=== PATIENT | female | born 1940 | race Caucasian/White ===

== ENCOUNTER 2023-02-06 15:03 | Outpatient (AMB) | payer MEDICARE, OTHER, SELFPAY ==
[2023-02-06 15:08] VITALS: BP 110/58; PULSE 92; O2SAT 97; BMI 18.7
--- NOTE | 2023-02-06 15:08 | MHC.PC.OV ---
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 Switched appt with for next week Allergies No Known Allergies Allergy (Verified 02/06/23 15:09) Medication List - Last Reconciled 02/06/23 by Rachel Parekh MD mercaptopurine 50 mg PO DAILY metoprolol succinate ER 50 mg PO DAILY quetiapine 100 mg PO BEDTIME rivaroxaban (Xarelto) 15 mg PO QPM Tobacco use date assessed: 02/06/23 Fall risk assessment: 1 Fall in past year Last assessed Fall Risk: 02/06/23 Dental Screening Dental Screen Date: 02/06/23 Did you have a dental visit in the last 12 months?: Yes Did you have a dental problem in the last 6 months where you did not have access to dental care?: No Was dental information given to patient?: No 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 week HPI Details Patient is 82-year-old gentleman [place] moved [place] [facility] in today for establish care visit Patient have a history of bipolar disorder he was seeing a psychiatrist in [place] and is in need of new psychiatrist He has medication for 2 months he is on Seroquel 100 mg daily which is helping control his symptoms Chronic atrial fibrillation: Patient is on Xarelto and metoprolol heart rate is controlled need a referra for cardiology Crohn's disease: Patient is on mercaptopurine and need a referral to Gastroenterology Dermatology referral for skin cancer screening Patient have scoliosis and having difficulty walking now I have ordered x-ray of his thoracic spine and lumbar spine to see how bad the problem is. Lab order placed to be done fasting Follow-up 8 weeks Patient have enough medication until then [facility] Social History Housing: Assisted Living Facility Patient Tobacco Use Status: Never used Tobacco e-Cigarette/Vaping Use: Never Used service: No Current occupational status: retired Cognitive needs: No Hearing needs: No Vision needs: Yes Questionnaire AUDIT C Alcohol Use Questionnaire (AUDIT-C) 1. How often do you have a drink containing alcohol?: Never 2. How many drinks containing alcohol do you have on a typical day when you are drinking?: 1 or 2 Total Score: 0 Score Reviewed/Action Taken: Yes Review of Systems Const Denies chills and Denies fever(s) ENT Denies epistaxis and Denies nasal discharge Card Denies chest pain Resp Denies chest congestion, Denies cough and Denies hemoptysis GI Denies diarrhea and Denies nausea Skin/Breast Denies rash Neuro Reports no additional complaints Psych Reports no additional complaints Endo Reports no additional complaints Physical exam (Primary Care) Vital Signs: Last Vital Signs Pulse 92 02/06/23 15:08 BP 110/58 L 02/06/23 15:08 Pulse Ox 97 02/06/23 15:08 Oxygen Delivery Method Room Air 02/06/23 15:08 BMI result Body Mass Index 18.7 Tobacco/Smoking Status: Tobacco use Status Tobacco use date assessed 02/06/23 02/06/23 15:14 Patient Tobacco Use Status Never used Tobacco 02/06/23 15:14 e-Cigarette/Vaping Use Never Used 02/06/23 15:14 Const General: cooperative, comfortable and no acute distress Orientation/consciousness: patient oriented x3 HENMT Head: Yes normocephalic Eyes General: appearance normal, both eyes and all related structures Neck Neck: Yes supple Resp Effort & Inspection: normal respiratory effort, no cough and no stridor Cardio Other: Regularly irregular Heart sounds: S1 normal heart sound present and S2 normal heart sound present Back/Spine/Pelvis Other: Scoliosis present Skin General skin exam: turgor normal Neuro General: patient oriented x3, tone normal and moves all extremities Extrem Right lower extremity: no edema Left lower extremity: no edema Assessment and Plan Assessment & Plan (1) Establishing care with new doctor, encounter for: Code(s): Z76.89 - Persons encountering health services in other specified circumstances (2) Bipolar 1 disorder: Code(s): F31.9 - Bipolar disorder, unspecified (3) A-fib: Code(s): I48.91 - Unspecified atrial fibrillation (4) Crohn disease: Code(s): K50.90 - Crohn's disease, unspecified, without complications (5) Scoliosis: Code(s): M41.9 - Scoliosis, unspecified Plan Patient is 82-year-old gentleman who [place] came in today for establish care visit Patient have a history of bipolar disorder he was seeing a psychiatrist in [place] and is in need of new psychiatrist He has medication for 2 months he is on Seroquel 100 mg daily which is helping control his symptoms Chronic atrial fibrillation: Patient is on Xarelto and metoprolol heart rate is controlled need a referra for cardiology Crohn's disease: Patient is on mercaptopurine and need a referral to Gastroenterology Dermatology referral for skin cancer screening Patient have scoliosis and having difficulty walking now I have ordered x-ray of his thoracic spine and lumbar spine to see how bad the problem is. Lab order placed to be done fasting Follow-up 8 weeks Patient have enough medication until then Orders: Orders Comprehensive [place]. Panel Fast Today F31.9 - Bipolar disorder, unspecified, I48.91 - Unspecified atrial fibrillation, K50.90 - Crohn's disease, unspecified, without complications, Z76.89 - Persons encountering health services in other specified circumstances Lipid Panel Today F31.9 - Bipolar disorder, unspecified, I48.91 - Unspecified atrial fibrillation, K50.90 - Crohn's disease, unspecified, without complications, Z76.89 - Persons encountering health services in other specified circumstances TSH reflex Free T4 Today F31.9 - Bipolar disorder, unspecified, I48.91 - Unspecified atrial fibrillation, K50.90 - Crohn's disease, unspecified, without complications, Z76.89 - Persons encountering health services in other specified circumstances Complete Blood Count Auto Diff Today F31.9 - Bipolar disorder, unspecified, I48.91 - Unspecified atrial fibrillation, K50.90 - Crohn's disease, unspecified, without complications, Z76.89 - Persons encountering health services in other specified circumstances XR thoracic spine 2V Today M41.9 - Scoliosis, unspecified XR lumbar spine 2-3V Today M41.9 - Scoliosis, unspecified Referrals Gastroenterology Referral K50.90 - Crohn's disease, unspecified, without complications Dermatology Referral Z12.83 - Encounter for screening for malignant neoplasm of skin Cardiology Referral I48.91 - Unspecified atrial fibrillation Psychiatry Referral F31.9 - Bipolar disorder, unspecified Coding Level of Care Code New Pt Level 4 (38768) Diagnoses Establishing care with new doctor, encounter for Z76.89 Bipolar 1 disorder F31.9 A-fib I48.91 Crohn disease K50.90 Scoliosis M41.9
== END 2023-02-06 16:13 | disposition home or self-care (01) ==
PROVIDERS: Visit Provider Internal Medicine
DX: Z76.89 Persons encountering health services in other specified circumstances (principal); F31.9 Bipolar disorder, unspecified; I48.91 Unspecified atrial fibrillation; K50.90 Crohn's disease, unspecified, without complications; M41.9 Scoliosis, unspecified
CPT/HCPCS: 99204

== ENCOUNTER 2023-02-18 10:32 | Outpatient (REF) | payer MEDICARE, OTHER, SELFPAY ==
[2023-02-18 13:33] LABS: MANUAL DIFF FLAG NO
[2023-02-18 13:39] LABS: Basophils Percent Auto 0.7 % (0-2); Eosinophils Absolute Auto 0.1 X10*3/uL (0.0-0.4); Hematocrit 34.7 % (37.0-47.0); Hemoglobin 11.5 g/dl (12.0-16.0); Imm Gran Abs Auto 0.02 X10*3/uL (0.00-0.03); Imm Gran Pct Auto 0.5 % (0.0-0.4); Lymphocytes Absolute Auto 0.2 X10*3/uL (1.2-4.9); Mean Corpuscular HGB Conc 33.1 g/dl (31.0-35.0); Mean Corpuscular Hemoglobin 34.2 pg (27.0-33.0); Mean Corpuscular Volume 103.3 fL (80.0-98.0); Mean Platelet Volume 11.6 fL (9.4-12.3); Monocytes Absolute Auto 0.5 X10*3/uL (0.1-1.2); Monocytes Percent Auto 13.4 % (2-11); Neutrophils Absolute Auto 3.1 x10*3/uL (2.0-8.3); Neutrophils Percent Auto 76.4 % (45-73); Platelet Count 180 X10*3/uL (160-400); Red Blood Count 3.36 X10*6/uL (4.20-5.50); Red Cell Distribution Width 14.4 % (11.0-16.0)
[2023-02-18 14:14] LABS: Alanine Aminotransferase 32 U/L (0-31); Albumin Level 4.1 g/dL (3.5-5.0); Alkaline Phosphatase 63 U/L (39-117); Anion Gap 11 (12-20); Aspartate Amino Transferase 30 U/L (5-31); Bilirubin Total 2.6 mg/dL (0.0-1.0); Blood Urea Nitrogen 24 mg/dL (9-16); Calcium 9.9 mg/dL (8.4-10.2); Carbon Dioxide 28 mmol/L (22-29); Chloride 107 mmol/L (96-108); Cholesterol 110 mg/dL (<200); Estimated Glomerular Filt Rate > 60; Glucose Fasting 93 mg/dL (60-99); HDL Cholesterol 58 mg/dL (>40); LDL Cholesterol Calculated 41 mg/dL (<100); Potassium 4.6 mmol/L (3.3-5.1); Sodium 141 mmol/L (135-145); TSH reflex Free T4 1.69 uIU/mL (0.32-4.0); Total Protein 6.8 g/dL (6.5-8.0); Triglycerides 56 mg/dL (<150)
[2023-02-18 14:22] LABS: Vitamin B12 810 pg/mL (200-900)
[2023-02-22 09:05] LABS: Intrinsic Factor Antibodies Negative (Negative)
== END 2023-02-18 10:33 | disposition home or self-care (01) ==
LOC: HO.HMGCLDS 10:32
PROVIDERS: PCP Internal Medicine; Visit Provider Internal Medicine
DX: E53.8 Deficiency of other specified B group vitamins (principal); F31.9 Bipolar disorder, unspecified; I48.91 Unspecified atrial fibrillation; K50.90 Crohn's disease, unspecified, without complications; Z76.89 Persons encountering health services in other specified circumstances
CPT/HCPCS: 36415; 80053; 80061; 82607; 84443; 85025; 86340

== ENCOUNTER 2023-03-24 12:02 | Outpatient (AMB) | payer MEDICARE, OTHER, SELFPAY ==
[2023-03-24 12:03] VITALS: BP 110/62; PULSE 77; O2SAT 99; BMI 19.7
--- NOTE | 2023-03-24 12:03 | MHC.PC.OV ---
Vital Signs 03/24/23 12:03 Height 5 ft 10 in Weight 137 lb BMI 19.7 BP 110/62 Blood Pressure Location Rt brachial Position Sitting Pulse 77 Pulse Source Pulse Oximeter Pulse Oximetry (%) 99 Oxygen Delivery Method Room Air Intake Visit Reasons: 6 week fu Allergies No Known Allergies Allergy (Verified 03/24/23 12:03) Medication List - Last Reconciled 03/24/23 by Rachel Parekh MD mercaptopurine 50 mg PO DAILY metoprolol succinate ER 50 mg PO DAILY quetiapine 100 mg PO BEDTIME rivaroxaban (Xarelto) 15 mg PO QPM Tobacco use date assessed: 03/24/23 Fall risk assessment: No Falls in past year Last assessed Fall Risk: 03/24/23 Dental Screening Dental Screen Date: 03/24/23 Did you have a dental visit in the last 12 months?: Yes Did you have a dental problem in the last 6 months where you did not have access to dental care?: No Was dental information given to patient?: Patient has dentist HPI 6 week fu HPI Details Patient is 82-year-old gentleman came in today to go over his labs Patient is slightly anemic with hemoglobin in 11 range We will continue to monitor that. B12 level came back 810 This time patient does not need any supplement I will be repeating level again in 1 month as patient was on B12 injections. We do not have old records available as well I do not know if he has pernicious anemia or not. Patient does not know. Patient has appointment coming up with the gastroenterology for the management of Crohn's disease. Supposed to have ear irrigation done today but he forgot use Debrox. Patient will make another appointment for that. COUNT INCLUDES THE [facility] Social History Housing: Assisted Living Facility Patient Tobacco Use Status: Never used Tobacco e-Cigarette/Vaping Use: Never Used service: No Current occupational status: retired Cognitive needs: No Hearing needs: No Vision needs: Yes Questionnaire PHQ-9 Over the last 2 weeks, how often have you been bothered by any of the following problems? 1. Little interest or pleasure in doing things: not at all 2. Feeling down, depressed, or hopeless: not at all 3. Trouble falling or staying asleep, or sleeping too much: not at all 4. Feeling tired or having little energy: more than half the days 5. Poor appetite or overeating: not at all 6. Feeling bad about yourself - or that you are a failure or have let yourself or your family down: not at all 7. Trouble concentrating on things, such as reading the newspaper or watching television: not at all 8. Moving or speaking so slowly that other people could have noticed. Or the opposite - being so fidgety or restless that you have been moving around a lot more than usual: not at all 9. Thoughts that you would be better off or of hurting yourself in some way: not at all Total score: 2 Depression Screening Interpretation: Negative 79277 - PHQ-9 Billing: Yes Source: Developed by Drs. Franklin Funez, Sally Pappas, Geoff Spears and colleagues, with an educational rhonda from [employer]. Thrive Questionnaire I am a: Patient What is your living situation today?: I have a steady place to live Within the past 12 months, did the food you bought not last and you didn't have the money to get more?: Never true Within the past 12 months, did you worry whether your food would run out before you got money to buy more?: Never true Do you have trouble paying for medicines?: No Do you have trouble getting transportation to medical appointments?: No Do you have trouble paying your heating and electricity bill?: No Do you have trouble taking care of your child, family member or friend?: No Do you have trouble with day-to-day activities such as bathing, preparing meals, shopping, managing finances, etc.?: No Are you currently unemployed and looking for a job?: No Are you interested in more education?: No AUDIT C Alcohol Use Questionnaire (AUDIT-C) 1. How often do you have a drink containing alcohol?: Never 3. How often do you have six or more drinks on one occasion?: Never Total Score: 0 Score Reviewed/Action Taken: Yes SIDRA-7 AMB Questionnaire SIDRA-7 Date SIDRA - 7 assessed: 03/24/23 Feeling nervous, anxious, or on edge: 0 = Not at all Not being able to stop or control worryin = Not at all Worrying too much about different things: 0 = Not at all Trouble relaxin = More than half the days Being so restless that it is hard to sit still: 0 = Not at all Becoming easily annoyed or irritable: 0 = Not at all Feeling afraid as if something awful might happen: 0 = Not at all Total SIDRA-7 score (0-4 normal; 5-9 mild; 10-14 moderate; 15-21 severe): 2 Source: Developed by Drs. Franklin Funez, Sally Pappas, Geoff Spears and colleagues, with an educational rhonda from [employer]. SIDRA-7 Assessment Billing SIDRA-7 Assessment Tool: SIDRA-7 Assessment 66163 Review of Systems Const Denies chills and Denies fever(s) ENT Denies epistaxis and Denies nasal discharge Card Denies chest pain Resp Denies chest congestion, Denies cough and Denies hemoptysis GI Denies nausea Skin/Breast Denies rash Neuro Reports no additional complaints Psych Reports no additional complaints Endo Reports no additional complaints Physical exam (Primary Care) Vital Signs: Last Vital Signs Pulse 77 03/24/23 12:03 BP 110/62 03/24/23 12:03 Pulse Ox 99 03/24/23 12:03 Oxygen Delivery Method Room Air 03/24/23 12:03 BMI result Body Mass Index 19.7 Tobacco/Smoking Status: Tobacco use Status Tobacco use date assessed 03/24/23 03/24/23 12:04 Patient Tobacco Use Status Never used Tobacco 03/24/23 12:04 e-Cigarette/Vaping Use Never Used 03/24/23 12:04 PHQ-9: PHQ-9 Score PHQ-9: Total score 2 03/24/23 14:04 Depression Screening Interpretation: Negative Const General: cooperative, comfortable and no acute distress Orientation/consciousness: patient oriented x3 HENMT Head: Yes normocephalic Eyes General: appearance normal, both eyes and all related structures Neck Neck: Yes supple Resp Effort & Inspection: normal respiratory effort, no cough and no stridor Cardio Heart sounds: S1 normal heart sound present and S2 normal heart sound present Skin General skin exam: turgor normal Neuro General: patient oriented x3, tone normal and moves all extremities Extrem Right lower extremity: no edema Left lower extremity: no edema Results Reviewed Results Reviewed: Laboratory Tests 02/18/23 10:38 WBC 4.0 L RBC 3.36 L Hgb 11.5 L Hct 34.7 L Plt Count 180 Total Bilirubin 2.6 H AST 30 ALT 32 H Alkaline Phosphatase 63 LDL Cholesterol, Calc 41 Vitamin B12 810 TSH 1.69 Assessment and Plan Assessment & Plan (1) B12 deficiency: Code(s): E53.8 - Deficiency of other specified B group vitamins (2) Bipolar 1 disorder: Code(s): F31.9 - Bipolar disorder, unspecified (3) A-fib: Code(s): I48.91 - Unspecified atrial fibrillation Qualifiers: Atrial fibrillation type: persistent (not longstanding) Qualified Code(s): I48.19 - Other persistent atrial fibrillation (4) Crohn disease: Code(s): K50.90 - Crohn's disease, unspecified, without complications Qualifiers: Digestive disease complication type: without complication Gastrointestinal tract location: large intestine Qualified Code(s): K50.10 - Crohn's disease of large intestine without complications Plan Patient is 82-year-old gentleman came in today to go over his labs Patient is slightly anemic with hemoglobin in 11 range We will continue to monitor that. B12 level came back 810 This time patient does not need any supplement I will be repeating level again in 1 month as patient was on B12 injections. We do not have old records available as well I do not know if he has pernicious anemia or not. Patient does not know. Patient has appointment coming up with the gastroenterology for the management of Crohn's disease. Supposed to have ear irrigation done today but he forgot use Debrox. Patient will make another appointment for that. Bipolar disorder: He is on Seroquel and is waiting to see psychiatrist Patient have appointment coming up with Cardiovascular for the management of AFib. Orders: Orders Vitamin B12 Today E53.8 - Deficiency of other specified B group vitamins Parietal Cell Antibody Today E53.8 - Deficiency of other specified B group vitamins Coding Level of Care Code Est Pt Level 3 (63772) Diagnoses B12 deficiency E53.8 Bipolar 1 disorder F31.9 Persistent atrial fibrillation I48.19 Atrial fibrillation type: persistent (not longstanding) Crohn's disease of large intestine without complication K50.10 Digestive disease complication type: without complication Gastrointestinal tract location: large intestine Additional Codes SIDRA-7 Assessment Billing - SIDRA-7 Assessment Tool: SIDRA-7 Assessment [id number] ([id number])
== END 2023-03-24 12:38 | disposition home or self-care (01) ==
PROVIDERS: PCP Internal Medicine; Visit Provider Internal Medicine
DX: K50.10 Crohn's disease of large intestine without complications (principal); F31.9 Bipolar disorder, unspecified; I48.19 Other persistent atrial fibrillation; E53.8 Deficiency of other specified B group vitamins
CPT/HCPCS: 99213

== ENCOUNTER 2023-05-01 14:53 | Outpatient (REF) | payer MEDICARE, OTHER, SELFPAY ==
--- NOTE | ~2023-05-01 | XR_ITS ---
EXAMINATION: XR THORACIC SPINE XR LUMBAR SPINE CLINICAL INFORMATION: Scoliosis. COMPARISON: None available. TECHNIQUE: 2 views of the thoracic spine. 3 views of the lumbar spine. FINDINGS: THORACIC SPINE: Mild dextroscoliosis of the thoracic spine with advanced multilevel degenerative changes and hypertrophic change. The bones are diffusely demineralized. LUMBAR SPINE: Rightward curvature of the stt-od-usurr lumbar spine. The bones are diffusely demineralized. Advanced multilevel degenerative changes in the lumbar spine with multilevel loss of disc space height and subchondral sclerosis most notable at L4-L5. Minimal grade 1 retrolisthesis of L2 on L3. Facet arthritis in the rov-fw-rafni lumbar spine. XR/XR lumbar spine 2-3V IMPRESSION: Thoracolumbar scoliosis with advanced multilevel degenerative changes in the thoracolumbar spine.
--- NOTE | ~2023-05-01 | XR_ITS ---
EXAMINATION: XR THORACIC SPINE XR LUMBAR SPINE CLINICAL INFORMATION: Scoliosis. COMPARISON: None available. TECHNIQUE: 2 views of the thoracic spine. 3 views of the lumbar spine. FINDINGS: THORACIC SPINE: Mild dextroscoliosis of the thoracic spine with advanced multilevel degenerative changes and hypertrophic change. The bones are diffusely demineralized. LUMBAR SPINE: Rightward curvature of the ybj-up-vvcsa lumbar spine. The bones are diffusely demineralized. Advanced multilevel degenerative changes in the lumbar spine with multilevel loss of disc space height and subchondral sclerosis most notable at L4-L5. Minimal grade 1 retrolisthesis of L2 on L3. Facet arthritis in the cbe-yo-eqoyz lumbar spine. XR/XR thoracic spine 2V IMPRESSION: Thoracolumbar scoliosis with advanced multilevel degenerative changes in the thoracolumbar spine.
[2023-05-01 17:19] LABS: Vitamin B12 > 2000 pg/mL (200-900)
[2023-05-06 13:14] LABS: Parietal Cell Antibody <=20.0 Unit (<=20.0)
== END 2023-05-01 14:54 | disposition home or self-care (01) ==
LOC: HO.HMGCX 14:53
PROVIDERS: PCP Internal Medicine; Visit Provider Internal Medicine
DX: M41.9 Scoliosis, unspecified (principal); E53.8 Deficiency of other specified B group vitamins
CPT/HCPCS: 36415; 72070; 72100; 82607; 83516

== ENCOUNTER 2023-05-06 15:09 | Outpatient (AMB) | payer MEDICARE, OTHER, SELFPAY ==
--- NOTE | 2023-05-06 15:10 | A.OFFPC_ITS ---
Vital Signs 05/06/23 15:11 Height 5 ft 10 in Weight 134 lb 2 oz BMI 19.2 BP 100/56 L Blood Pressure Location Rt brachial Position Sitting Pulse 94 Pulse Source Pulse Oximeter Pulse Oximetry (%) 98 Oxygen Delivery Method Room Air Intake Visit Reasons: Referral for Alzheimer's dx Allergies No Known Allergies Allergy (Verified 05/06/23 15:11) Medication List - Last Reconciled 05/06/23 by Rachel Parekh MD mercaptopurine 50 mg PO DAILY metoprolol succinate ER 50 mg PO DAILY quetiapine 100 mg PO BEDTIME rivaroxaban (Xarelto) 15 mg PO QPM Tobacco use date assessed: 05/06/23 Fall risk assessment: No Falls in past year Last assessed Fall Risk: 05/06/23 Dental Screening Dental Screen Date: 05/06/23 Did you have a dental visit in the last 12 months?: Yes Did you have a dental problem in the last 6 months where you did not have access to dental care?: No Was dental information given to patient?: Patient has dentist HPI Referral for Alzheimer's dx HPI Details Patient is 82-year-old gentleman came in today to go over his labs and also to talk about memory changes Patient would like to see a neurologist for further management His labs shows very high B12 level I would recommend to stop taking it daily he may take that once a week He is also slightly anemic with hemoglobin of 11.5 We will repeat labs again in June before his visit One of his liver enzymes slightly elevated as well. Patient have severe scoliosis of the back he is looking for a rehab appointment to discuss it further Patient is looking for conservative management with back brace. [facility] Social History Housing: Assisted Living Facility Patient Tobacco Use Status: Never used Tobacco e-Cigarette/Vaping Use: Never Used service: No Current occupational status: retired Cognitive needs: No Hearing needs: No Vision needs: Yes Questionnaire SIDRA-7 AMB Questionnaire SIDRA-7 Date SIDRA - 7 assessed: 03/24/23 Source: Developed by Drs. Franklin Funez, Sally Pappas, Geoff Spears and colleagues, with an educational rhonda from [employer]. Review of Systems Const Denies chills and Denies fever(s) ENT Denies epistaxis and Denies nasal discharge Card Denies chest pain Resp Denies chest congestion, Denies cough and Denies hemoptysis GI Denies diarrhea and Denies nausea Skin/Breast Denies rash Neuro Reports no additional complaints Psych Reports no additional complaints Endo Reports no additional complaints Physical exam (Primary Care) Vital Signs: Last Vital Signs Pulse 94 05/06/23 15:11 BP 100/56 L 05/06/23 15:11 Pulse Ox 98 05/06/23 15:11 Oxygen Delivery Method Room Air 05/06/23 15:11 BMI result Body Mass Index 19.2 Tobacco/Smoking Status: Tobacco use Status Tobacco use date assessed 05/06/23 05/06/23 15:12 Patient Tobacco Use Status Never used Tobacco 05/06/23 15:12 e-Cigarette/Vaping Use Never Used 05/06/23 15:12 Const General: cooperative, comfortable and no acute distress Orientation/consciousness: patient oriented x3 HENMT Head: Yes normocephalic Eyes General: appearance normal, both eyes and all related structures Neck Neck: Yes supple Resp Effort & Inspection: normal respiratory effort, no cough and no stridor Cardio Heart sounds: S1 normal heart sound present and S2 normal heart sound present Back/Spine/Pelvis Other: Severe thoracic scoliosis Skin General skin exam: turgor normal Neuro General: patient oriented x3, tone normal and moves all extremities Extrem Right lower extremity: no edema Left lower extremity: no edema Assessment and Plan Assessment & Plan (1) Memory change: Code(s): R41.3 - Other amnesia (2) B12 deficiency: Code(s): E53.8 - Deficiency of other specified B group vitamins (3) Scoliosis: Code(s): M41.9 - Scoliosis, unspecified Qualifiers: Scoliosis type: idiopathic Idiopathic scoliosis type: other Spinal region: thoracic Qualified Code(s): M41.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 Patient have severe scoliosis of the back he is looking for a rehab appointment to discuss it further Patient is looking for conservative management with back brace. Orders: Orders Complete Blood Count Auto Diff Today E53.8 - Deficiency of other specified B group vitamins, F31.9 - Bipolar disorder, unspecified, I48.91 - Unspecified atrial fibrillation, K50.90 - Crohn's disease, unspecified, without complications Comprehensive Met. Panel Today E53.8 - Deficiency of other specified B group vitamins, F31.9 - Bipolar disorder, unspecified, I48.91 - Unspecified atrial fibrillation, K50.90 - Crohn's disease, unspecified, without complications Vitamin B12 Today E53.8 - Deficiency of other specified B group vitamins, F31.9 - Bipolar disorder, unspecified, I48.91 - Unspecified atrial fibrillation, K50.90 - Crohn's disease, unspecified, without complications Referrals Neurology Referral R41.3 - Other amnesia Physical Medicine and Rehabilitation Referral M41.9 - Scoliosis, unspecified Coding Level of Care Code Est Pt Level 4 (76324) Diagnoses Memory change R41.3 B12 deficiency E53.8 Other idiopathic scoliosis, thoracic region M41.24 Scoliosis type: idiopathic Idiopathic scoliosis type: other Spinal region: thoracic
[2023-05-06 15:11] VITALS: BP 100/56; PULSE 94; O2SAT 98; BMI 19.2
== END 2023-05-06 16:05 | disposition home or self-care (01) ==
PROVIDERS: PCP Internal Medicine; Visit Provider Internal Medicine
DX: R41.3 Other amnesia (principal); E53.8 Deficiency of other specified B group vitamins; M41.24 Other idiopathic scoliosis, thoracic region
CPT/HCPCS: 99214

== ENCOUNTER 2023-06-10 10:13 | Outpatient (AMB) | payer MEDICARE, OTHER, SELFPAY ==
--- NOTE | 2023-06-10 10:15 | A.OFFVIS_ITS ---
Intake Vital Signs 06/10/23 10:17 Height 5 ft 10 in Weight 138 lb 14.259 oz BMI 19.9 BP 110/62 Blood Pressure Location Lt brachial Position Sitting Pulse 63 Intake Visit Reasons: NPV/ afib/ Dr. Parekh Intake Note: NPV w/ EKG Certified Orthotic Fitter Required: No Accompanied by: Daughter Allergies No Known Allergies Allergy (Verified 06/10/23 10:20) Medication List - Last Reconciled 06/10/23 by Travis Argueta MD mercaptopurine 75 mg PO DAILY metoprolol succinate ER 50 mg PO DAILY quetiapine 100 mg PO BEDTIME rivaroxaban (Xarelto) 15 mg PO QPM HPI HPI Comments History of Present Illness Details Asael is here for consultation regarding atrial fibrillation. He used t o live in [place] but has now moved some local area. It seems that he has had atrial fibrillation for many years, possibly decades. He is on beta-blockers as well as Xarelto. Otherwise, no clear-cut history of any coronary disease or myocardial infarction or cardiomyopathy or in fact any other cardiac issues. Within limits of with activity, he does not have any clear symptoms like angina or shortness of breath. No palpitations. He states that he likes to walk regularly. [facility] Medical History (Updated 06/10/23 @ 10:39 by Travis Argueta MD) Crohn disease Persistent atrial fibrillation Family History (Updated 06/10/23 @ 10:22 by Estela Zheng) Father Heart problem Social History Housing: Assisted Living Facility Patient Tobacco Use Status: Never used Tobacco e-Cigarette/Vaping Use: Never Used service: No Current occupational status: retired Cognitive needs: No Hearing needs: No Vision needs: Yes Review of Systems Const Denies chills, Denies daytime sleepiness, Denies fatigue, Denies fever(s), Denies frequent falls, Denies night sweats, Denies snoring, Denies weakness, Denies weight gain and Denies weight loss Eyes Denies loss of vision ENT Denies dizziness and Denies hearing loss Card Denies chest pain, Denies chest pain with activity, Denies syncope, Denies rapid heart rate, Denies edema, Denies claudication, Denies leg edema, Denies lightheadedness, Denies palpitations, Denies dyspnea, Denies dyspnea on exertion and Denies orthopnea Resp Denies cough, Denies excessive phlegm production, Denies dyspnea, Denies dyspnea on exertion, Denies snoring and Denies wheezing GI Denies abdominal pain, Denies hematochezia, Denies change in bowel habits, Steven es change in stool character, Denies heartburn, Denies nausea and Denies vomiting Denies hematuria, Denies dysuria and Denies urinary frequency Musc Denies arthralgias, Denies muscle weakness, Denies numbness and Denies tingling Skin/Breast Denies nail changes and Denies rash Neuro Denies Abnormal speech present, Denies dizziness, Denies syncope, Denies frequent falls, Denies loss of vision, Denies memory loss, Denies numbness, Denies tingling and Denies weakness Psych Denies depression and Denies memory loss Endo Denies fatigue and Denies palpitations Aller/Immun Denies wheezing Physical Exam Vital Signs: Last Vital Signs Pulse 63 06/10/23 10:17 BP 110/62 06/10/23 10:17 BMI result Body Mass Index 19.9 Const General: comfortable and no acute distress Orientation/consciousness: patient oriented x3 HEENT Other: Unremarkable Head: Yes normal to inspection Neck Neck: Yes normal visual inspection Chest Chest palpation & inspection: normal inspection of the chest Resp Auscultation: clear to auscultation bilaterally Cardio Palpation: normal PMI Heart sounds: S1 normal heart sound present, S2 normal heart sound present, no gallops, no murmurs and no rubs GI Palpation (GI): Soft to palpation Back/Spine/Pelvis Other: unremarkable Skin General skin exam: no rashes or lesions noted Neuro General: patient oriented x3 Speech: No Abnormal speech present Extrem General: Yes normal to inspection Psych Mental Status: mental status grossly normal Office Procedures EKG Details: EKG with atrial fibrillation rate of 63/Min; PVC versus aberrant conduction. Incomplete right bundle-branch block. [id number], Complete Assessment & Plan Assessment & Plan (1) Persistent atrial fibrillation: Code(s): I48.19 - Other persistent atrial fibrillation Plan EKG shows controlled atrial fibrillation. Per patient description, longstanding. Will get an echocardiogram for cardiac function assessment including atrial size and any valvular issues. Holter to assess adequacy of rate control. He needs to go for dental appointment for extraction and okay to hold Xarelto for 2 days prior to the procedure-if that is required. Follow-up in 6 months. Discussed with daughter who came for appointment. Orders: Orders CA echo transthoracic complete Today I48.19 - Other persistent atrial fibrillation ECG 3 day holter monitor Today I48.19 - Other persistent atrial fibrillation Coding Level of Care Code New Pt Level 3 (19998) Diagnoses Persistent atrial fibrillation I48.19 CPT Codes EKG - CPT: 96552-[id number], Complete ([id number])
[2023-06-10 10:17] VITALS: BP 110/62; PULSE 63; BMI 19.9
== END 2023-06-10 10:47 | disposition home or self-care (01) ==
PROVIDERS: PCP Internal Medicine; Visit Provider Internal Medicine
DX: I48.19 Other persistent atrial fibrillation (principal)
CPT/HCPCS: 93010; 99203

== ENCOUNTER → 2023-06-10 10:13 | Outpatient (BNVA) | payer MEDICARE, OTHER, SELFPAY | PROVIDERS: PCP Internal Medicine; Visit Provider Internal Medicine | DX: I48.19 Other persistent atrial fibrillation (principal) | CPT/HCPCS: 93005; 99202 ==

== ENCOUNTER 2023-06-19 12:00 | Outpatient (AMB) | payer MEDICARE, OTHER, SELFPAY ==
--- NOTE | 2023-06-19 12:03 | A.OFFVIS_ITS ---
Intake Vital Signs 06/19/23 12:05 Height 5 ft 10 in Weight 136 lb 10.986 oz BMI 19.6 BP 111/48 L Blood Pressure Location Lt brachial Position Sitting Pulse 96 Intake Visit Reasons: Crohn's Intake Note: Asael presents in the office as a new patient. CC: He states he is here today for Crohn's - He is from [place] and just wants to establish care with a new GI provider. Allergies No Known Allergies Allergy (Verified 06/19/23 12:05) HPI Crohn's HPI Details 82-year-old gentleman with crohns here f or assessment He has had Crohsn for maybe 20 yrs, dx after bowel obstruction he has been on 6 MP ever since and he feels doing a good job he feels bowel are normal right now, no bouts of diarrhea for long time with alternating constipation appetite is good PMH: crohns bipolar d/o a-fib PSH: partial bowel resection, obstructed appendectomy SH: non smoker, no alcohol, no drug use, lives in independent living place FH: father ?had IBD ROS Constitutional : No Weight loss, No Fever, No Chills ENT/Mouth : No sore throat, No Rhinorrhea Eyes: No Swelling, No Redness Cardiovascular : No Chest Pain, No SOB, No Edema Respiratory : No Cough, No Sputum, No Wheezing Gastrointestinal : see HPI Genitourinary : NO Dysuria, No Urinary Frequency, No Hematuria, No Urgency Musculoskeletal : No joint pain, No Myalgias, No Joint Swelling Skin : No Skin Lesions, No rash Neuro : No Weakness, No Numbness, No Dizziness, No Headache Psych : No Anxiety/Panic, No Depression Heme/Lymph: No Bruising, No Lymphadenopathy Endocrine : No Polyuria, No Polydipsia All other systems reviewed and are negative. EXAM: GENERAL: The patient is well developed and nontoxic. VITAL SIGNS:see workflow HEENT: Nonicteric sclerae, PERRLA, EOMI. Oropharynx clear. Moist mucous membranes. Conjunctivae appear well perfused. No thyroid mass. CHEST: Chest wall is nontender. HEART: Regular rate and rhythm without murmurs. LUNGS: Clear to auscultation bilaterally. ABDOMEN: Soft, positive bowel sounds, nontender, no organomegaly.no flank tenderness-- mid line scar SKIN: No rash, no excessive bruising, petechiae, or purpura. NEUROLOGIC: Cranial nerves II-XII intact without motor/sensory deficit. psych- nml affect A/P: 1/ hx of crohns complicated by bowel obs trcution and s/p partial colectomy, only on 6 MP< uncertain if he has deep remission certainly seems to be in clinical remission Plan: 1/ CT e for further eval, 2/ cont with 6 MP meantime, maybe check levels at furture date, the mcv elevation and low wcc is secondary to this 3/ should take vit D and MV daily 4/ vaccine hx up to date--he will confir m for sure with his PCP from [facility] Medical History Crohn disease Persistent atrial fibrillation Surgical History Hx of colonoscopy Family History Father Heart problem Social History Housing: Assisted Living Facility Patient Tobacco Use Status: Never used Tobacco e-Cigarette/Vaping Use: Never Used service: No Current occupational status: retired Cognitive needs: No Hearing needs: No Vision needs: Yes Physical Exam Vital Signs: Last Vital Signs Pulse 96 06/19/23 12:05 BP 111/48 L 06/19/23 12:05 BMI result Body Mass Index 19.6 Assessment & Plan Assessment & Plan (1) Crohn disease: Code(s): K50.90 - Crohn's disease, unspecified, without complications Qualifiers: Gastrointestinal tract location: large intestine Digestive disease complication type: without complication Qualified Code(s): K50.10 - Crohn's disease of large intestine without complications Plan: A/P: 1/ hx of crohns complicated by bowel obstrcution and s/p partial colectomy, only on 6 MP< uncertain if he has deep remission certainly seems to be in clinical remission Plan: 1/ CT e for further eval, 2/ cont with 6 MP meantime, maybe check levels at furture date, the mcv elevation and low wcc is secondary to this 3/ should take vit D and MV daily 4/ vaccine hx up to date--he will confirm for sure with his PCP from [facility] Orders: Orders CT enterography Today K50.90 - Crohn's disease, unspecified, without complications, R10.33 - Periumbilical pain Coding Level of Care Code New Pt Level 4 (44652) Diagnoses Crohn's disease of large intestine without complication K50.10 Gastrointestinal tract location: large intestine Digestive disease complication type: without complication
[2023-06-19 12:05] VITALS: BP 111/48; PULSE 96; BMI 19.6
== END 2023-06-19 12:30 | disposition home or self-care (01) ==
PROVIDERS: PCP Internal Medicine; Visit Provider Internal Medicine Gastroenterology
DX: K50.10 Crohn's disease of large intestine without complications (principal)
CPT/HCPCS: 99204

== ENCOUNTER → 2023-06-19 12:00 | Outpatient (BNVA) | payer MEDICARE, OTHER, SELFPAY | PROVIDERS: PCP Internal Medicine; Visit Provider Internal Medicine Gastroenterology | DX: K50.10 Crohn's disease of large intestine without complications (principal) | CPT/HCPCS: 99202 ==

== ENCOUNTER → 2023-06-30 12:59 | Outpatient (REF) | payer MEDICARE, OTHER, SELFPAY ==
--- NOTE | 2023-06-30 13:02 | HM_ITS ---
Conclusion: 1. Patient was monitored for total period of 3 days 2. Baseline was atrial fibrillation with average heart of 69 beats per minute with good rate control 3. No significant pauses noted 4. Occasional PVCs noted with 6 nonsustained ventricular tachycardia run with longest lasting 8 beats and the fastest at 147 beats per minute 5. No patient reported symptoms MTDD
--- NOTE | 2023-06-30 13:02 | CA_ITS ---
Transthoracic Echocardiogram Patient (Last, First, Middle): Asael Vargas F Gender: Male Date of : 1940 Age: 82 Procedure Date: 06/30/2023 Procedure Type: Transthoracic Echocardiogram Location: OP Height: 177.8 cm Weight: 58.97 kg BSA: 1.74 m2 Heart Rate: bpm BP: 90 / 52 mmHg Retail Support Associate: TO Referring MD: Travis Argueta MD Symptoms: I48.19 - Other persistent atrial fibrillation Study Quality: Adequate ECG Rhythm: Atrial Fibrillation Conclusions: - The left ventricular systolic function is low normal. The visually estimated ejection fraction is between 50-55%. - The left atrium is severely dilated. - No obvious valvular pathology seen on this study. Findings Left Ventricle Normal left ventricular cavity size. There is normal left ventricular wall thickness. The left ventricular systolic function is low normal. The visually estimated ejection fraction is between 50-55%. There is no evidence of regional wall motion abnormalities. Diastolic function is indeterminate on the basis of available data. Right Ventricle Mildly increased right ventricular cavity size. There is normal right ventricular systolic function. Atria The left atrium is severely dilated. The right atrium is moderately dilated. Aortic Valve There is a normal trileaflet aortic valve. There is no aortic valve stenosis. There is no aortic valve regurgitation. Mitral Valve The mitral valve appears normal. There is mild mitral valve regurgitation. There is no mitral valve stenosis. Pulmonic Valve There is mild pulmonic valve regurgitation. Tricuspid Valve Normal tricuspid valve structure. There is mild tricuspid valve regurgitation. There is no evidence of pulmonary hypertension. Great Vessels The asc aorta is normal in size. Venous The inferior vena cava is mildly dilated and collapses greater than 50% with inspiration. Pericardium/Pleural There is no evidence of pericardial effusion. Prior Study Comparison No prior study available for comparison. Recommendations, Care & Conclusions No obvious valvular pathology seen on this study. Measurements 2D Linear Measurements IVSd: 0.95 0.6-0.9/0.6-1.0 cm LVIDd: 4.48 3.9-5.3/4.2-5.9 cm LVIDd Index: 2.57 2.4-3.2/2.2-3.1 cm/m2 LVIDs: 3.28 2.0-3.6 cm LVPWd: 0.89 0.7-1.1 cm LA Diam: 4.10 2.7-3.8/3.0-4.0 cm LAIDs Index: 2.36 1.5-2.3 cm/m2 LV Mass: 168.65 67-162/88-224 g LV Mass Index: 96.92 43-95/49-115 g/m2 LVOT Diam: 2.10 3.0+(-)1.3 cm 2D Systolic Function EF 4C: 45.80 >55% EF 2C: 56.00 >55% EF BiP: 51.50 >55% Mitral Valve MV VTI: 0.23 MV Pk Charan: 0.98 MV Mn Charan: 0.63 MV Pk Grad: 4.00 MV Mn Grad: 2.00 MV Pk E: 0.82 MV Decel Time: 216.00 E'Lateral: 10.00 E'Medial: 8.05 E/E' Med: 10.20 E/E' Lat: 8.20 PHT: 63.00 MVA PHT: 3.49 MVA Continuity: 2.14 Decel [place]: 3.82 Aortic Valve AoV Pk Charan: 1.07 AoV Mn Charan: 0.70 AoV VTI: 0.21 AoV Pk Grad: 5.00 Aov Mn Grad: 2.00 TESSY Cont.VTI: 2.34 LVOT LVOT Pk Charan: 0.73 LVOT Mn Charan: 0.46 LVOT VTI: 0.14 LVOT Pk Grad: 2.00 LVOT Mn Grad: 1.00 LVOT Diam: 2.10 LVOT Area: 3.46 Diastolic Function MV Pk E: 0.82 E'Medial: 8.05 E/E' Med: 10.20 E' Laterial: 10.00 E/E' Lat: 8.20 Right Ventricle TAPSE (mm): 22.60 TVS' Charan: 10.80 Tricuspid Valve TR Pk Charan: 2.19 TR Pk Grad: 19.00 RA Press: 15.00 RVSP: 34.00 Great Vessels Aorta Sinus of Valsalva: 3.63 2.0-3.5 cm Ao Asc: 3.30 2.1-3.4 cm Updated in Other Vendor System with Status of Final Travis Argueta MD electronically signed on 06/30/2023 3:32:42 PM with status of Final
[2023-06-30 14:38] LABS: MANUAL DIFF FLAG NO
[2023-06-30 15:01] LABS: Basophils Percent Auto 0.4 % (0-2); Eosinophils Absolute Auto 0.1 X10*3/uL (0.0-0.4); Eosinophils Percent Auto 1.8 % (0-4); Hematocrit 35.3 % (42.0-52.0); Hemoglobin 11.8 g/dl (14.0-18.0); Imm Gran Abs Auto 0.03 X10*3/uL (0.00-0.03); Imm Gran Pct Auto 0.7 % (0.0-0.4); Lymphocytes Absolute Auto 0.4 X10*3/uL (1.2-4.9); Lymphocytes Percent Auto 9.1 % (20-40); Mean Corpuscular HGB Conc 33.4 g/dl (31.0-36.0); Mean Corpuscular Hemoglobin 35.1 pg (27.0-33.0); Mean Corpuscular Volume 105.1 fL (80.0-98.0); Mean Platelet Volume 10.9 fL (9.4-12.4); Monocytes Absolute Auto 0.9 X10*3/uL (0.1-1.2); Neutrophils Absolute Auto 3.1 x10*3/uL (2.0-8.3); Platelet Count 147 X10*3/uL (160-400); Red Blood Count 3.36 X10*6/uL (4.60-5.80); Red Cell Distribution Width 14.6 % (11.0-16.0); White Blood Count 4.5 X10*3/uL (4.8-10.8)
[2023-06-30 15:38] LABS: Alanine Aminotransferase 15 U/L (0-40); Alkaline Phosphatase 62 U/L (39-117); Anion Gap 9 (12-20); Aspartate Amino Transferase 20 U/L (5-37); Bilirubin Total 2.4 mg/dL (0.0-1.0); Blood Urea Nitrogen 26 mg/dL (9-16); Calcium 9.5 mg/dL (8.4-10.2); Carbon Dioxide 30 mmol/L (22-29); Chloride 108 mmol/L (96-108); Estimated Glomerular Filt Rate > 60; Glucose Random 84 mg/dL (60-115); Potassium 4.3 mmol/L (3.3-5.1); Sodium 143 mmol/L (135-145); Total Protein 6.4 g/dL (6.5-8.0)
[2023-06-30 15:57] LABS: Vitamin B12 895 pg/mL (200-900)
== END ==
LOC: HO.CARD 12:59
PROVIDERS: PCP Internal Medicine; Referring Provider Internal Medicine; Visit Provider Internal Medicine
DX: I48.19 Other persistent atrial fibrillation (principal); E53.8 Deficiency of other specified B group vitamins; K50.90 Crohn's disease, unspecified, without complications; F31.9 Bipolar disorder, unspecified
CPT/HCPCS: 36415; 80053; 82607; 85025; 93242; 93306

== ENCOUNTER → 2023-06-30 13:02 | Outpatient (BNV) | payer MEDICARE, OTHER, SELFPAY | PROVIDERS: PCP Internal Medicine; Referring Provider Internal Medicine; Visit Provider Internal Medicine | DX: I48.19 Other persistent atrial fibrillation (principal) | CPT/HCPCS: 93244; 93306 ==

== ENCOUNTER 2023-07-24 13:02 | Outpatient (AMB) | payer MEDICARE, OTHER, SELFPAY ==
[2023-07-24 13:10] VITALS: BP 120/68; PULSE 98; O2SAT 98; BMI 19.8
--- NOTE | 2023-07-24 13:10 | MHC.PC.OV ---
Vital Signs 07/24/23 13:10 Height 5 ft 10 in Weight 138 lb 4 oz BMI 19.8 BP 120/68 Blood Pressure Location Rt brachial Position Sitting Pulse 98 Pulse Source Pulse Oximeter Pulse Oximetry (%) 98 Oxygen Delivery Method Room Air Intake Visit Reasons: 4 month Follow up Allergies No Known Allergies Allergy (Verified 06/19/23 12:05) Medication List - Last Reconciled 07/24/23 by Rachel Parekh MD diphenoxylate-atropine 2.5-0.025 mg tabs PO mercaptopurine 75 mg PO DAILY metoprolol succinate ER 50 mg PO DAILY quetiapine 100 mg PO BEDTIME rivaroxaban (Xarelto) 15 mg PO QPM Tobacco use date assessed: 07/24/23 Fall risk assessment: No Falls in past year Last assessed Fall Risk: 07/24/23 Dental Screening Dental Screen Date: 07/24/23 Did you have a dental visit in the last 12 months?: Yes Did you have a dental problem in the last 6 months where you did not have access to dental care?: No Was dental information given to patient?: Patient has dentist HPI 4 month Follow up HPI Details Patient is 83-year-old gentleman came in today for his regular follow-up with his daughter Labs done recently reviewed B12 level is within normal limit He is also slightly anemic with hemoglobin of 11.5 , stable One of his liver enzymes slightly elevated but stable Patient have severe scoliosis managing conservatively Patient has seen Dr. Mirza for bipolar disorder management through Psychiatry [facility] Medical History Crohn disease Persistent atrial fibrillation Surgical History Hx of colonoscopy Family History Father Heart problem Social History Housing: Assisted Living Facility Patient Tobacco Use Status: Never used Tobacco e-Cigarette/Vaping Use: Never Used service: No Current occupational status: retired Cognitive needs: No Hearing needs: No Vision needs: Yes Questionnaire SIDRA-7 AMB Questionnaire SIDRA-7 Date SIDRA - 7 assessed: 03/24/23 Source: Developed by Drs. Franklin Funez, Sally Pappas, Geoff Spears and colleagues, with an educational rhonda from [employer]. Review of Systems Const Denies chills and Denies fever(s) ENT Denies epistaxis and Denies nasal discharge Card Denies chest pain Resp Denies chest congestion, Denies cough and Denies hemoptysis GI Denies diarrhea and Denies nausea Skin/Breast Denies rash Neuro Reports no additional complaints Psych Reports no additional complaints Endo Reports no additional complaints Physical exam (Primary Care) Vital Signs: Last Vital Signs Pulse 98 07/24/23 13:10 BP 120/68 07/24/23 13:10 Pulse Ox 98 07/24/23 13:10 Oxygen Delivery Method Room Air 07/24/23 13:10 BMI result Body Mass Index 19.8 Tobacco/Smoking Status: Tobacco use Status Tobacco use date assessed 07/24/23 07/24/23 13:14 Patient Tobacco Use Status Never used Tobacco 07/24/23 13:14 e-Cigarette/Vaping Use Never Used 07/24/23 13:14 Const General: cooperative, comfortable and no acute distress Orientation/consciousness: patient oriented x3 HENMT Head: Yes normocephalic Eyes General: appearance normal, both eyes and all related structures Neck Neck: Yes supple Resp Effort & Inspection: normal respiratory effort, no cough and no stridor Cardio Rhythm: regular rhythm Heart sounds: S1 normal heart sound present and S2 normal heart sound present Skin General skin exam: turgor normal Neuro General: patient oriented x3, tone normal and moves all extremities Extrem Right lower extremity: no edema Left lower extremity: no edema Assessment and Plan Assessment & Plan (1) A-fib: Code(s): I48.91 - Unspecified atrial fibrillation Qualifiers: Atrial fibrillation type: persistent (not longstanding) Qualified Code(s): I48.19 - Other persistent atrial fibrillation (2) Memory change: Code(s): R41.3 - Other amnesia (3) Scoliosis: Code(s): M41.9 - Scoliosis, unspecified Qualifiers: Scoliosis type: idiopathic Idiopathic scoliosis type: other Spinal region: thoracic Qualified Code(s): M41.24 - Other idiopathic scoliosis, thoracic region (4) Bipolar 1 disorder: Code(s): F31.9 - Bipolar disorder, unspecified (5) Crohn disease: Code(s): K50.90 - Crohn's disease, unspecified, without complications Qualifiers: Gastrointestinal tract location: large intestine Digestive disease complication type: without complication Qualified Code(s): K50.10 - Crohn's disease of large intestine without complications (6) Anemia: Code(s): D64.9 - Anemia, unspecified Qualifiers: Anemia type: other cause Other causes of anemia: chronic disease, other Qualified Code(s): D63.8 - Anemia in other chronic diseases classified elsewhere Plan Patient is 83-year-old gentleman came in today for his regular follow-up with his daughter Labs done recently reviewed B12 level is within normal limit He is also slightly anemic with hemoglobin of 11.5 , stable One of his liver enzymes slightly elevated but stable Patient have severe scoliosis managing conservatively Patient has seen Dr. Mirza for bipolar disorder management through Psychiatry He has seen Cardiology for persistent atrial fibrillation And has seen Gastroenterology for the management of Crohn's disease Coding Level of Care Code Est Pt Level 4 (44910) Diagnoses Persistent atrial fibrillation I48.19 Atrial fibrillation type: persistent (not longstanding) Memory change R41.3 Other idiopathic scoliosis, thoracic region M41.24 Scoliosis type: idiopathic Idiopathic scoliosis type: other Spinal region: thoracic Bipolar 1 disorder F31.9 Crohn's disease of large intestine without complication K50.10 Gastrointestinal tract location: large intestine Digestive disease complication type: without complication Anemia in other chronic diseases classified elsewhere D63.8 Anemia type: other cause Other causes of anemia: chronic disease, other
== END 2023-07-24 15:31 | disposition home or self-care (01) ==
PROVIDERS: PCP Internal Medicine; Visit Provider Internal Medicine
DX: I48.19 Other persistent atrial fibrillation (principal); F31.9 Bipolar disorder, unspecified; K50.10 Crohn's disease of large intestine without complications; R41.3 Other amnesia; M41.24 Other idiopathic scoliosis, thoracic region; D63.8 Anemia in other chronic diseases classified elsewhere
CPT/HCPCS: 99214

== ENCOUNTER 2023-07-28 14:56 | Outpatient (REF) | payer MEDICARE, OTHER, SELFPAY ==
--- NOTE | ~2023-07-28 | CT_ITS ---
EXAMINATION: CT ENTEROGRAPHY ABDOMEN AND PELVIS WITH CONTRAST CLINICAL INFORMATION: Periumbilical abdominal pain COMPARISON: None available. TECHNIQUE: Study performed with oral VoLumen (1350 mL) and 480 mL of water to distend the abdomen. The patient was injected with 85 mL Omnipaque 350 intravenous contrast which was administered without adverse effect. Coronal and sagittal reformatted images were obtained at the technologist's workstation. This CT examination was performed using dose optimization techniques as appropriate, variously including the following: *Automated exposure control *Adjustment of mA and/or kV according to patient size (this includes techniques or standardized protocols for targeted exams where dose is matched to indication/reason for exam; i.e. extremities or head) *Use of iterative reconstruction technique DLP: 247 mGy-cm FINDINGS: GASTROINTESTINAL FINDINGS: Stomach: Well-distended and normal in appearance. Small intestine: Just proximal to the ileocecal anastomosis, the neoterminal ileum shows circumferential mural thickening and enhancing mucosa, measuring 4.5 cm in length. The rest of the small intestine is Satisfactorily distended and normal in appearance. Large intestine: Well-distended and normal in appearance. No perirectal changes demonstrated. The appendix is not visualized. Lower ascending ileocolic anastomosis staple line is present. There is mild fecal distention of the rectum. Additional findings: No abnormal enhancement of the vasa recta or significant mesenteric or retroperitoneal lymphadenopathy is seen. No abdominal abscess or fistulous tract demonstrated. FINDINGS: LUNG BASES: Bilateral lung bases are clear. Extensive calcified pericardial plaques are seen. A small hiatus hernia is present. LIVER: No focal lesion is seen in the liver. GALLBLADDER AND BILIARY TREE: Gallbladder is not visualized. Common bile duct is not dilated. SPLEEN: The spleen is normal in size without focal lesion. Accessory spleen is seen posterior medial to the splenic body measuring 1.5 cm in diameter. PANCREAS: The pancreas appears unremarkable. ADRENAL GLANDS: Adrenal glands are normal in size without focal lesion bilaterally. KIDNEYS: Bilateral kidneys are normal in size with multiple left renal cortical simple cysts, up to 4.4 cm in diameter in the largest exophytic superior left renal pole simple cyst, for which no follow-up imaging is recommended. RETROPERITONEUM: No abnormally enlarged retroperitoneal lymph nodes, mass or hematoma could be seen. BLOOD VESSELS: Abdominal aorta is normal in size and smoothly patent. ABDOMINAL WALL: Abdominal subcutaneous tissue and muscle are intact. No evidence of ventral hernia. PERITONEUM: At upper L4 level, a large calcified lesion is seen in posterior mesentery, measuring 2.3 cm in AP diameter, 3.7 cm in width, 5.1 cm in vertical height. There was no ascites. There were no abdominal peritoneal inflammatory changes seen. No free peritoneal air was seen. No abnormally enlarged mesenteric lymph nodes are found. BONES: Moderate L1-L2 levoscoliosis and multilevel advanced degenerative lumbar disc disease are seen. No fracture or dislocation. No focal bone lesion diagnostic of metastatic disease could be seen in the lumbar region. EXAMINATION: CT pelvis. TECHNIQUE: Multiple axial images were obtained from iliac crest to the inferior pubic rami following the administration of 85 mL of Omnipaque 350. Coronal and sagittal images were reconstructed from axial image data. Dose reduction technique: One or more of the following individual dose optimization techniques were used including: Automated exposure control, mA and/or kV were adjusted according to patient size or iterative reconstruction. FINDINGS: URINARY BLADDER: Urinary bladder fills normally with urine. GENITAL ORGANS: Seminal vesicles are unremarkable. Prostate gland is markedly enlarged, measuring 5.9 cm in AP diameter, 6.2 cm in width. LYMPH NODES: No abnormally enlarged iliac or inguinal lymph nodes are seen. PERITONEUM: No inflammatory changes, ascites or free peritoneal air are found in the pelvis. BONES: No fracture or dislocation. No focal bone lesion diagnostic of metastatic disease could be seen in the pelvis. CT/CT enterography IMPRESSION: 1. Status post lower ascending ileocolic anastomosis. Circumferential mural thickening and enhancing mucosa in the neoterminal ileum, measuring 4.5 cm in length is compatible with terminal ileitis. 2. Extensive calcified pericardial plaques. 3. Multiple left renal simple cysts, for which no follow-up imaging is recommended. 4. A large posterior mesenteric calcified lesion is seen at L4 level. This was evident on lumbar spine x-ray on 05/01/2023. Differential diagnosis include calcifying fibrous tumor of the mesentery, inflammatory myofibroblastic tumor, solitary fibrous tumor and desmoid tumor of the mesentery. 5. Markedly enlarged prostate gland.
[2023-07-28] MEDS: Sorbitol/Mannit/Xanth Imaging 500 ML LIQUID 1500 ML PO (16:33)
[2023-07-28] MEDS: iohexoL 350 MG/ML 100 ML INFUS..BTL 85 ML IV (16:33)
== END 2023-07-28 14:57 | disposition home or self-care (01) ==
LOC: HO.CT 14:56
PROVIDERS: PCP Internal Medicine; Visit Provider Internal Medicine Gastroenterology
DX: R10.33 Periumbilical pain (principal); K50.90 Crohn's disease, unspecified, without complications
CPT/HCPCS: 74177; Q9967

== ENCOUNTER 2023-09-23 13:04 | Outpatient (AMB) | payer MEDICARE, OTHER, SELFPAY ==
--- NOTE | 2023-09-23 13:09 | MHC.OFFVIS ---
Intake Vital Signs 09/23/23 13:10 Height 5 ft 7.5 in Weight 138 lb 8 oz BMI 21.4 BP 122/68 Blood Pressure Location Rt brachial Position Sitting Respiration 17 Pulse 72 Pulse Source Pulse Oximeter Pulse Oximetry (%) 99 Oxygen Delivery Method Room Air Intake Visit Reasons: [id number] Intake Note: Pt presents to the office for new pt evaluation for memory issues. 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 He is accompanied by his daughter who helps with history. He moved from [place] to [place] last year. He started noticing some memory issues about 2 years ago and was evaluated in [place] but does not know the diagnosis. He has short term recall issues, he has trouble remembering to take medications,trouble remembering appointments, misplaces things in the house,mild difficulty with remembering conversations etc. He denies any executive issues.He stopped driving 3-4 years ago - was told he had a slow response time. He has depression, bipolar 2 disorder and is followed up by . 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 No head injury . Family h/o- mother, Brother and maternal grand mother had dementia. [facility] Medical History (Updated 09/23/23 @ 13:56 by Cristine Douglass MD) Cognitive disorder Alzheimer's dementia Anemia B12 deficiency Scoliosis A-fib Bipolar 1 disorder Crohn disease Persistent atrial fibrillation Surgical History Hx of colonoscopy Family History Father Heart problem Social History Housing: Assisted Living Facility Patient Tobacco Use Status: Never used Tobacco e-Cigarette/Vaping Use: Never Used service: No Current occupational status: retired Cognitive needs: No Hearing needs: No Vision needs: Yes Physical Exam Vital Signs: Last Vital Signs Pulse 72 09/23/23 13:10 Resp 17 09/23/23 13:10 BP 122/68 09/23/23 13:10 Pulse Ox 99 09/23/23 13:10 Oxygen Delivery Method Room Air 09/23/23 13:10 BMI result Body Mass Index 21.4 Const General: cooperative, healthy appearing, comfortable and no acute distress Nutritional Appearance: average body habitus Orientation/consciousness: oriented to person and oriented to place Eyes Pupils: Equal, round and reactive pupils present Neuro Other: Neck- antecollis Mild slowness decreased range of motion in the neck General: oriented to person, oriented to place, tone normal, moves all extremities and no focal motor deficits Cranial nerves: Yes Facial sensation intact/muscles of mastication intact, Yes Equal, round and reactive pupils present, Yes Bilaterally intact EOM present, Yes Nystagmus not present, Yes Normal facial strength present and Yes Midline tongue present Cognition (Neuro): normal cognition Gait exam (Neuro): Antalgic gait present Motor exam (neuro): 5/5 motor strength present throughout and Normal motor muscle tone present throughout Deep tendon reflexes (DTR's): Right triceps reflex intensity grade: 1+, Left triceps reflex intensity grade: 1+, Rt Biceps (C5, C6): 1+, Left biceps reflex intensity grade: 1+, Right brachioradialis reflex intensity grade: 1+, Left brachioradialis reflex intensity grade: 1+, Right patellar reflex intensity grade: 1+ and Left patellar reflex intensity grade: 1+ Coordination: [id number] test normal Orientation What is the (year) (season) (date) (day) (month)?: day Where are we (state) (county) (town or city) (hospital) (floor)?: state, county, town or city, hospital/clinic and floor Registration Name of 3 unrelated objects clearly and slowly, then ask patient to repeat all 3 of them. (1st repeat determines score. Make sure they can repeat all three): object 1, object 2 and object 3 Attention & Calculation (CHOOSE ONE) Spell WORLD backwards (DLROW): 5 letters Recall Ask patient to repeat the 3 items from question #3.: object 1, object 2 and object 3 Language Show patient a wristwatch & ask what it is. Repeat for pencil.: watch and pencil Ask the patient to repeat the phrase 'No ifs, ands, or buts' after you.: correct Ask the patient to 'take a piece of paper with their right hand' 'fold paper in half' 'place paper on floor': take paper in right hand, fold paper in half and place paper on floor Print the sentence 'CLOSE YOUR EYES' on a piece. If patient actually closes eyes then score.: followed written direction Give patient a blank piece of paper & ask to write a sentence. Score if it contains a noun & verb.: sentence contains subject and verb Ask patient to copy figure of intersecting pentagons exactly. Score if all 10 angles & 2 intersects are included.: all 10 angles present & 2 are intersected Score Score: 26 Assessment & Plan Assessment & Plan (1) Cognitive disorder: Comment: likely early Alzheimer's dementia - strong fh/o demnetia Code(s): F09 - Unspecified mental disorder due to known physiological condition Plan TSH CBC CMP were normal I will check his Vit B 12 and ESR MRI brain to r/o structural abnormality I will trial him on Memantine XR 7 mg He has an appointment with [facility] at [facility] October 06 Orders: Orders Erythrocyte Sedimentation Rate Today F02.80 - Dementia in other diseases classified elsewhere, unspecified severity, without behavioral disturbance, psychotic disturbance, mood disturbance, and anxiety, G30.9 - Alzheimer's disease, unspecified Vitamin B12 and Folate Today F02.80 - Dementia in other diseases classified elsewhere, unspecified severity, without behavioral disturbance, psychotic disturbance, mood disturbance, and anxiety, G30.9 - Alzheimer's disease, unspecified MR brain wo con w neuroquant Today F02.80 - Dementia in other diseases classified elsewhere, unspecified severity, without behavioral disturbance, psychotic disturbance, mood disturbance, and anxiety, G30.9 - Alzheimer's disease, unspecified Medications: New memantine 7 mg PO DAILY 30 ea 0RF Coding Level of Care Code New Pt Level 4 (59979) Diagnoses Cognitive disorder F09
[2023-09-23 13:10] VITALS: BP 122/68; PULSE 72; RESP 17; O2SAT 99; BMI 21.4
== END 2023-09-23 14:44 | disposition home or self-care (01) ==
PROVIDERS: PCP Internal Medicine; Visit Provider Psychiatry & Neurology Neurology
DX: R41.89 Other symptoms and signs involving cognitive functions and awareness (principal); Z81.8 Family history of other mental and behavioral disorders
CPT/HCPCS: 99204

== ENCOUNTER → 2023-09-23 13:04 | Outpatient (BNVA) | payer MEDICARE, OTHER, SELFPAY | PROVIDERS: PCP Internal Medicine; Visit Provider Psychiatry & Neurology Neurology ==

== ENCOUNTER 2023-09-23 14:11 | Outpatient (REF) | payer MEDICARE, OTHER, SELFPAY ==
[2023-09-23 19:16] LABS: Erythrocyte Sedimentation Rate 32 MM/HR (0-15)
[2023-09-23 19:34] LABS: Folate 14.2 ng/mL (> or = 4.0); Vitamin B12 1198 pg/mL (200-900)
== END 2023-09-23 14:12 | disposition home or self-care (01) ==
LOC: HO.HKASLDS 14:11
PROVIDERS: Visit Provider Psychiatry & Neurology Neurology
DX: R41.3 Other amnesia (principal); G30.9 Alzheimer's disease, unspecified; F02.80 Dementia in other diseases classified elsewhere, unspecified severity, without behavioral disturbance, psychotic disturbance, mood disturbance, and anxiety; F09 Unspecified mental disorder due to known physiological condition; Z79.899 Other long term (current) drug therapy
CPT/HCPCS: 36415; 82607; 82746; 85652; 99202

== ENCOUNTER 2023-10-02 15:34 | Outpatient (AMB) | payer MEDICARE, OTHER, SELFPAY ==
[2023-10-02 15:54] VITALS: BP 118/70; PULSE 76; TEMP 36.6; O2SAT 98
--- NOTE | 2023-10-02 15:54 | AM.OFFWIN_ITS ---
Intake Vital Signs 10/02/23 15:54 Height 5 ft 7.5 in BP 118/70 Blood Pressure Location Lt brachial Position Sitting Pulse 76 Pulse Source Pulse Oximeter Temp 97.9 F Temp Source Oral Pulse Oximetry (%) 98 Oxygen Delivery Method Room Air Intake Visit Reasons: EP chills fatigue 2Months Intake Note: pt says she has had shivers off and on for about 2 months with fatigue pt says he has a chronic clearing his throat Patient Tobacco Use Status: Never used Tobacco Allergies No Known Allergies Allergy (Verified 10/02/23 15:57) HPI HPI Comments History of Present Illness Details This is an 83-year-old male who presented to the walk-in clinic with his daughter today complaining of generalized fatigue and intermittent chills/shivers for the past 2 months. Patient's symptoms are extremely vague. He reports generalized fatigue and he occasionally gets ?shivers? which she describes as a wave going through his body. He states these episodes occur s everal times a day. He has had no measured fevers. He denies any specific symptoms such as chest pain, shortness for breath, abdominal pain, nausea/vomiting/diarrhea, lightheadedness/dizziness, cough, congestion/rhinorrhea, sore throat, urinary symptoms, skin rashes, or myalgias/arthralgias. Of note, patient was started on quetiapine relatively soon before his symptom onset. [facility] Medical History (Updated 10/02/23 @ 16:36 by YON Cesar) Fatigue Cognitive disorder Alzheimer's dementia Anemia B12 deficiency Scoliosis A-fib Bipolar 1 disorder Crohn disease Persistent atrial fibrillation Surgical History Hx of colonoscopy Family History Father Heart problem Social History Housing: Assisted Living Facility Patient Tobacco Use Status: Never used Tobacco e-Cigarette/Vaping Use: Never Used service: No Current occupational status: retired Cognitive needs: No Hearing needs: No Vision needs: Yes Review of Systems Const All systems reviewed & are unremarkable except as noted in HPI and below Reports no additional complaints Eyes Reports no additional complaints ENT Reports no additional complaints Card Reports no additional complaints Resp Reports no additional complaints GI Reports no additional complaints Reports no additional complaints Musc Reports no additional complaints Skin/Breast Reports system reviewed and no additional complaints, except as documented Neuro Reports no additional complaints Psych Reports no additional complaints Endo Reports no additional complaints Adebayo/Lymph Reports no additional complaints Aller/Immun Reports no additional complaints Physical Exam Vital Signs: Last Vital Signs Temp 97.9 F 10/02/23 15:54 Pulse 76 10/02/23 15:54 BP 118/70 10/02/23 15:54 Pulse Ox 98 10/02/23 15:54 Oxygen Delivery Method Room Air 10/02/23 15:54 Const Other: Vital signs reviewed. Constitutional: Non-toxic appearing. No acute distress. Well-developed and well-nourished. HEENT: Normocephalic and atraumatic. Skin: Warm and dry. No rashes or lesions noted. Neck: Full and painless range of motion. No cervical lymphadenopathy. Cardio: Regular rate and rhythm. No murmurs, gallops, or rubs. No lower extremity edema. No JVD. Pulmonary: No respiratory distress. No accessory muscle usage. Clear to a uscultation bilaterally without wheezing, crackles, or rhonchi. Gastrointestinal: Soft, nontender, and nondistended in all 4 quadrants. Musculoskeletal: Normal range of motion in joints throughout the body. No deformity or other signs of injury. Neuro: Alert and oriented x4. Cranial nerves 2-12 grossly intact. No focal d eficits appreciated. Psych: Normal mood and affect. Assessment & Plan Assessment & Plan (1) Fatigue: Code(s): R53.83 - Other fatigue Qualifiers: Fatigue type: chronic, unspecified Qualified Code(s): R53.82 - Chronic fatigue, unspecified Plan: This is an 83-year-old male who presented to the walk-in clinic with his daughter complaining of generalized fatigue and intermittent chills/shivers for the past 2 months. The differential diagnosis is broad given his very vague and nonspecific symptoms including occult infection versus depression/anxiety versus hematologic/metabolic abnormality (anemia, hypontremia, liver/kidney dysfunction, etc.) versus thyroid abnormality versus medication side effect the setting of recent starting quetiapine. Patient's vital signs are stable, his physical exam is benign, and he is overall nontoxic appearing. I explained to the patient and his daughter that the differential diagnosis is broad as listed above and would require an extensive workup, which usually would not be done in the walk-in clinic as his issue is chronic and non-urgent. They have requested that lab work to be sent to the patient's primary care physician as his PCP does not have any availability for quite a while. I believe this is a reasonable request so I have ordered a CBC (to evaluate for anemia, leukocytosis), CMP (to evaluate for electrolyte/metabolic/liver abnormalities), magnesium, and TSH to be sent to the patient's primary care physician for further evaluation. However , the patient and his daughter were instructed that if he were to develop any concerning symptoms such as chest pain, shortness for breath, abdominal pain, nausea/vomiting/diarrhea, lightheadedness/dizziness, fevers, or other signs of infection, they should proceed directly to the emergency room for a more urgent workup. Patient verbalized understanding and is agreeable with the plan. Orders: Orders Complete Blood Count Auto Diff Today R53.83 - Other fatigue Magnesium Today R53.83 - Other fatigue Comprehensive Met. Panel Today R53.83 - Other fatigue TSH reflex Free T4 Today R53.83 - Other fatigue Coding Level of Care Code Est Pt Level 3 (56773) Diagnoses Chronic fatigue R53.82 Fatigue type: chronic, unspecified
== END 2023-10-02 16:33 | disposition home or self-care (01) ==
PROVIDERS: PCP Internal Medicine; Visit Provider Physician Assistant Medical
DX: R53.82 Chronic fatigue, unspecified (principal)
CPT/HCPCS: 99213

== ENCOUNTER 2023-10-07 15:19 | Outpatient (REF) | payer MEDICARE, OTHER, SELFPAY ==
[2023-10-07 16:13] LABS: MANUAL DIFF FLAG NO
[2023-10-07 16:21] LABS: Basophils Percent Auto 0.3 % (0-2); Eosinophils Absolute Auto 0.1 X10*3/uL (0.0-0.4); Eosinophils Percent Auto 1.7 % (0-4); Hematocrit 35.6 % (42.0-52.0); Imm Gran Abs Auto 0.04 X10*3/uL (0.00-0.03); Imm Gran Pct Auto 0.6 % (0.0-0.4); Lymphocytes Absolute Auto 0.3 X10*3/uL (1.2-4.9); Lymphocytes Percent Auto 4.9 % (20-40); Mean Corpuscular HGB Conc 33.7 g/dl (31.0-36.0); Mean Corpuscular Hemoglobin 33.5 pg (27.0-33.0); Mean Corpuscular Volume 99.4 fL (80.0-98.0); Mean Platelet Volume 10.3 fL (9.4-12.4); Monocytes Absolute Auto 0.9 X10*3/uL (0.1-1.2); Monocytes Percent Auto 14.2 % (2-11); Neutrophils Absolute Auto 5.1 x10*3/uL (2.0-8.3); Neutrophils Percent Auto 78.3 % (45-73); Platelet Count 223 X10*3/uL (160-400); Red Blood Count 3.58 X10*6/uL (4.60-5.80); Red Cell Distribution Width 14.3 % (11.0-16.0); White Blood Count 6.5 X10*3/uL (4.8-10.8)
[2023-10-07 17:45] LABS: Alanine Aminotransferase 16 U/L (0-40); Alkaline Phosphatase 70 U/L (39-117); Anion Gap 11 (12-20); Aspartate Amino Transferase 19 U/L (5-37); Bilirubin Total 1.3 mg/dL (0.0-1.0); Blood Urea Nitrogen 25 mg/dL (9-16); Calcium 9.4 mg/dL (8.4-10.2); Carbon Dioxide 28 mmol/L (22-29); Chloride 106 mmol/L (96-108); Estimated Glomerular Filt Rate > 60; Glucose Random 80 mg/dL (60-115); Magnesium 2.1 mg/dL (1.6-2.6); Potassium 4.2 mmol/L (3.3-5.1); Sodium 141 mmol/L (135-145); TSH reflex Free T4 1.16 uIU/mL (0.32-4.0); Total Protein 6.9 g/dL (6.5-8.0)
== END 2023-10-07 15:20 | disposition home or self-care (01) ==
LOC: HO.HMGCLDS 15:19
PROVIDERS: PCP Internal Medicine; Referring Provider Internal Medicine; Visit Provider Physician Assistant Medical
DX: R53.83 Other fatigue (principal)
CPT/HCPCS: 36415; 80053; 83735; 84443; 85025

== ENCOUNTER 2023-10-25 02:15 | Emergency (ER) | payer MEDICARE, OTHER, SELFPAY ==
--- NOTE | ~2023-10-25 | XR_ITS ---
EXAMINATION: XR CHEST CLINICAL INFORMATION: Shortness of breath. COMPARISON: None available. TECHNIQUE: Frontal view of the chest was obtained. FINDINGS: The cardiomediastinal silhouette is within normal limits. There is no focal lung consolidation or pleural effusion. The bony structures and soft tissues are unremarkable. XR/XR chest 1V IMPRESSION: No acute cardiopulmonary process.
[2023-10-25 02:22] VITALS: BP 107/34; PULSE 83; RESP 16; TEMP 37.1; O2SAT 99; BMI 19.1
--- NOTE | 2023-10-25 02:45 | ECG_ITS ---
Test Reason : SOB Blood Pressure : / mmHG Vent. Rate : 079 BPM Atrial Rate : 000 BPM P-R Int : 000 ms QRS Dur : 094 ms QT Int : 384 ms P-R-T Axes : 000 115 068 degrees QTc Int : 440 ms Atrial fibrillation Right axis deviation Possible Right ventricular hypertrophy Abnormal ECG No previous ECGs available Referred By: Feli Arreola Electronically Signed By:JUANA HOBBS MD
--- NOTE | 2023-10-25 02:46 | ED_ITS ---
HPI - General Adult General Chief complaint: Upper Respiratory Symptoms Stated complaint: coughing trouble catching breathe Time Seen by Provider: 10/25/23 02:34 Source: patient Mode of arrival: ambulatory Limitations: no limitations History of Present Illness HPI narrative: Patient comes to the emergency room complaining of 3 weeks of cough, intermittent chills. Patient denies any fever to his knowledge. Patient has been coughing more than usual. Patient denies any history of asthma or COPD. However, patient states that many years ago he was told by one of his physicians back in [place], that his lungs look like a forensic document examiner's lungs. Patient denies nausea vomiting diarrhea. No chest pain. Denies orthopnea. Patient denies dyspnea on exertion. Related Data Home Medications ?Medication ?Instructions ?Recorded ?Confirmed mercaptopurine 50 mg tablet 75 mg PO DAILY 06/10/23 09/23/23 diphenoxylate-atropine 2.5 tab PO 06/19/23 09/23/23 mg-0.025 mg tablet Previous Rx's ?Medication ?Instructions ?Recorded quetiapine 100 mg tablet 100 mg PO BEDTIME #90 tabs 05/20/23 metoprolol succinate 50 mg 50 mg PO DAILY #90 tabs 09/01/23 tablet,extended release 24 hr rivaroxaban 15 mg tablet (Xarelto) 15 mg PO QPM #90 tabs 09/01/23 peg-electrolyte solution 420 gram 240 ml PO Q10M #4,000 mL 09/03/23 oral solution benzonatate 100 mg capsule 100 mg PO TID PRN cough #14 caps 10/25/23 Allergies Allergy/AdvReac Type Severity Reaction Status Date / Time No Known Allergies Allergy Verified 10/25/23 02:24 Review of Systems 2 Review of Systems: Constitutional : No Weight loss, No Fever, No Chills, No Night Sweats, No Fatigue, No Malaise ENT/Mouth : No Hearing loss, No Ear Pain, No Nasal Congestion, No Sinus Pain, No Hoarseness, No sore throat, No Rhinorrhea, No Swallowing Difficulty Eyes: No Eye Pain, No Swelling, No Redness, No Foreign Body, No Discharge, No Vision Changes Cardiovascular : No Chest Pain, No SOB, No Dyspnea on Exertion, No Orthopnea, No Edema, No Palpitations Respiratory : Complaining of several weeks of cough, no wheezing Gastrointestinal : No Nausea, No Vomiting, No Diarrhea, No Constipation, No abdominal Pain, No Hematochezia, No Melena Genitourinary : no irregular bleeding, No Dysuria, No Urinary Frequency, No Hematuria, No Urinary Incontinence, No Urgency, No Flank Pain, No Urinary Flow Changes, No Hesitancy Musculoskeletal : No joint pain, No Myalgias, No Joint Swelling Skin : No Skin Lesions, No rash Neuro : No Weakness, No Numbness, No Paresthesias, No Loss of Consciousness, No Dizziness, No Headache Psych : No Anxiety/Panic, No Depression, No SI/HI/AH/VH, No Social Issues, Heme/Lymph: No Bruising, No Bleeding,No Lymphadenopathy Endocrine : No Polyuria, No Polydipsia, No Temperature Intolerance [facility] Past Medical History Medical History Fatigue Cognitive disorder Alzheimer's dementia Anemia B12 deficiency Scoliosis A-fib Bipolar 1 disorder Crohn disease Persistent atrial fibrillation Surgical History Hx of colonoscopy Family History Family History Father Heart problem Social History Social History Housing: Assisted Living Facility Patient Tobacco Use Status: Never used Tobacco Smoked in Last 30 Days: No e-Cigarette/Vaping Use: Never Used Use of substances other than those prescribed or required for medical reasons: No Advance Directives: Yes Advance Directives Information Provided: No Advance Directives on File: No Do you have a plan to hurt others: No Plan service: No Current occupational status: retired Cognitive needs: No Hearing needs: No Vision needs: Yes Physical Exam ED Vital Signs: Vital Signs - 24 hr 10/25/23 02:22 10/25/23 03:18 10/25/23 03:22 Temperature 98.8 F Pulse Rate 83 Respiratory Rate 16 Blood Pressure 107/34 L Pulse Oximetry 99 98 100 Oxygen Delivery Method Room Air Room Air 10/25/23 03:40 Temperature 97.9 F Pulse Rate 82 Respiratory Rate 24 H Blood Pressure 121/40 L Pulse Oximetry 99 Oxygen Delivery Method Room Air BMI result Body Mass Index 19.1 Const Other: Appearance: Alert. Oriented X3. No acute distress. Well-appearing Eyes: Pupils equal, round and reactive to light. ENT: Pharynx normal. Neck: Normal inspection. Neck supple. No lymph nodes noted. No crepitus CVS: Normal heart rate and rhythm. Pulses normal. Normal S1 and S2 Respiratory: No respiratory distress. Breath sounds normal. No Wheezing. No rales Abdomen: Soft and nontender. No rigidity. No distention. Skin: Skin warm and dry. Normal skin color. Normal skin turgor. Extremities: No lower extremity edema. No Lacerations. No Rash Neuro: Oriented X 3. No motor deficit. No sensory deficit. Moving all extremities. No slurred speech. CN 2 through 12 grossly intact Psych: calm, cooperative, normal affect Course Course Course Narrative: -all of patient's labs pending Imaging pending Medical Decision Making Medical Decision Making MDM Narrative: -my interpretation of chest x-ray: No pneumonia -patient's ambulation trial patient's oxygen saturation remained 97% -my interpretation of labs: no significant abnormality seeing hematology and chemistry, patient tested positive for COVID. -after talking to the patient and his daughter, it is unclear how long patient has been having COVID. Patient has not symptomatic with the same symptoms for months. At this time, Paxlovid is not indicated Differential Diagnosis Differential Diagnoses: The differential diagnosis associated with the presentation includes (Pneumonia, viral illness, COVID, influenza) Lab Data MDM Lab Attestation statement: I reviewed the patient's lab results. 10/25/23 03:37 10/25/23 03:37 Labs: Lab Results 10/25/23 10/25/23 Range/Units 02:30 03:37 WBC 7.3 (4.8-10.8) X10*3/uL RBC 3.41 L (4.60-5.80) X10*6/uL Hgb 11.3 L (14.0-18.0) g/dl Hct 34.0 L (42.0-52.0) % MCV 99.7 H (80.0-98.0) fL MCH 33.1 H (27.0-33.0) pg MCHC 33.2 (31.0-36.0) g/dl RDW 14.7 (11.0-16.0) % Plt Count 136 L D (160-400) X10*3/uL MPV 10.6 (9.4-12.4) fL Immature Gran % (Auto) 0.4 (0.0-0.4) % Neut % (Auto) 76.2 H (45-73) % Lymph % (Auto) 3.4 L (20-40) % [place] % (Auto) 19.9 H (2-11) % Eos % (Auto) 0.0 (0-4) % Baso % (Auto) 0.1 (0-2) % Lymph # (Auto) 0.3 L (1.2-4.9) X10*3/uL [place] # (Auto) 1.4 H (0.1-1.2) X10*3/uL Eos # (Auto) 0.0 (0.0-0.4) X10*3/uL Baso # (Auto) 0.0 (0.0-0.2) X10*3/uL Abs Immat Gran (auto) 0.03 (0.00-0.03) X10*3/uL Absolute Neuts (auto) 5.5 (2.0-8.3) x10*3/uL Absolute Nucleated RBC 0.000 (0.0-0.012) X10*3/uL Nucleated RBC % (auto) 0.0 (0.0-0.2) /100WBC Sodium 139 (135-145) mmol/L Potassium 4.0 (3.3-5.1) mmol/L Chloride 104 (96-108) mmol/L Carbon Dioxide 25 (22-29) mmol/L Anion Gap 14 (12-20) BUN 21 H (9-16) mg/dL Creatinine 1.06 (0.5-1.4) mg/dL Estim Creat Clear Calc 45.1 Estimated GFR > 60 Random Glucose 95 (60-115) mg/dL Calcium 9.6 (8.4-10.2) mg/dL Total Bilirubin 2.1 H (0.0-1.0) mg/dL Direct Bilirubin 0.5 (0.0-0.5) mg/dL AST 24 (5-37) U/L ALT 16 (0-40) U/L Alkaline Phosphatase 66 (39-117) U/L Troponin I High Sens 18.8 (<3.5-35.0) ng/L B-Natriuretic Peptide 74 (<100) pg/mL Total Protein 6.8 (6.5-8.0) g/dL Albumin 3.9 (3.5-5.0) g/dL Influenza Type A (PCR) NEGATIVE (Negative) Influenza Type B (PCR) NEGATIVE (Negative) RSV RNA Qual (PCR) NEGATIVE (Negative) SARS-CoV-2 RNA (RT-PCR) POSITIVE A (Negative) Independent Interpretation I performed an independent interpretation of an: Plain X-Ray Radiology Impression Discussion of test interpretation with radiology: I have reviewed the radiologist's reading. Radiologist Impression: FINDINGS: The cardiomediastinal silhouette is within normal limits. There is no focal lung consolidation or pleural effusion. The bony structures and soft tissues are unremarkable. XR/XR chest 1V IMPRESSION: No acute cardiopulmonary process. Independent Historian Clinical information obtained from an independent historian. History obtained from or confirmed by: Other (Patient's daughter) Discharge Plan Discharge Clinical Impression: COVID Patient Disposition: Home, Self-Care Instructions: COVID-19 (Coronavirus Disease 2019) (ED) Additional Instructions: Please follow-up with your primary care physician tomorrow. If you have any worsening or new symptoms, please return to the emergency room or call 911 Prescriptions: New benzonatate 100 mg capsule 100 mg PO TID PRN (Reason: cough) Qty: 14 0RF No Action quetiapine 100 mg tablet 100 mg PO BEDTIME Qty: 90 0RF metoprolol succinate 50 mg tablet extended release 24 hr 50 mg PO DAILY Qty: 90 3RF Xarelto 15 mg tablet 15 mg PO QPM Qty: 90 3RF Rx Instructions: must administer with evening meal peg-electrolyte soln 420 gram recon soln 240 ml PO Q10M Qty: 4000 0RF Rx Instructions: until fecal effluent is clear; do not exceed a total volume of 2,000 mL mercaptopurine 50 mg tablet 75 mg PO DAILY diphenoxylate-atropine 2.5-0.025 mg tablet PO Print Language: Luxembourgish
[2023-10-25 03:11] LABS: Influenza A PCR NEGATIVE (Negative); Influenza B PCR NEGATIVE (Negative); Resp Syncy Virus RNA Qual PCR NEGATIVE (Negative); SARS COV2 PCR INHOUSE POSITIVE (Negative)
--- NOTE | 2023-10-25 03:17 | PC.NURSE ---
pt taken for ambulation trial, lowest o2 sat 98% on room air, highest 100% on room air. pt denied SOB and chest pain.
[2023-10-25 03:18] VITALS: O2SAT 98
[2023-10-25 03:22] VITALS: O2SAT 100
--- NOTE | 2023-10-25 03:24 | PC.NURSE ---
pt from home, a&ox4, respirations even and unlabored, pt reporting onset of cough and SOB x2 months, reports this has increased throughout the last week. pt sating 100% on room air, denies sick contacts.
[2023-10-25 03:40] VITALS: BP 121/40; PULSE 82; RESP 24; TEMP 36.6; O2SAT 99
[2023-10-25 03:48] LABS: Basophils Percent Auto 0.1 % (0-2); Hemoglobin 11.3 g/dl (14.0-18.0); Mean Corpuscular Volume 99.7 fL (80.0-98.0); Platelet Count 136 X10*3/uL (160-400); Red Cell Distribution Width 14.7 % (11.0-16.0); SCAN SMEAR FLAG 1
[2023-10-25 03:49] LABS: Imm Gran Abs Auto 0.03 X10*3/uL (0.00-0.03); Imm Gran Pct Auto 0.4 % (0.0-0.4); Lymphocytes Absolute Auto 0.3 X10*3/uL (1.2-4.9); Lymphocytes Percent Auto 3.4 % (20-40); Mean Corpuscular HGB Conc 33.2 g/dl (31.0-36.0); Mean Corpuscular Hemoglobin 33.1 pg (27.0-33.0); Mean Platelet Volume 10.6 fL (9.4-12.4); Monocytes Absolute Auto 1.4 X10*3/uL (0.1-1.2); Monocytes Percent Auto 19.9 % (2-11); Neutrophils Absolute Auto 5.5 x10*3/uL (2.0-8.3); Neutrophils Percent Auto 76.2 % (45-73); Red Blood Count 3.41 X10*6/uL (4.60-5.80); White Blood Count 7.3 X10*3/uL (4.8-10.8)
[2023-10-25 03:50] LABS: MANUAL DIFF FLAG NO
[2023-10-25 04:00] LABS: Alanine Aminotransferase 16 U/L (0-40); Albumin Level 3.9 g/dL (3.5-5.0); Alkaline Phosphatase 66 U/L (39-117); Anion Gap 14 (12-20); Aspartate Amino Transferase 24 U/L (5-37); Bilirubin Direct 0.5 mg/dL (0.0-0.5); Bilirubin Total 2.1 mg/dL (0.0-1.0); Blood Urea Nitrogen 21 mg/dL (9-16); Calcium 9.6 mg/dL (8.4-10.2); Carbon Dioxide 25 mmol/L (22-29); Chloride 104 mmol/L (96-108); Creatinine Clr Calc Pharmacy 45.1; Estimated Glomerular Filt Rate > 60; Glucose Random 95 mg/dL (60-115); Sodium 139 mmol/L (135-145); Total Protein 6.8 g/dL (6.5-8.0)
[2023-10-25 04:05] LABS: B Type Natriuretic Peptide 74 pg/mL (<100)
[2023-10-25 04:06] LABS: Troponin-I High Sensitivity 18.8 ng/L (<3.5-35.0)
[2023-10-25 06:02] VITALS: BP 112/56; PULSE 72; RESP 17; TEMP 37.1; O2SAT 98
[2023-10-25 06:03] VITALS: BP 112/56; PULSE 72; RESP 17; TEMP 37.1; O2SAT 98
== END 2023-10-25 06:04 | disposition home or self-care (01) ==
PROVIDERS: Emergency Provider Emergency Medicine; PCP Internal Medicine
DX: U07.1 COVID-19 (principal); G30.9 Alzheimer's disease, unspecified; F02.80 Dementia in other diseases classified elsewhere, unspecified severity, without behavioral disturbance, psychotic disturbance, mood disturbance, and anxiety
CPT/HCPCS: 0241U; 36415; 71045; 80048; 80076; 83880; 84484; 85025; 93005; 99283; 99285

== ENCOUNTER → 2023-10-25 02:45 | Outpatient (BNV) | payer MEDICARE, OTHER, SELFPAY | PROVIDERS: Emergency Provider Emergency Medicine; PCP Internal Medicine; Visit Provider Internal Medicine Cardiovascular Disease | DX: I48.91 Unspecified atrial fibrillation (principal); I45.19 Other right bundle-branch block | CPT/HCPCS: 93010 ==

== ENCOUNTER 2023-10-26 15:00 | Emergency (ER) | payer MEDICARE, OTHER, SELFPAY ==
[2023-10-26 15:12] VITALS: BP 111/67; BP 116/57; PULSE 72; PULSE 80; RESP 18; TEMP 37; O2SAT 98; O2SAT 99; BMI 18.8
[2023-10-26 15:27] VITALS: O2SAT 96
[2023-10-26 15:28] VITALS: BP 116/57; PULSE 72; RESP 18; TEMP 37; O2SAT 98
--- NOTE | 2023-10-26 15:28 | PC.NURSE ---
Pt presents to ED via EMS from home for mild SOB. Pt was recently diagnosed with COVID here at [facility] Thursday night. Pt reports fevers, cough and nasal congestions for couple weeks , reports the SOB is his biggest complaint. Pt denies any pain. Alert and oriented, breathing even and unlabored, skin WNL. VSS. SPO2 on RA 96-98% on RA.
--- NOTE | 2023-10-26 15:46 | ED.URI ---
HPI - URI/Sore Throat General Chief Complaint: Upper Respiratory Symptoms Stated Complaint: COUGH,RECENT COVID PER EMS Time Seen by Provider: 10/26/23 15:22 Source: patient and family (Daughter) Mode of arrival: EMS History of Present Illness HPI Narrative: 83-year-old male who comes in from assisted living with known COVID-19 infection and states that he was having a significant episode of coughing and developed shortness of breath and felt like he could not breathe but now feels completely improved and resolved. Related Data Home Medications ?Medication ?Instructions ?Recorded ?Confirmed mercaptopurine 50 mg tablet 75 mg PO DAILY 06/10/23 09/23/23 diphenoxylate-atropine 2.5 tab PO 06/19/23 09/23/23 mg-0.025 mg tablet Previous Rx's ?Medication ?Instructions ?Recorded quetiapine 100 mg tablet 100 mg PO BEDTIME #90 tabs 05/20/23 metoprolol succinate 50 mg 50 mg PO DAILY #90 tabs 09/01/23 tablet,extended release 24 hr rivaroxaban 15 mg tablet (Xarelto) 15 mg PO QPM #90 tabs 09/01/23 peg-electrolyte solution 420 gram 240 ml PO Q10M #4,000 mL 09/03/23 oral solution benzonatate 100 mg capsule 100 mg PO TID PRN cough #14 caps 10/25/23 Allergies Allergy/AdvReac Type Severity Reaction Status Date / Time No Known Allergies Allergy Verified 10/26/23 15:16 Review of Systems Review of Systems: Pertinent positives and negatives as stated in HPI PMFSH Past Medical History Source: nursing notes reviewed Medical History Fatigue Cognitive disorder Alzheimer's dementia Anemia B12 deficiency Scoliosis A-fib Bipolar 1 disorder Crohn disease Persistent atrial fibrillation Surgical History Hx of colonoscopy Family History Family History Father Heart problem Other Alzheimer's dementia Social History Social History Housing: Assisted Living Facility Patient Tobacco Use Status: Never used Tobacco Smoked in Last 30 Days: No e-Cigarette/Vaping Use: Never Used Use of substances other than those prescribed or required for medical reasons: No Advance Directives: No Advance Directives Information Provided: No service: No Current occupational status: retired Cognitive needs: No Hearing needs: No Vision needs: Yes Physical Exam Vital Signs: Vital Signs: Last Vital Signs Temp 98.6 F 10/26/23 15:28 Pulse 72 10/26/23 15:28 Resp 18 10/26/23 15:28 BP 116/57 L 10/26/23 15:28 Pulse Ox 98 10/26/23 15:28 O2 Del Method Room Air 10/26/23 15:28 BMI result Body Mass Index 18.8 VITAL SIGNS: Reviewed. GENERAL: Well developed, well nourished, in no acute distress. HEAD: Normocephalic/atraumatic EYES: PERRLA, EOMI EARS: Ext canals without abnormality, TMs non-bulging and non-erythematous NOSE: Nares patent bilateral OROPHARYNX: no oral lesions noted, posterior pharynx clear and non-erythematous without noted tonsillar enlargement/erythema/exudates NECK: Supple, no adenopathy LUNGS: Normal breath sounds. No adventitious sounds or accessory muscle use. SpO2<98> CARDIOVASCULAR: Regular rate and rhythm without noted murmurs, no JVD or lower extremity edema. ABDOMEN: Soft, non-tender, non-distended with bowel sounds. MUSCULOSKELETAL: No tenderness, deformities, or effusions noted on gross inspection. EXTREMITIES: No cyanosis, clubbing or edema. SKIN: Inspection of the skin reveals no rashes NEUROLOGIC: Alert and oriented x 4. Strength and sensation to light touch were grossly intact x 4. Medical Decision Making Medical Decision Making MDM Narrative: 83-year-old male who is completely asymptomatic at this time, no new or worsening symptoms, discussed that he should begin taking the prescription cough control medication on a regular basis for the next 24-48 hours and may consider adding NyQuil additionally. Patient is not noted be tachycardic, tachypneic or hypoxic. He is feeling much better and ready to go home. Differential Diagnosis Differential Diagnoses: The differential diagnosis associated with the presentation includes Please see the discussion above Admission/Observation Consideration of admission/observation: Escalation of care including admission/observation considered Please see the discussion above Discharge Plan Discharge Clinical Impression: Lab test positive for detection of COVID-19 virus, Viral syndrome, Coughing Patient Disposition: Xfer Other Instructions: Viral Syndrome (ED), COVID-19 (Coronavirus Disease 2019) (ED) Additional Instructions: Please continue to take your cough medication, would recommend [id number] NyQuil or the generic version. Prescriptions: No Action quetiapine 100 mg tablet 100 mg PO BEDTIME Qty: 90 0RF metoprolol succinate 50 mg tablet extended release 24 hr 50 mg PO DAILY Qty: 90 3RF Xarelto 15 mg tablet 15 mg PO QPM Qty: 90 3RF Rx Instructions: must administer with evening meal peg-electrolyte soln 420 gram recon soln 240 ml PO Q10M Qty: 4000 0RF Rx Instructions: until fecal effluent is clear; do not exceed a total volume of 2,000 mL benzonatate 100 mg capsule 100 mg PO TID PRN (Reason: cough) Qty: 14 0RF mercaptopurine 50 mg tablet 75 mg PO DAILY diphenoxylate-atropine 2.5-0.025 mg tablet PO Referrals: Rachel Parekh MD [Primary Care Provider] - Discharge Date/Time: 10/26/23 16:11 Print Language: Bruneian
== END 2023-10-26 16:11 | disposition other institution (70) ==
PROVIDERS: Emergency Provider Student in an Organized Health Care Education/Training Program; PCP Internal Medicine
DX: U07.1 COVID-19 (principal); B34.9 Viral infection, unspecified; J02.9 Acute pharyngitis, unspecified; R06.9 Unspecified abnormalities of breathing; R05.9 Cough, unspecified; R06.02 Shortness of breath; Z79.899 Other long term (current) drug therapy
CPT/HCPCS: 99283; 99284

== ENCOUNTER 2023-11-11 13:33 | Outpatient (AMB) | payer MEDICARE, OTHER, SELFPAY ==
--- NOTE | 2023-11-11 13:35 | MHC.PC.OV ---
Intake Visit Reasons: Pos Covid~ [phone] Allergies No Known Allergies Allergy (Verified 11/11/23 13:35) Medication List - Last Reconciled 11/11/23 by Rachel Parekh MD diphenoxylate-atropine 2.5-0.025 mg tabs PO mercaptopurine 75 mg PO DAILY metoprolol succinate ER 50 mg PO DAILY peg-electrolyte soln 420 gram 240 mL PO Q10M quetiapine 50 mg PO BEDTIME rivaroxaban (Xarelto) 15 mg PO QPM Tobacco use date assessed: 11/11/23 Fall risk assessment: No Falls in past year Last assessed Fall Risk: 11/11/23 Dental Screening Dental Screen Date: 11/11/23 Did you have a dental visit in the last 12 months?: No Did you have a dental problem in the last 6 months where you did not have access to dental care?: No Was dental information given to patient?: No HPI Pos Covid~ [phone] HPI Details Patient is 83-year-old gentleman this is a telemedicine video conference Patient was diagnosed with COVID infection on 25 of October He was evaluated in emergency room but no antibiotic was given as he was asymptomatic with mild cough But now he is feeling congested and his having cough productive of phlegm Patient is swallowing it so can not tell me if it is colored or not He does feel winded as well In emergency room he had chest x-ray which was within normal limit I am prescribing azithromycin for the patient if he improves with antibiotic we do not need another chest x-ray He has appointment in house on of this month we will re-evaluate. He does not have any fever or nausea vomiting [facility] Medical History Fatigue Cognitive disorder Alzheimer's dementia Anemia B12 deficiency Scoliosis A-fib Bipolar 1 disorder Crohn disease Persistent atrial fibrillation Surgical History Hx of colonoscopy Family History Father Heart problem Other Alzheimer's dementia Social History Housing: Assisted Living Facility Patient Tobacco Use Status: Never used Tobacco e-Cigarette/Vaping Use: Never Used service: No Current occupational status: retired Cognitive needs: No Hearing needs: No Vision needs: Yes Questionnaire AUDIT C Alcohol Use Questionnaire (AUDIT-C) 1. How often do you have a drink containing alcohol?: Never 3. How often do you have six or more drinks on one occasion?: Never Total Score: 0 Score Reviewed/Action Taken: Yes SIDRA-7 AMB Questionnaire SIDRA-7 Date SIDRA - 7 assessed: 03/24/23 Source: Developed by Drs. Franklin Funez, Sally Pappas, Geoff Spears and colleagues, with an educational rhonda from [employer]. Review of Systems Const Denies fever(s) ENT Denies epistaxis and Denies nasal discharge Card Denies chest pain Resp Denies hemoptysis GI Denies diarrhea and Denies nausea Skin/Breast Denies rash Neuro Reports no additional complaints Psych Reports no additional complaints Endo Reports no additional complaints Physical exam (Primary Care) Tobacco/Smoking Status: Tobacco use Status Tobacco use date assessed 11/11/23 11/11/23 13:36 Patient Tobacco Use Status Never used Tobacco 11/11/23 13:36 e-Cigarette/Vaping Use Never Used 11/11/23 13:36 Telehealth Telehealth Telehealth Platform: [facility] Location of provider rendering services: practice address Location of patient: address on file Patient Identification confirmed using: Name, : Yes Telehealth method: video Patient verbally consented to treatment: Yes Patient verbally consented to billing insurance company: Yes Patient informed of any privacy concerns related to visit: Yes Assessment and Plan Assessment & Plan (1) Acute bronchitis: Code(s): J20.9 - Acute bronchitis, unspecified Qualifiers: Bronchitis organism: other organism Qualified Code(s): J20.8 - Acute bronchitis due to other specified organisms Plan Patient is 83-year-old gentleman this is a telemedicine video conference Patient was diagnosed with COVID infection on 25 of October He was evaluated in emergency room but no antibiotic was given as he was asymptomatic with mild cough But now he is feeling congested and his having cough productive of phlegm Patient is swallowing it so can not tell me if it is colored or not He does feel winded as well In emergency room he had chest x-ray which was within normal limit I am prescribing azithromycin for the patient if he improves with antibiotic we do not need another chest x-ray He has appointment in house on of this month we will re-evaluate. He does not have any fever or nausea vomiting Medications: New azithromycin Take 2 tablets today then 1 daily 250 mg PO ONCE 6 tabs 0RF 5 days J06.9 - Acute upper respiratory infection, unspecified Coding Level of Care Code Tele Est Pt Level 3 (03770) Diagnoses Acute bronchitis due to other specified organisms J20.8 Bronchitis organism: other organism Time Spent (min) 14
== END 2023-11-11 14:55 | disposition home or self-care (01) ==
LOC: HO.HMGC 13:33
PROVIDERS: PCP Internal Medicine; Visit Provider Internal Medicine
DX: J20.8 Acute bronchitis due to other specified organisms (principal)
CPT/HCPCS: 99213

== ENCOUNTER 2023-11-17 13:25 | Outpatient (AMB) | payer MEDICARE, OTHER, SELFPAY ==
[2023-11-17 13:31] VITALS: BP 102/62; PULSE 75; O2SAT 97; BMI 18.8
--- NOTE | 2023-11-17 13:31 | MHC.PC.OV ---
Vital Signs 11/17/23 13:31 Height 5 ft 10 in Weight 131 lb 6 oz BMI 18.8 BP 102/62 Blood Pressure Location Lt brachial Position Sitting Pulse 75 Pulse Source Pulse Oximeter Pulse Oximetry (%) 97 Oxygen Delivery Method Room Air Intake Visit Reasons: 4 month follow up Allergies No Known Allergies Allergy (Verified 11/17/23 13:33) Tobacco use date assessed: 11/17/23 Fall risk assessment: No Falls in past year Last assessed Fall Risk: 11/17/23 Dental Screening Dental Screen Date: 11/17/23 Did you have a dental visit in the last 12 months?: No Did you have a dental problem in the last 6 months where you did not have access to dental care?: No Was dental information given to patient?: No HPI 4 month follow up HPI Details Patient is 83-year-old with a history of Alzheimer's dementia, bipolar disorder, atrial fibrillation, B12 deficiency, Crohn's disease Patient had COVID infection recently was evaluated in emergency room but was not prescribed any antibiotic Last visit he complained of feeling chest congestion and coughing I prescribed azithromycin, today he is feeling much better His cough has improved but still have resolving cough He is complaining of no shortness a breath or chest pains His lungs are clear on auscultation today. [facility] Medical History Fatigue Cognitive disorder Alzheimer's dementia Anemia B12 deficiency Scoliosis A-fib Bipolar 1 disorder Crohn disease Persistent atrial fibrillation Surgical History Hx of colonoscopy Family History Father Heart problem Other Alzheimer's dementia Social History Housing: Assisted Living Facility Patient Tobacco Use Status: Never used Tobacco e-Cigarette/Vaping Use: Never Used service: No Current occupational status: retired Cognitive needs: No Hearing needs: No Vision needs: Yes Questionnaire AUDIT C Alcohol Use Questionnaire (AUDIT-C) 1. How often do you have a drink containing alcohol?: Never 3. How often do you have six or more drinks on one occasion?: Never Total Score: 0 Score Reviewed/Action Taken: Yes SIDRA-7 AMB Questionnaire SIDRA-7 Date SIDRA - 7 assessed: 03/24/23 Source: Developed by Drs. Franklin Funez, Sally Pappas, Geoff Spears and colleagues, with an educational rhonda from [employer]. Review of Systems Const Denies chills and Denies fever(s) ENT Denies epistaxis and Denies nasal discharge Card Denies chest pain Resp Denies hemoptysis GI Denies diarrhea and Denies nausea Skin/Breast Denies rash Neuro Reports no additional complaints Psych Reports no additional complaints Endo Reports no additional complaints Physical exam (Primary Care) Vital Signs: Last Vital Signs Pulse 75 11/17/23 13:31 BP 102/62 11/17/23 13:31 Pulse Ox 97 11/17/23 13:31 Oxygen Delivery Method Room Air 11/17/23 13:31 BMI result Body Mass Index 18.8 Tobacco/Smoking Status: Tobacco use Status Tobacco use date assessed 11/17/23 11/17/23 13:35 Patient Tobacco Use Status Never used Tobacco 11/17/23 13:33 e-Cigarette/Vaping Use Never Used 11/17/23 13:33 Const General: cooperative, comfortable and no acute distress Orientation/consciousness: patient oriented x3 HENMT Head: Yes normocephalic Eyes General: appearance normal, both eyes and all related structures Neck Neck: Yes supple Resp Effort & Inspection: normal respiratory effort, no cough and no stridor Cardio Other: Irregularly irregular rhythm Heart sounds: S1 normal heart sound present and S2 normal heart sound present Skin General skin exam: turgor normal Neuro General: patient oriented x3, tone normal and moves all extremities Extrem Right lower extremity: no edema Left lower extremity: no edema Assessment and Plan Assessment & Plan (1) Cognitive disorder: Comment: likely early Alzheimer's dementia - strong fh/o demnetia Code(s): F09 - Unspecified mental disorder due to known physiological condition (2) Bipolar 1 disorder: Code(s): F31.9 - Bipolar disorder, unspecified (3) A-fib: Code(s): I48.91 - Unspecified atrial fibrillation Qualifiers: Atrial fibrillation type: persistent (not longstanding) Qualified Code(s): I48.19 - Other persistent atrial fibrillation (4) B12 deficiency: Code(s): E53.8 - Deficiency of other specified B group vitamins (5) Crohn disease: Code(s): K50.90 - Crohn's disease, unspecified, without complications Qualifiers: Digestive disease complication type: without complication Gastrointestinal tract location: large intestine Qualified Code(s): K50.10 - Crohn's disease of large intestine without complications (6) Acute bronchitis: Code(s): J20.9 - Acute bronchitis, unspecified Qualifiers: Bronchitis organism: other organism Qualified Code(s): J20.8 - Acute bronchitis due to other specified organisms Plan Patient is 83-year-old with a history of Alzheimer's dementia, bipolar disorder, atrial fibrillation, B12 deficiency, Crohn's disease Patient had COVID infection recently was evaluated in emergency room but was not prescribed any antibiotic Last visit he complained of feeling chest congestion and coughing I prescribed azithromycin, today he is feeling much better His cough has improved but still have resolving cough He is complaining of no shortness a breath or chest pains His lungs are clear on auscultation today. Coding Level of Care Code Est Pt Level 4 (88437) Complex EM visit Add On G2211 Diagnoses Cognitive disorder F09 Bipolar 1 disorder F31.9 Persistent atrial fibrillation I48.19 Atrial fibrillation type: persistent (not longstanding) B12 deficiency E53.8 Crohn's disease of large intestine without complication K50.10 Digestive disease complication type: without complication Gastrointestinal tract location: large intestine Acute bronchitis due to other specified organisms J20.8 Bronchitis organism: other organism
== END 2023-11-17 14:51 | disposition home or self-care (01) ==
PROVIDERS: PCP Internal Medicine; Visit Provider Internal Medicine
DX: J20.8 Acute bronchitis due to other specified organisms (principal); F31.9 Bipolar disorder, unspecified; I48.19 Other persistent atrial fibrillation; K50.10 Crohn's disease of large intestine without complications; E53.8 Deficiency of other specified B group vitamins; F09 Unspecified mental disorder due to known physiological condition
CPT/HCPCS: 99214; G2211

== ENCOUNTER 2023-11-26 10:05 | Day surgery (SDC) | payer MEDICARE, OTHER, SELFPAY ==
--- NOTE | 2023-11-25 08:58 | HO.ANESPROP2 ---
Documented by User: Suzan Muller NP 11/25/23 09:00 HPI - Anesthesia Eval Consult details Narrative: 83yo M for Colonoscopy COVID 09/2023. Required azithro from PCP for lingering productive cough. Per 11/17/23 PCP note, symptoms much improved. Xarelto for afib PMFSH Active Problems Active Problems: All Active Problems Acute bronchitis (Acute) COVID (Acute) Memory change (Acute) Skin cancer screening (Acute) Establishing care with new doctor, encounter for (Acute) Fatigue (Acute) Cognitive disorder (Acute) Alzheimer's dementia (Acute) Bipolar 1 disorder (Acute) Scoliosis (Acute) A-fib (Acute) B12 deficiency (Acute) Anemia (Acute) Crohn disease (Acute) Persistent atrial fibrillation (Acute) Past Medical History Medical History Fatigue Cognitive disorder Alzheimer's dementia Anemia Persistent atrial fibrillation B12 deficiency Scoliosis Crohn disease A-fib Bipolar 1 disorder Family History Family History Father Heart problem Other Alzheimer's dementia Surgical History Surgical History History of partial colectomy Hx of colonoscopy Social History Social History Housing: Assisted Living Facility Patient Tobacco Use Status: Never used Tobacco e-Cigarette/Vaping Use: Never Used Use of substances other than those prescribed or required for medical reasons: No Have you been hit, kicked, punched, or otherwise hurt by someone within the past year? If so, by whom?: No Are you DNR?: No Advance Directives: No Advance Directives Information Provided: Yes service: No Current occupational status: retired Cognitive needs: No Hearing needs: No Vision needs: Yes Meds Allergies Allergy/AdvReac Type Severity Reaction Status Date / Time No Known Allergies Allergy Verified 11/17/23 13:33 Home Medications ?Medication ?Instructions ?Recorded ?Confirmed ?Last Taken ?Type mercaptopurine 50 mg tablet 75 mg PO DAILY 06/10/23 11/11/23 Unknown History diphenoxylate-atropine 2.5 tab PO 06/19/23 11/11/23 Unknown History mg-0.025 mg tablet quetiapine 50 mg tablet 50 mg PO BEDTIME 11/05/23 11/11/23 Unknown History Exam Pertinent Lab Results Pertinent Lab Results: Laboratory Tests 10/25/23 03:37 WBC 7.3 Hgb 11.3 L Hct 34.0 L Plt Count 136 L D Sodium 139 Potassium 4.0 Chloride 104 Carbon Dioxide 25 BUN 21 H Creatinine 1.06 Assessment and Plan Assessment Anesthesia Assessment: Chart Reviewed Documented by User: Yessi Posadas MD 11/26/23 12:23 PMFSH Active Problems Active Problems: All Active Problems Acute bronchitis (Acute) COVID (Acute) Memory change (Acute) Skin cancer screening (Acute) Establishing care with new doctor, encounter for (Acute) Fatigue (Acute) Cognitive disorder (Acute)- spoke with family. Mild disorder. Patient signs own permits Alzheimer's dementia (Acute) Bipolar 1 disorder (Acute) Scoliosis (Acute) A-fib (Acute) B12 deficiency (Acute) Anemia (Acute) Crohn disease (Acute) Persistent atrial fibrillation (Acute) Past Medical History Medical History Fatigue Cognitive disorder Alzheimer's dementia Anemia Persistent atrial fibrillation B12 deficiency Scoliosis Crohn disease A-fib Bipolar 1 disorder Family History Family History Father Heart problem Other Alzheimer's dementia Family history of problems with anesthesia: No Surgical History Surgical History History of partial colectomy Hx of colonoscopy History of Problems with Anesthesia: No Social History Social History Housing: Assisted Living Facility Patient Tobacco Use Status: Never used Tobacco e-Cigarette/Vaping Use: Never Used Use of substances other than those prescribed or required for medical reasons: No Have you been hit, kicked, punched, or otherwise hurt by someone within the past year? If so, by whom?: No Are you DNR?: No Advance Directives: No Advance Directives Information Provided: Yes service: No Current occupational status: retired Cognitive needs: No Hearing needs: No Vision needs: Yes Meds Allergies Allergy/AdvReac Type Severity Reaction Status Date / Time No Known Allergies Allergy Verified 11/17/23 13:33 Home Medications ?Medication ?Instructions ?Recorded ?Confirmed ?Last Taken ?Type mercaptopurine 50 mg tablet 75 mg PO DAILY 06/10/23 11/11/23 Unknown History diphenoxylate-atropine 2.5 tab PO 06/19/23 11/11/23 Unknown History mg-0.025 mg tablet quetiapine 50 mg tablet 50 mg PO BEDTIME 11/05/23 11/11/23 Unknown History Exam Height,Weight and Vital Signs: Height 5 ft 10 in Weight 83.461 kg Vital Signs Temp Pulse Resp BP Pulse Ox 11/26/23 11:29 97.5 F 68 16 140/48 H 100 Pertinent Lab Results Pertinent Lab Results: Laboratory Tests 10/25/23 03:37 WBC 7.3 Hgb 11.3 L Hct 34.0 L Plt Count 136 L D Sodium 139 Potassium 4.0 Chloride 104 Carbon Dioxide 25 BUN 21 H Creatinine 1.06 Airway Mallampati Class: II TM Dist: >3cm Neck ROM: Full Loose/Missing/Broken Teeth: No (Denies broken, loose, missing teeth) Heart: RRR Lungs: CTAB Assessment and Plan Assessment Anesthesia Assessment: Anesthesia Plan Discussed and Chart Reviewed Final Anesthetic Review Family History of Problems with Anesthesia: No History of Problems with Anesthesia: No NPO: Yes ASA Class: III Final Preanesthetic Review: No Changes in Pt Med Stat, Meds/Allgs Chart Reviewed, Consent Obtained/Reviewed (Patient with h/o dementia from medical record. Answers most questions appropriately. Forgot name of procedure that he is here for but easily redirected. Family states that patient signs his own permit) and Anes Risks/Benef Reviewed Patient Risk: Intermediate Procedure Risk: Low Assessment/Block/Sedation in SS: Assess/Block/Sedation-SS Anesthetic Plan Anesthetic Plan: TIVA Disposition: Standard PACU
[2023-11-26 11:22] VITALS: BMI 26.4
[2023-11-26 11:29] VITALS: BP 140/48; PULSE 68; RESP 16; TEMP 36.4; O2SAT 100
[2023-11-26] MEDS: Lactated Ringers 1,000 ML 100 ML IVCONT (11:51)
--- NOTE | 2023-11-26 11:56 | MHC.SHP ---
Pre-Procedural Eval Section A - 24 Hr Update-Section A only Date of Service: 11/26/23 Section B - Complete if H&P > 30 days Chief Complaint: Crohn's disease of large intestine without complic Relevant Family History (Specify if Yes): No Relevant Social History: None Present Medications: see Short Stay Collaborative assessment Medical History: Significant History (Fatigue Cognitive disorder Alzheimer's dementia Anemia Persistent atrial fibrillation B12 deficiency Scoliosis Crohn disease A-fib Bipolar 1 disorder) History of Previous Operations: Relevant previous surgery/procedure and date(s) (History of partial colectomy Hx of colonoscopy) Allergies: Allergies Allergy/AdvReac Type Severity Reaction Status Date / Time No Known Allergies Allergy Verified 11/17/23 13:33 Review of Systems Sugical H&P ROS: Negative: Constitution, Cardiovascular, Respiratory, Neurological, Psychiatric, Hem-Onc, Allergic/Immunologic, Gastrointestinal, Genitourinary, Musculoskeletal, Integumentary, Endocrine and Eyes/Ears/Nose/Throat Exam Surgical H&P Exam: Normal: HEENT, Normal: Heart, Normal: Lungs, Normal: Extremities, Normal: Abdomen, Normal: Skin and Normal: Neurological Plan Diagnosis/Plan: Unchanged I have reviewed the history and physical and performed a pertinent physical examination on my patient. No changes have occurred unless specified. Time Spent With Patient Time: Total time managing care of this patient today ____ minutes.
--- NOTE | 2023-11-26 12:08 | HO.OPN-COLON ---
Colonoscopy Operative Note Operative Note Date of Service: 11/26/23 Narrative: Operative Information Procedure Description: Colonoscopy Indication: hx of crohns Anesthesia: MAC COLONOSCOPY Instrument: Olympus variable stiffness pediatric scope 190L Colonoscopy Monitoring: Vital signs and clinical assessment, continuous EKG monitoring, Pulse oximetry, Carbon Dioxide monitoring and blood pressure monitoring were done throughout the procedure. Colon withdrawal time was 24 minutes. Procedure: The patient was placed in the left lateral decubitis position and pre-procedure medications were administered. After a digital rectal examination of the ano-rectum, the video colonoscope was inserted into the rectum and advanced through the colon to the cecum/TI. The colonoscope was slowly withdrawn in a retrograde panoramic fashion and the colon mucosa was carefully examined including a retroflexed view of the rectum. Findings and interventions are described below. Procedure Difficulty: moderate Findings: celestine terminal ileum and anastomosis- abn appearance with edematous mucosa and stricture, dilated with wire guided balloon to 15 mm, bx taken--uncertain fi this was actually a side to side ileo colonic anastomosis Random bx taken from right colon, transverse, left and rectum Ascending Colon: normal Transverse Colon -normal Descending Colon:normal Sigmoid Colon: moderate diverticulosis Rectum: Retroflexion with small internal hemorrhoids seen, grade I Anorectum - normal Intervention: balloon dilation wire guided, biopsy -cold forceps Colon preparation: [place] Bowel Preparation Scale Right colon; 2 Transverse colon: 2 Left colon; 1-2 (0 = Unprepared colon segment with mucosa not seen due to solid stool that cannot be cleared. 1 = Portion of mucosa of the colon segment seen, but other areas of the colon segment not well seen due to staining, residual stool and/or opaque liquid. 2 = Minor amount of residual staining, small fragments of stool and/or opaque liquid, but mucosa of colon segment seen well. 3 = Entire mucosa of colon segment seen well with no residual staining, small fragments of stool or opaque liquid) Impression and Post Procedure Diagnosis: diverticulosis ileo colonic stricture and inflammation internal hemorrhoids Plan: High fiber diet leaflet Avoid straining at stool, epsom salts and sitz bath, anusol supps or cream Repeat Colonoscopy in 1-2 years or earlier if clinically indicated --consider starting entyvio restart rivaroxiban tomorrow Above findings were reviewed with the patient and relevant handouts were provided if indicated.
[2023-11-26 13:18] VITALS: BP 101/49; PULSE 66; RESP 12; TEMP 36.1; O2SAT 99
[2023-11-26 13:30] VITALS: BP 119/53; PULSE 60; RESP 14; O2SAT 99
[2023-11-26 13:45] VITALS: BP 108/72; PULSE 60; RESP 17; TEMP 36.4; O2SAT 97
== END 2023-11-26 14:32 | disposition home or self-care (01) ==
PROVIDERS: PCP Internal Medicine; Visit Provider Internal Medicine Gastroenterology
PROC: 0DJD8ZZ Inspection of Lower Intestinal Tract, Via Natural or Artificial Opening Endoscopic (ICD-10-PCS; CPT 45378; principal; 2023-11-26 12:10)
DX: K50.10 Crohn's disease of large intestine without complications (principal); K91.89 Other postprocedural complications and disorders of digestive system; K56.699 Other intestinal obstruction unspecified as to partial versus complete obstruction; Y83.2 Surgical operation with anastomosis, bypass or graft as the cause of abnormal reaction of the patient, or of later complication, without mention of misadventure at the time of the procedure; K57.30 Diverticulosis of large intestine without perforation or abscess without bleeding; K64.0 First degree hemorrhoids; I48.19 Other persistent atrial fibrillation
CPT/HCPCS: 45380; 45386; 88305; C1726; J2704; Q9968

== ENCOUNTER → 2023-11-26 10:05 | Outpatient (BNV) | payer MEDICARE, OTHER, SELFPAY | PROVIDERS: PCP Internal Medicine; Visit Provider Internal Medicine Gastroenterology | DX: K56.699 Other intestinal obstruction unspecified as to partial versus complete obstruction (principal); K57.30 Diverticulosis of large intestine without perforation or abscess without bleeding; K64.0 First degree hemorrhoids | CPT/HCPCS: 45380; 45386 ==

== ENCOUNTER 2023-12-28 12:59 | Outpatient (AMB) | payer MEDICARE, OTHER, SELFPAY ==
--- NOTE | 2023-12-28 13:09 | MHC.OFFVIS ---
Vital Signs 12/28/23 13:11 Height 5 ft 8 in Weight 126 lb 1.671 oz BMI 19.2 BP 119/57 L Blood Pressure Location Lt brachial Position Sitting Pulse 78 Intake Visit Reasons: S/p colon Intake Note: Asael presents in the office as a follow up colonoscopy. CC: States that colonoscopy irregular - ongoing diarrhea tenancies. Questions the diet at the facility. He has crohn's and wants to know what you suggest on a good diet to follow. Allergies No Known Allergies Allergy (Verified 12/28/23 13:13) HPI HPI S/p colon: Details: [age]-year-old gentleman with crohns here for f/u RECAP: He has had Crohsn for maybe 20 yrs, dx after bowel obstruction he has been on 6 MP ever since and he feels doing a good job he feels bowel are normal right now, no bouts of diarrhea for long time with alternating constipation appetite is good Colonoscopy: ileo colonic stricture and inflammation --path: severe inflammation with atypical cells, concern for neoplasia Interim: appetite is fair weight maybe going down no abdominal pain, just mild irritation lower right pos diarrhea, for 1 week--comes in waves on and off no constipation EXAM: GENERAL: The patient is frail VITAL SIGNS:see workflow HEENT: Nonicteric sclerae, PERRLA, EOMI. Oropharynx clear. Moist mucous membranes. Conjunctivae appear well perfused. No thyroid mass. CHEST: Chest wall is nontender. HEART: Regular rate and rhythm without murmurs. LUNGS: Clear to auscultation bilaterally. ABDOMEN: Soft, positive bowel sounds, nontender, no organomegaly.no flank tenderness SKIN: No rash, no excessive bruising, petechiae, or purpura. NEUROLOGIC: Cranial nerves II-XII intact without motor/sensory deficit. Psych: normal affect A/P: 1/ Crohsn with inflammation around anastomosis with abn cells suspicious for neoplasia PLAN: 1/ surgical assessment, in case needs revision of the anastomosis 2/ CT scan pending 3/ might need repeat colonoscopy and bx 4/ stop 6 MP for the moment, might change to budesonide PFSH Medical History Fatigue Cognitive disorder Alzheimer's dementia Anemia Persistent atrial fibrillation B12 deficiency Scoliosis Crohn disease A-fib Bipolar 1 disorder Surgical History History of partial colectomy Hx of colonoscopy Family History Father Heart problem Other Alzheimer's dementia Social History Housing: Assisted Living Facility Patient Tobacco Use Status: Never used Tobacco e-Cigarette/Vaping Use: Never Used service: No Current occupational status: retired Cognitive needs: No Hearing needs: No Vision needs: Yes Physical Exam Vital Signs: Last Vital Signs Pulse 78 12/28/23 13:11 BP 119/57 L 12/28/23 13:11 BMI result Body Mass Index 19.2 Assessment & Plan Assessment & Plan (1) Crohn disease: Code(s): K50.90 - Crohn's disease, unspecified, without complications Category: Medical Qualifiers: Gastrointestinal tract location: large intestine Digestive disease complication type: without complication Qualified Code(s): K50.10 - Crohn's disease of large intestine without complications Plan: see above Coding Level of Care Code Est Pt Level 3 (44614) Diagnoses Crohn's disease of large intestine without complication K50.10 Gastrointestinal tract location: large intestine Digestive disease complication type: without complication
[2023-12-28 13:11] VITALS: BP 119/57; PULSE 78; BMI 19.2
== END 2023-12-28 14:08 | disposition home or self-care (01) ==
PROVIDERS: PCP Internal Medicine; Visit Provider Internal Medicine Gastroenterology
DX: K50.10 Crohn's disease of large intestine without complications (principal)
CPT/HCPCS: 99213

== ENCOUNTER → 2023-12-28 12:59 | Outpatient (BNVA) | payer MEDICARE, OTHER, SELFPAY | PROVIDERS: PCP Internal Medicine; Visit Provider Internal Medicine Gastroenterology | DX: K50.10 Crohn's disease of large intestine without complications (principal); Z98.0 Intestinal bypass and anastomosis status | CPT/HCPCS: 99212 ==

== ENCOUNTER 2024-01-07 13:59 | Outpatient (REF) | payer MEDICARE, OTHER, SELFPAY ==
--- NOTE | ~2024-01-07 | CT_ITS ---
EXAMINATION: CT ABDOMEN AND PELVIS WITH CONTRAST CLINICAL INFORMATION: Recent colonoscopy with atypical cells on pathology in the neoterminal ileum, no mass was seen. History of Crohn's disease. COMPARISON: CT enterography 07/01/2023. TECHNIQUE: Multidetector volumetric images were obtained from the superior aspect of the liver through the pubic symphysis following administration 85 mL of Omnipaque 350 intravenous contrast. Sagittal and coronal reformatted images were obtained on the technologist's workstation. Oral contrast: Yes Exam not ordered as a CT enterography. This CT examination was performed using dose optimization techniques as appropriate, variously including the following: *Automated exposure control *Adjustment of mA and/or kV according to patient size (this includes techniques or standardized protocols for targeted exams where dose is matched to indication/reason for exam; i.e. extremities or head) *Use of iterative reconstruction technique DLP: 218 mGy-cm FINDINGS: LUNG BASES: Triangular 3 mm subpleural nodule in the middle lobe is consistent with a parenchymal lymph node. No imaging follow-up is recommended as per Fleischner Society guidelines. Pericardial calcifications again seen. LIVER, GALLBLADDER, AND BILIARY TREE: No suspicious liver mass. Chronic mildly dilated intra and extrahepatic bile ducts appear similar to prior. The gallbladder appears normal. PANCREAS: No discrete pancreatic mass or pancreatic ductal dilatation. SPLEEN: The spleen appears normal. ADRENAL GLANDS: No adrenal mass. No adrenal mass. KIDNEYS AND URETERS: The kidneys are normal in size, shape, and attenuation. No hydronephrosis, hydroureter, or calculi seen. No perinephric stranding. Multiple simple cysts bilaterally for which no imaging follow-up is recommended. BLADDER: Unremarkable. GASTROINTESTINAL TRACT: Ileocecectomy with anastomosis in the right lower quadrant. There is concentric wall thickening with luminal narrowing in the neoterminal ileum over a length of 3.7 cm, similar to the previous exam. This is most consistent with fibrous stenotic disease. No adjacent mesenteric adenopathy. No evidence of bowel obstruction. Stable large irregular calcification in the mesentery at the level of the aortic bifurcation. ABDOMINAL WALL: No significant hernia is appreciated. LYMPH NODES: No pathologically enlarged lymph nodes. VASCULAR: No aortic aneurysm. PELVIC VISCERA: Prostate is enlarged. OSSEOUS STRUCTURES: Degenerative changes in the spine. CT/CT abdomen pelvis w IV con IMPRESSION: Stable concentric wall thickening and luminal narrowing of the neoterminal ileum. There is imaging overlap between fibrostenotic disease and small bowel carcinoma. 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 The lack of regional adenopathy and stability compared to 07/28/2019 likewise favor fibrostenotic disease. Stable large calcification in the mesentery. Differential diagnosis as before including calcifying fibrous tumor of the mesentery, inflammatory myofibroblastic tumor, solitary fibrous tumor and desmoid tumor of the mesentery. Second opinion from Dr. Jim Selby who concurs.
[2024-01-07] MEDS: iohexoL 350 MG/ML 75 ML INFUS..BTL 85 ML IV (16:23)
[2024-01-07] MEDS: Barium Sulfate Oral (Vanilla) 450 ML ORAL.SUSP 900 ML PO (16:24)
[2024-01-08 07:31] LABS: Creatinine POC 0.8 mg/dL (0.5-1.4); GFR POC > 60
== END 2024-01-07 14:00 | disposition home or self-care (01) ==
LOC: HO.CT 13:59
PROVIDERS: Visit Provider Internal Medicine Gastroenterology
DX: K50.00 Crohn's disease of small intestine without complications (principal)
CPT/HCPCS: 74177; 82565; Q9967

== ENCOUNTER 2024-01-11 11:11 | Outpatient (AMB) | payer MEDICARE, OTHER, SELFPAY ==
--- NOTE | 2024-01-11 11:12 | MHC.OFFVIS ---
Vital Signs 01/11/24 11:19 Height 5 ft 8 in Weight 126 lb BMI 19.2 BP 130/61 Blood Pressure Location Rt brachial Position Sitting Pulse 65 Intake Visit Reasons: possible revision of anastamosis Intake Note: This patient presents for an assessment for possible revision of anastomosis. Patient c/o; reports no complaints. Pediatric Speech Therapist Required: No Accompanied by: Other Relationship Allergies No Known Allergies Allergy (Verified 01/20/24 13:02) Medication List - Last Reconciled 01/11/24 by Sadi Saavedra MD mecobalamin (vitamin B12) 1,000 mcg PO DAILY mercaptopurine 75 mg (1.5 x 50 mg) PO DAILY metoprolol succinate ER 50 mg PO DAILY rd-oq-dnrom-lutein-herbal 293 120 mcg-150 mcg -50 mg (Alive Men's 50 Plus Multivitamin) tabs PO quetiapine 50 mg PO BEDTIME rivaroxaban (Xarelto) 15 mg PO QPM ubidecarenone-omega 3-vit E 25-150-200 mg-mg-unit (Co G-82-Qfxzpqe E-Fish Oil) 1 cap PO DAILY HPI HPI possible revision of anastamosis: Details: 83-year-old male referred for a question of an anastomotic stricture. He has known Crohn's disease. he hadundergone emergency surgery about 20 years ago in [place] and had a ileocolectomy done there for what seemed to be a blockage . He had recently moved to [place] from [place] and he was referred to Dr. Guy of Gastroenterology to reestablish a relationship for his Crohn's disease he therefore underwent a colonoscopy done last month and this showed a stricture in the anastomosis. This was balloon dilated. He was referred to me for evaluation as his CAT scan showed this area of question of narrowing as well He denies any signs of obstruction. He denies any abdominal complaints. He has good oral intake. He denies any acute problems with bowel movements although he feels that after his mix up to. It was discontinued, he says he is stools may have been softer. He currently lives at the [facility] assisted living facility. 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 Fatigue Cognitive disorder Alzheimer's dementia Anemia Persistent atrial fibrillation B12 deficiency Scoliosis Crohn disease A-fib Bipolar 1 disorder Surgical History History of partial colectomy Hx of colonoscopy Family History Father Heart problem Other Alzheimer's dementia Social History Housing: Assisted Living Facility Patient Tobacco Use Status: Never used Tobacco e-Cigarette/Vaping Use: Never Used service: No Current occupational status: retired Cognitive needs: No Hearing needs: No Vision needs: Yes Review of Systems Const Denies chills and Denies fever(s) Card Denies chest pain, Denies dyspnea and Denies dyspnea on exertion Resp Denies cough, Denies dyspnea and Denies dyspnea on exertion GI Denies hematochezia and Denies change in bowel habits Denies hematuria and Denies difficulty urinating Musc Denies back pain and Denies limited range of motion Neuro Denies focal weakness and Denies convulsions Psych Denies depression and Denies mood swings Physical Exam Vital Signs: Last Vital Signs Pulse 65 01/11/24 11:19 BP 130/61 01/11/24 11:19 BMI result Body Mass Index 19.2 Const Other: Walks with a cane, appears frail General: comfortable and no acute distress Orientation/consciousness: patient oriented x3 Neck Neck: Yes no lymphadenopathy Resp Auscultation: clear to auscultation bilaterally Cardio Rhythm: regular rhythm GI Palpation (GI): Soft to palpation, nontender and no guarding Neuro General: patient oriented x3 Assessment & Plan Assessment & Plan (1) 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 He had a recent colonoscopy with Dr. Guy showing stenosis of the anastomosis. Biopsy showed atypical cells along with inflammatory changes. I have reviewed his CAT scan as well. This suggest narrowing on the area of the anastomosis but otherwise no strong suggestion of a neoplastic process. He denies any problems with GI complaints. He does not have any clinical suggestion of obstruction I explained to him my above findings. I told him that I do not feel that he will require any urgent surgical intervention. He will need to be followed by GI for this. He may benefit from repeat colonoscopy to check the anastomosis. I will see him in the office in about 6 weeks to do another exam and to check on how is doing. He has comfortable with the plan. He has does understand the he appears frail and with his age, he presents with significant perioperative risks as well for any laparotomy. His daughter was with him during the visit I will review the case with his main entree cook and cashier. 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
[2024-01-11 11:19] VITALS: BP 130/61; PULSE 65; BMI 19.2
== END 2024-01-11 11:42 | disposition home or self-care (01) ==
PROVIDERS: PCP Internal Medicine; Visit Provider Surgery
DX: K91.89 Other postprocedural complications and disorders of digestive system (principal)
CPT/HCPCS: 99203

== ENCOUNTER → 2024-01-11 11:11 | Outpatient (BNVA) | payer MEDICARE, OTHER, SELFPAY | PROVIDERS: PCP Internal Medicine; Visit Provider Surgery | DX: K91.89 Other postprocedural complications and disorders of digestive system (principal) | CPT/HCPCS: 99202 ==

== ENCOUNTER 2024-01-20 13:00 | Outpatient (AMB) | payer MEDICARE, OTHER, SELFPAY ==
--- NOTE | 2024-01-20 13:01 | MHC.OFFVIS ---
Vital Signs 01/20/24 13:02 Respiration 16 Pulse 91 Pulse Source Pulse Oximeter Pulse Oximetry (%) 98 Oxygen Delivery Method Room Air Intake Visit Reasons: 4 MONTH F/U - LVM w/add Intake Note: Pt presents to the office for a 4 month follow up for cognitive disorder. Traffic Engineering Director Required: No Allergies No Known Allergies Allergy (Verified 01/20/24 13:02) Medication List - Last Reconciled 01/20/24 by Cristine Douglass MD mecobalamin (vitamin B12) 1,000 mcg PO DAILY metoprolol succinate ER 50 mg PO DAILY zk-xp-gnjuk-lutein-herbal 293 120 mcg-150 mcg -50 mg (Alive Men's 50 Plus Multivitamin) tabs PO quetiapine 50 mg PO BEDTIME rivaroxaban (Xarelto) 15 mg PO QPM ubidecarenone-omega 3-vit E 25-150-200 mg-mg-unit (Co [id number] E-Fish Oil) 1 cap PO DAILY HPI Comments Details: 83y/o male comes for follow up. I reviewed his notes form [facility] program - PET Amyloid was ordered . 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 He is accompanied by his daughter who helps with history. He moved from [place] to [place] last year. He started noticing some memory issues about 2 years ago and was evaluated in [place] but does not know the diagnosis. He has short term recall issues, he has trouble remembering to take medications,trouble remembering appointments, misplaces things in the house,mild difficulty with remembering conversations etc. He denies any executive issues.He stopped driving 3-4 years ago - was told he had a slow response time. He has depression, bipolar 2 disorder and is followed up by . 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 No head injury . Family h/o- mother, Brother and maternal grand mother had dementia. 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 Fatigue Cognitive disorder Alzheimer's dementia Anemia Persistent atrial fibrillation B12 deficiency Scoliosis Crohn disease A-fib Bipolar 1 disorder Surgical History History of partial colectomy Hx of colonoscopy Family History Father Heart problem Other Alzheimer's dementia Social History Housing: Assisted Living Facility Patient Tobacco Use Status: Never used Tobacco e-Cigarette/Vaping Use: Never Used service: No Current occupational status: retired Cognitive needs: No Hearing needs: No Vision needs: Yes Physical Exam Vital Signs: Last Vital Signs Pulse 91 01/20/24 13:02 Resp 16 01/20/24 13:02 Pulse Ox 98 01/20/24 13:02 Oxygen Delivery Method Room Air 01/20/24 13:02 Const General: cooperative, healthy appearing, comfortable and no acute distress Nutritional Appearance: average body habitus Orientation/consciousness: oriented to person and oriented to place Eyes Pupils: Equal, round and reactive pupils present Neuro Other: Neck- antecollis Mild slowness decreased range of motion in the neck General: oriented to person, oriented to place, tone normal, moves all extremities and no focal motor deficits Cranial nerves: Yes Facial sensation intact/muscles of mastication intact, Yes Equal, round and reactive pupils present, Yes Bilaterally intact EOM present, Yes Nystagmus not present, Yes Normal facial strength present and Yes Midline tongue present Cognition (Neuro): normal cognition Gait exam (Neuro): Antalgic gait present Motor exam (neuro): 5/5 motor strength present throughout and Normal motor muscle tone present throughout Coordination: [id number] test normal Assessment & Plan Assessment & Plan (1) Cognitive disorder: Comment: likely early Alzheimer's dementia - strong fh/o dementia - Code(s): F09 - Unspecified mental disorder due to known physiological condition Category: Medical Plan He did not tolerate Memantine XR 7 mg due to crohns . Suggested to follow up with [facility] Memory disorders program for further management. Coding Level of Care Code Est Pt Level 3 (27850) Diagnoses Cognitive disorder F09
[2024-01-20 13:02] VITALS: PULSE 91; RESP 16; O2SAT 98
== END 2024-01-20 13:46 | disposition home or self-care (01) ==
PROVIDERS: PCP Internal Medicine; Visit Provider Psychiatry & Neurology Neurology
DX: R41.89 Other symptoms and signs involving cognitive functions and awareness (principal)
CPT/HCPCS: 99213

== ENCOUNTER → 2024-01-20 13:00 | Outpatient (BNVA) | payer MEDICARE, OTHER, SELFPAY | PROVIDERS: PCP Internal Medicine; Visit Provider Psychiatry & Neurology Neurology | DX: F09 Unspecified mental disorder due to known physiological condition (principal) | CPT/HCPCS: 99212 ==

== ENCOUNTER 2024-01-21 14:59 | Outpatient (AMB) | payer MEDICARE, OTHER, SELFPAY ==
[2024-01-21 15:02] VITALS: BP 116/64; PULSE 84; BMI 19.5
--- NOTE | 2024-01-21 15:02 | MHC.OFFVIS ---
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 He used to live in [place] but has now moved some local area. It seems that he has had atrial fibrillation for many years, possibly decades. He is on beta-blockers as well as Xarelto. Otherwise, no clear-cut history of any coronary disease or myocardial infarction or cardiomyopathy or in fact any other cardiac issues. Overall, he is feeling good. No new complaints. 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 Fatigue Cognitive disorder Alzheimer's dementia Anemia Persistent atrial fibrillation B12 deficiency Scoliosis Crohn disease A-fib Bipolar 1 disorder Surgical History History of partial colectomy Hx of colonoscopy Family History Father Heart problem Other Alzheimer's dementia Social History Housing: Assisted Living Facility Patient Tobacco Use Status: Never used Tobacco e-Cigarette/Vaping Use: Never Used service: No Current occupational status: retired Cognitive needs: No Hearing needs: No Vision needs: Yes Review of Systems Const Denies chills, Denies fatigue, Denies fever(s), Denies weight gain and Denies weight loss ENT Denies dizziness Card Denies chest pain, Denies leg edema, Denies lightheadedness, Denies palpitations, Denies dyspnea on exertion, Denies orthopnea and Denies other Resp Denies cough and Denies dyspnea on exertion GI Denies hematochezia and Denies change in stool character Musc Denies abnormal gait, Denies muscle weakness, Denies numbness, Denies radiating pain into limb and Denies tingling Neuro Denies abnormal gait, Denies dizziness, Denies numbness and Denies tingling Endo Denies fatigue and Denies palpitations Physical Exam Vital Signs: Last Vital Signs Pulse 84 01/21/24 15:02 BP 116/64 01/21/24 15:02 BMI result Body Mass Index 19.5 Const General: comfortable and no acute distress Orientation/consciousness: patient oriented x3 HEENT Other: Unremarkable Head: Yes normal to inspection Neck Neck: Yes normal visual inspection Chest Chest palpation & inspection: normal inspection of the chest Resp Auscultation: clear to auscultation bilaterally Cardio Palpation: normal PMI Heart sounds: S1 normal heart sound present, S2 normal heart sound present, no gallops, no murmurs and no rubs GI Palpation (GI): Soft to palpation Back/Spine/Pelvis Other: unremarkable Skin General skin exam: no rashes or lesions noted Neuro General: patient oriented x3 Extrem General: Yes normal to inspection Psych Mental Status: mental status grossly normal Assessment & Plan Assessment & Plan (1) Persistent atrial fibrillation: Code(s): I48.19 - Other persistent atrial fibrillation Category: Medical Plan EKG shows controlled atrial fibrillation. In the echocardiogram, LVEF is low normal 55%. Severely dilated left atrium. No significant valvular issues. In the Holter, underlying rhythm is atrial fibrillation with average rate of 69/Min. Rate control thought to be adequate. Very brief NSVT noted. Clinically, he has got absolutely no cardiac symptoms. Overall, continue beta-blockers without changes. Continue Xarelto. If any concerns, they will contact us. Follow-up in 1 year. Discussed with daughter who came for appointment. Coding Level of Care Code Est Pt Level 3 (13073) Diagnoses Persistent atrial fibrillation I48.19
== END 2024-01-21 15:20 | disposition home or self-care (01) ==
PROVIDERS: PCP Internal Medicine; Visit Provider Internal Medicine
DX: I48.19 Other persistent atrial fibrillation (principal)
CPT/HCPCS: 99213

== ENCOUNTER → 2024-01-21 14:59 | Outpatient (BNVA) | payer MEDICARE, OTHER, SELFPAY | PROVIDERS: PCP Internal Medicine; Visit Provider Internal Medicine | DX: I48.19 Other persistent atrial fibrillation (principal); Z79.01 Long term (current) use of anticoagulants | CPT/HCPCS: 99212 ==

== ENCOUNTER 2024-02-01 10:57 | Outpatient (RCR) | payer MEDICARE, OTHER, SELFPAY | END 2024-03-08 08:15 | disposition home or self-care (01) | LOC: HO.PTCHIC 10:57 | PROVIDERS: PCP Internal Medicine; Visit Provider Internal Medicine Sports Medicine | DX: M54.50 Low back pain, unspecified (principal) | CPT/HCPCS: 97110; 97162 ==

== ENCOUNTER 2024-02-23 13:33 | Outpatient (AMB) | payer MEDICARE, OTHER, SELFPAY ==
--- NOTE | 2024-02-23 13:35 | A.OFFPC_ITS ---
Vital Signs 02/23/24 13:36 Height 5 ft 8 in Weight 125 lb 4 oz BMI 19.0 BP 112/60 Blood Pressure Location Rt brachial Position Sitting Pulse 96 Pulse Source Pulse Oximeter Pulse Oximetry (%) 97 Oxygen Delivery Method Room Air Intake Visit Reasons: 3M F/U Allergies No Known Allergies Allergy (Verified 02/23/24 13:39) Medication List - Last Reconciled 02/23/24 by Rachel Parekh MD mecobalamin (vitamin B12) 1,000 mcg PO DAILY metoprolol succinate ER 50 mg PO DAILY pe-ga-hxvxj-lutein-herbal 293 120 mcg-150 mcg -50 mg (Alive Men's 50 Plus Multivitamin) tabs PO quetiapine 50 mg PO BEDTIME rivaroxaban (Xarelto) 15 mg PO QPM ubidecarenone-omega 3-vit E 25-150-200 mg-mg-unit (Co S-64-Qbljojg E-Fish Oil) 1 cap PO DAILY Tobacco use date assessed: 02/23/24 Fall risk assessment: No Falls in past year Last assessed Fall Risk: 02/23/24 Dental Screening Dental Screen Date: 02/23/24 Did you have a dental visit in the last 12 months?: Yes Did you have a dental problem in the last 6 months where you did not have access to dental care?: No Was dental information given to patient?: Patient has dentist HPI 3M F/U HPI Details Patient is 83-year-old gentleman came in today for his regular follow- up with his daughter Patient would like to have his ears irrigated He is also slightly anemic with hemoglobin of 11.5 , stable Patient have severe scoliosis managing conservatively Patient has seen Dr. Mirza for bipolar disorder management through Psychiatry He has seen Cardiology for persistent atrial fibrillation And has seen Gastroenterology for the management of Crohn's disease Recently had colonoscopy done He is now seeing Dr. 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 Fatigue Cognitive disorder Alzheimer's dementia Anemia Persistent atrial fibrillation B12 deficiency Scoliosis Crohn disease A-fib Bipolar 1 disorder Surgical History History of partial colectomy Hx of colonoscopy Family History Father Heart problem Other Alzheimer's dementia Social History Housing: Assisted Living Facility Patient Tobacco Use Status: Never used Tobacco e-Cigarette/Vaping Use: Never Used service: No Current occupational status: retired Cognitive needs: No Hearing needs: No Vision needs: Yes Questionnaire PHQ-9 Over the last 2 weeks, how often have you been bothered by any of the following problems? 1. Little interest or pleasure in doing things: not at all 2. Feeling down, depressed, or hopeless: not at all 3. Trouble falling or staying asleep, or sleeping too much: not at all 4. Feeling tired or having little energy: not at all 5. Poor appetite or overeating: not at all 6. Feeling bad about yourself - or that you are a failure or have let yourself or your family down: not at all 7. Trouble concentrating on things, such as reading the newspaper or watching television: not at all 8. Moving or speaking so slowly that other people could have noticed. Or the opposite - being so fidgety or restless that you have been moving around a lot more than usual: not at all 9. Thoughts that you would be better off or of hurting yourself in some way: not at all Total score: 0 Depression Screening Interpretation: Negative Depression Screening Done: Yes 19892 - PHQ-9 Billing: Yes Source: Developed by Drs. Franklin Funez, Sally Pappas, Geoff Speras and colleagues, with an educational rhonda from [employer]. Thrive Questionnaire Date Thrive assessed: 02/23/24 I am a: Parent/Caregiver What is your living situation today?: I have a steady place to live Within the past 12 months, did the food you bought not last and you didn't have the money to get more?: Never true Within the past 12 months, did you worry whether your food would run out before you got money to buy more?: Never true Do you have trouble paying for medicines?: No Do you have trouble getting transportation to medical appointments?: No Do you have trouble paying your heating and electricity bill?: No Do you have trouble taking care of your child, family member or friend?: No Do you have trouble with day-to-day activities such as bathing, preparing meals, shopping, managing finances, etc.?: No Are you currently unemployed and looking for a job?: No Are you interested in more education?: No Please select the resources that you would like help with: None Currently or been in a relationship where the following occur: No concerns reported THRIVE Score: 0 AUDIT C Alcohol Use Questionnaire (AUDIT-C) 1. How often do you have a drink containing alcohol?: Monthly or less 2. How many drinks containing alcohol do you have on a typical day when you are drinking?: 1 or 2 3. How often do you have six or more drinks on one occasion?: Never Total Score: 1 Score Reviewed/Action Taken: Yes SIDRA-7 AMB Questionnaire SIDRA-7 Date SIDRA - 7 assessed: 02/23/24 Feeling nervous, anxious, or on edge: 0 = Not at all Not being able to stop or control worryin = Not at all Worrying too much about different things: 0 = Not at all Trouble relaxin = Not at all Being so restless that it is hard to sit still: 0 = Not at all Becoming easily annoyed or irritable: 0 = Not at all Feeling afraid as if something awful might happen: 0 = Not at all Total SIDRA-7 score (0-4 normal; 5-9 mild; 10-14 moderate; 15-21 severe): 0 Source: Developed by Drs. Franklin Funez, Sally Pappas, Geoff Spears and colleagues, with an educational rhonda from [employer]. SIDRA-7 Assessment Billing SIDRA-7 Assessment Tool: SIDRA-7 Assessment 81103 Review of Systems Const Denies chills and Denies fever(s) ENT Denies epistaxis and Denies nasal discharge Card Denies chest pain Resp Denies chest congestion, Denies cough and Denies hemoptysis GI Denies diarrhea and Denies nausea Skin/Breast Denies rash Neuro Reports no additional complaints Psych Reports no additional complaints Endo Reports no additional complaints Physical exam (Primary Care) Vital Signs: Last Vital Signs Pulse 96 02/23/24 13:36 BP 112/60 02/23/24 13:36 Pulse Ox 97 02/23/24 13:36 Oxygen Delivery Method Room Air 02/23/24 13:36 BMI result Body Mass Index 19.0 Tobacco/Smoking Status: Tobacco use Status Tobacco use date assessed 02/23/24 02/23/24 13:40 Patient Tobacco Use Status Never used Tobacco 02/23/24 13:40 e-Cigarette/Vaping Use Never Used 02/23/24 13:40 PHQ-9: PHQ-9 Score PHQ-9: Total score 0 02/23/24 14:05 Depression Screening Interpretation: Negative Thrive Assessment: Date of Thrive Assessment Date Thrive assessed 02/23/24 02/23/24 13:40 Currently or been in a relationship where the following occur: No concerns reported Const General: cooperative, comfortable and no acute distress HENMT Other: Left ear filled with cerumen Head: Yes normocephalic Eyes General: appearance normal, both eyes and all related structures Neck Neck: Yes supple Resp Effort & Inspection: normal respiratory effort, no cough and no stridor Cardio Heart sounds: S1 normal heart sound present and S2 normal heart sound present Skin General skin exam: turgor normal Neuro General: tone normal and moves all extremities Extrem Right lower extremity: no edema Left lower extremity: no edema Office Procedures Cerumen Removal From which ear canal was the cerumen removed: left Removal: irrigation Notes: patient tolerated procedure well, no complications and ear canal clear [id number] Irrigation/Lavage Assessment and Plan Assessment & Plan (1) Persistent atrial fibrillation: Code(s): I48.19 - Other persistent atrial fibrillation (2) Crohn disease: Code(s): K50.90 - Crohn's disease, unspecified, without complications Qualifiers: Digestive disease complication type: without complication Gastrointestinal tract location: large intestine Qualified Code(s): K50.10 - Crohn's disease of large intestine without complications (3) B12 deficiency: Code(s): E53.8 - Deficiency of other specified B group vitamins (4) Bipolar 1 disorder: Code(s): F31.9 - Bipolar disorder, unspecified (5) Alzheimer's dementia: Code(s): G30.9 - Alzheimer's disease, unspecified; F02.80 - Dementia in other diseases classified elsewhere, unspecified severity, without behavioral disturbance, psychotic disturbance, mood disturbance, and anxiety Qualifiers: Alzheimer's disease onset: late onset Dementia severity: mild Dementia behavioral or psychological symptom: without behavioral, psychotic, or mood disturbance or anxiety Qualified Code(s): G30.1 - Alzheimer's disease with late onset; F02.A0 - Dementia in other diseases classified elsewhere, mild, without behavioral disturbance, psychotic disturbance, mood disturbance, and anxiety (6) Cognitive disorder: Comment: likely early Alzheimer's dementia - strong fh/o dementia - Code(s): F09 - Unspecified mental disorder due to known physiological condition Plan Patient is 83-year-old gentleman came in today for his regular follow-up with his daughter Patient would like to have his ears irrigated He is also slightly anemic with hemoglobin of 11.5 , stable Patient have severe scoliosis managing conservatively Patient has seen Dr. Mirza for bipolar disorder management through Psychiatry He has seen Cardiology for persistent atrial fibrillation And has seen Gastroenterology for the management of Crohn's disease Recently had colonoscopy done He is now seeing Dr. Douglass neurology cognitive impairment Patient will return in six-month for follow-up appointment Orders: Orders Complete Blood Count Auto Diff Today E53.8 - Deficiency of other specified B group vitamins, F02.80 - Dementia in other diseases classified elsewhere, unspecified severity, without behavioral disturbance, psychotic disturbance, mood disturbance, and anxiety, F31.9 - Bipolar disorder, unspecified, G30.9 - Alzheimer's disease, unspecified, I48.19 - Other persistent atrial fibrillation, K50.10 - Crohn's disease of large intestine without complications Comprehensive Met. Panel Today E53.8 - Deficiency of other specified B group vitamins, F02.80 - Dementia in other diseases classified elsewhere, unspecified severity, without behavioral disturbance, psychotic disturbance, mood disturbance, and anxiety, F31.9 - Bipolar disorder, unspecified, G30.9 - Alzheimer's disease, unspecified, I48.19 - Other persistent atrial fibrillation, K50.10 - Crohn's disease of large intestine without complications Ferritin Today E53.8 - Deficiency of other specified B group vitamins, F02.80 - Dementia in other diseases classified elsewhere, unspecified severity, without behavioral disturbance, psychotic disturbance, mood disturbance, and anxiety, F31.9 - Bipolar disorder, unspecified, G30.9 - Alzheimer's disease, unspecified, I48.19 - Other persistent atrial fibrillation, K50.10 - Crohn's disease of large intestine without complications TSH reflex Free T4 Today E53.8 - Deficiency of other specified B group vitamins, F02.80 - Dementia in other diseases classified elsewhere, unspecified severity, without behavioral disturbance, psychotic disturbance, mood disturbance, and anxiety, F31.9 - Bipolar disorder, unspecified, G30.9 - Alzheimer's disease, unspecified, I48.19 - Other persistent atrial fibrillation, K50.10 - Crohn's disease of large intestine without complications Vitamin B12 Today E53.8 - Deficiency of other specified B group vitamins, F02.80 - Dementia in other diseases classified elsewhere, unspecified severity, without behavioral disturbance, psychotic disturbance, mood disturbance, and anxiety, F31.9 - Bipolar disorder, unspecified, G30.9 - Alzheimer's disease, unspecified, I48.19 - Other persistent atrial fibrillation, K50.10 - Crohn's disease of large intestine without complications LDL Cholesterol Direct Today E53.8 - Deficiency of other specified B group vitamins, F02.80 - Dementia in other diseases classified elsewhere, unspecified severity, without behavioral disturbance, psychotic disturbance, mood disturbance, and anxiety, F31.9 - Bipolar disorder, unspecified, G30.9 - Alzheimer's disease, unspecified, I48.19 - Other persistent atrial fibrillation, K50.10 - Crohn's disease of large intestine without complications Coding Level of Care Code Est Pt Level 4 (75407) Complex EM visit Add On G2211 Diagnoses Persistent atrial fibrillation I48.19 Crohn's disease of large intestine without complication K50.10 Digestive disease complication type: without complication Gastrointestinal tract location: large intestine B12 deficiency E53.8 Bipolar 1 disorder F31.9 Mild late onset Alzheimer's dementia without behavioral disturbance, psychotic disturbance, mood disturbance, or anxiety G30.1; F02.A0 Alzheimer's disease onset: late onset Dementia severity: mild Dementia behavioral or psychological symptom: without behavioral, psychotic, or mood disturbance or anxiety Cognitive disorder F09 CPT Codes Office Procedure - CPT: 97181-Mna Irrigation/Lavage ([id number]) Additional Codes SIDRA-7 Assessment Billing - SIDRA-7 Assessment Tool: SIDRA-7 Assessment 93123 ([id number])
[2024-02-23 13:36] VITALS: BP 112/60; PULSE 96; O2SAT 97; BMI 19.0
== END 2024-02-23 14:09 | disposition home or self-care (01) ==
PROVIDERS: PCP Internal Medicine; Visit Provider Internal Medicine
DX: I48.19 Other persistent atrial fibrillation (principal); K50.10 Crohn's disease of large intestine without complications; E53.8 Deficiency of other specified B group vitamins; F31.9 Bipolar disorder, unspecified; G30.1 Alzheimer's disease with late onset; F02.A0 Dementia in other diseases classified elsewhere, mild, without behavioral disturbance, psychotic disturbance, mood disturbance, and anxiety; F09 Unspecified mental disorder due to known physiological condition; H61.22 Impacted cerumen, left ear
CPT/HCPCS: 69209; 96127; 99214

== ENCOUNTER 2024-02-23 14:31 | Outpatient (REF) | payer MEDICARE, OTHER, SELFPAY ==
[2024-02-23 16:18] LABS: MANUAL DIFF FLAG NO
[2024-02-23 16:26] LABS: Basophils Percent Auto 0.4 % (0-2); Eosinophils Absolute Auto 0.1 X10*3/uL (0.0-0.4); Hematocrit 40.2 % (42.0-52.0); Hemoglobin 13.4 g/dl (14.0-18.0); Imm Gran Abs Auto 0.01 X10*3/uL (0.00-0.03); Imm Gran Pct Auto 0.2 % (0.0-0.4); Lymphocytes Absolute Auto 0.6 X10*3/uL (1.2-4.9); Lymphocytes Percent Auto 12.3 % (20-40); Mean Corpuscular HGB Conc 33.3 g/dl (31.0-36.0); Mean Corpuscular Hemoglobin 33.5 pg (27.0-33.0); Mean Corpuscular Volume 100.5 fL (80.0-98.0); Mean Platelet Volume 11.1 fL (9.4-12.4); Monocytes Absolute Auto 0.7 X10*3/uL (0.1-1.2); Monocytes Percent Auto 15.4 % (2-11); Neutrophils Absolute Auto 3.2 x10*3/uL (2.0-8.3); Neutrophils Percent Auto 69.7 % (45-73); Platelet Count 204 X10*3/uL (160-400); Red Cell Distribution Width 13.7 % (11.0-16.0); White Blood Count 4.6 X10*3/uL (4.8-10.8)
[2024-02-23 20:52] LABS: Alanine Aminotransferase 17 U/L (0-40); Albumin Level 4.1 g/dL (3.5-5.0); Alkaline Phosphatase 69 U/L (39-117); Anion Gap 13 (12-20); Aspartate Amino Transferase 19 U/L (5-37); Bilirubin Total 1.3 mg/dL (0.0-1.0); Blood Urea Nitrogen 24 mg/dL (9-16); Calcium 9.8 mg/dL (8.4-10.2); Carbon Dioxide 26 mmol/L (22-29); Chloride 106 mmol/L (96-108); Estimated Glomerular Filt Rate > 60; Glucose Random 97 mg/dL (60-115); Potassium 4.2 mmol/L (3.3-5.1); Sodium 141 mmol/L (135-145)
[2024-02-23 21:08] LABS: Ferritin 90 ng/mL (20-250); TSH reflex Free T4 1.05 uIU/mL (0.32-4.0)
[2024-02-23 21:10] LABS: Vitamin B12 916 pg/mL (200-900)
[2024-02-24 16:03] LABS: LDL Cholesterol Direct 45 mg/dL (<100)
== END 2024-02-23 14:32 | disposition home or self-care (01) ==
LOC: HO.HMGCLDS 14:31
PROVIDERS: PCP Internal Medicine; Visit Provider Internal Medicine
DX: I48.19 Other persistent atrial fibrillation (principal); K50.10 Crohn's disease of large intestine without complications; E53.8 Deficiency of other specified B group vitamins; F31.9 Bipolar disorder, unspecified; G30.9 Alzheimer's disease, unspecified; F02.80 Dementia in other diseases classified elsewhere, unspecified severity, without behavioral disturbance, psychotic disturbance, mood disturbance, and anxiety
CPT/HCPCS: 36415; 80053; 82607; 82728; 83721; 84443; 85025

== ENCOUNTER 2024-03-18 23:19 | Emergency (ER) | payer MEDICARE, OTHER, SELFPAY ==
--- NOTE | ~2024-03-18 | CT_ITS ---
EXAMINATION: CT ABDOMEN AND PELVIS WITHOUT CONTRAST CLINICAL INFORMATION: Abdominal pain. Evaluate for obstruction. COMPARISON: CT abdomen/pelvis dated 01/07/2024. TECHNIQUE: Multidetector volumetric imaging was performed from the superior aspect of the liver through the pubic symphysis. Sagittal and coronal reformatted images were obtained on the technologist's workstation. This CT examination was performed using dose optimization techniques as appropriate, variously including the following: *Automated exposure control *Adjustment of mA and/or kV according to patient size (this includes techniques or standardized protocols for targeted exams where dose is matched to indication/reason for exam; i.e. extremities or head) *Use of iterative reconstruction technique DLP: 345 mGy-cm FINDINGS: LUNG BASES: The visualized lung bases are clear. Partially visualized pericardial calcifications are redemonstrated. LIVER, GALLBLADDER, AND BILIARY TREE: The liver is normal in size, shape, and attenuation. No focal hepatic lesion or biliary ductal dilatation is present. The gallbladder is unremarkable with no evidence of radiopaque gallstones, gallbladder wall thickening, or obvious pericholecystic inflammatory changes. PANCREAS: Atrophic with fatty replacement. SPLEEN: Unremarkable. ADRENAL GLANDS: Unremarkable. KIDNEYS AND URETERS: The kidneys are normal in size, shape, and attenuation. No hydronephrosis, hydroureter, or calculi seen. Simple left renal cysts appear unchanged. No dedicated follow-up imaging is recommended. No perinephric stranding. BLADDER: Unremarkable. GASTROINTESTINAL TRACT: Oral contrast reaches the colon. No small or large bowel obstruction. Unremarkable right-sided ileocolic anastomosis. Mild circumferential bowel wall thickening of the distal ileum, most prominent just proximal to the anastomosis with minimal adjacent inflammatory change. No evidence of perforation or abscess formation. Scattered sigmoid diverticulosis without evidence of acute diverticulitis. PERITONEAL CAVITY: No intra-abdominal free air or free fluid. No intra-abdominal mass or organized fluid collection/abscess formation. ABDOMINAL WALL: No significant hernia is appreciated. LYMPH NODES: No significant lymphadenopathy; however, evaluation is limited without IV contrast. Redemonstration of dystrophic calcifications within the central mesentery, which may represent calcified lymph nodes versus mesenteric calcifications are unchanged. VASCULAR: No abdominal aortic dilatation. Unremarkable IVC. PELVIC VISCERA: Prominent prostatomegaly is redemonstrated. OSSEOUS STRUCTURES: No acute osseous abnormality. CT/CT abdomen pelvis wo IV con IMPRESSION: 1. Unremarkable right-sided ileocolic anastomosis. Mild circumferential bowel wall thickening of the distal ileum, most prominent just proximal to the anastomosis with minimal adjacent inflammatory change, slightly increased when compared to the prior examination. No bowel obstruction. 2. Central mesenteric calcifications are unchanged. 3. No new intra-abdominal mass, lymphadenopathy, or ascites. 4. Additional chronic findings are unchanged. Fleischner guidelines were followed. Electronically signed by: Sb Holm MD 03/19/2024 07:24 AM EDT
[2024-03-18 23:22] VITALS: BP 144/75; PULSE 97; RESP 18; TEMP 36.6; O2SAT 100; BMI 19.8
[2024-03-19 00:06] LABS: Basophils Percent Auto 0.3 % (0-2); Eosinophils Absolute Auto 0.1 X10*3/uL (0.0-0.4); Eosinophils Percent Auto 1.3 % (0-4); Hematocrit 37.4 % (42.0-52.0); Hemoglobin 12.3 g/dl (14.0-18.0); Imm Gran Abs Auto 0.02 X10*3/uL (0.00-0.03); Imm Gran Pct Auto 0.3 % (0.0-0.4); Lymphocytes Absolute Auto 0.5 X10*3/uL (1.2-4.9); Lymphocytes Percent Auto 8.1 % (20-40); MANUAL DIFF FLAG NO; Mean Corpuscular HGB Conc 32.9 g/dl (31.0-36.0); Mean Corpuscular Volume 100.3 fL (80.0-98.0); Mean Platelet Volume 10.6 fL (9.4-12.4); Monocytes Absolute Auto 1.1 X10*3/uL (0.1-1.2); Monocytes Percent Auto 17.1 % (2-11); Neutrophils Absolute Auto 4.5 x10*3/uL (2.0-8.3); Neutrophils Percent Auto 72.9 % (45-73); Platelet Count 191 X10*3/uL (160-400); Red Blood Count 3.73 X10*6/uL (4.60-5.80); Red Cell Distribution Width 13.3 % (11.0-16.0); White Blood Count 6.2 X10*3/uL (4.8-10.8)
[2024-03-19 00:25] LABS: Appearance Urine Clear; Color Urine Yellow; Glucose Urine UA Negative (Negative); Leukocyte Esterase Urine Negative (Negative); Nitrite Urine Negative (Negative); PH 5.5 (5.0-9.0); Specific Gravity - Urine >= 1.030 (1.005-1.025); Urine Blood Negative (Negative); Urine Ketones Trace mg/dL (Negative); Urine Protein Negative (Neg-Trace)
[2024-03-19 00:56] LABS: Alanine Aminotransferase 17 U/L (0-40); Albumin Level 3.9 g/dL (3.5-5.0); Alkaline Phosphatase 60 U/L (39-117); Anion Gap 13 (12-20); Aspartate Amino Transferase 20 U/L (5-37); Bilirubin Direct 0.4 mg/dL (0.0-0.5); Blood Urea Nitrogen 32 mg/dL (9-16); Calcium 9.5 mg/dL (8.4-10.2); Carbon Dioxide 25 mmol/L (22-29); Chloride 108 mmol/L (96-108); Creatinine Clr Calc Pharmacy 46.6; Estimated Glomerular Filt Rate > 60; Glucose Random 115 mg/dL (60-115); Lipase 10 U/L (8-78); Potassium 4.1 mmol/L (3.3-5.1); Sodium 142 mmol/L (135-145); Total Protein 6.6 g/dL (6.5-8.0)
[2024-03-19 01:06] VITALS: BP 119/65; PULSE 69; RESP 18; TEMP 36.7; O2SAT 99
[2024-03-19 02:51] VITALS: BP 118/61; PULSE 68; RESP 18; TEMP 36.8; O2SAT 97
--- NOTE | 2024-03-19 02:56 | MHC.EDTECH ---
Hourly rounds and vitals completed,patient given a warm blanket and is resting quietly,family at bedside call kay in reach
--- NOTE | 2024-03-19 03:23 | ED_ITS ---
HPI - Abdominal Pain General Chief Complaint: Abdominal Pain Stated Complaint: slushy noice in stomach/painful/stiff Time Seen by Provider: 03/19/24 03:22 Source: patient Mode of arrival: ambulatory Limitations: no limitations History of Present Illness ED Provider: Dr. Mcmahon HPI narrative: Patient is a 83 yo with a history of diverticulitis, with bowel resection and subsequent SBO. He states that he noticed lower abdominal distention with high pitched bowel sounds. Denies fever N/V/D. elicited complaint: abdominal pain Related Data Home Medications ?Medication ?Instructions ?Recorded ?Confirmed quetiapine 50 mg tablet 50 mg PO BEDTIME 11/05/23 02/23/24 mecobalamin (vitamin B12) 1,000 1,000 mcg PO DAILY 12/28/23 02/23/24 mcg lozenges [id number]-iih-wftqe 120 mcg-lutein tab PO 12/28/23 02/23/24 150 mcg-herb 50 mg chewable tablet (Alive Men's 50 Plus Multivitamin) ubidecarenone-omega 3-vit E 25 1 cap PO DAILY 12/28/23 02/23/24 mg-150 (90-60) mg-200 unit capsule (Co P-31-Xqfdaff E-Fish Oil) Previous Rx's ?Medication ?Instructions ?Recorded metoprolol succinate 50 mg 50 mg PO DAILY #90 tabs 09/01/23 tablet,extended release 24 hr rivaroxaban 15 mg tablet (Xarelto) 15 mg PO QPM #90 tabs 09/01/23 levofloxacin 500 mg tablet 500 mg PO DAILY 10 days #10 tabs 03/19/24 metronidazole 500 mg tablet 500 mg PO TID #30 tabs 03/19/24 Allergies Allergy/AdvReac Type Severity Reaction Status Date / Time No Known Allergies Allergy Verified 03/18/24 23:26 Review of Systems Review of Systems Yes all other systems are reviewed and are negative Denies Sensory deficit (Neuro) PMFSH Past Medical History Medical History 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 Fatigue Cognitive disorder Alzheimer's dementia Anemia Persistent atrial fibrillation B12 deficiency Scoliosis Crohn disease A-fib Bipolar 1 disorder Surgical History History of partial colectomy Hx of colonoscopy Family History Family History Father Heart problem Other Alzheimer's dementia Social History Social History Housing: Assisted Living Facility Alcohol intake: current Alcohol intake frequency: holidays/special occasions only Patient Tobacco Use Status: Never used Tobacco Smoked in Last 30 Days: No e-Cigarette/Vaping Use: Never Used Use of substances other than those prescribed or required for medical reasons: No Advance Directives: Yes Advance Directives on File: Yes Advance Directives Date on File: 03/19/24 Do you have a plan to hurt others: No Plan service: No Current occupational status: retired Cognitive needs: No Hearing needs: No Vision needs: Yes Physical Exam ED Vital Signs: Vital Signs - 24 hr 03/18/24 23:22 03/19/24 01:06 03/19/24 02:51 Temperature 97.9 F 98.1 F 98.2 F Pulse Rate 97 69 68 Respiratory Rate 18 18 18 Blood Pressure 144/75 H 119/65 118/61 Pulse Oximetry 100 99 97 Oxygen Delivery Method Room Air Room Air Room Air 03/19/24 06:11 Temperature 98.0 F Pulse Rate 66 Respiratory Rate 18 Blood Pressure 124/64 Pulse Oximetry 99 Oxygen Delivery Method Room Air BMI result Body Mass Index 19.8 Const Other: frail male Nutritional Appearance: thin Orientation/consciousness: oriented to person and patient oriented x3 Limitations: no limitations HENMT Head: Yes normal to inspection Ears: external ears normal General nose exam: Normal external nose present Mouth: Normal oral and palatal mucosa present and oropharynx normal Throat: Yes posterior oropharynx normal Eyes General: appearance normal, both eyes and all related structures Neck Neck: Yes normal visual inspection Chest Chest palpation & inspection: normal inspection of the chest Resp Auscultation: clear to auscultation bilaterally Cardio Jugular venous distension: no JVD Rate: regular rate Rhythm: regular rhythm Heart sounds: S1 normal heart sound present and S2 normal heart sound present GI Other: lower distention, nontender, high pitched bowel sounds General: Yes no CVA tenderness Back/Spine/Pelvis Back: no CVA tenderness Skin General skin exam: no rashes or lesions noted Neuro General: oriented to person and patient oriented x3 Cranial nerves: Yes CN's II-XII intact bilaterally Motor exam (neuro): 5/5 motor strength present throughout Sensory Exam: No Sensory deficit (Neuro) Extrem General: Yes normal to inspection Psych Appearance: grossly normal Course Reevaluation(s) Reevaluation #1: CT did not show bowel obstruction but in the distal small bowel there is inflammation and pericolonic inflammation will treat with 10 days of levaquin and flagy. Time: 07:48 Medical Decision Making Differential Diagnosis Differential Diagnoses: The differential diagnosis associated with the presentation includes (SBO, stricture, colitis) Admission/Observation Consideration of admission/observation: Escalation of care including admission/observation considered (upon arrival admission was considered) Lab Data 03/18/24 23:59 03/18/24 23:59 Labs: Lab Results 03/18/24 03/19/24 Range/Units 23:59 00:12 WBC 6.2 (4.8-10.8) X10*3/uL RBC 3.73 L (4.60-5.80) X10*6/uL Hgb 12.3 L (14.0-18.0) g/dl Hct 37.4 L (42.0-52.0) % MCV 100.3 H (80.0-98.0) fL MCH 33.0 (27.0-33.0) pg MCHC 32.9 (31.0-36.0) g/dl RDW 13.3 (11.0-16.0) % Plt Count 191 (160-400) X10*3/uL MPV 10.6 (9.4-12.4) fL Immature Gran % (Auto) 0.3 (0.0-0.4) % Neut % (Auto) 72.9 (45-73) % Lymph % (Auto) 8.1 L (20-40) % [place] % (Auto) 17.1 H (2-11) % Eos % (Auto) 1.3 (0-4) % Baso % (Auto) 0.3 (0-2) % Lymph # (Auto) 0.5 L (1.2-4.9) X10*3/uL [place] # (Auto) 1.1 (0.1-1.2) X10*3/uL Eos # (Auto) 0.1 (0.0-0.4) X10*3/uL Baso # (Auto) 0.0 (0.0-0.2) X10*3/uL Abs Immat Gran (auto) 0.02 (0.00-0.03) X10*3/uL Absolute Neuts (auto) 4.5 (2.0-8.3) x10*3/uL Absolute Nucleated RBC 0.000 (0.0-0.012) X10*3/uL Nucleated RBC % (auto) 0.0 (0.0-0.2) /100WBC Sodium 142 (135-145) mmol/L Potassium 4.1 (3.3-5.1) mmol/L Chloride 108 (96-108) mmol/L Carbon Dioxide 25 (22-29) mmol/L Anion Gap 13 (12-20) BUN 32 H (9-16) mg/dL Creatinine 1.00 (0.5-1.4) mg/dL Estim Creat Clear Calc 46.6 Estimated GFR > 60 Random Glucose 115 (60-115) mg/dL Calcium 9.5 (8.4-10.2) mg/dL Total Bilirubin 1.0 (0.0-1.0) mg/dL Direct Bilirubin 0.4 (0.0-0.5) mg/dL AST 20 (5-37) U/L ALT 17 (0-40) U/L Alkaline Phosphatase 60 (39-117) U/L Total Protein 6.6 (6.5-8.0) g/dL Albumin 3.9 (3.5-5.0) g/dL Lipase 10 (8-78) U/L Urine Color Yellow Urine Appearance Clear Urine pH 5.5 (5.0-9.0) Ur Specific [place] >= 1.030 H (1.005-1.025) Urine Protein Negative (Neg-Trace) mg/dL Urine Glucose (UA) Negative (Negative) mg/dL Urine Ketones Trace (Negative) mg/dL Urine Blood Negative (Negative) Urine Nitrite Negative (Negative) Ur Leukocyte Esterase Negative (Negative) Independent Interpretation I performed an independent interpretation of an: CT Scan (no sbo) Radiology Impression Discussion of test interpretation with radiology: I have reviewed the radiologist's reading. (there is terminal inflammation of the small bowel) Independent Historian Clinical information obtained from an independent historian. History obtained from or confirmed by: Other (daughter) Chronic Conditions Patient?s care impacted by: Diabetes and Hypertension Discharge Plan Discharge Clinical Impression: Terminal ileitis Patient Disposition: Home, Self-Care Instructions: Colitis (ED) Prescriptions: New levofloxacin 500 mg tablet 500 mg PO DAILY 10 Days Qty: 10 0RF metronidazole 500 mg tablet 500 mg PO TID Qty: 30 0RF No Action metoprolol succinate 50 mg tablet extended release 24 hr 50 mg PO DAILY Qty: 90 3RF Xarelto 15 mg tablet 15 mg PO QPM Qty: 90 3RF Rx Instructions: must administer with evening meal quetiapine 50 mg tablet 50 mg PO BEDTIME mecobalamin (vitamin B12) 1,000 mcg lozenge 1,000 mcg PO DAILY Rx Instructions: allow to dissolve in mouth OR may chew lightly before swallowing Alive Men's 50 Plus Multivit 120 mcg-150 mcg -50 mg tablet,chewable PO Co T-57-Biljxnm E-Fish Oil 25-150-200 mg-mg-unit capsule 1 cap PO DAILY Referrals: Rachel Parekh MD [Primary Care Provider] - 3 days Print Language: Macedonian
[2024-03-19 06:11] VITALS: BP 124/64; PULSE 66; RESP 18; TEMP 36.7; O2SAT 99
--- NOTE | 2024-03-19 06:38 | PC.NURSE ---
Pt ambulated to BR with steady gait.
[2024-03-19 08:13] VITALS: BP 115/51; PULSE 71; RESP 18; TEMP 36.6; O2SAT 100
[2024-03-19] MEDS: metroNIDAZOLE 500 MG TABLET PO (08:17)
[2024-03-19] MEDS: levoFLOXacin 500 MG TABLET PO (08:17)
--- NOTE | 2024-03-19 08:23 | PC.NURSE ---
dtr on the way, pt with nad, eating crackers and water
[2024-03-19 09:42] VITALS: BP 115/51; PULSE 71; RESP 18; TEMP 36.6; O2SAT 100
== END 2024-03-19 09:43 | disposition home or self-care (01) ==
PROVIDERS: Emergency Provider Emergency Medicine; PCP Internal Medicine
DX: K50.00 Crohn's disease of small intestine without complications (principal); R10.9 Unspecified abdominal pain; R14.0 Abdominal distension (gaseous); G30.9 Alzheimer's disease, unspecified; F02.80 Dementia in other diseases classified elsewhere, unspecified severity, without behavioral disturbance, psychotic disturbance, mood disturbance, and anxiety; Z79.899 Other long term (current) drug therapy
CPT/HCPCS: 36415; 74176; 80048; 80076; 81003; 83690; 85025; 99284

== ENCOUNTER 2024-03-27 14:31 | Inpatient (IN) | payer MEDICARE, OTHER, SELFPAY ==
--- NOTE | ~2024-03-27 | XR_ITS ---
EXAMINATION: XR ABDOMEN KUB CLINICAL INDICATION: Crohn's disease, follow-up small bowel obstruction. COMPARISON: CT abdomen and pelvis of 03/27/2024 , x-ray lumbar spine 05/01/2023. TECHNIQUE: 2 AP views of the abdomen. FINDINGS: Large amount of stool in colon. Gas in the region of the proximal and transverse colon. Multiple distended air-filled loops of bowel in the central upper abdomen. Correlation with surgical history and clinical exam recommended. Dense dense material in the left mid upper abdomen some of which appears amorphous and may be related to ingested material within bowel, and some may be related to dense calcifications. Levoscoliosis of the lumbar spine with multilevel degenerative changes. XR/XR KUB IMPRESSION: 1. Large amount of stool in colon. Gas in the region of the proximal and transverse colon. Multiple distended air-filled loops of bowel in the central upper abdomen. Correlation with surgical history and clinical exam recommended. 2. Dense dense material in the left mid upper abdomen some of which appears amorphous and may be related to ingested material within bowel, and some may be related to dense calcifications. Electronically signed by: Reena Cleveland MD 03/30/2024 10:12 AM EDT
--- NOTE | ~2024-03-27 | CT_ITS ---
EXAMINATION: CT ABDOMEN AND PELVIS WITH CONTRAST CLINICAL INFORMATION: Nausea bowel movement with history of Crohn's disease and question of small bowel obstruction COMPARISON: CT abdomen and pelvis 03/19/2024 TECHNIQUE: Multidetector volumetric images were obtained from the superior aspect of the liver through the pubic symphysis following administration 85 mL of Omnipaque 350 intravenous contrast. Sagittal and coronal reformatted images were obtained on the technologist's workstation. Oral contrast: No This CT examination was performed using dose optimization techniques as appropriate, variously including the following: *Automated exposure control *Adjustment of mA and/or kV according to patient size (this includes techniques or standardized protocols for targeted exams where dose is matched to indication/reason for exam; i.e. extremities or head) *Use of iterative reconstruction technique DLP: 343 mGy-cm FINDINGS: LUNG BASES: There is mild cardiac enlargement. There is calcification of the pericardium. No consolidations or pleural effusions. LIVER, GALLBLADDER, AND BILIARY TREE: The liver is normal in size, shape, and attenuation. No focal hepatic lesion or biliary ductal dilatation is present. The gallbladder is unremarkable with no evidence of radiopaque gallstones, gallbladder wall thickening, or obvious pericholecystic inflammatory changes. PANCREAS: Unremarkable. SPLEEN: Unremarkable. ADRENAL GLANDS: Unremarkable. KIDNEYS AND URETERS: The kidneys are normal in size, shape, and attenuation. No hydronephrosis, hydroureter, or calculi seen. No perinephric stranding. Multiple benign bilateral Bosniak class I renal cysts are noted which require no additional imaging or follow-up. No solid renal masses are seen. BLADDER: Unremarkable. GASTROINTESTINAL TRACT: The left colon is decompressed. Moderate stool is present in the right colon. Patient status post partial right colectomy with ileoanal colic anastomosis. There is narrowing at the anastomosis (7:24) with marked dilatation of small bowel proximal to this. The degree of small bowel dilatation has increased significantly when compared to the prior study with loops measuring as large as 5 cm in diameter. Some of the loops have mildly thickened metcalf measuring 4 mm. There is no pneumatosis or free air. ABDOMINAL WALL: No significant hernia is appreciated. The right testis is in the inguinal canal. LYMPH NODES: No retroperitoneal lymphadenopathy. Dystrophic calcification/calcified lymph nodes are again noted in the root of the mesentery, unchanged from prior. VASCULAR: Unremarkable. PELVIC VISCERA: There is marked BPH. Seminal vesicles unremarkable. OSSEOUS STRUCTURES: Degenerative changes are noted throughout the lumbar spine with relative sparing at L5-S1. No bony destructive lesions. CT/CT abdomen pelvis w IV con IMPRESSION: 1. Small bowel obstruction with transition point at the ileocolic anastomosis. 2. Incidental note made of mild cardiomegaly, pericardial calcification, BPH and degenerative changes in the spine. Fleischner guidelines were followed. Electronically signed by: Dawit Feliciano MD 03/27/2024 11:43 PM EDT RP
[2024-03-27 15:06] VITALS: BP 111/54; PULSE 78; RESP 18; TEMP 36.3; O2SAT 100; BMI 17.4
--- NOTE | 2024-03-27 15:06 | ED.GENADULT ---
HPI - General Adult General Chief complaint: General Medical Stated complaint: partial intestinal blockage-doc sent for symptoms Time Seen by Provider: 03/27/24 21:03 Source: patient, family and old records reviewed Mode of arrival: ambulatory Limitations: no limitations History of Present Illness ED Provider: LONI RIZVI narrative: 83 yo male with PMH of cognitive disorder, bipolar disorder, anemia, afib on xarelto, Crohns not currently on medications though was seen on 03/19 and started on 10 days of levofloxacin and flagyl for terminal ileitis, SBO s/p resection here with c/o 3 days of no BM, no flatus for 1 day and today more distention, waves of pain and nausea. No fevers, no vomiting. He was told to come in by GI doctor given concern for SBO. He has not eaten much today. MD complaint: abdominal pain Onset (ago): day(s) (1) Location: abdomen Radiation: non-radiation Severity: moderate Quality: aching Pain Consistency: intermittent Relieving factors: none Exacerbating factors: eating Associated symptoms: loss of appetite and nausea/vomiting Treatments prior to arrival: none Related Data Home Medications ?Medication ?Instructions ?Recorded ?Confirmed quetiapine 50 mg tablet 50 mg PO BEDTIME 11/05/23 02/23/24 mecobalamin (vitamin B12) 1,000 1,000 mcg PO DAILY 12/28/23 02/23/24 mcg lozenges npncdrlf-egj-xfivo 120 mcg-lutein tab PO 12/28/23 02/23/24 150 mcg-herb 50 mg chewable tablet (Alive Men's 50 Plus Multivitamin) ubidecarenone-omega 3-vit E 25 1 cap PO DAILY 12/28/23 02/23/24 mg-150 (90-60) mg-200 unit capsule (Co A-43-Bgmzrlj E-Fish Oil) Previous Rx's ?Medication ?Instructions ?Recorded metoprolol succinate 50 mg 50 mg PO DAILY #90 tabs 09/01/23 tablet,extended release 24 hr rivaroxaban 15 mg tablet (Xarelto) 15 mg PO QPM #90 tabs 09/01/23 levofloxacin 500 mg tablet 500 mg PO DAILY 10 days #10 tabs 03/19/24 metronidazole 500 mg tablet 500 mg PO TID #30 tabs 03/19/24 Allergies Allergy/AdvReac Type Severity Reaction Status Date / Time No Known Allergies Allergy Verified 03/27/24 15:10 Review of Systems Review of Systems: Constitutional : No Weight loss, No Fever, No Chills ENT/Mouth : No sore throat, No Rhinorrhea Eyes: No Swelling, No Redness Cardiovascular : No Chest Pain, No SOB, NoEdema Respiratory : No Cough, No Sputum, No Wheezing Gastrointestinal : Positive Nausea, no Vomiting, no Diarrhea, positive abdominal Pain, No Hematochezia, No Melena, pos constipation Genitourinary : No Dysuria, No Urinary Frequency, No Hematuria, No Urgency Musculoskeletal : No joint pain, No Myalgias, No Joint Swelling Skin : No Skin Lesions, No rash Neuro : No Weakness, No Numbness, No Dizziness, No Headache All other systems reviewed and are negative. 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 Fatigue Cognitive disorder Alzheimer's dementia Anemia Persistent atrial fibrillation B12 deficiency Scoliosis Crohn disease A-fib Bipolar 1 disorder Surgical History History of partial colectomy Hx of colonoscopy Family History Family History Father Heart problem Other Alzheimer's dementia Social History Social History Housing: Assisted Living Facility Alcohol intake: current Alcohol intake frequency: holidays/special occasions only Patient Tobacco Use Status: Never used Tobacco Smoked in Last 30 Days: No e-Cigarette/Vaping Use: Never Used Use of substances other than those prescribed or required for medical reasons: No Advance Directives: Yes Advance Directives on File: Yes Advance Directives Date on File: 03/19/24 Do you have a plan to hurt others: No Plan service: No Current occupational status: retired Cognitive needs: No Hearing needs: No Vision needs: Yes Physical Exam ED Vital Signs: Vital Signs - 24 hr 03/27/24 15:06 03/27/24 21:10 Temperature 97.4 F 97.6 F Pulse Rate 78 75 Respiratory Rate 18 18 Blood Pressure 111/54 L 105/50 L Pulse Oximetry 100 98 Oxygen Delivery Method Room Air Room Air BMI result Body Mass Index 17.4 Appearance: Alert. Oriented X3. No acute distress. Eyes: Pupils equal, round and reactive to light. ENT: Pharynx normal. Neck: Normal inspection. Neck supple. CVS: Normal heart rate and rhythm. Pulses normal. Respiratory: No respiratory distress. Breath sounds normal. Abdomen: Mild distention with some ventral hernia felt, no ttp on exam Skin: Skin warm and dry. Normal skin color. Extremities: No lower extremity edema. Neuro: Oriented X 3. No motor deficit. No sensory deficit. Course Course Course Narrative: This is an RME performed by Miles Lyles, [employer]: Additional HPI, ROS, PE not included below will be deferred to primary provider. Patient is an 83-year-old male with past medical history of diverticulitis, crohns, bowel resection and subsequent SBO who presents to the emergency department for evaluation, patient was seen emergency department 1 week ago was diagnosed with a partial bowel obstruction, was advised by instructional technology coordinator Dr. Guy to present to the emergency department if he has worsening symptoms, no BM for 3 days, today with nausea but no vomiting, dizziness, lightheadedness, upper ABD pain Seen in the emergency department 03/19/2024 diagnosed with terminal ileitis Medications Administered Generic Name Dose Route Start Last Admin Trade Name Freq PRN Reason Stop Dose Admin Lactated Ringer's 1,000 mls @ 80 mls/hr 03/27/24 21:15 03/27/24 22:07 Lr IVCONT 80 mls/hr .[id number] ADELA Administration Discontinued Medications Generic Name Dose Route Start Last Admin Trade Name Freq PRN Reason Stop Dose Admin Iohexol 85 ml 03/27/24 22:02 03/27/24 22:03 Iohexol 350 Mg/Ml 100 Ml Infus..Btl IV 03/27/24 22:03 85 ml ONCE ONE Administration Medical Decision Making Medical Decision Making MDM Narrative: 83 yo male with PMH of cognitive disorder, bipolar disorder, anemia, afib on xarelto, Crohns not currently on medications just recently treated with 10 day course 03/19 now here with distention nausea and lack of BM and flatus at this time will need labs, IVF, CT scan for SBO. Possible admission pending CT scan and results. Prior resection. He has no active vomiting and on xarelto will hold NG tube at this time. Differential Diagnosis Differential Diagnoses: The differential diagnosis associated with the presentation includes ileus, crohns, SBO Admission/Observation Consideration of admission/observation: Escalation of care including admission/observation considered admit for SBO Consult Healthcare Provider Management of the patient was discussed with: Voice Systems Engineer (Dr. Cheyenne james) Lab Data MDM Lab Attestation statement: I reviewed the patient's lab results. 03/27/24 15:42 03/27/24 15:42 Labs: Lab Results 03/27/24 Range/Units 15:42 WBC 6.1 (4.8-10.8) X10*3/uL RBC 3.83 L (4.60-5.80) X10*6/uL Hgb 12.9 L (14.0-18.0) g/dl Hct 38.0 L (42.0-52.0) % MCV 99.2 H (80.0-98.0) fL MCH 33.7 H (27.0-33.0) pg MCHC 33.9 (31.0-36.0) g/dl RDW 13.5 (11.0-16.0) % Plt Count 170 (160-400) X10*3/uL MPV 10.3 (9.4-12.4) fL Immature Gran % (Auto) 0.5 H (0.0-0.4) % Neut % (Auto) 69.5 (45-73) % Lymph % (Auto) 10.0 L (20-40) % [place] % (Auto) 18.9 H (2-11) % Eos % (Auto) 0.8 (0-4) % Baso % (Auto) 0.3 (0-2) % Lymph # (Auto) 0.6 L (1.2-4.9) X10*3/uL [place] # (Auto) 1.2 (0.1-1.2) X10*3/uL Eos # (Auto) 0.1 (0.0-0.4) X10*3/uL Baso # (Auto) 0.0 (0.0-0.2) X10*3/uL Abs Immat Gran (auto) 0.03 (0.00-0.03) X10*3/uL Absolute Neuts (auto) 4.3 (2.0-8.3) x10*3/uL Absolute Nucleated RBC 0.000 (0.0-0.012) X10*3/uL Nucleated RBC % (auto) 0.0 (0.0-0.2) /100WBC Sodium 140 (135-145) mmol/L Potassium 4.3 (3.3-5.1) mmol/L Chloride 107 (96-108) mmol/L Carbon Dioxide 25 (22-29) mmol/L Anion Gap 12 (12-20) BUN 27 H (9-16) mg/dL Creatinine 1.02 (0.5-1.4) mg/dL Estim Creat Clear Calc 42.6 Estimated GFR > 60 Random Glucose 108 (60-115) mg/dL Calcium 9.8 (8.4-10.2) mg/dL Magnesium 2.1 (1.6-2.6) mg/dL Total Bilirubin 0.9 (0.0-1.0) mg/dL AST 41 H (5-37) U/L ALT 25 (0-40) U/L Alkaline Phosphatase 70 (39-117) U/L C-Reactive Protein 0.42 (< or = 0.50) mg/dL Total Protein 6.6 (6.5-8.0) g/dL Albumin 3.9 (3.5-5.0) g/dL Lipase 7 L (8-78) U/L Independent Interpretation I performed an independent interpretation of an: CT Scan (SBO) Radiology Impression Discussion of test interpretation with radiology: I have reviewed the radiologist's reading. Independent Historian Clinical information obtained from an independent historian. History obtained from or confirmed by: Other (daughter) External Record Review External record reviewed: Inpatient record and Office record Discharge Plan Discharge Clinical Impression: SBO (small bowel obstruction) Patient Disposition: Admitted As Inpatient Prescriptions: No Action metoprolol succinate 50 mg tablet extended release 24 hr 50 mg PO DAILY Qty: 90 3RF Xarelto 15 mg tablet 15 mg PO QPM Qty: 90 3RF Rx Instructions: must administer with evening meal levofloxacin 500 mg tablet 500 mg PO DAILY 10 Days Qty: 10 0RF metronidazole 500 mg tablet 500 mg PO TID Qty: 30 0RF quetiapine 50 mg tablet 50 mg PO BEDTIME mecobalamin (vitamin B12) 1,000 mcg lozenge 1,000 mcg PO DAILY Rx Instructions: allow to dissolve in mouth OR may chew lightly before swallowing Alive Men's 50 Plus Multivit 120 mcg-150 mcg -50 mg tablet,chewable PO Co N-49-Uejdfbe E-Fish Oil 25-150-200 mg-mg-unit capsule 1 cap PO DAILY Print Language: Bengali
[2024-03-27 15:47] LABS: MANUAL DIFF FLAG NO
[2024-03-27 15:48] LABS: Basophils Percent Auto 0.3 % (0-2); Eosinophils Absolute Auto 0.1 X10*3/uL (0.0-0.4); Eosinophils Percent Auto 0.8 % (0-4); Hemoglobin 12.9 g/dl (14.0-18.0); Imm Gran Abs Auto 0.03 X10*3/uL (0.00-0.03); Imm Gran Pct Auto 0.5 % (0.0-0.4); Lymphocytes Absolute Auto 0.6 X10*3/uL (1.2-4.9); Mean Corpuscular HGB Conc 33.9 g/dl (31.0-36.0); Mean Corpuscular Hemoglobin 33.7 pg (27.0-33.0); Mean Corpuscular Volume 99.2 fL (80.0-98.0); Mean Platelet Volume 10.3 fL (9.4-12.4); Monocytes Absolute Auto 1.2 X10*3/uL (0.1-1.2); Monocytes Percent Auto 18.9 % (2-11); Neutrophils Absolute Auto 4.3 x10*3/uL (2.0-8.3); Neutrophils Percent Auto 69.5 % (45-73); Platelet Count 170 X10*3/uL (160-400); Red Blood Count 3.83 X10*6/uL (4.60-5.80); Red Cell Distribution Width 13.5 % (11.0-16.0); White Blood Count 6.1 X10*3/uL (4.8-10.8)
[2024-03-27 16:43] LABS: Alanine Aminotransferase 25 U/L (0-40); Albumin Level 3.9 g/dL (3.5-5.0); Alkaline Phosphatase 70 U/L (39-117); Anion Gap 12 (12-20); Aspartate Amino Transferase 41 U/L (5-37); Bilirubin Total 0.9 mg/dL (0.0-1.0); Blood Urea Nitrogen 27 mg/dL (9-16); C Reactive Protein 0.42 mg/dL (< or = 0.50); Calcium 9.8 mg/dL (8.4-10.2); Carbon Dioxide 25 mmol/L (22-29); Chloride 107 mmol/L (96-108); Creatinine Clr Calc Pharmacy 42.6; Estimated Glomerular Filt Rate > 60; Glucose Random 108 mg/dL (60-115); Lipase 7 U/L (8-78); Magnesium 2.1 mg/dL (1.6-2.6); Potassium 4.3 mmol/L (3.3-5.1); Sodium 140 mmol/L (135-145); Total Protein 6.6 g/dL (6.5-8.0)
[2024-03-27 21:10] VITALS: BP 105/50; PULSE 75; RESP 18; TEMP 36.4; O2SAT 98
[2024-03-27] MEDS: iohexoL 350 MG/ML 100 ML INFUS..BTL 85 ML IV (22:03)
[2024-03-27] MEDS: Lactated Ringers 1,000 ML 80 ML IVCONT (22:07)
[2024-03-28] MEDS: Dextrose 5 % and Lactated Ring 1,000 ML 125 ML IVCONT ×2 (01:13→09:18)
[2024-03-28] MEDS: methylPREDNISolone Sod Succ 125 MG/2 ML VIAL 60 MG IVPUSH (01:16)
--- NOTE | 2024-03-28 01:30 | PC.NURSE ---
pt brought from [facility] [place] to room 11 at this time. pt a&ox4, reports coming from [place] with abdominal pain, pt reports the pain has subsided at this time. pt ambulatory with steady gait without assistance. pt medicated per aug.
[2024-03-28 04:00] VITALS: BP 134/61; PULSE 90; RESP 16; TEMP 36.6; O2SAT 98
[2024-03-28 05:53] LABS: Alanine Aminotransferase 22 U/L (0-40); Albumin Level 3.6 g/dL (3.5-5.0); Alkaline Phosphatase 55 U/L (39-117); Anion Gap 12 (12-20); Aspartate Amino Transferase 34 U/L (5-37); Bilirubin Total 0.9 mg/dL (0.0-1.0); Blood Urea Nitrogen 21 mg/dL (9-16); Calcium 9.2 mg/dL (8.4-10.2); Carbon Dioxide 23 mmol/L (22-29); Chloride 108 mmol/L (96-108); Creatinine Clr Calc Pharmacy 48.8; Estimated Glomerular Filt Rate > 60; Glucose Random 146 mg/dL (60-115); Potassium 3.9 mmol/L (3.3-5.1); Sodium 139 mmol/L (135-145)
--- NOTE | 2024-03-28 06:22 | PC.NURSE ---
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
[2024-03-28 06:51] VITALS: BP 131/58; PULSE 82; RESP 16; TEMP 36.4; O2SAT 98
--- NOTE | 2024-03-28 07:49 | HO.PM.IMCN ---
History of Present Illness Data of Consult Service Date: 03/28/24 Requesting physician: Asael Quinn Primary Care Provider: MD BELKYS Young Reason for consult: medical management 83-year-old male with history of bipolar disorder, atrial fibrillation anticoagulated with Xarelto, Crohn's disease, vitamin B12 deficiency, Alzheimer's dementia admitted to general surgery for management of SBO. The patient had presented to the ED last night complaining of waves of abdominal pain with nausea and vomiting and 3 days of obstipation without any flatus passed in last 24 hours. He does have a history of Crohn's disease with previous ileocecal resection with an ileocolonic anastomosis. Prior to admission, had been on a course of Levaquin and Flagyl times 10 days for terminal ileitis. He does not have any leukocytosis. Renal function baseline, electrolyte levels normal. CT abdomen pelvis in the ED revealed small bowel obstruction with transition point at the ileocolic anastomosis. He is currently being managed with IV fluids and bowel rest. He reports some improvement in his pain, describing an intermittent cramping in the abdomen without any persistent nausea and vomiting. He states he still has not moved his bowels but feels the urge to do so. 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 Fatigue Cognitive disorder Alzheimer's dementia Anemia Persistent atrial fibrillation B12 deficiency Scoliosis Crohn disease A-fib Bipolar 1 disorder Family History Father Heart problem Other Alzheimer's dementia Surgical History History of partial colectomy Hx of colonoscopy Social History Housing: Assisted Living Facility Alcohol intake: current Alcohol intake frequency: holidays/special occasions only Patient Tobacco Use Status: Never used Tobacco Smoked in Last 30 Days: No e-Cigarette/Vaping Use: Never Used Use of substances other than those prescribed or required for medical reasons: No Advance Directives: Yes Advance Directives on File: Yes Advance Directives Date on File: 03/19/24 Do you have a plan to hurt others: No Plan Nutrition Risks: No Nutritional Risk service: No Current occupational status: retired Cognitive needs: No Hearing needs: No Vision needs: Yes Meds Allergies Allergy/AdvReac Type Severity Reaction Status Date / Time No Known Allergies Allergy Verified 03/27/24 15:10 Active Medications: Current Medications Acetaminophen (Acetaminophen 325 Mg Tablet) 650 mg PO Q6H PRN PRN Reason: Pain, Mild (Pain Scale 1-3), fever or headache Calcium Carbonate (Calcium Carbonate 750 Mg Tab.Chew) 750 mg PO Q4H PRN PRN Reason: Heartburn Dextrose/Lactated Ringer's (D5lr) 1,000 mls @ 125 mls/hr IVCONT .Q8H ADELA Last Admin: 03/28/24 01:13 Dose: 125 mls/hr Melatonin (Melatonin 3 Mg Tablet) 6 mg PO BEDTIME PRN PRN Reason: Insomnia Ondansetron HCl (Ondansetron Hcl 4 Mg/2 Ml Vial) 4 mg IVPUSH QID PRN PRN Reason: Nausea Sodium Chloride (0.9 % Sodium Chloride Flush 3 Ml Syringe) 3 ml IVFLUSH QSHIFT [facility] Home Medications ?Medication ?Instructions ?Recorded ?Confirmed ?Last Taken ?Type quetiapine 50 mg tablet 50 mg PO BEDTIME 11/05/23 02/23/24 Unknown History mecobalamin (vitamin B12) 1,000 1,000 mcg PO DAILY 12/28/23 02/23/24 Unknown History mcg lozenges [id number] 120 mcg-lutein tab PO 12/28/23 02/23/24 Unknown History 150 mcg-herb 50 mg chewable tablet (Alive Men's 50 Plus Multivitamin) ubidecarenone-omega 3-vit E 25 1 cap PO DAILY 12/28/23 02/23/24 Unknown History mg-150 (90-60) mg-200 unit capsule (Co G-36-Tmfompl E-Fish Oil) mercaptopurine 50 mg tablet 50 mg PO BID 03/28/24 Unknown History Physical Exam Vital Signs and Narrative: Vital Signs: Last Vital Signs Temp 97.6 F 03/28/24 06:51 Pulse 82 03/28/24 06:51 Resp 16 03/28/24 06:51 BP 131/58 L 03/28/24 06:51 Pulse Ox 98 03/28/24 06:51 O2 Del Method Room Air 03/28/24 06:51 BMI result Body Mass Index 17.4 Constitutional - Awake and Alert, No apparent distress Eyes - PERRLA, EOMI Cardiovascular - S1S2, RRR, 2+ ble edema Respiratory - Normal lung expansion, Normal respiratory effort, No respiratory distress, CTA bilaterally Gastrointestinal - +BS, nontender to palpations, non distended Extremities - no calf tenderness bilaterally, no swelling Skin - Warm/Dry Neurological - Alert & oriented x3 Psychological - Appropriate affect Results Labs 03/27/24 15:42 03/28/24 05:15 Labs: Laboratory Results - last 24 hr 03/27/24 03/28/24 15:42 05:15 MCV 99.2 H MCH 33.7 H MCHC 33.9 RDW 13.5 Plt Count 170 MPV 10.3 Immature Gran % (Auto) 0.5 H Neut % (Auto) 69.5 Lymph % (Auto) 10.0 L Morrill % (Auto) 18.9 H Eos % (Auto) 0.8 Baso % (Auto) 0.3 Lymph # (Auto) 0.6 L Morrill # (Auto) 1.2 Eos # (Auto) 0.1 Baso # (Auto) 0.0 Abs Immat Gran (auto) 0.03 Absolute Neuts (auto) 4.3 Absolute Nucleated RBC 0.000 Nucleated RBC % (auto) 0.0 Anion Gap 12 12 Estim Creat Clear Calc 42.6 48.8 Estimated GFR > 60 > 60 Random Glucose 108 146 H Calcium 9.8 9.2 D Magnesium 2.1 Total Bilirubin 0.9 0.9 AST 41 H 34 ALT 25 22 Alkaline Phosphatase 70 55 C-Reactive Protein 0.42 Total Protein 6.6 6.0 L Albumin 3.9 3.6 Lipase 7 L Imaging Radiologist's Impressions: Impressions Abdomen/Pelvis CT 03/27/24 21:40 IMPRESSION: 1. Small bowel obstruction with transition point at the ileocolic anastomosis. 2. Incidental note made of mild cardiomegaly, pericardial calcification, BPH and degenerative changes in the spine. Fleischner guidelines were followed. Electronically signed by: Dawit Feliciano MD 03/27/2024 11:43 PM EDT RP Assessment and Plan (1) SBO (small bowel obstruction): Status: Acute Plan 83-year-old male with history of bipolar disorder, atrial fibrillation anticoagulated with Xarelto, Crohn's disease, vitamin B12 deficiency, Alzheimer's dementia admitted to general surgery for management of SBO. #SBO -plan per general surgery -Should patient require surgical intervention, has class III risk on RCRI. However, given urgent nature of surgery, would recommend proceeding with appropriate anesthesia precautions #Persistent atrial fibrillation- rate controlled -hold xarelto in case of procedure. Initiate therapeutic lovenox -continue metoprolol for rate control #Crohns disease -plan per general surgery. GI consult pending -continue prixan #Alzheimers dementia with mood disorder -mckenzie richards Thank you for allowing me to participate in this consult. Signing off at this time. Please do not hesitate to call for further questions or for any acute medical issues that should arise
--- NOTE | 2024-03-28 08:57 | PM.HPGS ---
History of Present Illness History of Present Illness Date of Service: 03/28/24 Chief complaint: sbo,crohn's Disease Narrative: Asael Vargas is a 83 year old male with complaints of abdominal distention, waves of abdominal pain and nausea without vomiting and 3 day history of no bowel movement. He also reports no flatus for the past 24 hours. He has a history of Crohn's disease and underwent a previous ileocecal resection with a ileocolonic anastomosis. He was previously identified as having a stricture at the anastomosis and is currently on a 10 day course of levofloxacin and Flagyl for terminal ileitis he also has a history of cognitive disorder, bipolar disorder, anemia, atrial fibrillation on Xarelto and Crohn's disease currently on no medication. This morning he reports feeling more comfortable but still has not had any flatus or bowel movement. He is admitted to the surgical service for further management of the small-bowel obstruction. Review of Systems Review of Systems: Yes all other systems are reviewed and are negative Constitutional: Constitutional: Denies chills, Denies fever(s), Denies headache(s), Reports poor appetite and Denies weakness ENT: Denies headache(s) Cardiovascular: Cardiovascular: Denies chest pain, Reports irregular heart rhythm, Denies palpitations and Denies dyspnea Respiratory: Respiratory: Denies cough, Denies excessive phlegm production and Denies dyspnea Gastrointestinal: Gastrointestinal: Reports abdominal pain, Reports bloating, Denies change in bowel habits, Reports constipation, Denies heartburn, Denies diarrhea, Reports nausea and Denies vomiting Genitourinary: Genitourinary: Denies difficulty urinating and Denies urinary frequency Musculoskeletal: Musculoskeletal: Denies back pain, Denies muscle weakness and Denies numbness Integumentary/Breasts: Skin/Breast: Denies changing lesions and Denies unusual bruising Neurologic: Denies headache(s), Denies numbness, Denies paresthesias and Denies weakness Psychiatric: Psychiatric: Denies anxiety and Denies depression Endocrine: Endocrine: Denies palpitations Hematologic/Lymphatic: Hematologic/Lymphatic: Denies lymphadenopathy [facility] Past Medical History Medical History 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 Fatigue Cognitive disorder Alzheimer's dementia Anemia Persistent atrial fibrillation B12 deficiency Scoliosis Crohn disease A-fib Bipolar 1 disorder Family History Family History Father Heart problem Other Alzheimer's dementia Surgical History Surgical History History of partial colectomy Hx of colonoscopy Social History Social History Housing: Assisted Living Facility Alcohol intake: current Alcohol intake frequency: holidays/special occasions only Patient Tobacco Use Status: Never used Tobacco Smoked in Last 30 Days: No e-Cigarette/Vaping Use: Never Used Use of substances other than those prescribed or required for medical reasons: No Advance Directives: Yes Advance Directives on File: Yes Advance Directives Date on File: 03/19/24 Do you have a plan to hurt others: No Plan Nutrition Risks: No Nutritional Risk service: No Current occupational status: retired Cognitive needs: No Hearing needs: No Vision needs: Yes Meds Allergies Allergy/AdvReac Type Severity Reaction Status Date / Time No Known Allergies Allergy Verified 03/27/24 15:10 Active Medications: Current Medications Acetaminophen (Acetaminophen 325 Mg Tablet) 650 mg PO Q6H PRN PRN Reason: Pain, Mild (Pain Scale 1-3), fever or headache Calcium Carbonate (Calcium Carbonate 750 Mg Tab.Chew) 750 mg PO Q4H PRN PRN Reason: Heartburn Dextrose/Lactated Ringer's (D5lr) 1,000 mls @ 125 mls/hr IVCONT .Q8H [facility] Last Admin: 03/28/24 01:13 Dose: 125 mls/hr Melatonin (Melatonin 3 Mg Tablet) 6 mg PO BEDTIME PRN PRN Reason: Insomnia Ondansetron HCl (Ondansetron Hcl 4 Mg/2 Ml Vial) 4 mg IVPUSH QID PRN PRN Reason: Nausea Sodium Chloride (0.9 % Sodium Chloride Flush 3 Ml Syringe) 3 ml IVFLUSH QSHIFT [facility] Home Medications ?Medication ?Instructions ?Recorded ?Confirmed ?Last Taken ?Type mecobalamin (vitamin B12) 1,000 1,000 mcg PO DAILY 12/28/23 03/28/24 03/27/24 07:00 History mcg lozenges [id number]-rkl-[id number] 120 mcg-lutein 1 tab PO DAILY 12/28/23 03/28/24 03/27/24 07:00 History 150 mcg-herb 50 mg chewable tablet (Alive Men's 50 Plus Multivitamin) ubidecarenone-omega 3-vit E 25 1 cap PO DAILY 12/28/23 03/28/24 03/27/24 07:00 History mg-150 (90-60) mg-200 unit capsule (Co V-69-Fntwelp E-Fish Oil) quetiapine 25 mg tablet 25 mg PO BEDTIME 03/28/24 03/28/24 03/26/24 History rivaroxaban 15 mg tablet (Xarelto) 15 mg PO DAILY@1700 03/28/24 03/28/24 03/26/24 History Physical Exam Vital Signs: Vital Signs: Last Vital Signs Temp 97.6 F 03/28/24 06:51 Pulse 82 03/28/24 06:51 Resp 16 03/28/24 06:51 BP 131/58 L 03/28/24 06:51 Pulse Ox 98 03/28/24 06:51 O2 Del Method Room Air 03/28/24 06:51 BMI result Body Mass Index 17.4 Const: General: cooperative and no acute distress Nutritional Appearance: well nourished Orientation/consciousness: patient oriented x3 Limitations: no limitations HEENT: Head: Yes normocephalic and Yes atraumatic Ears: hearing grossly normal bilaterally Resp: Effort & Inspection: normal respiratory effort, no audible wheezes, no cough and no respiratory distress Cardio: Jugular venous distension: no JVD GI: Inspection: Yes normal to inspection Palpation (GI): Soft to palpation, nontender, no guarding, not rigid and No hepatosplenomegaly present Percussion: Yes normal to percussion Auscultation: normal bowel sounds Skin: Other: Warm, dry, no rash Neuro: General: patient oriented x3 Extrem: General: Yes no clubbing, cyanosis or edema Results Results Labs: Short CBC 03/27/24 Range/Units 15:42 WBC 6.1 (4.8-10.8) X10*3/uL Hgb 12.9 L (14.0-18.0) g/dl Hct 38.0 L (42.0-52.0) % Plt Count 170 (160-400) X10*3/uL BMP 03/27/24 03/28/24 15:42 05:15 Sodium 140 139 Potassium 4.3 3.9 Chloride 107 108 Carbon Dioxide 25 23 BUN 27 H 21 H Creatinine 1.02 0.89 Calcium 9.8 9.2 D Liver Function 03/27/24 03/28/24 Range/Units 15:42 05:15 Total Bilirubin 0.9 0.9 (0.0-1.0) mg/dL AST 41 H 34 (5-37) U/L ALT 25 22 (0-40) U/L Alkaline Phosphatase 70 55 (39-117) U/L Albumin 3.9 3.6 (3.5-5.0) g/dL Assessment and Plan (1) SBO (small bowel obstruction): Status: Acute (2) Crohn disease: Qualifiers: Digestive disease complication type: without complication Gastrointestinal tract location: large intestine Qualified Code(s): K50.10 - Crohn's disease of large intestine without complications Status: Acute (3) Persistent atrial fibrillation: Status: Acute Plan 83 year old male patient with a known history of anastomtic stricture s/p ileocecal resection for Crohn's Disease presenting with a SBO. Work up with CT abdomen and pelvis with dilated loops of small bowel. This morning, he feels improved with decreased abdominal pain but no BM or flatus yet. Continue IV fluids and NPO. Hospitalist and GI consultations appreciated. ? repeat endoscopic stricture dilation. Continue non-operative care. Quality Stroke Does the patient have a stroke diagnosis?: No VTE Prior VTE?: No VTE Risk Level:: Surgical - moderate VTE Device Contraindication: N/A - Device Ordered VTE Drug Contraindication: N/A - Med Ordered Procedures Date of Service Date of Service: 03/28/24
[2024-03-28 09:12] VITALS: BP 126/72; PULSE 83; RESP 16; TEMP 37; O2SAT 98
--- NOTE | 2024-03-28 11:54 | PHA.MEDREC ---
Addendum entered by Gifty Lua RPh 03/28/24 12:40: Reviewed by [facility]. Original Note: Pharmacy Consult ? Medication Reconciliation Pharmacy has completed the medication reconciliation. Confirmed medications with patient daughter at bedside. She confirmed her dad was taking Mercaptopurine 50mg and had stopped it a few months back . Her dad had started 2 antibiotic regimens on 03/19, Levofloxacin 500mg once daily for 10 days and Metronidazole 500mg TID for 10 days; patients daughter states her dad was recently seen on Sunday 03/25 and states he missed his doses of the antibiotics that day but has been taking them as prescribed since then and is about half way thought his regimen his daughter stated. She states too her dad took his morning medications yesterday 03/27 around 0700 and never took afternoon or night medications yesterday but she states he took his afternoon and night meds 2 days ago 03/26. Patient daughter confirmed he is taking now taking Quetiapine 25mg one tab at bedtime she states patient was recently switched from Queitiapine 50mg to Quetiapine 25mg in the last few weeks.
--- NOTE | 2024-03-28 12:50 | PM.GICN ---
History of Present Illness Data of Consult Service Date: 03/28/24 Requesting physician: Nataly Young Primary Care Provider: MD BELKYS Young Reason for consult: Crohn's disease with SBO 83 YM with bipolar disorder, atrial fibrillation anticoagulated with Xarelto, Crohn's disease, vitamin B12 deficiency, Alzheimer's dementia admitted to general surgery for management of SBO. The patient was seen at [facility] ED last night complaining of waves of abdominal pain with nausea and vomiting and 3 days of obstipation without any flatus passed in last 24 hours. Pt has Crohn's disease diagnosed 20 yrs ago (followed by Dr Chavarria) and had ileocecal resection with an ileocolonic anastomosis approx 15 years ago at [place], [place]. Prior to admission, had been on a course of Levaquin and Flagyl times 10 days for terminal ileitis. Pt denies having any BM for the past 4 days and was unable to pass gas. He noted nausea with bloating and gurgling in the abdomen - belly felt tight as a trumpet Pt denies abdominal pain, vomiting, fever, chills or sweating. Pt has been taking mostly liquids, peanut butter, grapes, oatmeal, thin sliced chicken and Boost Pt reports he was able to pass some gas today -no BM yet - and abdomen felt less tight with improvement in abdominal distention. Patient denies smoking or ETOH abuse. 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 Renal function baseline, electrolyte levels normal. 03/27/[address] SCAN SHOWED: 1. Small bowel obstruction with transition point at the ileocolic anastomosis. 2. Incidental note made of mild cardiomegaly, pericardial calcification, BPH and degenerative changes in the spine. He is currently being managed with IV fluids and bowel rest. GI HISTORY BY REVIEW OF MEDICAL RECORDS: 11/26/[address] 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 Fatigue Cognitive disorder Alzheimer's dementia Anemia Persistent atrial fibrillation B12 deficiency Scoliosis Crohn disease A-fib Bipolar 1 disorder Family History Family History Father Heart problem Other Alzheimer's dementia Surgical History Surgical History History of partial colectomy Hx of colonoscopy Social History Social History Housing: Assisted Living Facility Alcohol intake: current Alcohol intake frequency: holidays/special occasions only Patient Tobacco Use Status: Never used Tobacco Smoked in Last 30 Days: No e-Cigarette/Vaping Use: Never Used Use of substances other than those prescribed or required for medical reasons: No Advance Directives: Yes Advance Directives on File: Yes Advance Directives Date on File: 03/19/24 Do you have a plan to hurt others: No Plan Nutrition Risks: No Nutritional Risk service: No Current occupational status: retired Cognitive needs: No Hearing needs: No Vision needs: Yes Meds Allergies Allergy/AdvReac Type Severity Reaction Status Date / Time No Known Allergies Allergy Verified 03/27/24 15:10 Active Medications: Current Medications Acetaminophen (Acetaminophen 325 Mg Tablet) 650 mg PO Q6H PRN PRN Reason: Pain, Mild (Pain Scale 1-3), fever or headache Calcium Carbonate (Calcium Carbonate 750 Mg Tab.Chew) 750 mg PO Q4H PRN PRN Reason: Heartburn Enoxaparin Sodium (Enoxaparin Sodium 60 Mg/0.6 Ml Syringe) 50 mg 1 mg/kg (50 mg) SUBCUT Q12H ADE[facility] Dextrose/Lactated Ringer's (D5lr) 1,000 mls @ 50 mls/hr IVCONT .Q20H [facility] Last Admin: 03/28/24 09:18 Dose: 125 mls/hr Melatonin (Melatonin 3 Mg Tablet) 6 mg PO BEDTIME PRN PRN Reason: Insomnia Metoprolol Succinate (Metoprolol Succinate Er 50 Mg Tab.Er.24h) 50 mg PO DAILY ADELA; Protocol Ondansetron HCl (Ondansetron Hcl 4 Mg/2 Ml Vial) 4 mg IVPUSH QID PRN PRN Reason: Nausea Sodium Chloride (0.9 % Sodium Chloride Flush 3 Ml Syringe) 3 [facility] Last Admin: 03/28/24 09:01 Dose: Not Given Home Medications ?Medication ?Instructions ?Recorded ?Confirmed ?Last Taken ?Type mecobalamin (vitamin B12) 1,000 1,000 mcg PO DAILY 12/28/23 03/28/24 03/27/24 07:00 History mcg lozenges [id number] 120 mcg-lutein 1 tab PO DAILY 12/28/23 03/28/24 03/27/24 07:00 History 150 mcg-herb 50 mg chewable tablet (Alive Men's 50 Plus Multivitamin) ubidecarenone-omega 3-vit E 25 1 cap PO DAILY 12/28/23 03/28/24 03/27/24 07:00 History mg-150 (90-60) mg-200 unit capsule (Co N-61-Tebwqsa E-Fish Oil) quetiapine 25 mg tablet 25 mg PO BEDTIME 03/28/24 03/28/24 03/26/24 History rivaroxaban 15 mg tablet (Xarelto) 15 mg PO DAILY@1700 03/28/24 03/28/24 03/26/24 History Physical Exam Vital Signs: Vital Signs: Last Vital Signs Temp 98.6 F 03/28/24 09:12 Pulse 83 03/28/24 09:12 Resp 16 03/28/24 09:12 BP 126/72 03/28/24 09:12 Pulse Ox 98 03/28/24 09:12 O2 Del Method Room Air 03/28/24 09:12 BMI result Body Mass Index 17.4 Const: General: healthy appearing and no acute distress Nutritional Appearance: average body habitus Orientation/consciousness: patient oriented x3 Limitations: no limitations HEENT: Head: Yes normal to inspection Ears: hearing grossly normal bilaterally Mouth: Normal oral and palatal mucosa present Eyes: Sclerae: sclerae normal Pupils: Equal, round and reactive pupils present Neck: Neck: Yes normal visual inspection Chest: Chest palpation & inspection: normal inspection of the chest Resp: Effort & Inspection: normal respiratory effort Auscultation: clear to auscultation bilaterally Cardio: Palpation: normal PMI Rate: regular rate Rhythm: regular rhythm Heart sounds: S1 normal heart sound present, S2 normal heart sound present and no murmurs GI: Palpation (GI): Soft to palpation, nontender and No hepatosplenomegaly present Auscultation: normal bowel sounds Rectal Exam - Male: Yes deferred Skin: General skin exam: no rashes or lesions noted Neuro: General: patient oriented x3, gait normal and moves all extremities Cranial nerves: Yes Equal, round and reactive pupils present Psych: Appearance: grossly normal Mental Status: mental status grossly normal Results Labs 03/27/24 15:42 03/28/24 05:15 Labs: Short CBC 03/27/24 Range/Units 15:42 WBC 6.1 (4.8-10.8) X10*3/uL Hgb 12.9 L (14.0-18.0) g/dl Hct 38.0 L (42.0-52.0) % Plt Count 170 (160-400) X10*3/uL BMP 03/27/24 03/28/24 15:42 05:15 Sodium 140 139 Potassium 4.3 3.9 Chloride 107 108 Carbon Dioxide 25 23 BUN 27 H 21 H Creatinine 1.02 0.89 Calcium 9.8 9.2 D Liver Function 03/27/24 03/28/24 Range/Units 15:42 05:15 Total Bilirubin 0.9 0.9 (0.0-1.0) mg/dL AST 41 H 34 (5-37) U/L ALT 25 22 (0-40) U/L Alkaline Phosphatase 70 55 (39-117) U/L Albumin 3.9 3.6 (3.5-5.0) g/dL Assessment and Plan (1) SBO (small bowel obstruction): Status: Acute (2) 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 Pt has Crohn's disease diagnosed 20 yrs ago (followed by Dr Chavarria) and had ileocecal resection with an ileocolonic anastomosis approx 15 years ago at [place], [place]. 03/27/[address] SCAN SHOWED Small bowel obstruction with transition point at the ileocolic anastomosis. Small bowel Obstruction likely due to Crohn's disease flare versus fibrotic stricture at Ileo-colic anastomosis associated with obstruction with undigested food/stool RECOMMENDATIONS: 1. Agree with bowel rest and IV fluids 2. IV steroids for suspected CD flare - order placed 3. Repeat KUB in the am. 4. Can be started on a clear liquid diet once he is able to have a BM and KUB shows resolution of SBO. Of note, pt has a FU appt with Dr Chavarria on 04/01/24 Procedures Date of Service Date of Service: 03/28/24
[2024-03-28 13:52] VITALS: BP 107/53; PULSE 77; RESP 18; TEMP 36.6; O2SAT 100
[2024-03-28] MEDS: Metoprolol Succinate ER 50 MG TAB.ER.24H PO (14:28)
[2024-03-28 16:00] VITALS: BP 118/70; PULSE 80; RESP 18; TEMP 36.3; O2SAT 96
--- NOTE | 2024-03-28 16:08 | MHC.CM.PN ---
PT REPORTS HE LIVES IN [facility] AND IS INDEPENDENT WITH CARE HE HAS A CANE HE SAYS HE USES ABOUT 50% OF THE TIME POA AND HCP ON FILE PCP: DANE BLISS IMM DELIVERED DCP: HOME NO SERVICES VIA FAMILY TRAN[facility]ORT
[2024-03-28] MEDS: Dextrose 5 % and Lactated Ring 1,000 ML 50 ML IVCONT (19:06)
[2024-03-28] MEDS: methylPREDNISolone Sod Succ 40 MG/ML VIAL 20 MG IVPUSH (19:06)
[2024-03-28 22:13] VITALS: BP 112/57; PULSE 74; RESP 20; TEMP 36.7; O2SAT 99
[2024-03-28] MEDS: Enoxaparin Sodium 60 MG/0.6 ML SYRINGE 50 MG SUBCUT (22:50)
--- NOTE | 2024-03-28 22:58 | PC.NURSE ---
Pt contintues to rest quietly on hospital bed at this time, no issues noted, NPO until BM, has passed gas, no urge to go at this time, waiting for bed assignment upstairs.
[2024-03-29 05:09] LABS: MANUAL DIFF FLAG NO
[2024-03-29 05:12] LABS: Basophils Percent Auto 0.2 % (0-2); Hematocrit 35.2 % (42.0-52.0); Hemoglobin 11.7 g/dl (14.0-18.0); Imm Gran Abs Auto 0.02 X10*3/uL (0.00-0.03); Imm Gran Pct Auto 0.3 % (0.0-0.4); Lymphocytes Absolute Auto 0.4 X10*3/uL (1.2-4.9); Lymphocytes Percent Auto 7.1 % (20-40); Mean Corpuscular HGB Conc 33.2 g/dl (31.0-36.0); Mean Corpuscular Hemoglobin 32.8 pg (27.0-33.0); Mean Corpuscular Volume 98.6 fL (80.0-98.0); Mean Platelet Volume 11.3 fL (9.4-12.4); Monocytes Absolute Auto 0.6 X10*3/uL (0.1-1.2); Monocytes Percent Auto 10.5 % (2-11); Neutrophils Absolute Auto 4.8 x10*3/uL (2.0-8.3); Neutrophils Percent Auto 81.9 % (45-73); Platelet Count 181 X10*3/uL (160-400); Red Blood Count 3.57 X10*6/uL (4.60-5.80); Red Cell Distribution Width 13.2 % (11.0-16.0); White Blood Count 5.9 X10*3/uL (4.8-10.8)
[2024-03-29 05:22] LABS: C Reactive Protein 0.17 mg/dL (< or = 0.50)
[2024-03-29 05:54] VITALS: BP 120/62; PULSE 76; RESP 17; TEMP 36.7; O2SAT 98
--- NOTE | 2024-03-29 07:30 | PM.PNGS ---
Subjective Subjective Date of Service: 03/29/24 Interval history: Patient reports less abdominal pain this morning, passing flatus but no bowel movement. Denies any new symptoms. Physical Exam Vital Signs: Vital Signs: Last Vital Signs Temp 98.1 F 03/29/24 05:54 Pulse 76 03/29/24 05:54 Resp 17 03/29/24 05:54 BP 120/62 03/29/24 05:54 Pulse Ox 98 03/29/24 05:54 O2 Del Method Room Air 03/29/24 05:54 BMI result Body Mass Index 17.4 Const: General: no acute distress Nutritional Appearance: well nourished Resp: Effort & Inspection: normal respiratory effort, no audible wheezes, no cough and no respiratory distress GI: Inspection: Yes normal to inspection Palpation (GI): Soft to palpation, nontender, no guarding and not rigid Skin: Other: Warm and dry, no rash Objective Data Active Medications Acetaminophen (Acetaminophen 325 Mg Tablet) 650 mg PO Q6H PRN PRN Reason: Pain, Mild (Pain Scale 1-3), fever or headache Calcium Carbonate (Calcium Carbonate 750 Mg Tab.Chew) 750 mg PO Q4H PRN PRN Reason: Heartburn Enoxaparin Sodium (Enoxaparin Sodium 60 Mg/0.6 Ml Syringe) 50 mg 1 mg/kg (50 mg) SUBCUT Q12H [facility] Last Admin: 03/28/24 22:50 Dose: 50 mg Documented By: CORTES Dextrose/Lactated Ringer's (D5lr) 1,000 mls @ 50 mls/hr IVCONT .Q20H [facility] Last Admin: 03/28/24 19:06 Dose: 50 mls/hr Documented By: CORTES Melatonin (Melatonin 3 Mg Tablet) 6 mg PO BEDTIME PRN PRN Reason: Insomnia Methylprednisolone Sodium Succinate (Methylprednisolone Sod Succ 40 Mg/Ml Vial) 20 mg IVPUSH Q12H [facility] Last Admin: 03/28/24 19:06 Dose: 20 mg Documented By: CORTES Metoprolol Succinate (Metoprolol Succinate Er 50 Mg Tab.Er.24h) 50 mg PO DAILY [facility]; Protocol Last Admin: 03/28/24 14:28 Dose: 50 mg Documented By: CED Ondansetron HCl (Ondansetron Hcl 4 Mg/2 Ml Vial) 4 mg IVPUSH QID PRN PRN Reason: Nausea Sodium Chloride (0.9 % Sodium Chloride Flush 3 Ml Syringe) 3 ml IVFLUSH QSHIFT [facility] Last Admin: 03/29/24 02:08 Dose: Not Given Documented By: HILARIA Non-Admin Reason: IV Running Labs 03/29/24 04:10 03/28/24 05:15 Labs: Laboratory Results - last 24 hr 03/29/24 04:10 MCV 98.6 H MCH 32.8 MCHC 33.2 RDW 13.2 Plt Count 181 MPV 11.3 Immature Gran % (Auto) 0.3 Neut % (Auto) 81.9 H Lymph % (Auto) 7.1 L [place] % (Auto) 10.5 Eos % (Auto) 0.0 Baso % (Auto) 0.2 Lymph # (Auto) 0.4 L [place] # (Auto) 0.6 Eos # (Auto) 0.0 Baso # (Auto) 0.0 Abs Immat Gran (auto) 0.02 Absolute Neuts (auto) 4.8 Absolute Nucleated RBC 0.000 Nucleated RBC % (auto) 0.0 C-Reactive Protein 0.17 Procedures Date of Service Date of Service: 03/29/24 Progress Note: A&P Assessment and plan (1) SBO (small bowel obstruction): Status: Acute (2) 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 Appreciate hospitalist and GI consultations. Patient currently on steroid bolus and today reports passing flatus. Abdominal exam seems improved. We will start clear liquids. Time Spent With Patient Time: Total time managing care of this patient today ____ minutes. Quality Stroke Does the patient have a stroke diagnosis?: No VTE Prior VTE?: No VTE Risk Level:: Surgical - moderate VTE Device Contraindication: N/A - Device Ordered VTE Drug Contraindication: N/A - Med Ordered
[2024-03-29 08:00] VITALS: BP 117/60; PULSE 67
[2024-03-29] MEDS: methylPREDNISolone Sod Succ 40 MG/ML VIAL 20 MG IVPUSH ×2 (08:43→19:36)
[2024-03-29 08:44] VITALS: BP 117/60; PULSE 69
[2024-03-29] MEDS: Metoprolol Succinate ER 50 MG TAB.ER.24H PO (08:44)
[2024-03-29] MEDS: Enoxaparin Sodium 60 MG/0.6 ML SYRINGE 50 MG SUBCUT ×2 (11:46→22:24)
--- NOTE | 2024-03-29 13:13 | PC.NURSE ---
Assumed care of patient. Pt aaxo3 speaking clear full sentences. Pt denies any pain or complaints at this time. Patient tolerating clear liquids well. Pt ambualtes with steady gait 1 A RW to bathroom. Awaiting KUB results and care plan at this time. Family at bedside visiting.
[2024-03-29 14:42] VITALS: BP 104/51; PULSE 76; RESP 12; TEMP 36.6; O2SAT 99
--- NOTE | 2024-03-29 17:15 | PC.NURSE ---
Addendum entered by Nataly Livingston RN 03/29/24 17:19: Patient had small formed BM w/ mixed urine. Original Note: Assumed care at 1630. Patient A&O X3, no complaints. Patient sitting up in chair, eating dinner. D5LR@ 50cc/hr infusing through patent #20 RLE. High fall risk precautions in place. Care ongoing.
--- NOTE | 2024-03-29 19:53 | PC.NURSE ---
at 1900, report received at this time, and assume care of pt
[2024-03-29 20:00] VITALS: BP 103/53; PULSE 51; RESP 15; TEMP 36.6; O2SAT 99
[2024-03-29] MEDS: Dextrose 5 % and Lactated Ring 1,000 ML 50 ML IVCONT (20:18)
--- NOTE | 2024-03-29 20:53 | PC.NURSE ---
stand by assist, pt stood and used the urinal, steady on feet.
[2024-03-29 22:05] VITALS: BP 115/54; PULSE 74; RESP 18; TEMP 36.1; O2SAT 99
[2024-03-30 03:19] VITALS: BP 112/54; PULSE 83; RESP 14; TEMP 36.1; O2SAT 99
[2024-03-30] MEDS: methylPREDNISolone Sod Succ 40 MG/ML VIAL 20 MG IVPUSH (06:27)
[2024-03-30 06:52] VITALS: BP 113/76; PULSE 64; RESP 17; TEMP 36.7; O2SAT 99
[2024-03-30 08:35] VITALS: BP 109/58; PULSE 75; RESP 16; TEMP 36.3; O2SAT 98
[2024-03-30] MEDS: Metoprolol Succinate ER 50 MG TAB.ER.24H PO (08:38)
--- NOTE | 2024-03-30 08:47 | P.PNGS_ITS ---
Subjective Subjective Date of Service: 03/30/24 <Aaliyah Cutler PA-C - Last Filed: 03/30/24 08:49> 03/30/24 <Asael Quinn MD - Last Filed: 03/30/24 09:45> Interval history: Feels much improved. Tolerating clear liquids without nausea or vomiting. Passing flatus and had BM last night. Feels hungry and wants to eat. <Aaliyah Cutler PA-C - Last Filed: 03/30/24 08:49> Physical Exam 2 Vital Signs: Vital Signs: Last Vital Signs Temp 97.3 F 03/30/24 08:35 Pulse 75 03/30/24 08:35 Resp 16 03/30/24 08:35 BP 109/58 L 03/30/24 08:35 Pulse Ox 98 03/30/24 08:35 O2 Del Method Room Air 03/30/24 08:35 BMI result Body Mass Index 17.4 <Aaliyah Cutler PA-C - Last Filed: 03/30/24 08:49> Const: General: comfortable, no acute distress and alert <Aaliyah Cutler PA-C - Last Filed: 03/30/24 08:49> Orientation/consciousness: patient oriented x3 <Aaliyah Cutler PA-C - Last Filed: 03/30/24 08:49> Resp: Effort & Inspection: normal respiratory effort <Aaliyah Cutler PA-C - Last Filed: 03/30/24 08:49> GI: Inspection: Yes distended (mild) <Aaliyah Cutler PA-C - Last Filed: 03/30/24 08:49> Palpation (GI): Soft to palpation, nontender and no guarding <Aaliyah Cutler PA-C - Last Filed: 03/30/24 08:49> Skin: General skin exam: no rashes or lesions noted <CELESTE Dorantes Last Filed: 03/30/24 08:49> Neuro: General: patient oriented x3 and moves all extremities <CELESTE Dorantes Last Filed: 03/30/24 08:49> Objective Data Active Medications Acetaminophen (Acetaminophen 325 Mg Tablet) 650 mg PO Q6H PRN PRN Reason: Pain, Mild (Pain Scale 1-3), fever or headache Calcium Carbonate (Calcium Carbonate 750 Mg Tab.Chew) 750 mg PO Q4H PRN PRN Reason: Heartburn Enoxaparin Sodium (Enoxaparin Sodium 60 Mg/0.6 Ml Syringe) 50 mg 1 mg/kg (50 mg) SUBCUT Q12H [facility] Last Admin: 03/29/24 22:24 Dose: 50 mg Documented By: LOCO Melatonin (Melatonin 3 Mg Tablet) 6 mg PO BEDTIME PRN PRN Reason: Insomnia Methylprednisolone Sodium Succinate (Methylprednisolone Sod Succ 40 Mg/Ml Vial) 20 mg IVPUSH Q12H [facility] Last Admin: 03/30/24 06:27 Dose: 20 mg Documented By: LOCO Metoprolol Succinate (Metoprolol Succinate Er 50 Mg Tab.Er.24h) 50 mg PO DAILY [facility]; Protocol Last Admin: 03/30/24 08:38 Dose: 50 mg Documented By: THAD Ondansetron HCl (Ondansetron Hcl 4 Mg/2 Ml Vial) 4 mg IVPUSH QID PRN PRN Reason: Nausea Sodium Chloride (0.9 % Sodium Chloride Flush 3 Ml Syringe) 3 ml IVFLUSH QSHIFT [facility] Last Admin: 03/30/24 08:26 Dose: Not Given Documented By: THAD Non-Admin Reason: IV Running <Aaliyah Cutler PA-C - Last Filed: 03/30/24 08:49> Labs CBC & Chem 7: 03/29/24 04:10 03/28/24 05:15 <Aaliyah Cutler PA-C - Last Filed: 03/30/24 08:49> Procedures Date of Service Date of Service: 03/30/24 <Aaliyah Cutler PA-C - Last Filed: 03/30/24 08:49> 03/30/24 <Asael Quinn MD - Last Filed: 03/30/24 09:45> Progress Note: A&P Assessment and plan (1) SBO (small bowel obstruction): Status: Acute <Aaliyah Cutler PA-C - Last Filed: 03/30/24 08:49> Assessment and Plan: Now with evidence of return of GI function. WIll advance to solid diet. Dc IVF. Will discuss with GI regarding steroid taper. Hopefully home later today or tomorrow if tolerating solid diet. Patient comfortable with plan. <Aaliyah Cutler PA-C - Last Filed: 03/30/24 08:49> Now with evidence of return of GI function. WIll advance to solid diet. Dc IVF. Will discuss with GI regarding steroid taper. Hopefully home later today or tomorrow if tolerating solid diet. Patient comfortable with plan. Patient seen and examined independently, and I agree with the above assessment and plan. Patient appears much improved after steroid bolus suggestive of Crohn's flare. Management of steroids per GI service. <Asael Quinn MD - Last Filed: 03/30/24 09:45> Time Spent With Patient Time: Total time managing care of this patient today ____ minutes. <Aaliyah Cutler PA-C - Last Filed: 03/30/24 08:49> Quality Stroke Does the patient have a stroke diagnosis?: No <Aaliyah Cutler PA-C - Last Filed: 03/30/24 08:49> VTE Prior VTE?: No <Aaliyah Culter PA-C - Last Filed: 03/30/24 08:49> VTE Risk Level:: Surgical - moderate <Aaliyah Cutler PA-C - Last Filed: 03/30/24 08:49> VTE Device Contraindication: N/A - Device Ordered <CELESTE Dorantes Last Filed: 03/30/24 08:49> VTE Drug Contraindication: N/A - Med Ordered <Aaliyah Cutler PA-C - Last Filed: 03/30/24 08:49>
--- NOTE | 2024-03-30 08:57 | MHC.CM.PN ---
Addendum entered by Queta Graham RN 03/30/24 13:59: Patient medically cleared for dc home self care. Daughter will transport home. IMM delivered. Original Note: Per MD note, patient not medically cleared for dc. CM will continue to follow.
[2024-03-30] MEDS: Enoxaparin Sodium 60 MG/0.6 ML SYRINGE 50 MG SUBCUT (10:50)
[2024-03-30 11:30] VITALS: BMI 17.4
[2024-03-30 11:56] VITALS: BP 128/58; PULSE 79; TEMP 36.6
--- NOTE | 2024-03-30 14:16 | PM.DS ---
DS: Providers Provider Date of Service: 03/30/24 Date of admission: 03/28/24 00:06 Date of discharge: 03/30/24 Primary care physician: Rachel Parekh MD Attending physician on admission: Asael Quinn Consults: 03/28/24 00:07 Consult to Gastroenterology Stat Consulting Provider: Anabella Dudley Reason for consultation: SBO seejorge Guy Has provider been notified: No 03/28/24 01:03 Consult to Hospitalist Routine Comment: Consulting Provider: Hospitalist Reason For Exam: SBO Attending physician on discharge: Asael Quinn DS: Diagnosis Discharge Diagnosis (1) SBO (small bowel obstruction): Status: Acute DS: Summary Hospital Course Hospital Course: HPI AT ADMISSION: Asael Vargas is a 83 year old male with complaints of abdominal distention, waves of abdominal pain and nausea without vomiting and 3 day history of no bowel movement. He also reports no flatus for the past 24 hours. He has a history of Crohn's disease and underwent a previous ileocecal resection with a ileocolonic anastomosis. He was previously identified as having a stricture at the anastomosis and is currently on a 10 day course of levofloxacin and Flagyl for terminal ileitis he also has a history of cognitive disorder, bipolar disorder, anemia, atrial fibrillation on Xarelto and Crohn's disease currently on no medication. This morning he reports feeling more comfortable but still has not had any flatus or bowel movement. HOSPITAL COURSE: He was admitted to the surgical service for further management of the small-bowel obstruction. He overall felt improved with decreased abdominal pain but no BM or flatus yet. Therefore supportive measures were continued with IV fluids and bowel rest. Hospitalist and GI consultations obtained. He was started on IV solumedrol by GI for likely Crohns flare. He had fairly quick resolution and he began to pass flatus with improvement in his abdominal and no further nausea/vomiting. He was started on clear liquids and then advanced to solids the following day after he began to move his bowels. On the day of discharge he was asymptomatic, tolerating a solid diet, had good GI function. His abdomen was benign and soft and nontender. He felt ready for discharge. He was discharged to home on 03/30/24 in stable condition. He was discharged on a steroid taper. He has a f/u appt with Dr. Guy later this week. Status at Discharge Functional status at discharge: independent ambulation Overall status at discharge: patient is progressing back to baseline Time Attestation Discharge Coordination Time (in mins): 35 Quality: Safe Use of Opioids Does Pt have an Active Cancer Diagnosis on the Problem List?: No Quality: Stroke Does the patient have a stroke diagnosis?: No Physical Exam Vital Signs: Vital Signs: Last Vital Signs Temp 98 F 03/30/24 11:56 Pulse 79 03/30/24 11:56 Resp 16 03/30/24 08:35 BP 128/58 L 03/30/24 11:56 Pulse Ox 98 03/30/24 08:35 O2 Del Method Room Air 03/30/24 08:35 BMI result Body Mass Index 17.4 Discharge Plan Discharge Anticipated Discharge Date/Time: 03/30/24 15:58 Patient Disposition: Home, Self-Care Discharge Diagnosis: SBO, Crohns flare Referrals: Nell Guy MD [Physician] - 04/01/24 Rachel Parehk MD [Primary Care Provider] - 1 Week Discharge Medications: New prednisone 5 mg tablet 5 mg PO DIRECTED Qty: 126 0RF Rx Instructions: see taper instructions 40mg PO x 1 week 20mg PO x 1 week 15mg PO x 1 week 10mg PO x 1 week 5mg PO x 1 week Continued metoprolol succinate 50 mg tablet extended release 24 hr 50 mg PO DAILY Qty: 90 3RF levofloxacin 500 mg tablet 500 mg PO DAILY 10 Days Qty: 10 0RF metronidazole 500 mg tablet 500 mg PO TID Qty: 30 0RF Xarelto 15 mg tablet 15 mg PO DAILY@1700 Rx Instructions: must administer with evening meal quetiapine 25 mg tablet 25 mg PO BEDTIME mecobalamin (vitamin B12) 1,000 mcg lozenge 1,000 mcg PO DAILY Rx Instructions: allow to dissolve in mouth OR may chew lightly before swallowing Alive Men's 50 Plus Multivit 120 mcg-150 mcg -50 mg tablet,chewable 1 tab PO DAILY Co U-40-Nvlxqzq E-Fish Oil 25-150-200 mg-mg-unit capsule 1 cap PO DAILY Discharge Orders: Discharge Order (Routine); Ordered 03/30/24 Ordered By: Aaliyah Cutler Diet: Advance to usual diet Activity on Discharge: As tolerated Stand Alone Forms: Patient Portal Discharge page Print Language: Arabic Activity Restrictions/Additional Instructions: Complete your steroid taper. Follow up with GI. Call your PCP or present to ED if: ? ? -Your temperature exceeds 101.5? F? ? ? -You experience excessive pain or swelling ? ? -You have an unexpected reaction to medication ? ? -You experience continued vomiting/nausea Care Plan Goals: Return to baseline health and resume normal activities. Health Concerns: Crohns disease SBO Plan of Treatment: Supportive with bowel rest, IV hydration, IV steroids PO steroid taper Assessment: Improved Discharge Date/Time: 03/30/24 15:06
== END 2024-03-30 15:06 | disposition home or self-care (01) | DRG 386 ==
LOC: HO.ED 23:50 → HO.EDOVER 03-28 00:24 → HO.S3 03-29 20:26
PROVIDERS: Internal Medicine Gastroenterology; Nurse Practitioner Family; Admitting Provider Surgery; Emergency Provider Emergency Medicine; PCP Internal Medicine; Visit Provider Surgery
DX: K50.812 Crohn's disease of both small and large intestine with intestinal obstruction (principal); F02.83 Dementia in other diseases classified elsewhere, unspecified severity, with mood disturbance; I48.19 Other persistent atrial fibrillation; K91.89 Other postprocedural complications and disorders of digestive system; G30.9 Alzheimer's disease, unspecified; F31.9 Bipolar disorder, unspecified; Z79.01 Long term (current) use of anticoagulants; Z79.899 Other long term (current) drug therapy
CPT/HCPCS: 36415; 74018; 74177; 80053; 83690; 83735; 85025; 86140; 99285; J1650; J2919; J7120; Q9967

== ENCOUNTER → 2024-03-28 00:06 | Outpatient (BNV) | payer MEDICARE, OTHER, SELFPAY | PROVIDERS: Admitting Provider Surgery; Emergency Provider Emergency Medicine; PCP Internal Medicine; Visit Provider Physician Assistant | DX: I48.91 Unspecified atrial fibrillation (principal); K56.609 Unspecified intestinal obstruction, unspecified as to partial versus complete obstruction | CPT/HCPCS: 99222 ==

== ENCOUNTER → 2024-03-28 00:06 | Outpatient (BNV) | payer MEDICARE, OTHER, SELFPAY | PROVIDERS: Admitting Provider Surgery; Emergency Provider Emergency Medicine; PCP Internal Medicine; Visit Provider Internal Medicine Gastroenterology | DX: K56.609 Unspecified intestinal obstruction, unspecified as to partial versus complete obstruction (principal); K91.89 Other postprocedural complications and disorders of digestive system; K50.10 Crohn's disease of large intestine without complications | CPT/HCPCS: 99222 ==

== ENCOUNTER → 2024-03-28 00:06 | Outpatient (BNV) | payer MEDICARE, OTHER, SELFPAY | PROVIDERS: Admitting Provider Surgery; Emergency Provider Emergency Medicine; PCP Internal Medicine; Visit Provider Surgery | DX: K56.609 Unspecified intestinal obstruction, unspecified as to partial versus complete obstruction (principal) | CPT/HCPCS: 99222; 99232; 99239 ==

== ENCOUNTER 2024-04-01 11:12 | Outpatient (AMB) | payer MEDICARE, OTHER, SELFPAY ==
--- NOTE | 2024-04-01 11:13 | MHC.OFFVIS ---
Vital Signs 04/01/24 11:20 Height 5 ft 10 in Weight 130 lb 1.164 oz BMI 18.7 BP 101/53 L Blood Pressure Location Lt brachial Position Sitting Pulse 97 Intake Visit Reasons: f/u - mercaptopurine d/c'd Intake Note: Asael presents in the office as a follow up starting mercaptpurine discontinue. CC: He was in the ED recently due to a bowel obstruction. States that he is having all the symptoms - he was having constipation for a few days. He went to the ED because he also was having nausea. They ended up doing a CT scan in the ED as well. Allergies No Known Allergies Allergy (Verified 04/01/24 11:20) HPI HPI f/u - mercaptopurine d/c'd: Details: 83-year-old gentleman with crohns here for f/u RECAP: He has had Crohsn for maybe 20 yrs, dx after bowel obstruction he has been on 6 MP ever since and he feels doing a good job he feels bowel are normal right now, no bouts of diarrhea for long time with alternating constipation appetite is good Colonoscopy: ileo colonic stricture and inflammation --path: severe inflammation with atypical cells, concern for neoplasia He had admission for 04/21 for SBO and was given IV steroids, and abx Interim: feeling much better, passing stool no abdo distention appetite fair no ffever no nausea on steroids EXAM: GENERAL: The patient is frail VITAL SIGNS:see workflow HEENT: Nonicteric sclerae, PERRLA, EOMI. Oropharynx clear. Moist mucous membranes. Conjunctivae appear well perfused. No thyroid mass. CHEST: Chest wall is nontender. HEART: Regular rate and rhythm without murmurs. LUNGS: Clear to auscultation bilaterally. ABDOMEN: Soft, positive bowel sounds, nontender, no organomegaly.no flank tenderness SKIN: No rash, no excessive bruising, petechiae, or purpura. NEUROLOGIC: Cranial nerves II-XII intact without motor/sensory deficit. Psych: normal affect A/P: 1/ Crohsn with inflammation around anastomosis with abn cells suspicious for neoplasia, recent SBO--on pred taper PLAN: 1/ repeat colonoscopy next week, suprep sent, will hold NOAC few days before, will repeat bx and also do WATS same time 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 Fatigue Cognitive disorder Alzheimer's dementia Anemia Persistent atrial fibrillation B12 deficiency Scoliosis Crohn disease A-fib Bipolar 1 disorder Surgical History History of partial colectomy Hx of colonoscopy Family History Father Heart problem Other Alzheimer's dementia Social History Household Members: Spouse Housing: Apartment Do you presently have visiting nurse or other home services: No Alcohol intake: current Alcohol intake frequency: holidays/special occasions only Patient Tobacco Use Status: Never used Tobacco e-Cigarette/Vaping Use: Never Used Advance Directives Date on File: 03/19/24 service: No Current occupational status: retired Cognitive needs: No Hearing needs: No Vision needs: Yes Physical Exam Vital Signs: Last Vital Signs Pulse 97 04/01/24 11:20 BP 101/53 L 04/01/24 11:20 BMI result Body Mass Index 18.7 Assessment & Plan Assessment & Plan (1) SBO (small bowel obstruction): Code(s): K56.609 - Unspecified intestinal obstruction, unspecified as to partial versus complete obstruction Category: Medical Plan: see above Medications: New sodium,potassium,mag sulfates 17.5-3.13-1.6 gram (Suprep Bowel Prep Kit) DILUTE; drink 1/2 at 6-8 pm and half at 11 PM- 1AM 354 mL 0RF Coding Level of Care Code Est Pt Level 3 (67960) Diagnoses SBO (small bowel obstruction) K56.609
[2024-04-01 11:20] VITALS: BP 101/53; PULSE 97; BMI 18.7
== END 2024-04-01 11:49 | disposition home or self-care (01) ==
PROVIDERS: PCP Internal Medicine; Visit Provider Internal Medicine Gastroenterology
DX: K56.609 Unspecified intestinal obstruction, unspecified as to partial versus complete obstruction (principal)
CPT/HCPCS: 99213

== ENCOUNTER → 2024-04-01 11:12 | Outpatient (BNVA) | payer MEDICARE, SELFPAY | PROVIDERS: PCP Internal Medicine; Visit Provider Internal Medicine Gastroenterology | DX: K59.00 Constipation, unspecified (principal); Z87.19 Personal history of other diseases of the digestive system | CPT/HCPCS: 99212 ==

== ENCOUNTER 2024-04-07 09:32 | Day surgery (SDC) | payer MEDICARE, OTHER, SELFPAY ==
--- NOTE | 2024-04-06 10:43 | HO.ANESPROP2 ---
Documented by User: Suzan Muller NP 04/06/24 10:47 HPI - Anesthesia Eval Consult details Narrative: 83yo M for Colonoscopy Xarelto for afib Follows [facility] Cardiology. Last office visit 12/2023. Stable for 1 year f/u. 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 Fatigue Cognitive disorder Alzheimer's dementia Anemia Persistent atrial fibrillation B12 deficiency Scoliosis Crohn disease A-fib Bipolar 1 disorder Family History Family History Father Heart problem Other Alzheimer's dementia Family history of problems with anesthesia: No Surgical History Surgical History History of partial colectomy Hx of colonoscopy History of Problems with Anesthesia: No Social History Social History Household Members: Spouse Housing: Apartment Do you presently have visiting nurse or other home services: No Alcohol intake: current Alcohol intake frequency: does not drink Patient Tobacco Use Status: Never used Tobacco e-Cigarette/Vaping Use: Never Used Have you been hit, kicked, punched, or otherwise hurt by someone within the past year? If so, by whom?: No Are you DNR?: No Advance Directives: No Advance Directives Information Provided: Yes Advance Directives Date on File: 03/19/24 Recently lost weight without trying: Yes service: No Current occupational status: retired Cognitive needs: No Hearing needs: No Vision needs: Yes Meds Allergies Allergy/AdvReac Type Severity Reaction Status Date / Time No Known Allergies Allergy Verified 04/01/24 11:20 Home Medications ?Medication ?Instructions ?Recorded ?Confirmed ?Last Taken ?Type mecobalamin (vitamin B12) 1,000 1,000 mcg PO DAILY 12/28/23 04/07/24 03/27/24 07:00 History mcg lozenges [id number] 120 mcg-lutein 1 tab PO DAILY 12/28/23 04/07/24 03/27/24 07:00 History 150 mcg-herb 50 mg chewable tablet (Alive Men's 50 Plus Multivitamin) ubidecarenone-omega 3-vit E 25 1 cap PO DAILY 12/28/23 04/07/24 03/27/24 07:00 History mg-150 (90-60) mg-200 unit capsule (Co E-24-Hkfgeim E-Fish Oil) quetiapine 25 mg tablet 25 mg PO BEDTIME 03/28/24 04/07/24 03/26/24 History rivaroxaban 15 mg tablet (Xarelto) 15 mg PO DAILY@1700 03/28/24 04/07/24 04/03/24 History Exam Pertinent Lab Results Pertinent Lab Results: Laboratory Tests 03/28/24 03/29/24 05:15 04:10 WBC 5.9 Hgb 11.7 L Hct 35.2 L Plt Count 181 Sodium 139 Potassium 3.9 Chloride 108 Carbon Dioxide 23 BUN 21 H Creatinine 0.89 Narrative Narrative: EKG 09/2023 Vent. Rate : 079 BPM Atrial Rate : 000 BPM P-R Int : 000 ms QRS Dur : 094 ms QT Int : 384 ms P-R-T Axes : 000 115 068 degrees QTc Int : 440 ms Atrial fibrillation Right axis deviation Possible Right ventricular hypertrophy Abnormal ECG No previous ECGs available ECHO 06/2023 Conclusions: - The left ventricular systolic function is low normal. The visually estimated ejection fraction is between 50-55%. - The left atrium is severely dilated. - No obvious valvular pathology seen on this study. 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 Fatigue Cognitive disorder Alzheimer's dementia Anemia Persistent atrial fibrillation B12 deficiency Scoliosis Crohn disease A-fib Bipolar 1 disorder Family History Family History Father Heart problem Other Alzheimer's dementia Surgical History Surgical History History of partial colectomy Hx of colonoscopy Social History Social History Household Members: Spouse Housing: Apartment Do you presently have visiting nurse or other home services: No Alcohol intake: current Alcohol intake frequency: does not drink Patient Tobacco Use Status: Never used Tobacco e-Cigarette/Vaping Use: Never Used Have you been hit, kicked, punched, or otherwise hurt by someone within the past year? If so, by whom?: No Are you DNR?: No Advance Directives: No Advance Directives Information Provided: Yes Advance Directives Date on File: 03/19/24 Recently lost weight without trying: Yes service: No Current occupational status: retired Cognitive needs: No Hearing needs: No Vision needs: Yes Meds Allergies Allergy/AdvReac Type Severity Reaction Status Date / Time No Known Allergies Allergy Verified 04/01/24 11:20 Home Medications ?Medication ?Instructions ?Recorded ?Confirmed ?Last Taken ?Type mecobalamin (vitamin B12) 1,000 1,000 mcg PO DAILY 12/28/23 04/07/24 03/27/24 07:00 History mcg lozenges yzencbej-pxs-zolue 120 mcg-lutein 1 tab PO DAILY 12/28/23 04/07/24 03/27/24 07:00 History 150 mcg-herb 50 mg chewable tablet (Alive Men's 50 Plus Multivitamin) ubidecarenone-omega 3-vit E 25 1 cap PO DAILY 12/28/23 04/07/2403/27/24 07:00 History mg-150 (90-60) mg-200 unit capsule (Co K-43-Xdrzlmx E-Fish Oil) quetiapine 25 mg tablet 25 mg PO BEDTIME 03/28/24 04/07/24 03/26/24 History rivaroxaban 15 mg tablet (Xarelto) 15 mg PO DAILY@1700 03/28/24 04/07/24 04/03/24 History Exam Airway Mallampati Class: III TM Dist: <=3cm Neck ROM: Poor Heart: rrr Lungs: cta Assessment and Plan Assessment Anesthesia Assessment: Anesthesia Plan Discussed Final Anesthetic Review NPO: Yes ASA Class: III Final Preanesthetic Review: No Changes in Pt Med Stat, Meds/Allgs Chart Reviewed, Consent Obtained/Reviewed and Anes Risks/Benef Reviewed Patient Risk: Intermediate Procedure Risk: Low Anesthetic Plan Anesthetic Plan: MAC: Disposition: Standard PACU
[2024-04-07 11:06] VITALS: BP 147/78; PULSE 87; RESP 19; TEMP 36.4; O2SAT 97; BMI 18.1
[2024-04-07 11:17] VITALS: BMI 18.2
[2024-04-07] MEDS: Lactated Ringers 1,000 ML 80 ML IVCONT (12:03)
--- NOTE | 2024-04-07 12:21 | MHC.SHP ---
Pre-Procedural Eval Section A - 24 Hr Update-Section A only Date of Service: 04/07/24 The patient is an INPATIENT: No The patient has been examined within 24 hours of the surgical procedure. The History & Physical has been completed within 30 days and I have reviewed it.: Yes Section B - Complete if H&P > 30 days Chief Complaint: Crohn's disease of large intestine Allergies: Allergies Allergy/AdvReac Type Severity Reaction Status Date / Time No Known Allergies Allergy Verified 04/01/24 11:20 Plan Diagnosis/Plan: Unchanged I have reviewed the history and physical and performed a pertinent physical examination on my patient. No changes have occurred unless specified. Time Spent With Patient Time: Total time managing care of this patient today ____ minutes.
--- NOTE | 2024-04-07 14:00 | HO.OPN-COLON ---
Colonoscopy Operative Note Operative Note Date of Service: 04/07/24 Narrative: Operative Information Procedure Description: Colonoscopy Indication: abn pathology from prior colonoscopy Anesthesia: MAC COLONOSCOPY Instrument: Olympus variable stiffness pediatric scope 190L Colonoscopy Monitoring: Vital signs and clinical assessment, continuous EKG monitoring, Pulse oximetry, Carbon Dioxide monitoring and blood pressure monitoring were done throughout the procedure. Colon withdrawal time was 50 minutes. Procedure: The patient was placed in the left lateral decubitis position and pre-procedure medications were administered. After a digital rectal examination of the ano-rectum, the video colonoscope was inserted into the rectum and advanced through the colon to the cecum/TI. The colonoscope was slowly withdrawn in a retrograde panoramic fashion and the colon mucosa was carefully examined including a retroflexed view of the rectum. Findings and interventions are described below. Procedure Difficulty: moderate Findings: celestine terminal ileum and anastomosis- abn appearance with edematous mucosa and stricture, dilated with wire guided balloon to 13.5 mm, bx taken--uncertain if this was actually a side to side ileo colonic anastomosis, WATS brushings also taken Ascending Colon: normal Transverse Colon -normal Descending Colon:normal Sigmoid Colon: moderate diverticulosis Rectum: Retroflexion with small internal hemorrhoids seen, grade I Anorectum - normal Intervention: balloon dilation wire guided, biopsy -cold forceps Colon preparation: [place] Bowel Preparation Scale Right colon; 2 Transverse colon: 3 Left colon; 3 (0 = Unprepared colon segment with mucosa not seen due to solid stool that cannot be cleared. 1 = Portion of mucosa of the colon segment seen, but other areas of the colon segment not well seen due to staining, residual stool and/or opaque liquid. 2 = Minor amount of residual staining, small fragments of stool and/or opaque liquid, but mucosa of colon segment seen well. 3 = Entire mucosa of colon segment seen well with no residual staining, small fragments of stool or opaque liquid) Impression and Post Procedure Diagnosis: diverticulosis ileo colonic stricture and inflammation internal hemorrhoids Plan: High fiber diet leaflet Avoid straining at stool, epsom salts and sitz bath, anusol supps or cream Repeat Colonoscopy in 1-2 years or earlier if clinically indicated --consider starting entyvio if neg for malignancy on WATS and bx restart rivaroxiban tomorrow Above findings were reviewed with the patient and relevant handouts were provided if indicated.
[2024-04-07 14:07] VITALS: BP 101/53; PULSE 65; RESP 16; TEMP 36.1; O2SAT 99
[2024-04-07 14:32] VITALS: BP 130/66; PULSE 60; RESP 18; TEMP 36.1; O2SAT 98
== END 2024-04-07 15:05 | disposition home or self-care (01) ==
PROVIDERS: PCP Internal Medicine; Visit Provider Internal Medicine Gastroenterology
PROC: 0DJD8ZZ Inspection of Lower Intestinal Tract, Via Natural or Artificial Opening Endoscopic (ICD-10-PCS; CPT 45378; principal; 2024-04-07 12:30)
DX: K56.699 Other intestinal obstruction unspecified as to partial versus complete obstruction (principal); K57.30 Diverticulosis of large intestine without perforation or abscess without bleeding; K64.0 First degree hemorrhoids; K63.89 Other specified diseases of intestine; K50.10 Crohn's disease of large intestine without complications; I48.19 Other persistent atrial fibrillation; D64.9 Anemia, unspecified; E53.8 Deficiency of other specified B group vitamins; Z79.01 Long term (current) use of anticoagulants; Z79.899 Other long term (current) drug therapy
CPT/HCPCS: 45386; 45380; 88305; C1726; J2003; J2704; J3301

== ENCOUNTER → 2024-04-07 09:32 | Outpatient (BNV) | payer MEDICARE, OTHER, SELFPAY | PROVIDERS: PCP Internal Medicine; Visit Provider Internal Medicine Gastroenterology | DX: K50.10 Crohn's disease of large intestine without complications (principal); K56.699 Other intestinal obstruction unspecified as to partial versus complete obstruction; K57.30 Diverticulosis of large intestine without perforation or abscess without bleeding | CPT/HCPCS: 45380; 45386 ==

== ENCOUNTER 2024-04-12 14:56 | Outpatient (AMB) | payer MEDICARE, OTHER, SELFPAY ==
--- NOTE | 2024-04-12 14:35 | MHC.PC.OV ---
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 Fatigue Cognitive disorder Alzheimer's dementia Anemia Persistent atrial fibrillation B12 deficiency Scoliosis Crohn disease A-fib Bipolar 1 disorder Surgical History History of partial colectomy Hx of colonoscopy Family History Father Heart problem Other Alzheimer's dementia Social History Household Members: Spouse Housing: Apartment Do you presently have visiting nurse or other home services: No Alcohol intake: current Alcohol intake frequency: does not drink Patient Tobacco Use Status: Never used Tobacco e-Cigarette/Vaping Use: Never Used Advance Directives Date on File: 03/19/24 service: No Current occupational status: retired Cognitive needs: No Hearing needs: No Vision needs: Yes Questionnaire Thrive Questionnaire Date Thrive assessed: 02/23/24 SIDRA-7 AMB Questionnaire SIDRA-7 Date SIDRA - 7 assessed: 02/23/24 Source: Developed by Drs. Franklin Funez, Sally Pappas, Geoff Spears and colleagues, with an educational rhonda from [employer]. Physical exam (Primary Care) Tobacco/Smoking Status: Tobacco use Status Tobacco use date assessed 02/23/24 03/12/24 11:31 Patient Tobacco Use Status Never used Tobacco 03/30/24 14:29 e-Cigarette/Vaping Use Never Used 03/12/24 11:31 Thrive Assessment: Date of Thrive Assessment Date Thrive assessed 02/23/24 04/01/24 11:12 Coding
--- NOTE | 2024-04-12 14:57 | MHC.PC.OV ---
Vital Signs 04/12/24 15:02 Height 5 ft 11 in Weight 131 lb 4 oz BMI 18.3 BP 110/70 Blood Pressure Location Lt brachial Position Sitting Pulse 67 Pulse Source Pulse Oximeter Pulse Oximetry (%) 97 Oxygen Delivery Method Room Air Intake Visit Reasons: ED F/U Allergies No Known Allergies Allergy (Verified 04/01/24 11:20) Medication List - Last Reconciled 04/12/24 by Rachel Parekh MD mecobalamin (vitamin B12) 1,000 mcg PO DAILY metoprolol succinate ER 50 mg PO DAILY yq-xn-suwnq-lutein-herbal 293 120 mcg-150 mcg -50 mg (Alive Men's 50 Plus Multivitamin) 1 tab PO DAILY prednisone 5 mg PO DIRECTED quetiapine 25 mg PO BEDTIME rivaroxaban (Xarelto) 15 mg PO DAILY@1700 sodium,potassium,mag sulfates 17.5-3.13-1.6 gram (Suprep Bowel Prep Kit) DILUTE; drink 1/2 at 6-8 pm and half at 11 PM- 1AM ubidecarenone-omega 3-vit E 25-150-200 mg-mg-unit (Co N-78-[id number] E-Fish Oil) 1 cap PO DAILY Tobacco use date assessed: 02/23/24 Dental Screening Dental Screen Date: 02/23/24 HPI ED F/U HPI Details Patient is 83-year-old gentleman who was in hospital 03/27/2024 [facility] Emergency room Patient has a history of cognitive disorder, bipolar disorder, anemia, AFib on Xarelto, Crohn's disease but not on any medications since February of 2021, he was started on 10 days of levofloxacin and Flagyl for terminal ileitis on 03/19/2021 in emergency room, presented to emergency room again with chief complaint of, 3 days of no BM or flatus for 1 day Patient felt distended in his abdomen and was having waves of pain and nausea He was sent to emergency room by his chicken and fish butcher with a diagnosis of SBO Hemoglobin of 12.9 that day Electrolytes within normal limit White count 6.1 [address] scan done and was admitted His CT scan reveals small bowel obstruction with transition point at the ileocecal anastomosis Incidental finding of mild cardiomegaly and pericardial calcification BPH and degenerative changes in the spine Patient was placed on IV fluids and bowel rest Eventually improved Discharge 03/28/2024 He is almost back to baseline He is passing stool and gas And is eating fine He is seeing Dr. 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 Fatigue Cognitive disorder Alzheimer's dementia Anemia Persistent atrial fibrillation B12 deficiency Scoliosis Crohn disease A-fib Bipolar 1 disorder Surgical History History of partial colectomy Hx of colonoscopy Family History Father Heart problem Other Alzheimer's dementia Social History Household Members: Spouse Housing: Apartment Do you presently have visiting nurse or other home services: No Alcohol intake: current Alcohol intake frequency: does not drink Patient Tobacco Use Status: Never used Tobacco e-Cigarette/Vaping Use: Never Used Advance Directives Date on File: 03/19/24 service: No Current occupational status: retired Cognitive needs: No Hearing needs: No Vision needs: Yes Questionnaire Thrive Questionnaire Date Thrive assessed: 02/23/24 I am a: Parent/Caregiver What is your living situation today?: I have a steady place to live Within the past 12 months, did the food you bought not last and you didn't have the money to get more?: Never true Within the past 12 months, did you worry whether your food would run out before you got money to buy more?: Never true Do you have trouble paying for medicines?: No Do you have trouble getting transportation to medical appointments?: No Do you have trouble paying your heating and electricity bill?: No Do you have trouble taking care of your child, family member or friend?: No Do you have trouble with day-to-day activities such as bathing, preparing meals, shopping, managing finances, etc.?: No Are you currently unemployed and looking for a job?: No Are you interested in more education?: No Please select the resources that you would like help with: None Currently or been in a relationship where the following occur: No concerns reported THRIVE Score: 0 SIDRA-7 AMB Questionnaire SIDRA-7 Date SIDRA - 7 assessed: 02/23/24 Source: Developed by Drs. Franklin Funez, Sally Pappas, Geoff Spears and colleagues, with an educational rhonda from [employer]. Review of Systems Const Denies chills and Denies fever(s) ENT Denies epistaxis and Denies nasal discharge Card Denies chest pain Resp Denies chest congestion, Denies cough and Denies hemoptysis GI Denies diarrhea and Denies nausea Skin/Breast Denies rash Neuro Reports no additional complaints Psych Reports no additional complaints Endo Reports no additional complaints Physical exam (Primary Care) Vital Signs: Last Vital Signs Pulse 67 04/12/24 15:02 BP 110/70 04/12/24 15:02 Pulse Ox 97 04/12/24 15:02 Oxygen Delivery Method Room Air 04/12/24 15:02 BMI result Body Mass Index 18.3 Tobacco/Smoking Status: Tobacco use Status Tobacco use date assessed 02/23/24 03/12/24 11:31 Patient Tobacco Use Status Never used Tobacco 04/07/24 14:04 e-Cigarette/Vaping Use Never Used 03/12/24 11:31 Thrive Assessment: Date of Thrive Assessment Date Thrive assessed 02/23/24 04/01/24 11:12 Currently or been in a relationship where the following occur: No concerns reported Const General: cooperative, comfortable and no acute distress Orientation/consciousness: patient oriented x3 HENMT Head: Yes normocephalic Eyes General: appearance normal, both eyes and all related structures Neck Neck: Yes supple Resp Effort & Inspection: normal respiratory effort, no cough and no stridor Cardio Heart sounds: S1 normal heart sound present and S2 normal heart sound present GI Other: Soft nontender bowel sounds positive Skin General skin exam: turgor normal Neuro General: patient oriented x3, tone normal and moves all extremities Extrem Right lower extremity: no edema Left lower extremity: no edema Coding Level of Care Code Est Pt Level 4 (43487) Diagnoses Hospital discharge follow-up Z09 SBO (small bowel obstruction) K56.609 Cognitive disorder F09 Bipolar 1 disorder F31.9 Persistent atrial fibrillation I48.19 Atrial fibrillation type: persistent (not longstanding) Anemia in other chronic diseases classified elsewhere D63.8 Anemia type: other cause Other causes of anemia: chronic disease, other Crohn's disease of large intestine without complication K50.10 Gastrointestinal tract location: large intestine Digestive disease complication type: without complication Assessment & Plan Assessment & Plan (1) Hospital discharge follow-up: Code(s): Z09 - Encounter for follow-up examination after completed treatment for conditions other than malignant neoplasm Category: Medical (2) SBO (small bowel obstruction): Code(s): K56.609 - Unspecified intestinal obstruction, unspecified as to partial versus complete obstruction Category: Medical (3) Cognitive disorder: Comment: likely early Alzheimer's dementia - strong fh/o dementia - Code(s): F09 - Unspecified mental disorder due to known physiological condition Category: Medical (4) Bipolar 1 disorder: Code(s): F31.9 - Bipolar disorder, unspecified Category: Medical (5) A-fib: Code(s): I48.91 - Unspecified atrial fibrillation Category: Medical Qualifiers: Atrial fibrillation type: persistent (not longstanding) Qualified Code(s): I48.19 - Other persistent atrial fibrillation (6) Anemia: Code(s): D64.9 - Anemia, unspecified Category: Medical Qualifiers: Anemia type: other cause Other causes of anemia: chronic disease, other Qualified Code(s): D63.8 - Anemia in other chronic diseases classified elsewhere (7) Crohn disease: Code(s): K50.90 - Crohn's disease, unspecified, without complications Category: Medical Qualifiers: Gastrointestinal tract location: large intestine Digestive disease complication type: without complication Qualified Code(s): K50.10 - Crohn's disease of large intestine without complications Plan Patient is 83-year-old gentleman who was in hospital 03/27/2024 [facility] Emergency room Patient has a history of cognitive disorder, bipolar disorder, anemia, AFib on Xarelto, Crohn's disease but not on any medications since February of 2021, he was started on 10 days of levofloxacin and Flagyl for terminal ileitis on 03/19/2021 in emergency room, presented to emergency room again with chief complaint of, 3 days of no BM or flatus for 1 day Patient felt distended in his abdomen and was having waves of pain and nausea He was sent to emergency room by his chicken and fish butcher with a diagnosis of SBO Hemoglobin of 12.9 that day Electrolytes within normal limit White count 6.1 [address]ase [address] scan done and was admitted His CT scan reveals small bowel obstruction with transition point at the ileocecal anastomosis Incidental finding of mild cardiomegaly and pericardial calcification BPH and degenerative changes in the spine Patient was placed on IV fluids and bowel rest Eventually improved Discharge 03/28/2024 He is almost back to baseline He is passing stool and gas And is eating fine He is seeing Dr. Guy chicken and fish butcher at [facility] On examination today his abdomen is benign
[2024-04-12 15:02] VITALS: BP 110/70; PULSE 67; O2SAT 97; BMI 18.3
== END 2024-04-12 16:05 | disposition home or self-care (01) ==
PROVIDERS: PCP Internal Medicine; Visit Provider Internal Medicine
DX: K56.609 Unspecified intestinal obstruction, unspecified as to partial versus complete obstruction (principal); F31.9 Bipolar disorder, unspecified; I48.19 Other persistent atrial fibrillation; K50.10 Crohn's disease of large intestine without complications; Z09 Encounter for follow-up examination after completed treatment for conditions other than malignant neoplasm; F09 Unspecified mental disorder due to known physiological condition; D63.8 Anemia in other chronic diseases classified elsewhere

== ENCOUNTER → 2024-04-12 14:56 | Outpatient (BNVA) | payer MEDICARE, OTHER, SELFPAY | PROVIDERS: PCP Internal Medicine; Visit Provider Internal Medicine | DX: Z09 Encounter for follow-up examination after completed treatment for conditions other than malignant neoplasm (principal); K56.609 Unspecified intestinal obstruction, unspecified as to partial versus complete obstruction; F09 Unspecified mental disorder due to known physiological condition; F31.9 Bipolar disorder, unspecified; I48.19 Other persistent atrial fibrillation; D63.8 Anemia in other chronic diseases classified elsewhere; K50.10 Crohn's disease of large intestine without complications | CPT/HCPCS: 99212 ==

== ENCOUNTER 2024-04-25 10:27 | Outpatient (AMB) | payer MEDICARE, OTHER, SELFPAY ==
[2024-04-25 10:29] VITALS: BP 136/71; PULSE 98; BMI 17.7
--- NOTE | 2024-04-25 10:29 | A.OFFVIS_ITS ---
Vital Signs 04/25/24 10:29 Height 5 ft 11 in Weight 127 lb BMI 17.7 BP 136/71 Blood Pressure Location Rt brachial Position Sitting Pulse 98 Intake Visit Reasons: Colon resection Intake Note: This patient was referred by to discuss possible colon resection. Pt c/o; reports no complaints at this time. Accompanied by: Family/Other Allergies No Known Allergies Allergy (Verified 04/25/24 10:37) Medication List - Last Reconciled 04/25/24 by Sadi Saavedra MD mecobalamin (vitamin B12) 1,000 mcg PO DAILY metoprolol succinate ER 50 mg PO DAILY cu-ga-kagxh-lutein-herbal 293 120 mcg-150 mcg -50 mg (Alive Men's 50 Plus Multivitamin) 1 tab PO DAILY prednisone 5 mg PO DIRECTED quetiapine 25 mg PO BEDTIME rivaroxaban (Xarelto) 15 mg PO DAILY@1700 sodium,potassium,mag sulfates 17.5-3.13-1.6 gram (Suprep Bowel Prep Kit) DILUTE; drink 1/2 at 6-8 pm and half at 11 PM- 1AM ubidecarenone-omega 3-vit E 25-150-200 mg-mg-unit (Co N-54-Gwuytgg E-Fish Oil) 1 cap PO DAILY HPI HPI Colon resection: Details: 83-year-old male here for follow-up for a history of dysplasia on his previous ileocolonic anastomosis for Crohn's disease. Had a follow-up colonoscopy done by Dr. Guy last 04/07/2024. Biopsies of the ileocolonic anastomosis shows chronic, mildly active inflammation with no dysplasia or granulomata. However, the family says that there were brushings done that showed dysplasia He has had some problems with partial small-bowel obstruction from the anastomosis in view of inflammatory changes. He is supposed to start on Entyvio this Thursday. However, he was referred to me again for consideration of surgical resection of the anastomosis in view of the biopsy findings He has good oral intake so far. He does have periodic symptoms of abdominal pain and discomfort. He is also known to have multiple medical problems including atrial fib rillation, bronchitis, cognitive disorder, dementia and chronic anemia. 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 Fatigue Cognitive disorder Alzheimer's dementia Anemia Persistent atrial fibrillation B12 deficiency Scoliosis Crohn disease A-fib Bipolar 1 disorder Surgical History History of partial colectomy Hx of colonoscopy Family History Father Heart problem Other Alzheimer's dementia Social History Household Members: Spouse Housing: Apartment Do you presently have visiting nurse or other home services: No Alcohol intake: current Alcohol intake frequency: does not drink Patient Tobacco Use Status: Never used Tobacco e-Cigarette/Vaping Use: Never Used Advance Directives Date on File: 03/19/24 service: No Current occupational status: retired Cognitive needs: No Hearing needs: No Vision needs: Yes Review of Systems Const Denies chills and Denies fever(s) Card Denies chest pain, Denies dyspnea and Denies dyspnea on exertion Resp Denies cough, Denies dyspnea and Denies dyspnea on exertion GI Denies hematochezia and Denies change in bowel habits Denies hematuria and Denies difficulty urinating Musc Denies back pain and Denies limited range of motion Neuro Denies focal weakness and Denies convulsions Psych Denies depression and Denies mood swings Physical Exam Vital Signs: Last Vital Signs Pulse 98 04/25/24 10:29 BP 136/71 04/25/24 10:29 BMI result Body Mass Index 17.7 Const Other: Ambulating but very frail looking, ambulates with some degree of difficulty, looks under nourished General: comfortable and no acute distress Resp Effort & Inspection: normal respiratory effort Cardio Other: Irregular rhythm GI Palpation (GI): Soft to palpation, not firm, nontender and no guarding Assessment & Plan Assessment & Plan (1) 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 There were supposedly brushings that showed dysplasia. I will rediscuss this with Dr. Guy I had a very long and extensive discussion with the patient and his family. I did explain the option of surgery. I explained the technique of resection of the anastomosis with a reanastomosis. I reviewed the risks including but not limited to bleeding, infections, anastomotic leak, bowel injury, perioperative CA and strokes, pneumonia, postop obstruction, as well as the benefits and alternatives. I reviewed with him what to expect postoperatively. He does have significant perioperative risks in view of his overall frailty, and his other multiple medical issues. The daughter therefore was questioning how? unnecessary? and urgent the resection might be. She stated that the patient was supposed to be started on Entyvio for the chronic inflammatory changes and the anastomosis. The daughter wonders how long the lag time might be for progression of the dysplasia to a cancer. I did explain to the patient and the family that if he has significant obstructive symptoms, then he may really benefit from resection. I will rediscuss the above with Dr. Guy. Again, the patient and the family are not very keen on proceeding with surgery at this time. 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
== END 2024-04-25 11:21 | disposition home or self-care (01) ==
PROVIDERS: PCP Internal Medicine; Referring Provider Internal Medicine Gastroenterology; Visit Provider Surgery
DX: K91.89 Other postprocedural complications and disorders of digestive system (principal)
CPT/HCPCS: 99214

== ENCOUNTER → 2024-04-25 10:27 | Outpatient (BNVA) | payer MEDICARE, OTHER, SELFPAY | PROVIDERS: PCP Internal Medicine; Referring Provider Internal Medicine Gastroenterology; Visit Provider Surgery | DX: K91.89 Other postprocedural complications and disorders of digestive system (principal); K50.90 Crohn's disease, unspecified, without complications | CPT/HCPCS: 99212 ==

== ENCOUNTER 2024-05-02 15:01 | Outpatient (AMB) | payer MEDICARE, SELFPAY ==
--- NOTE | 2024-05-02 15:02 | MHC.OFFVIS ---
Vital Signs 05/02/24 15:06 Height 5 ft 11 in Weight 126 lb 15.992 oz BMI 17.7 Intake Visit Reasons: re-discuss surgery Intake Note: This patient presents to re-discuss surgery. Pt c/o; reports no changes since last visit. [employer] Required: No Accompanied by: Daughter Allergies No Known Allergies Allergy (Verified 05/17/24 10:54) HPI HPI re-discuss surgery: Details: 83-year-old male here for follow-up for a history of dysplasia on his previous ileocolonic anastomosis for Crohn's disease. Had a follow-up colonoscopy done by Dr. Guy last 04/07/2024. Biopsies of the ileocolonic anastomosis shows chronic, mildly active inflammation with no dysplasia or granulomata. However, the family says that there were brushings done that showed dysplasia He has had some problems with partial small-bowel obstruction from the anastomosis in view of inflammatory changes. He is supposed to start on Entyvio this Thursday. However, he was referred to me again for consideration of surgical resection of the anastomosis in view of the biopsy findings He has good oral intake so far. He does have periodic symptoms of abdominal pain and discomfort. He is also known to have multiple medical problems including atrial fibrillation, bronchitis, cognitive disorder, dementia and chronic anemia. 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 Fatigue Cognitive disorder Alzheimer's dementia Anemia Persistent atrial fibrillation B12 deficiency Scoliosis Crohn disease Bipolar 1 disorder Surgical History History of partial colectomy Hx of colonoscopy Family History Father Heart problem Other Alzheimer's dementia Social History Household Members: Spouse Household Members Other:: [facility] Housing: Apartment Are you a primary director of patient care to a significant other at home: No Do you presently have visiting nurse or other home services: No Alcohol intake: current Alcohol intake frequency: does not drink Patient Tobacco Use Status: Never used Tobacco e-Cigarette/Vaping Use: Never Used Advance Directives Date on File: 03/19/24 service: No Current occupational status: retired Cognitive needs: No Hearing needs: No Vision needs: Yes Physical Exam Vital Signs: BMI result Body Mass Index 17.7 Assessment & Plan Assessment & Plan (1) 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 He had view of brushing so high-grade dysplasia in the anastomosis. I have reviewed his case with Dr. Guy. He has recommended resection because of the presence of high-grade dysplasia. The patient does present with periodic signs of small-bowel obstruction from the anastomosis and this is likely due to the anastomotic stenosis with high-grade dysplasia. I had a very long and extensive discussion with the patient and his family. I did explain the option of surgery. I explained the technique of resection of the anastomosis with a reanastomosis. I reviewed the risks including but not limited to bleeding, infections, anastomotic leak, bowel injury, perioperative CO and strokes, pneumonia, postop obstruction, as well as the benefits and alternatives. I reviewed with him what to expect postoperatively. He does have significant perioperative risks in view of his overall frailty, and his other multiple medical issues. The daughter therefore was questioning how? unnecessary? and urgent the resection might be. She stated that the patient was supposed to be started on Entyvio for the chronic inflammatory changes and the anastomosis. The daughter wonders how long the lag time might be for progression of the dysplasia to a cancer. I did explain to the patient and the family that if he has significant obstructive symptoms, then he may really benefit from resection. I will rediscuss the above with Dr. Guy. Again, the patient and the family are not very keen on proceeding with surgery at this time. 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
[2024-05-02 15:06] VITALS: BMI 17.7
== END 2024-05-02 15:27 | disposition home or self-care (01) ==
LOC: HO.HGS 15:02
PROVIDERS: PCP Internal Medicine; Visit Provider Surgery
DX: K91.89 Other postprocedural complications and disorders of digestive system (principal)
CPT/HCPCS: 99214

== ENCOUNTER → 2024-05-02 15:01 | Outpatient (BNVA) | payer MEDICARE, SELFPAY | PROVIDERS: PCP Internal Medicine; Visit Provider Surgery | DX: K91.89 Other postprocedural complications and disorders of digestive system (principal); K50.90 Crohn's disease, unspecified, without complications | CPT/HCPCS: 99212 ==

== ENCOUNTER 2024-05-17 10:44 | Outpatient (AMB) | payer MEDICARE, SELFPAY ==
[2024-05-17 10:45] VITALS: BP 130/72; PULSE 87; O2SAT 97; BMI 17.4
--- NOTE | 2024-05-17 10:45 | MHC.PC.OV ---
Vital Signs 05/17/24 10:45 Height 5 ft 11 in Weight 125 lb 2 oz BMI 17.4 BP 130/72 Blood Pressure Location Lt brachial Position Sitting Pulse 87 Pulse Source Pulse Oximeter Pulse Oximetry (%) 97 Oxygen Delivery Method Room Air Intake Visit Reasons: Pre Op Clearance Allergies No Known Allergies Allergy (Verified 05/17/24 10:54) Medication List - Last Reconciled 05/17/24 by Rachel Parekh MD mecobalamin (vitamin B12) 1,000 mcg PO DAILY metoprolol succinate ER 50 mg PO DAILY hn-lz-pagqt-lutein-herbal 293 120 mcg-150 mcg -50 mg (Alive Men's 50 Plus Multivitamin) 1 tab PO DAILY quetiapine 25 mg PO BEDTIME rivaroxaban (Xarelto) 15 mg PO DAILY@1700 ubidecarenone-omega 3-vit E 25-150-200 mg-mg-unit (Co H-[id number] E-Fish Oil) 1 cap PO DAILY Tobacco use date assessed: 05/17/24 Fall risk assessment: No Falls in past year Last assessed Fall Risk: 05/17/24 Dental Screening Dental Screen Date: 05/17/24 Did you have a dental visit in the last 12 months?: Yes Did you have a dental problem in the last 6 months where you did not have access to dental care?: No Was dental information given to patient?: Patient has dentist HPI Pre Op Clearance HPI Details 83 YM with bipolar disorder, atrial fibrillation anticoagulated with Xarelto, Crohn's disease, vitamin B12 deficiency, Alzheimer's dementia Going in for partial bowel resection due to metaplasia found at colonoscopy few weeks ago by Dr. Guy Surgery is most likely going to be laparoscopic Crohn's disease diagnosed 20 yrs ago and had ileocecal resection with an ileocolonic anastomosis approx 15 years ago at [place], [place]. Patient denies smoking or ETOH abuse. 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 03/27/[address] SCAN SHOWED: 1. Small bowel obstruction with transition point at the ileocolic anastomosis. 2. Incidental note made of mild cardiomegaly, pericardial calcification, BPH and degenerative changes in the spine. At this point patient does not have any abdominal pain He was able to tolerate breakfast and is moving his bowels Patient has already been cleared by Dr. 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 Fatigue Cognitive disorder Alzheimer's dementia Anemia Persistent atrial fibrillation B12 deficiency Scoliosis Crohn disease Bipolar 1 disorder Surgical History History of partial colectomy Hx of colonoscopy Family History Father Heart problem Other Alzheimer's dementia Social History Household Members: Spouse Household Members Other:: alf housing Housing: Apartment Are you a primary career development manager to a significant other at home: No Do you presently have visiting nurse or other home services: No Alcohol intake: current Alcohol intake frequency: does not drink Patient Tobacco Use Status: Never used Tobacco e-Cigarette/Vaping Use: Never Used Advance Directives Date on File: 03/19/24 service: No Current occupational status: retired Cognitive needs: No Hearing needs: No Vision needs: Yes Questionnaire Thrive Questionnaire Date Thrive assessed: 02/23/24 I am a: Parent/Caregiver What is your living situation today?: I have a steady place to live Within the past 12 months, did the food you bought not last and you didn't have the money to get more?: Never true Within the past 12 months, did you worry whether your food would run out before you got money to buy more?: Never true Do you have trouble paying for medicines?: No Do you have trouble getting transportation to medical appointments?: No Do you have trouble paying your heating and electricity bill?: No Do you have trouble taking care of your child, family member or friend?: No Do you have trouble with day-to-day activities such as bathing, preparing meals, shopping, managing finances, etc.?: No Are you currently unemployed and looking for a job?: No Are you interested in more education?: No Please select the resources that you would like help with: None Currently or been in a relationship where the following occur: No concerns reported THRIVE Score: 0 AUDIT C Alcohol Use Questionnaire (AUDIT-C) 1. How often do you have a drink containing alcohol?: Monthly or less 2. How many drinks containing alcohol do you have on a typical day when you are drinking?: 1 or 2 3. How often do you have six or more drinks on one occasion?: Never Total Score: 1 Score Reviewed/Action Taken: Yes SIDRA-7 AMB Questionnaire SIDRA-7 Date SIDRA - 7 assessed: 02/23/24 Source: Developed by Drs. Franklin Funez, Sally Pappas, Geoff Spears and colleagues, with an educational rhonda from [employer]. Review of Systems Const Denies chills and Denies fever(s) ENT Denies epistaxis and Denies nasal discharge Card Denies chest pain Resp Denies chest congestion, Denies cough and Denies hemoptysis Skin/Breast Denies rash Neuro Reports no additional complaints Psych Reports no additional complaints Endo Reports no additional complaints Physical exam (Primary Care) Vital Signs: Last Vital Signs Pulse 87 05/17/24 10:45 BP 130/72 05/17/24 10:45 Pulse Ox 97 05/17/24 10:45 Oxygen Delivery Method Room Air 05/17/24 10:45 BMI result Body Mass Index 17.4 Tobacco/Smoking Status: Tobacco use Status Tobacco use date assessed 05/17/24 05/17/24 10:54 Patient Tobacco Use Status Never used Tobacco 05/17/24 10:45 e-Cigarette/Vaping Use Never Used 05/17/24 10:45 Thrive Assessment: Date of Thrive Assessment Date Thrive assessed 02/23/24 05/17/24 10:45 Currently or been in a relationship where the following occur: No concerns reported Const General: cooperative, comfortable and no acute distress Orientation/consciousness: patient oriented x3 [facility] [place] Head: Yes normocephalic Eyes General: appearance normal, both eyes and all related structures Neck Neck: Yes supple Resp Effort & Inspection: normal respiratory effort, no cough and no stridor Cardio Other: S1-S2 irregularly irregular Skin General skin exam: turgor normal Neuro General: patient oriented x3, tone normal and moves all extremities Extrem Right lower extremity: no edema Left lower extremity: no edema Coding Level of Care Code Est Pt Level 4 (60429) Diagnoses Pre-op evaluation Z01.818 Crohn's disease of large intestine without complication K50.10 Digestive disease complication type: without complication Gastrointestinal tract location: large intestine Anemia in other chronic diseases classified elsewhere D63.8 Anemia type: other cause Other causes of anemia: chronic disease, other Disorder of small intestine K63.9 Mild late onset Alzheimer's dementia without behavioral disturbance, psychotic disturbance, mood disturbance, or anxiety G30.1; F02.A0 Alzheimer's disease onset: late onset Dementia behavioral or psychological symptom: without behavioral, psychotic, or mood disturbance or anxiety Dementia severity: mild Bipolar 1 disorder F31.9 Persistent atrial fibrillation I48.19 Assessment & Plan Assessment & Plan (1) Pre-op evaluation: Code(s): Z01.818 - Encounter for other preprocedural examination Category: Medical (2) Crohn disease: Code(s): K50.90 - Crohn's disease, unspecified, without complications Category: Medical Qualifiers: Digestive disease complication type: without complication Gastrointestinal tract location: large intestine Qualified Code(s): K50.10 - Crohn's disease of large intestine without complications (3) Anemia: Code(s): D64.9 - Anemia, unspecified Category: Medical Qualifiers: Anemia type: other cause Other causes of anemia: chronic disease, other Qualified Code(s): D63.8 - Anemia in other chronic diseases classified elsewhere (4) Disorder of small intestine: Code(s): K63.9 - Disease of intestine, unspecified Category: Medical (5) Alzheimer's dementia: Comment: [place]/ [place] [facility] [place](s): G30.9 - Alzheimer's disease, unspecified; F02.80 - Dementia in other diseases classified elsewhere, unspecified severity, without behavioral disturbance, psychotic disturbance, mood disturbance, and anxiety Category: Medical Qualifiers: Alzheimer's disease onset: late onset Dementia behavioral or psychological symptom: without behavioral, psychotic, or mood disturbance or anxiety Dementia severity: mild Qualified Code(s): G30.1 - Alzheimer's disease with late onset; F02.A0 - Dementia in other diseases classified elsewhere, mild, without behavioral disturbance, psychotic disturbance, mood disturbance, and anxiety (6) Bipolar 1 disorder: Code(s): F31.9 - Bipolar disorder, unspecified Category: Medical (7) Persistent atrial fibrillation: Comment: follows w/[facility]-taking xarelto & metoprolol Code(s): I48.19 - Other persistent atrial fibrillation Category: Medical Plan 83 YM with bipolar disorder, atrial fibrillation anticoagulated with Xarelto, Crohn's disease, vitamin B12 deficiency, Alzheimer's dementia Going in for partial bowel resection due to metaplasia found at colonoscopy few weeks ago by Dr. Guy Surgery is most likely going to be laparoscopic Crohn's disease diagnosed 20 yrs ago and had ileocecal resection with an ileocolonic anastomosis approx 15 years ago at [place], [place]. Patient denies smoking or ETOH abuse. 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 03/27/[address] SCAN SHOWED: 1. Small bowel obstruction with transition point at the ileocolic anastomosis. 2. Incidental note made of mild cardiomegaly, pericardial calcification, BPH and degenerative changes in the spine. At this point patient does not have any abdominal pain He was able to tolerate breakfast and is moving his bowels Patient has already been cleared by Dr. Argueta his rubber tire curer Patient suffers from persistent atrial fibrillation and have enlarged atrium He is scheduled for bowel resection tomorrow Patient is stable for the procedure
== END 2024-05-17 11:10 | disposition home or self-care (01) ==
LOC: HO.HMCC 10:44
PROVIDERS: PCP Internal Medicine; Visit Provider Internal Medicine
DX: K50.10 Crohn's disease of large intestine without complications (principal); G30.1 Alzheimer's disease with late onset; F02.A0 Dementia in other diseases classified elsewhere, mild, without behavioral disturbance, psychotic disturbance, mood disturbance, and anxiety; F31.9 Bipolar disorder, unspecified; I48.19 Other persistent atrial fibrillation; Z01.818 Encounter for other preprocedural examination; D63.8 Anemia in other chronic diseases classified elsewhere; K63.9 Disease of intestine, unspecified

== ENCOUNTER 2024-05-18 12:27 | Inpatient (IN) | payer MEDICARE, OTHER, SELFPAY ==
[2024-05-16 10:53] VITALS: BMI 17.1
--- NOTE | 2024-05-17 12:15 | P.CONAN_ITS ---
Documented by User: Suzan Muller NP 05/17/24 12:19 HPI - Anesthesia Eval Consult details Narrative: 83yo M for Hand Assist Laparoscopic Ileocolonic resection,possible Open Cardiac optimized. Follows [facility] Cardiology for afib (Faiza, ok'd to hold). Last office visit 12/2023 and stable for routine f/u. Medically stable per PCP eval 05/17/24 Follows gerontologist at [facility]. Rec's to prevent post-op delirium. 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 (Acute) Fatigue (Acute) Cognitive disorder (Acute) Alzheimer's dementia (Acute) Bipolar 1 disorder (Acute) Scoliosis (Acute) B12 deficiency (Acute) Anemia (Acute) Crohn disease (Acute) Persistent atrial fibrillation (Acute) Past Medical History Medical History Hx MRSA infection Environmental exposure Arthritis Depression 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 Fatigue Cognitive disorder Alzheimer's dementia Anemia Persistent atrial fibrillation B12 deficiency Scoliosis Crohn disease Bipolar 1 disorder Family History Family History Father Heart problem Other Alzheimer's dementia Family history of problems with anesthesia: No Surgical History Surgical History History of partial colectomy Hx of colonoscopy History of Problems with Anesthesia: No Social History Social History Household Members: Spouse Household Members Other:: long term housing Housing: Apartment Are you a primary ocular care technologist to a significant other at home: No Do you presently have visiting nurse or other home services: No Alcohol intake: current Alcohol intake frequency: does not drink Patient Tobacco Use Status: Never used Tobacco e-Cigarette/Vaping Use: Never Used Use of substances other than those prescribed or required for medical reasons: No Have you been hit, kicked, punched, or otherwise hurt by someone within the past year? If so, by whom?: No Spiritual Healthcare Practices: none Congregational Healthcare Practices: Cheondoism Cultural Healthcare Practices: none Advance Directives: Yes (daughter & are HCP, POA) Advance Directives Information Provided: Yes Advance Directives on File: Yes Advance Directives Date on File: 03/19/24 How much weight loss: 2-13 pounds Eating poorly because of decreased appetite: Yes Nutrition Risks: Surgical patient >75years Poor oral hygiene: Yes (no loose teeth, however teeth can be compromised) service: No Current occupational status: retired Cognitive needs: No Hearing needs: No Vision needs: Yes Meds Allergies Allergy/AdvReac Type Severity Reaction Status Date / Time No Known Allergies Allergy Verified 05/18/24 10:45 Home Medications ?Medication ?Instructions ?Recorded ?Confirmed ?Last Taken ?Type mecobalamin (vitamin B12) 1,000 1,000 mcg PO DAILY 12/28/23 05/17/24 03/27/24 07:00 History mcg lozenges edmzgqto-ful-zmyrm 120 mcg-lutein 1 tab PO DAILY 12/28/23 05/17/24 03/27/24 07:00 History 150 mcg-herb 50 mg chewable tablet (Alive Men's 50 Plus Multivitamin) ubidecarenone-omega 3-vit E 25 1 cap PO DAILY 12/28/23 05/17/24 03/27/24 07:00 History mg-150 (90-60) mg-200 unit capsule (Co X-28-Mxdmbcn E-Fish Oil) quetiapine 25 mg tablet 25 mg PO BEDTIME 03/28/24 05/17/24 03/26/24 History rivaroxaban 15 mg tablet (Xarelto) 15 mg PO DAILY@1700 03/28/24 05/17/24 05/15/24 History Exam Height,Weight and Vital Signs: Height 5 ft 11 in Weight 55.7 kg Pertinent Lab Results Pertinent Lab Results: Laboratory Tests 03/28/24 03/29/24 05:15 04:10 WBC 5.9 Hgb 11.7 L Hct 35.2 L Plt Count 181 Sodium 139 Potassium 3.9 Chloride 108 Carbon Dioxide 23 BUN 21 H Creatinine 0.89 Narrative Narrative: EKG 09/2023 Vent. Rate : 079 BPM Atrial Rate : 000 BPM P-R Int : 000 ms QRS Dur : 094 ms QT Int : 384 ms P-R-T Axes : 000 115 068 degrees QTc Int : 440 ms Atrial fibrillation Right axis deviation Possible Right ventricular hypertrophy Abnormal ECG No previous ECGs available ECHO 06/2023 Conclusions: - The left ventricular systolic function is low normal. The visually estimated ejection fraction is between 50-55%. - The left atrium is severely dilated. - No obvious valvular pathology seen on this study. Holter 1. Patient was monitored for total period of 3 days 2. Baseline was atrial fibrillation with average heart of 69 beats per minute with good rate control 3. No significant pauses noted 4. Occasional PVCs noted with 6 nonsustained ventricular tachycardia run with longest lasting 8 beats and the fastest at 147 beats per minute 5. No patient reported symptoms Assessment and Plan Assessment Anesthesia Assessment: Chart Reviewed Final Anesthetic Review Family History of Problems with Anesthesia: No History of Problems with Anesthesia: No Documented by User: Yessi Posadas MD 05/18/24 14:04 HPI - Anesthesia Eval Consult details Narrative: 83yo M for Hand Assisted Laparoscopic Ileocolonic resection,possible Open Cardiac optimized. Follows [facility] Cardiology for afib (Xarelto, ok'd to hold). Last office visit 12/2023 and stable for routine f/u. Medically stable per PCP eval 05/17/24 Follows gerontologist at [facility]. Rec's to prevent post-op delirium. 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 (Acute) Fatigue (Acute) Cognitive disorder (Acute) Alzheimer's dementia (Acute)-early- patient states that he is 'foggy' in response to when medications last taken but knows what surgery he is here Bipolar 1 disorder (Acute) Scoliosis (Acute) B12 deficiency (Acute) Anemia (Acute) Crohn disease (Acute) Persistent atrial fibrillation (Acute) Past Medical History Medical History Hx MRSA infection Environmental exposure Arthritis Depression 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 Fatigue Cognitive disorder Alzheimer's dementia Anemia Persistent atrial fibrillation B12 deficiency Scoliosis Crohn disease Bipolar 1 disorder Family History Family History Father Heart problem Other Alzheimer's dementia Family history of problems with anesthesia: No Surgical History Surgical History History of partial colectomy Hx of colonoscopy History of Problems with Anesthesia: No Social History Social History Household Members: Spouse Household Members Other:: long term housing Housing: Apartment Are you a primary ocular care technologist to a significant other at home: No Do you presently have visiting nurse or other home services: No Alcohol intake: current Alcohol intake frequency: does not drink Patient Tobacco Use Status: Never used Tobacco e-Cigarette/Vaping Use: Never Used Use of substances other than those prescribed or required for medical reasons: No Have you been hit, kicked, punched, or otherwise hurt by someone within the past year? If so, by whom?: No Spiritual Healthcare Practices: none Congregational Healthcare Practices: Cheondoism Cultural Healthcare Practices: none Advance Directives: Yes (daughter & are HCP, POA) Advance Directives Information Provided: Yes Advance Directives on File: Yes Advance Directives Date on File: 03/19/24 How much weight loss: 2-13 pounds Eating poorly because of decreased appetite: Yes Nutrition Risks: Surgical patient >75years Poor oral hygiene: Yes (no loose teeth, however teeth can be compromised) service: No Current occupational status: retired Cognitive needs: No Hearing needs: No Vision needs: Yes Meds Allergies Allergy/AdvReac Type Severity Reaction Status Date / Time No Known Allergies Allergy Verified 05/18/24 10:45 Home Medications ?Medication ?Instructions ?Recorded ?Confirmed ?Last Taken ?Type mecobalamin (vitamin B12) 1,000 1,000 mcg PO DAILY 12/28/23 05/17/24 03/27/24 07:00 History mcg lozenges mbjikcak-ljh-qtceb 120 mcg-lutein 1 tab PO DAILY 12/28/23 05/17/24 03/27/24 07:00 History 150 mcg-herb 50 mg chewable tablet (Alive Men's 50 Plus Multivitamin) ubidecarenone-omega 3-vit E 25 1 cap PO DAILY 12/28/23 05/17/24 03/27/24 07:00 History mg-150 (90-60) mg-200 unit capsule (Co N-08-Eqbikpm E-Fish Oil) quetiapine 25 mg tablet 25 mg PO BEDTIME 03/28/24 05/17/24 03/26/24 History rivaroxaban 15 mg tablet (Xarelto) 15 mg PO DAILY@1700 03/28/24 05/17/24 05/15/24 History Exam Height,Weight and Vital Signs: Height 5 ft 11 in Weight 55.7 kg Vital Signs Temp Pulse Resp BP Pulse Ox O2 Del Method 05/18/24 10:59 97.7 F 84 16 107/53 L 100 Room Air Pertinent Lab Results Pertinent Lab Results: Laboratory Tests 03/28/24 03/29/24 05:15 04:10 WBC 5.9 Hgb 11.7 L Hct 35.2 L Plt Count 181 Sodium 139 Potassium 3.9 Chloride 108 Carbon Dioxide 23 BUN 21 H Creatinine 0.89 Lab Results 05/18/24 Range/Units 10:47 Blood Type A Positive Antibody Screen NEGATIVE Airway Mallampati Class: III TM Dist: >3cm Neck ROM: Full Loose/Missing/Broken Teeth: Yes (Some broken teeth. Denies loose teeth) Heart: Irregularly irregular Lungs: CTAB Assessment and Plan Assessment Anesthesia Assessment: Anesthesia Plan Discussed and Chart Reviewed Final Anesthetic Review Family History of Problems with Anesthesia: No History of Problems with Anesthesia: No NPO: Yes ASA Class: III Final Preanesthetic Review: No Changes in Pt Med Stat, Meds/Allgs Chart Reviewed, Consent Obtained/Reviewed and Anes Risks/Benef Reviewed Patient Risk: Intermediate Procedure Risk: Intermediate Assessment/Block/Sedation in SS: Assess/Block/Sedation-SS Anesthetic Plan Anesthetic Plan: GA Disposition: Standard PACU and Inp. Admit - Standard Bed
[2024-05-18] VITALS (10 sets, daily range): BP systolic 105–126; BP diastolic 42–59; PULSE 54–85; RESP 16–20; TEMP 36–36.9; O2SAT 97–100
[2024-05-18] MEDS: Lactated Ringers 1,000 ML 100 ML IVCONT (11:01)
--- NOTE | 2024-05-18 12:02 | MHC.SHP ---
Pre-Procedural Eval Section A - 24 Hr Update-Section A only Date of Service: 05/18/24 The patient is an INPATIENT: No Changes since office visit: No Cold of Flu in the past 2 weeks, No New Medical Problems, No Changes in Medication and No Patient answered all questions The patient has been examined within 24 hours of the surgical procedure. The History & Physical has been completed within 30 days and I have reviewed it.: Yes Section B - Complete if H&P > 30 days Chief Complaint: Other postprocedural complications and disorders Allergies: Allergies Allergy/AdvReac Type Severity Reaction Status Date / Time No Known Allergies Allergy Verified 05/18/24 10:45 Plan I have reviewed the history and physical and performed a pertinent physical examination on my patient. No changes have occurred unless specified. Time Spent With Patient Time: Total time managing care of this patient today ____ minutes.
[2024-05-18] MEDS: cefoTEtan disodium 2 GM VIAL IVPUSH (12:57)
[2024-05-18] MEDS: Acetaminophen 1,000 MG/100 ML PIGGYBACK 400 MG IV ×2 (15:03→21:42)
--- NOTE | 2024-05-18 15:06 | P.OP_ITS ---
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 He developed a stricture in the area and has been admitted multiple times for obstruction. 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 He eventually decided to proceed with resection of this anastomosis and creation of a new anastomosis. He understood the technique of hand assisted laparoscopic resection as well as the risks, benefits, and alternatives. He was brought to the operating room. He was placed supine under general anesthesia via endotracheal tube. A Aguirre catheter was inserted. The abdomen was prepped and draped in the usual sterile fashion A TAP block had been done by the anesthesiologist earlier. I made a short midline incision using blade 15. This was carried down with electrocautery through the full-thickness of the skin and subcutaneous fat down to the fascia. The fascia was incised. The peritoneum was entered. We i nserted the Isac wound retractor. We positioned the GelPort. We insufflated through a port on the GelPort and inserted a 5/12 mm port in the epigastric area below the subcostal margin. We noticed that the omentum was adherent on the right side. We therefore desufflated. I removed the GelPort and started to separate the adherent omentum from the right side of the incision. This was done with electrocautery as well as the LigaSure. Eventually, we were able to completely release the omentum from the abdominal wall. I positioned the wound retractor and GelPort . Again insufflation was done. We used a 10 mm 30 degree scope through the epigastric port. I inserted a 5 mm port in the left upper quadrant. This was our working port. The patient was placed in a head down position. I inserted my hand and retracted bowel loops towards the left side. This allowed me to visualize the transverse colon as well as the small bowel loops on the right side leading into the anastomotic area. The small bowel loops towards this was markedly distended consistent with his chronic obstruction. I was able to follow the transverse colon from distal to proximal until we were able to reach the area of the anastomosis. There was note of very dense adhesions surrounding the segment of colon as well as small bowel adjacent to the anastomosis. We therefore had to do extensive lysis of adhesions. We carefully did traction and counter traction on this anastomotic segment. This allowed us to visualize the interface of the adhesions and the bowel loop itself. We had to proceed very slowly using the LigaSure as well as with the endo-scissors. This part of the procedure took an extended period of time. Eventually were able to separate the anastomosed segment from the right side wall/gutter. We then proceeded to continue to divide fine attachments of the right retroperitoneum to mobilize this colon some more. I had to divide residual attachments to the liver and the gallbladder. This was done with the LigaSure as well. After extensive lysis of adhesions of the entire anastomotic area along with mobilization of the colon from retroperitoneum, I felt that we had adequate length to proceed with resection extracorporeally along with the anastomosis We desufflated . I was able to bring up bowel loops proximal and distal to the anastomosis. I chose my point of transection distally.. I created a mesenteric window. I used the DANTE 60 mm stapler to divide this . I chose my point of transection proximally as well. I created a mesenteric window at the distal ileum and divided this with DANTE 60 mm stapler. I then proceeded to divide the attached mesentery by using the LigaSure from both proximal and distal. There was note of significant thickening of the mesen foster along with fibrous changes of the area of the anastomosis. I was able to completely transect the mesentery and the specimen consisting of the distal ileum along with the remaining right colon was sent as a specimen. I proceeded to do our ufjp-[id number] anastomosis. I aligned the celestine terminal ileum with the transverse colon. I opened up the apex of each staple line to enter the lumen. I inserted each arm of the DANTE 60 mm stapler into the lumen. I aligned this at the anti mesenteric border. We made sure that there were no bowel loops caught between the staplers. I then fired the stapler to create our [id number]-[id number] anastomosis. I completed the anastomosis with a TA 60 mm stapler to close the enterotomy. I closed the mesenteric defect with a running Polysorb 3-0 stitch. I placed a seromuscular stitch at the crotch of the staple line to release tension. The staple line appeared patent between the index finger and the thumb. The segment appeared viable without any signs of ischemia. The staple lines appeared intact. I therefore replaced this back into the peritoneal cavity. We examined the abdomen laparoscopically. There was no evidence of any bowel injury, enteric leak or any bleeding We changed gloves at this point. I closed the fascia with a running Maxon 1 stitch. I used a laparoscope to examine the fascial closure and this appeared intact without any bowel loop caught by the stitches I then desufflated through the port sites. The ports were then removed. All skin incisions were closed with skin teddy. Dressings were applied. The procedure was completed. The patient tolerated the procedure well. There were no immediate complications. Initial and final counts of sponges and instruments were correct. Estimated blood loss was about 25 cc. The patient was extubated without difficulty and transferred to the recovery room with stable vital signs.
--- NOTE | 2024-05-18 16:07 | PM.EVENT ---
Event Note Date of Service: 05/18/24 Event Note: Seen postop He seems to have adequate pain control He is alert Stable vital signs Good urine output Continue pain management Patient had a TAP block by anesthesia preop IV pain meds ordered as well Okay to have clear liquids Family updated Time Spent With Patient Time: Total time managing care of this patient today ____ minutes.
[2024-05-18] MEDS: Lactated Ringers 1,000 ML 80 ML IVCONT (16:23)
--- NOTE | 2024-05-18 16:55 | PHA.MEDREC ---
Pharmacy Consult ? Medication Reconciliation Pharmacy has completed the medication reconciliation.
[2024-05-18] MEDS: Morphine Sulfate 2 MG/ML CARTRIDGE IVPUSH (17:01)
--- NOTE | 2024-05-18 18:59 | HO.PM.IMCN ---
History of Present Illness Data of Consult Service Date: 05/18/24 Primary Care Provider: Rachel Parekh MD [facility] Reason for consult: Medical management Patient is an 83-year-old male with a PMH significant for persistent AFib on Xarelto, Crohn's disease, vitamin B12 deficiency, Alzheimer's dementia, and bipolar disorder who was admitted to the hospital under general surgery services for elective resection. Patient had previous right colon resection secondary to Crohn's disease. Subsequently patient had developed anastomotic stricture at area of old ileocolonic anastomosis and has been admitted the hospital multiple times for obstruction. Recent biopsies of stricture during colonoscopy suggested high-grade dysplasia, and patient received partial bowel resection. Hospitalist consult for medical management. Patient seen and evaluated at bedside where he is resting comfortably in bed. Patient reports his pain is well-controlled and he has only the ?tiniest bit? of abdominal discomfort. No bowel movement yet, but reports at least 2 episodes of passing gas. Denies any other medical complaints. No shortness a breath or difficulty breathing. Denies chest pain/pressure, or palpitations. No fever or chills, nausea or vomiting. 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 Fatigue Cognitive disorder Alzheimer's dementia Anemia Persistent atrial fibrillation B12 deficiency Scoliosis Crohn disease Bipolar 1 disorder Family History Father Heart problem Other Alzheimer's dementia Surgical History History of partial colectomy Hx of colonoscopy Social History Household Members: Family Household Members Other:: snf housing Housing: Apartment Are you a primary acute care occupational therapist to a significant other at home: No Do you presently have visiting nurse or other home services: No Alcohol intake: current Alcohol intake frequency: does not drink Patient Tobacco Use Status: Never used Tobacco e-Cigarette/Vaping Use: Never Used Use of substances other than those prescribed or required for medical reasons: No Have you been hit, kicked, punched, or otherwise hurt by someone within the past year? If so, by whom?: No Do you feel safe in your current relationship?: Yes Is there a partner from a previous relationship who is making you feel unsafe now?: No Are you made to feel afraid or neglected: No Spiritual Healthcare Practices: none Mormon Healthcare Practices: Zoroastrianism Cultural Healthcare Practices: none Advance Directives: Yes (daughter & are HCP, POA) Advance Directives Information Provided: Yes Advance Directives on File: Yes Advance Directives Date on File: 03/19/24 Do you have a plan to hurt others: No Plan Recently lost weight without trying: No How much weight loss: 2-13 pounds Eating poorly because of decreased appetite: Yes Nutrition screen score: 2 Nutrition Risks: No Nutritional Risk Poor oral hygiene: Yes (no loose teeth, however teeth can be compromised) service: No Current occupational status: retired Cognitive needs: No Hearing needs: No Vision needs: Yes Meds Allergies Allergy/AdvReac Type Severity Reaction Status Date / Time No Known Allergies Allergy Verified 05/18/24 10:45 Active Medications: Current Medications Fentanyl (Fentanyl Citrate/Pf 100 Mcg/2 Ml Vial) 25 mcg IVPUSH Q5M PRN PRN Reason: Pain, Moderate to Severe (Pain Scale 4-10) Stop: 05/18/24 20:04 Heparin Sodium (Porcine) (Heparin Sodium,Porcine 5,000 Unit/Ml Vial) 5,000 unit SUBCUT Q12H [facility] Hydromorphone HCl (Hydromorphone Hcl 0.5 Mg/0.5 Ml Syringe) 0.25 mg IVPUSH Q5M PRN PRN Reason: Pain, Moderate to Severe (Pain Scale 4-10) Stop: 05/18/24 20:04 Lactated Ringer's (Lr) 1,000 mls @ 80 mls/hr IVCONT .[id number] [facility] Last Admin: 05/18/24 16:23 Dose: 80 mls/hr Acetaminophen (Ofirmev) 1,000 mg in 100 mls @ 400 mls/hr IV Q6H [facility] Stop: 05/19/24 15:14 Metoprolol Succinate (Metoprolol Succinate Er 50 Mg Tab.Er.24h) 50 mg PO DAILY [facility]; Protocol Morphine Sulfate (Morphine Sulfate 2 Mg/Ml Cartridge) 2 mg IVPUSH Q3H PRN; Protocol PRN Reason: Pain, Severe (Pain Scale 7-10) Last Admin: 05/18/24 17:01 Dose: 2 mg Ondansetron HCl (Ondansetron Odt 4 Mg Tab.Rapdis) 4 mg TRANSLINGU ONCE PRN PRN Reason: Nausea and Vomiting Stop: 05/18/24 20:05 Ondansetron HCl (Ondansetron Hcl 4 Mg/2 Ml Vial) 4 mg IVPUSH Q8H PRN PRN Reason: Nausea and Vomiting Oxycodone HCl (Oxycodone Hcl Immed Release 5 Mg Tablet) 5 mg PO Q4H PRN PRN Reason: Pain, Moderate(Pain Scale 4-6) Home Medications ?Medication ?Instructions ?Recorded ?Confirmed ?Last Taken ?Type mecobalamin (vitamin B12) 1,000 1,000 mcg PO DAILY 12/28/23 05/17/24 03/27/24 07:00 History mcg lozenges ltvheebk-ogh-ytxkx 120 mcg-lutein 1 tab PO DAILY 12/28/23 05/17/24 03/27/24 07:00 History 150 mcg-herb 50 mg chewable tablet (Alive Men's 50 Plus Multivitamin) ubidecarenone-omega 3-vit E 25 1 cap PO DAILY 12/28/23 05/17/24 03/27/24 07:00 History mg-150 (90-60) mg-200 unit capsule (Co R-81-[id number] E-Fish Oil) quetiapine 25 mg tablet 25 mg PO BEDTIME 03/28/24 05/17/24 03/26/24 History rivaroxaban 15 mg tablet (Xarelto) 15 mg PO DAILY@1700 03/28/24 05/17/24 05/15/24 History Physical Exam Vital Signs and Narrative: Vital Signs: Last Vital Signs Temp 96.8 F 05/18/24 16:09 Pulse 62 05/18/24 16:09 Resp 18 05/18/24 16:09 BP 126/59 L 05/18/24 16:09 Pulse Ox 98 05/18/24 16:09 O2 Del Method Room Air 05/18/24 16:09 O2 Flow Rate 4 05/18/24 15:40 BMI result Body Mass Index 17.1 General: AOx3, no acute distress Resp: CTA bilaterally CVS: Irregularly irregular rhythm GI: +BS, no distention, appropriate tenderness at surgical sites Skin: Warm, dry Neuro: Cranial nerves II-XII grossly intact bilaterally. Motor grossly intact bilaterally Extremities: No edema Psych: Appropriate affect Results Labs Labs: Laboratory Results - last 24 hr 05/18/24 10:47 Blood Type A Positive Antibody Screen NEGATIVE Assessment and Plan (1) Anastomotic stricture of small intestine: Status: Acute Plan Patient is an 83-year-old male with a PMH significant for persistent AFib on Xarelto, Crohn's disease, vitamin B12 deficiency, mild Alzheimer's dementia, and bipolar disorder who was admitted to the hospital under general surgery services for elective resection. Patient had previous right colon resection secondary to Crohn's disease. Subsequently patient had developed anastomotic stricture at area of old ileocolonic anastomosis and has been admitted the hospital multiple times for obstruction. Recent biopsies of stricture during colonoscopy suggested high-grade dysplasia, and patient received partial bowel resection. Hospitalist consult for medical management. Resection of ileocolonic anastomosis Patient with long history of Crohn's s/p previous right colon resection Patient reports pain well-controlled Plan as per General surgery Persistent AFib Xarelto on hold, continue as per General surgery Continue metoprolol Bipolar disorder/mild Alzheimer's dementia Patient appears AO x3 Continue quetiapine Patient otherwise does not appear to have any chronic medical conditions or acute medical complaints. Will sign off for now. Thank you for allowing us to participate in the care of this patient. Please re-consult if any acute issue or need arises.
[2024-05-18] MEDS: QUEtiapine Fumarate 25 MG TABLET PO (21:37)
[2024-05-19] VITALS (7 sets, daily range): BP systolic 90–113; BP diastolic 49–57; PULSE 69–94; RESP 16; TEMP 36–37.4; O2SAT 93–100; BMI 17.6
[2024-05-19] MEDS: Acetaminophen 1,000 MG/100 ML PIGGYBACK 400 MG IV ×3 (05:07→14:48)
[2024-05-19] MEDS: Lactated Ringers 1,000 ML 80 ML IVCONT ×2 (05:12→17:59)
--- NOTE | 2024-05-19 07:50 | PM.PNGS ---
Subjective Subjective Date of Service: 05/19/24 <Aaliyah Cutler PA-C - Last Filed: 05/19/24 07:55> 05/19/24 <Sadi Saavedra MD - Last Filed: 05/19/24 08:20> Interval history: Overall feels well. Denies significant pain, had mild soreness/throbbing. Tolerating clear liquids. Denies nausea. Denies flatus. Aguirre removed and urinating without difficulty. Has not been OOB. <Aaliyah Cutler PA-C - Last Filed: 05/19/24 07:55> Physical Exam Vital Signs: Vital Signs: Last Vital Signs Temp 97.2 F 05/19/24 03:40 Pulse 72 05/19/24 03:40 Resp 16 05/19/24 03:40 BP 98/51 L 05/19/24 03:40 Pulse Ox 98 05/19/24 03:40 O2 Del Method Room Air 05/19/24 03:40 O2 Flow Rate 4 05/18/24 15:40 BMI result Body Mass Index 17.1 <Aaliyah Cutler PA-C - Last Filed: 05/19/24 07:55> Const: General: comfortable, no acute distress and alert <CELESTE Dorantes Last Filed: 05/19/24 07:55> Orientation/consciousness: patient oriented x3 <Aaliyah Cutler PA-C - Last Filed: 05/19/24 07:55> Resp: Effort & Inspection: normal respiratory effort <Aaliyah Cutler PA-C - Last Filed: 05/19/24 07:55> GI: Inspection: Yes distended (mild) and Yes incision (dressings clean and intact ) <Aaliyah Cutler PA-C - Last Filed: 05/19/24 07:55> Palpation (GI): Soft to palpation, Tenderness to palpation present (GI) (very mild) and no guarding <CELESTE Dorantes Last Filed: 05/19/24 07:55> Skin: General skin exam: no rashes or lesions noted <CELESTE Dorantes Last Filed: 05/19/24 07:55> Neuro: General: patient oriented x3 and moves all extremities <Aaliyah Cutler PA-C - Last Filed: 05/19/24 07:55> Objective Data Active Medications Cyanocobalamin (Cyanocobalamin (Vitamin B-12) 1,000 Mcg Tablet) 1,000 mcg PO DAILY [facility] Heparin Sodium (Porcine) (Heparin Sodium,Porcine 5,000 Unit/Ml Vial) 5,000 unit SUBCUT Q12H [facility] Lactated Ringer's (Lr) 1,000 mls @ 80 mls/hr IVCONT .[id number] [facility] Last Admin: 05/19/24 05:12 Dose: 80 mls/hr Documented By: HUGO Acetaminophen (Ofirmev) 1,000 mg in 100 mls @ 400 mls/hr IV Q6H [facility] Stop: 05/19/24 15:14 Last Infusion: 05/19/24 05:38 Dose: Infused Documented By: HUGO Metoprolol Succinate (Metoprolol Succinate Er 50 Mg Tab.Er.24h) 50 mg PO DAILY [facility]; Protocol Morphine Sulfate (Morphine Sulfate 2 Mg/Ml Cartridge) 2 mg IVPUSH Q3H PRN; Protocol PRN Reason: Pain, Severe (Pain Scale 7-10) Last Admin: 05/18/24 17:01 Dose: 2 mg Documented By: MJ Multivitamins/Vitamin C (Multivitamin Tablet) 1 tab PO DAILY [facility] Ondansetron HCl (Ondansetron Hcl 4 Mg/2 Ml Vial) 4 mg IVPUSH Q8H PRN PRN Reason: Nausea and Vomiting Oxycodone HCl (Oxycodone Hcl Immed Release 5 Mg Tablet) 5 mg PO Q4H PRN PRN Reason: Pain, Moderate(Pain Scale 4-6) Quetiapine Fumarate (Quetiapine Fumarate 25 Mg Tablet) 25 mg PO BEDTIME [facility] Last Admin: 05/18/24 21:37 Dose: 25 mg Documented By: HUGO <Aaliyah Cutler PA-C - Last Filed: 05/19/24 07:55> Labs CBC & Chem 7: 05/19/24 07:26 05/19/24 07:26 <Aaliyah Cutler PA-C - Last Filed: 05/19/24 07:55> Labs: Laboratory Results - last 24 hr 05/18/24 10:47 Blood Type A Positive Antibody Screen NEGATIVE <Aaliyah Cutler PA-C - Last Filed: 05/19/24 07:55> Procedures Date of Service Date of Service: 05/19/24 <Aaliyah Cutler PA-C - Last Filed: 05/19/24 07:55> 05/19/24 <Sadi Saavedra MD - Last Filed: 05/19/24 08:20> Progress Note: A&P Assessment and plan (1) Anastomotic stricture of small intestine: Status: Acute <Aaliyah Cutler PA-C - Last Filed: 05/19/24 07:55> Assessment and Plan: Status post resection Looks well Keep on clear liquids for now Await return of GI function Out of bed Incentive spirometry Pain management Abdomen is soft and benign Seen and examined independently <Sadi Saavedra MD - Last Filed: 05/19/24 08:20> Assessment and Plan: POD #1 s/p Hand assisted laparoscopic resection of ileocolonic anastomosis, with extensive lysis of adhesions, new hyto-di-rtie anastomosis from the distal ileum to the transverse colon. Doing well post op. Tolerating clear liquids. VSS. Abd exam benign with clean/intact dressings. Continue clear liquids for now. Dec IVF. Pain control. OOB/ambulation and IS use. Await GI function. <Aaliyah Cutler PA-C - Last Filed: 05/19/24 07:55> Time Spent With Patient Time: Total time managing care of this patient today ____ minutes. <Aaliyah Cutler PA-C - Last Filed: 05/19/24 07:55> Quality Stroke Does the patient have a stroke diagnosis?: No <Aaliyah Cutler PA-C - Last Filed: 05/19/24 07:55> VTE Prior VTE?: No <Aaliyah Cutler PA-C - Last Filed: 05/19/24 07:55> VTE Risk Level:: Surgical - high <Aaliyah Cutler PA-C - Last Filed: 05/19/24 07:55> VTE Device Contraindication: N/A - Device Ordered <Aaliyah Cutler PA-C - Last Filed: 05/19/24 07:55> VTE Drug Contraindication: N/A - Med Ordered <Aaliyah Cutler PA-C - Last Filed: 05/19/24 07:55>
[2024-05-19 07:54] LABS: Hematocrit 33.3 % (42.0-52.0); Hemoglobin 11.3 g/dl (14.0-18.0); Mean Corpuscular HGB Conc 33.9 g/dl (31.0-36.0); Mean Corpuscular Hemoglobin 32.8 pg (27.0-33.0); Mean Corpuscular Volume 96.8 fL (80.0-98.0); Mean Platelet Volume 11.3 fL (9.4-12.4); Platelet Count 170 X10*3/uL (160-400); Red Blood Count 3.44 X10*6/uL (4.60-5.80); Red Cell Distribution Width 14.6 % (11.0-16.0); White Blood Count 10.9 X10*3/uL (4.8-10.8)
[2024-05-19 08:09] LABS: Anion Gap 12 (12-20); Blood Urea Nitrogen 19 mg/dL (9-16); Calcium 8.6 mg/dL (8.4-10.2); Carbon Dioxide 23 mmol/L (22-29); Chloride 106 mmol/L (96-108); Creatinine Clr Calc Pharmacy 51.8; Estimated Glomerular Filt Rate > 60; Glucose Random 71 mg/dL (60-115); Potassium 4.7 mmol/L (3.3-5.1); Sodium 136 mmol/L (135-145)
[2024-05-19] MEDS: Metoprolol Succinate ER 50 MG TAB.ER.24H PO (09:34)
[2024-05-19] MEDS: Multivitamin TABLET 1 TAB PO (09:34)
[2024-05-19] MEDS: Cyanocobalamin (Vitamin B-12) 1,000 MCG TABLET 1000 MCG PO (09:34)
[2024-05-19] MEDS: Heparin Sodium,Porcine 5,000 UNIT/ML VIAL 5000 UNIT SUBCUT ×2 (09:35→21:42)
[2024-05-19] MEDS: oxyCODONE HCl Immed Release 5 MG TABLET PO (09:44)
--- NOTE | 2024-05-19 09:53 | MHC.CM.PN ---
IMM DELIVERED PT LIVES WITH SP[facility] IN IND. LIVING AT [facility] IN [place]. USES [facility] FOR MOBILITY. NO SERVICES. +HCP/POA ON FILE AND VERIFIED. PCP DR. BLISS AT [facility] [place]. DP: HOME , NO SERVICES VS HOME WITH NEW [facility] IF RECOMMENDED. PT HAS NO PREFERENCE TO [facility]. [facility] WILL TRANSPORT HOME. CM WILL CONTINUE TO FOLLOW FOR ANY CHANGE TO DC PLAN/NEEDS.
--- NOTE | 2024-05-19 11:26 | MHC.CLN ---
PT IS MODERATELY MALNOURISHED PT WITH MILDLY DEPLETED SUBCUTANEOUS FAT AND MUSCLE MASS WITH 7% NONSIGNIFICANT WT LOSS X 6MONTHS WITH CHRONIC POOR PO INTAKE DIET RX: C/L WILL ADD ENSURE CLEAR WITH C/L MEALS AND ADVANCE DIET ADVANCES TO INCREASE KCALS SUPP TO PROVIDE 720KCALS, 24G PROTEIN WITH 100% ACCEPTANCE MONITOR PO INTAKE AND ENCOURAGE SUPPLEMENT SEE ALSO FULL CLINICAL NUTRITION ASSESSMENT
--- NOTE | 2024-05-19 15:37 | PM.EVENT ---
Event Note Date of Service: 05/19/24 Event Note: Seen on afternoon rounds Says he may have passed small amounts of flatus Good pain control On clear liquids without nausea or vomiting Abdomen is soft and benign Continue pain management Await full return of GI functions Family updated Time Spent With Patient Time: Total time managing care of this patient today ____ minutes.
--- NOTE | 2024-05-19 16:18 | HO.POSTANES ---
Post Anesthesia Evaluation Post Anesthesia Evaluation Date of Service: 05/18/24 Vital Signs: Vital Signs Temp Pulse Resp BP Pulse Ox O2 Del Method 05/19/24 15:40 75 95/53 L 05/19/24 15:11 97.8 F 74 16 90/52 L 100 Room Air 05/19/24 14:04 99 Room Air 05/19/24 09:34 94 113/49 L 05/19/24 08:00 96.8 F 76 16 104/57 L 93 Room Air Anesthesia: Regional and General Endotracheal-GETA Mental Status: Awake Pain Control: Satisfactory Nausea/Vomiting: None Hydration: Adequate Anesthesia-Related Issues: No Anes. Related Issues
[2024-05-19] MEDS: QUEtiapine Fumarate 25 MG TABLET PO (21:45)
[2024-05-20 03:47] VITALS: BP 106/56; PULSE 84; RESP 16; TEMP 36.9; O2SAT 99
[2024-05-20] MEDS: Lactated Ringers 1,000 ML 80 ML IVCONT ×2 (07:09→19:35)
[2024-05-20 07:37] VITALS: BP 110/59; PULSE 88; RESP 16; TEMP 37.1; O2SAT 97
--- NOTE | 2024-05-20 07:53 | P.PNGS_ITS ---
Subjective Subjective Date of Service: 05/20/24 <Aaliyah Cutler PA-C - Last Filed: 05/20/24 07:56> 05/20/24 <Sadi Saavedra MD - Last Filed: 05/20/24 09:11> Interval history: Reports a difficult day with logistics of getting urinal in place, blankets back on. Tolerating liquids and feels starving . Passing flatus. OOB to bathroom only. <Aaliyah Cutler PA-C - Last Filed: 05/20/24 07:56> Physical Exam 2 Vital Signs: Vital Signs: Last Vital Signs Temp 98.7 F 05/20/24 07:37 Pulse 88 05/20/24 07:37 Resp 16 05/20/24 07:37 BP 110/59 L 05/20/24 07:37 Pulse Ox 97 05/20/24 07:37 O2 Del Method Room Air 05/20/24 07:37 O2 Flow Rate 4 05/18/24 15:40 BMI result Body Mass Index 17.6 <Aaliyah Cutler PA-C - Last Filed: 05/20/24 07:56> Const: General: comfortable, no acute distress and alert <Aaliyah Cutler PA-C - Last Filed: 05/20/24 07:56> Resp: Effort & Inspection: normal respiratory effort <Aaliyah Cutler PA-C - Last Filed: 05/20/24 07:56> GI: Inspection: Yes distended (mild, softly ) and Yes incision (clean) < Aaliyah Cutler PA-C - Last Filed: 05/20/24 07:56> Palpation (GI): Soft to palpation, Tenderness to palpation present (GI) (mild incisional) and no guarding <Aaliyah Cutler PA-C - Last Filed: 05/20/24 07:56> Skin: General skin exam: no rashes or lesions noted <CELESTE Dorantes Last Filed: 05/20/24 07:56> Neuro: General: moves all extremities <CELESTE Dorantes Last Filed: 05/20/24 07:56> Objective Data Active Medications Cyanocobalamin (Cyanocobalamin (Vitamin B-12) 1,000 Mcg Tablet) 1,000 mcg PO DAILY [facility] Last Admin: 05/19/24 09:34 Dose: 1,000 mcg Documented By: EUFEMIA Heparin Sodium (Porcine) (Heparin Sodium,Porcine 5,000 Unit/Ml Vial) 5,000 unit SUBCUT Q12H [facility] Last Admin: 05/19/24 21:42 Dose: 5,000 unit Documented By: KO Lactated Ringer's (Lr) 1,000 mls @ 80 mls/hr IVCONT .[id number] [facility] Last Admin: 05/20/24 07:09 Dose: 80 mls/hr Documented By: KO Metoprolol Succinate (Metoprolol Succinate Er 50 Mg Tab.Er.24h) 50 mg PO DAILY [facility]; Protocol Last Admin: 05/19/24 09:34 Dose: 50 mg Documented By: EUFEMIA Morphine Sulfate (Morphine Sulfate 2 Mg/Ml Cartridge) 2 mg IVPUSH Q3H PRN; Protocol PRN Reason: Pain, Severe (Pain Scale 7-10) Last Admin: 05/18/24 17:01 Dose: 2 mg Documented By: MJ Multivitamins/Vitamin C (Multivitamin Tablet) 1 tab PO DAILY [facility] Last Admin: 05/19/24 09:34 Dose: 1 tab Documented By: EUFEMIA Ondansetron HCl (Ondansetron Hcl 4 Mg/2 Ml Vial) 4 mg IVPUSH Q8H PRN PRN Reason: Nausea and Vomiting Oxycodone HCl (Oxycodone Hcl Immed Release 5 Mg Tablet) 5 mg PO Q4H PRN PRN Reason: Pain, Moderate(Pain Scale 4-6) Last Admin: 05/19/24 09:44 Dose: 5 mg Documented By: EUFEMIA Quetiapine Fumarate (Quetiapine Fumarate 25 Mg Tablet) 25 mg PO BEDTIME [facility] Last Admin: 05/19/24 21:45 Dose: 25 mg Documented By: KO <Aaliyah Cutler PA-C - Last Filed: 05/20/24 07:56> Labs CBC & Chem 7: 05/19/24 07:26 05/19/24 07:26 <Aaliyah Cutler PA-C - Last Filed: 05/20/24 07:56> Labs: Laboratory Results - last 24 hr 05/19/24 07:26 MCV 96.8 MCH 32.8 MCHC 33.9 RDW 14.6 Plt Count 170 MPV 11.3 Absolute Nucleated RBC 0.000 Nucleated RBC % (auto) 0.0 Anion Gap 12 Estim Creat Clear Calc 51.8 Estimated GFR > 60 Random Glucose 71 Calcium 8.6 D <Aaliyah Cutler PA-C - Last Filed: 05/20/24 07:56> Procedures Date of Service Date of Service: 05/20/24 <Aaliyah Cutler PA-C - Last Filed: 05/20/24 07:56> 05/20/24 <Sadi Saavedra MD - Last Filed: 05/20/24 09:11> Progress Note: A&P Assessment and plan (1) Anastomotic stricture of small intestine: Status: Acute <Aaliyah Cutler PA-C - Last Filed: 05/20/24 07:56> Assessment and Plan: Feels well Ambulating Tolerating clear liquid Has been passing flatus Okay to advance diet PT seeing the patient Discussed with family Seen and examined independently <Sadi Saavedra MD - Last Filed: 05/20/24 09:11> Assessment and Plan: POD #2 s/p Hand assisted laparoscopic resection of ileocolonic anastomosis, with extensive lysis of adhesions, new hbpl-xz-bnwv anastomosis from the distal ileum to the transverse colon. Continues to do well post op, now with evidence of GI function. VSS. Abd exam remains benign with clean incisions. Will advance to solid diet. Dc IVF. Pain control. Increase activity, PT consult. <Aaliyah Cutler PA-C - Last Filed: 05/20/24 07:56> Time Spent With Patient Time: Total time managing care of this patient today ____ minutes. <CELESTE Dorantes Last Filed: 05/20/24 07:56> Quality Stroke Does the patient have a stroke diagnosis?: No <CELESTE Dorantes Last Filed: 05/20/24 07:56> VTE Prior VTE?: No <CELESTE Dorantes Last Filed: 05/20/24 07:56> VTE Risk Level:: Surgical - high <Aaliyah Cutler PA-C - Last Filed: 05/20/24 07:56> VTE Device Contraindication: N/A - Device Ordered <Aaliyah Cutler PA-C - Last Filed: 05/20/24 07:56> VTE Drug Contraindication: N/A - Med Ordered <Aaliyah Cutler PA-C - Last Filed: 05/20/24 07:56>
[2024-05-20] MEDS: Metoprolol Succinate ER 50 MG TAB.ER.24H PO (08:23)
[2024-05-20] MEDS: Heparin Sodium,Porcine 5,000 UNIT/ML VIAL 5000 UNIT SUBCUT ×2 (08:24→21:33)
[2024-05-20] MEDS: Cyanocobalamin (Vitamin B-12) 1,000 MCG TABLET 1000 MCG PO (08:24)
[2024-05-20] MEDS: Multivitamin TABLET 1 TAB PO (08:25)
[2024-05-20] MEDS: oxyCODONE HCl Immed Release 5 MG TABLET PO (08:30)
[2024-05-20 08:48] VITALS: BP 110/59; PULSE 88; O2SAT 97
--- NOTE | 2024-05-20 10:55 | MHC.CLN ---
F/U DIET ADVANCED TO REGULAR, LOW FIBER. ADDING ENSURE BID TO INCREASE NUTRITIONAL INTAKE. SUPPLEMENT PROVIDES 700 KCALS, 40 G PROTEIN. FOLLOW FOR PO INTAKE AND DIET TOLERANCE.
--- NOTE | 2024-05-20 12:30 | MHC.CM.PN ---
EMR REVIEWED. PT IS NOT MEDICALLY CLEARED FOR DC. P.T. REC. HOME SERVICES, REFERRAL PLACED TO [facility] (PT HAS NO PREFERENCE) SURGERY IS ADVANCING DIET, KELLE FULL LIQUIDS. CM WILL CONTINUE TO FOLLOW FOR ANY CHANGE TO DC PLAN/NEEDS.
[2024-05-20 14:00] VITALS: O2SAT 98
--- OUTSIDE RECORDS SUMMARY | 2024-05-20 14:02 | XMS_ITS | Continuity of Care Document ---
Author Organization [facility] Address [address] [place] [id number]- Care Team Providers Care Business Editor Name Role Phone Iglesia TRENT, Rachel [id number] Date(s): [facility]/04/[facility] - 08/11/23 [facility] [address] [place] [id number]- Attending Physician: Markie Finnegan MD Referring Physician: Rachel Parekh MD Allergies, Adverse Reactions, Alerts No Known Medication Allergies Medications B-12 0 Refills, Maintenance, 08/04/23 14:42:00 EST, Partial fill upon patient request if the prescription is for a schedule II opioid drug. Start Date: 08/04/23 Status: Ordered Fish Oil By Mouth, 0 Refills, Maintenance, 08/04/23 14:42:00 EST, Partial fill upon patient request if the prescription is for a schedule II opioid drug. Start Date: 08/04/23 Status: Ordered mercaptopurine 50 mg oral tablet 2 tablet = 100 mg, By Mouth, Daily, 0 Refills, Maintenance, 08/04/23 14:45:00 EST, Partial fill upon patient request if the prescription is for a schedule II opioid drug. Start Date: 08/04/23 Status: Ordered metoprolol 50 mg oral tablet 50 mg, 1, tablet, By Mouth, 2 times a day, Refills 0, Maintenance, 08/04/23 14:40:00 EST, Partial fill upon patient request if the prescription is for a schedule II opioid drug. Start Date: 08/04/23 Status: Ordered Multi Vitamin+ 0 Refills, Maintenance, 08/04/23 14:41:00 EST, Partial fill upon patient request if the prescription is for a schedule II opioid drug. Start Date: 08/04/23 Status: Ordered QUEtiapine 100 mg oral tablet 100 mg, 1, tablet, By Mouth, 2 times a day, Refills 0, Maintenance, 08/04/23 14:41:00 EST, Partial fill upon patient request if the prescription is for a schedule II opioid drug. Start Date: 08/04/23 Status: Ordered Xarelto 15 mg oral tablet 1 tablet = 15 mg, By Mouth, Daily before dinner, 0 Refills, Maintenance, 08/04/23 14:41:00 EST, Partial fill upon patient request if the prescription is for a schedule II opioid drug. Start Date: 08/04/23 Status: Ordered Vital Signs Most recent to oldest [Reference Range]: 1 Weight 61 kg (08/04/23 2:45 PM) Oxygen Saturation [94-100 %] 98 % (08/04/23 2:45 PM) Pulse Rate [55-90 bpm] 80 bpm (08/04/23 2:45 PM) Blood Pressure [90-138/55-84 mm Hg] 120/ 107mm Hg (08/04/23 2:45 PM) Mode of Delivery (Oxygen) Room air (08/04/23 2:45 PM) Blood pressure sites Arm, left (08/04/23 2:45 PM) Weight Obtained Via Bed scale (08/04/23 2:45 PM) Patient Care team information Care Team Personnel Name: Iglesia TRENT, Rachel Position: S Physician - Primary Care Member Role: PCP Address: Address: [address] [place] [address]- Care Team Related Persons Name: CHARLOTTE LEE Address: home [address] [place] [id number]
--- OUTSIDE RECORDS SUMMARY | 2024-05-20 14:02 | XMS_ITS | Continuity of Care Document ---
Author Organization [facility] Address [address] [place] [address]- Care Team Providers Care Silverware Supervisor Name Role Phone Iglesia TRENT, Rachel Primary Care Physician Encounter [facility] [id number] Date(s): 09/16/23 - 01/03/[address] [address]- Attending Physician: Jaziel Johnson MD Referring Physician: Rachel Parekh MD Allergies, Adverse Reactions, Alerts No Known Allergies Medications B-12 0 Refills, Maintenance, 08/04/23 [...] opioid drug. Start Date: 08/04/23 Status: Ordered Problem List Condition Confirmation Course Effective Dates Status Health [facility] Informant Crohn's disease Confirmed Active Patient Care team information Care Team Personnel Name: Iglesia TRENT, Rachel Position: S Physician - Primary Care Member Role: PCP Address: Address: [address] [place] [address]- Care Team Related Persons Name: LEECHARLOTTE Address: home [address] [place] [id number]
--- OUTSIDE RECORDS SUMMARY | 2024-05-20 14:02 | XMS_ITS | Continuity of Care Document ---
Author Organization [facility] Physical De dicine and Rehabilitation Address [address] [place] [address]- Care Team Providers Care Commercial Real Estate Attorney Name Role Phone Iglesia TRENT, Asma Primary Care Physician Encounter [facility] [place] Date(s): 01/05/24 - 02/04/24 [facility] Rehabilitation [address] [place] [address]- Attending Physician: Desirae Dan Admitting Physician: Desirae Dan Referring Physician: AdmtrDesirae Allergies, Adverse Reactions, Alerts No Known Allergies [...] St atus Informant Crohn's disease Confirmed Active Underweight Confirmed Active Patient Care team information Care Team Personnel Name: Iglesia TRENT, Rachel Position: S Physician - Primary Care Member Role: PCP Address: Address: [address] [place] [address]- Care Team Related Persons Name: CHARLOTTE LEE Address: home [address] [place] [address]
--- OUTSIDE RECORDS SUMMARY | 2024-05-20 14:02 | XMS_ITS | Continuity of Care Document ---
Author Organization [facility] Me [facility]icine and Rehabilitation Address [address] [place] [address]- Care Team Providers Care Bicycle Assembler Name Role Phone Iglesia TRENT, Asma Primary Care Physician [phone] Encounter [facility] [place] Date(s): 02/10/24 - 03/11/24 [facility] [address] [place] [address]- Allergies, Adverse Reactions, Alerts No Known Allergies Medications acetaminophen 500 mg oral tablet 2 tablet = 1,000 mg, By Mouth, 3 times a day, for 90 days, # 540 tablet, 0 Refills, Acute 05/05/24 16:30:00 EST, 02/05/24 16:30:00 EDT, Tablet, [facility], Partial fill upon patient request if the prescription is for a schedule II opioid d... Start Date: 02/05/24 Stop Date: 05/05/24 Status: Ordered B-12 0 Refills, Maintenance, 08/04/23 14:42:00 EST, [...] Care Member Role: PCP Address: Address: [address] [place] [address]- Care Team Related Persons Name: LEECHARLOTTE Address: home [address] [place] [address]
--- OUTSIDE RECORDS SUMMARY | 2024-05-20 14:02 | XMS_ITS | Continuity of Care Document ---
Author Organization [facility] Address [address] [place] [address]- Care Team Providers Care Epic Professional Name Role Phone Iglesia TRENT, Asma Primary Care Physician Encounter [facility] [place] ACCT R [id number] Date(s): 01/18/24 - 02/17/24 [facility] [address] [place] [address]- Attending Physician: AdmDesirae lea Admitting Physician: AdmtrDesirae Referring Physician: Admtr, Ar8 Allergies, Adverse Reactions, Alerts No Known Allergies Medications acetaminophen 500 mg oral tablet 2 tablet = 1,000 mg, By Mouth, 3 times a day, for 90 days, # 540 tablet, 0 Refills, Acute 05/05/24 16:30:00 EST, 02/05/24 16:30:00 EDT, Jamilah, [facility], Partial fill upon patient request [...] Care Member Role: PCP Address: Address: [address] [place] [address]- Care Team Related Persons Name: JESUS CHARLOTTE Address: home [address] [place] [address]
--- OUTSIDE RECORDS SUMMARY | 2024-05-20 14:02 | XMS_ITS | Continuity of Care Document ---
Author Organization [facility] Address [address] [place] [address]- Care Team Providers Care Stockroom Helper Name Role Phone Iglesia TRENT, Asma Primary Care Physician En[place] [facility] [place] Date(s): 12/10/23 - 01/09/24 [facility] [address] [place], [place] [address] Allergies, Adverse Reactions, Alerts No Known Allergies [...] information Care Team Personnel Name: Iglesia TRENT, Asma Position: S Physician - Primary Care Member Role: PCP Address: Address: [address] [place] [address]- Care Team Related Persons Name: LEECHARLOTTE Address: home [address] [place] [address]
--- OUTSIDE RECORDS SUMMARY | 2024-05-20 14:02 | XMS_ITS | Continuity of Care Document ---
Author Organization [facility] Physical Me dicine and Rehabilitation Address [address] [place] [address]- Care Team Providers Care Fishing Vessel Captain Name Role Phone Iglesia TRENT, Asma Primary Care Physician Encounter [facility] [place] Date(s): 01/05/24 - 01/12/24 [facility] Medicine and Rehabilitation [address] [place] [address]- Attending Physician: Markie Finnegan MD Allergies, Adverse Reactions, Alerts No Known [...] Crohn's disease Confirmed Active Underweight Confirmed Active Vital Signs Most recent to oldest [Reference Range]: 1 Height 178 cm (01/05/24 3:20 PM) Weight 57.8 kg (01/05/24 3:20 PM) Oxygen Saturation [94-100 %] 98 % (01/05/24 3:20 PM) Pulse Rate [55-90 bpm] 79 bpm (01/05/24 3:20 PM) Body Mass Index [18.5-24.99 kg/m2] 18.24 kg/m2 *L* (01/05/24 3:20 PM) Blood Pressure [90-138/55-84 mm Hg] 125/ 73mm Hg (01/05/24 3:20 PM) Mode of Delivery (Oxygen) Room air (01/05/24 3:20 PM) Patient Care team information Care Team Personnel Name: Iglesia TRENT, Rachel Position: S Physician - Primary Care Member Role: PCP Address: Address: [address] [place] [address]- Care Team Related Persons Name: CHARLOTTE LEE Address: home [address] [place] [address]
--- OUTSIDE RECORDS SUMMARY | 2024-05-20 14:02 | XMS_ITS | Continuity of Care Document ---
Author Organization [facility] Address [address] [place] [address]- Care Team Providers Care Java Security Engineer Name Role Phone Iglesia TRENT, Asma Primary Care Physician Encounter [facility] [place] Date(s): 01/26/24 - 02/25/[address] [address] Attending Physician: AdmDesirae lea Admitting Physician: Admtr, Ar8 Referring Physician: Admtr, Ar8 Allergies, Adverse Reactions, Alerts No Known Allergies Medications acetaminophen 500 mg oral tablet 2 tablet = 1,000 mg, By Mouth, 3 times a day, for 90 days, # 540 tablet, 0 Refills, Acute 05/05/24 16:30:00 EST, 02/05/24 16:30:00 EDT, Tablet, [facility], Partial fill upon patient [...] Care Member Role: PCP Address: Address: [address] [place] [address]- Care Team Related Persons Name: CHARLOTTE LEE Address: home [address] [place] [address]
--- OUTSIDE RECORDS SUMMARY | 2024-05-20 14:02 | XMS_ITS | Continuity of Care Document ---
Author Organization [facility] Address [address] [place] [address]- Care Team Providers Care Dry Wall Installations Mechanic Name Role Phone Iglesia TRENT, Asma Primary Care Physician Encounter [facility] [place] Date(s): 12/10/23 - 01/09/24 [facility] [address] [place], [place] [address] Allergies, Adverse Reactions, Alerts No Known Allergies [...] Care Member Role: PCP Address: Address: [address] [place] [address]- Care Team Related Persons Name: LEECHARLOTTE Address: home [address] [place] [address]
--- OUTSIDE RECORDS SUMMARY | 2024-05-20 14:03 | XMS_ITS | Continuity of Care Document ---
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(Discharge Diagnosis) - 12/09/23 Sacroiliac joint dysfunction of left side(Discharge Diagnosis) - 12/09/23 Low back pain with left-sided sciatica(Discharge Diagnosis) - 12/09/23 Attending Physician: Jean [place] MD Allergies, Adverse Reactions, Alerts No Known [...] St atus Informant Crohn's disease Confirmed Active Diagnosis Diagnosis Type Effective Dates Health Status Clinical Service Informant Greater trochanteric pain syndrome of left lower extremity Discharge Diagnosis 12/09/23 Sacroiliac joint dysfunction of left side Discharge Diagnosis 12/09/23 Low back pain with left-sided sciatica Discharge Diagnosis 12/09/23 Vital Signs Most recent to oldest [Reference Range]: 1 Weight 59.3 kg (12/09/23 2:53 PM) Oxygen Saturation [94-100 %] 98 % (12/09/23 2:53 PM) Pulse Rate [55-90 bpm] 80 bpm (12/09/23 2:53 PM) Blood Pressure [90-138/55-84 mm Hg] 94/7 9mm Hg (12/09/23 2:53 PM) Respiratory Rate [16-30 br/min] 16 br/mi n (12/09/23 2:53 PM) Blood pressure sites Arm, right (12/09/23 2:53 PM) Weight Obtained Via Bed scale (12/09/23 2:53 PM) Patient Care team information Care Team Personnel Name: Iglesia TRENT, Rachel Position: S Physician - Primary Care Member Role: PCP Address: Address: [address] [place] [address]- Care Team Related Persons Name: CHARLOTTE LEE Address: home [address] [place] [address]
--- OUTSIDE RECORDS SUMMARY | 2024-05-20 14:03 | XMS_ITS | Continuity of Care Document ---
Author Organization [facility] Physical Me dicine and Rehabilitation Address [address] [place] [address]- Care Team Providers Care Gamma Operator Name Role Phone Iglesia TRENT, Asma Primary Care Physician [phone] Encounter [facility] [place] Date(s): 02/05/24 - 03/06/24 [facility] Physical Medicine and Rehabilitation [address] [place] [address]- Allergies, Adverse Reactions, Alerts No Known Allergies Medications acetaminophen 500 mg oral tablet 2 tablet = 1,000 mg, By Mouth, 3 times a day, for 90 days, # 540 tablet, 0 Refills, Acute 05/05/24 16:30:00 EST, 02/05/24 16:30:00 EDT, Jamilah, [facility], Partial fill [...] information Care Team Personnel Name: Iglesia TRENT, Maryellena Position: S Physician - Primary Care Member Role: PCP Address: Address: [address] [place] [address]- Care Team Related Persons Name: LEECHARLOTTE Address: home [address] [place] [address]
--- OUTSIDE RECORDS SUMMARY | 2024-05-20 14:03 | XMS_ITS | Continuity of Care Document ---
Author Organization [facility] Physical Ut dicine and Rehabilitation Address [address] [place] [address]- Care Team Providers Care Beam Worker Name Role Phone Iglesia TRENT, Asma Primary Care Physician Encounter [facility] [place] ACCT R [id number] Date(s): 08/04/23 - 09/03/23 [facility] Physical Medicine and Rehabilitation [address] [place] [address] Attending Physician: Desirae Dan Admitting Physician: AdmtrDesirae Referring Physician: Admtr, ArRufino Allergies, Adverse Reactions, Alerts No Known Medication [...] opioid drug. Start Date: 08/04/23 Status: Ordered Patient Care team information Care Team Personnel Name: Iglesia TRENT, Rachel Position: S Physician - Primary Care Member Role: PCP Address: Address: [address] [place] [address]- Care Team Related Persons Name: LEECHARLOTTE Address: [address] [address]
--- OUTSIDE RECORDS SUMMARY | 2024-05-20 14:03 | XMS_ITS | Continuity of Care Document ---
Author Organization [facility] Address [address] [place] [address]- Care Team Providers Care Blood Bank Laboratory Technologist Name Role Phone Iglesia TRENT, Rachel Primary Care Physician Encounter 12/09/23 - 12/16/23 [facility] [address] [place] [address]- Attending Physician: Jean [place] MD Admitting Physician: Jean [place] MD Referring Physician: Jean [place] MD Allergies, Adverse Reactions, [...] St atus Informant Crohn's disease Confirmed Active Results Radiology Reports * Exam Date Time Procedure Performing Provider Status 12/09/23 4:01 PM Lumbar Spine 2 or 3 Views Josephine Montiel ; Auth (Verified) Notes: (Lumbar Spine 2 or 3 Views) Reason For Exam: ?left L4 radiculopathy;Pain RESULT: Lumbar Spine 2 or 3 Views Lumbosacral spine 3 views dated December 09, 2023. No prior studies are available. HISTORY: Pain. FINDINGS: This examination shows a convex left thoracolumbar scoliosis. There is loss of intervertebral disc space height and osteophyte formation at almost all levels. Degenerative facet changes arepresent from L1 through S1. There are soft tissue calcifications demonstrated overlying the left hand side of L4 and L5. There is evidence of some prior bowel surgery with surgical teddy in the right lower quadrant. IMPRESSION: Degenerative changes and scoliosis. Soft tissue calcifications of uncertain etiology. Postoperative changes. Examination [id number]. Thank you for allowing me to participate in the care of this patient. WSN: [id number] Ordering Physician: Jean Dunn Dictated By: Dawit Wong MD Dictated Date/Time: 12/09/23 7:57 pm Reviewed By: Dawit Wong MD Signed By: Dawit Wong MD Signed Date/Time: 12/09/23 7:57 pm Transcribed By: BALTAZAR Transcribed Date/Time: 12/09/23 7:57 pm Patient Care team information Care Team Personnel Name: [place] Parekh MD Position: [facility] Physician - Primary Care Member Role: PCP Address: Address: [facility] [place] [address]- Care Team Related Persons Name: CHARLOTTE LEE Address: home [address] [place] [address]
--- OUTSIDE RECORDS SUMMARY | 2024-05-20 14:03 | XMS_ITS | Continuity of Care Document ---
Author Organization [facility] Address [address] [place] [address]- Care Team Providers Care Diplomatic Interpreter/Translator Name Role Phone Iglesia TRENT, Rachel Primary Care Physician [id number] Date(s): 12/10/23 - 12/17/[address] [address]- Attending Physician: Jaziel Johnson MD Referring Physician: [...] St atus Informant Crohn's disease Confirmed Active Vital Signs Most recent to oldest [Reference Range]: 1 Height 178 cm (12/10/23 2:34 PM) Weight 58.9 kg (12/10/23 2:34 PM) Oxygen Saturation [94-100 %] 99 % (12/10/23 2:34 PM) Pulse Rate [55-90 bpm] 76 bpm (12/10/23 2:34 PM) Body Mass Index [18.5-24.99 kg/m2] 18.59 kg/m2 (12/10/23 2:34 PM) Mode of Delivery (Oxygen) Room air (12/10/23 2:34 PM) Blood pressure sites Arm, left (12/10/23 2:34 PM) Weight Obtained Via Bed scale (12/10/23 2:34 PM) Note * [place] Cline: PERFORM Event Display: Patient Education/Instruction Authored Date: [id number] Ambulatory Adult Visit Summary [facility] [address] [place] [address] Name: CATARINO LEE : 1940?? Visit: 12/10/2023 14:28?? Ambulatory Visit Instructions ?? Your Care Team Primary Care Provider Iglesia TRENT, Rachel? This Visit Provider Jaziel Johnson MD Vitals Signs Pulse Rate: 76 bpm Height: 178 cm Oxygen Saturation: 99 % Weight: 58.9 kg ?? Body Mass Index: 18.59 kg/m2 ?? Body surface area: 1.71 What to do next Scheduled Follow-Up Appointments Thursday 3:20 PM EDT ?? With: Sivan TRENT, Markie Deleon Where: [facility] [address] [place] [address]- Status: Pending Future Orders XR Modified Barium Swallow W/ Speech RAD, Routine, Reason for Exam: Aspiration, r/o aspiration, liquids, Once, *Est. 12/10/23, Single or Recurring Future Order Vitamin B12 Level (B12 Vitamin Level) - Routine, Once, 09/16/23 17:10:00 EDT, Future Order, [facility], Blood?? CBC w/ Differential - Routine, Once, 09/16/23 17:10:00 EDT, Future Order, [facility], Blood?? Comprehensive Metabolic Panel - Routine, Once, 09/16/23 17:10:00 EDT, Future Order, [facility], Blood?? Hemoglobin A1C (Monitoring) - Routine, Once, 09/16/23 17:10:00 EDT, Future Order, [facility], Blood?? Homocysteine Level - Routine, Once, 09/16/23 17:10:00 EDT, Future Order, [facility], Blood?? Lipid Panel - Routine, Once, 09/16/23 17:10:00 EDT, Future Order, [facility], Blood?? Methylmalonic Acid - Routine, Once, 09/16/23 17:10:00 EDT, Future Order, [facility], Blood?? TSH - Routine, Once, 09/16/23 17:10:00 EDT, Future Order, [facility], Blood?? Vitamin D 25 Hydroxy Level - Routine, Once, 09/16/23 17:10:00 EDT, Future Order, [facility], Blood?? Medications The list below reflects the information in our records and provided by you today along with any changes made during this visit. Please continue your medications until treatment is completed or stopped by your provider. If this is different from the information you have or there are other questions,please contact the prescribing provider. What How Much When Instructions Unchanged Cyanocobalamin (B-12) Unchanged Mercaptopurine (mercaptopurine 50 mg oral tablet) 2 tab(s) Oral Daily Unchanged Metoprolol (metoprolol 50 mg oral tablet) 1 tab(s) Oral Twice a day Unchanged Multivitamin (Multi Vitamin+) Unchanged Dutton-3 Polyunsaturated Fatty Acids (Fish Oil) Oral Unchanged Quetiapine (QUEtiapine 100 mg oral tablet) 1 tab(s) Oral Twice a day Unchanged rivaroxaban (Xarelto 15 mg oral tablet) 1 tab(s) Oral Daily before dinner Medications and Immunizations Administered Medications Given During Visit No medications given during this visit.?? Allergies (NKA means No Known Allergies) NKA No Known Medication Allergies Common Emergency Awareness Tips IS IT A STROKE? Act FAST and Check for these signs: FACE Does the face look uneven? ARM Does one arm drift down? SPEECH Does their speech sound strange? TIME Call at any sign of stroke ?? Heart Attack Signs Chest discomfort: Most heart attacks involve discomfort in the center of the chest and lasts more than a few minutes, or goes away and comes back. It can feel like uncomfortable pressure, squeezing, fullness or pain. Discomfort in upper body: Symptoms can include pain or discomfort in one or both arms, back, neck, jaw or stomach. Shortness of breath: With or without discomfort. Other signs: Breaking out in a cold sweat, nausea, or lightheaded. Remember, MINUTES DO MATTER. If you experience any of these heart attack warning signs, call to get immediate medical attention! ?? Smoking can increase your chances of developing chronic health problems and can cause harmful effects to other family members in your house. If you smoke, you are strongly encouraged to quit. Please call [facility] at [phone] or 8-076-460[facility] (5558) or log in to [email or web address] for referrals to smoking cessation programs. ?? The National Suicide Prevention Hotline is available 19/01 if you or someone you know needs to find a reason to keep living. By calling 0-862-131-BookNow (1258) you'll be connected to a skilled, trained counselor at a crisis center in your area. [facility]Bridge Portal You can view and manage your care through the patient portal or by using a health care rosalie of your choosing. [employer]Pad is a website that allows you to securely view your medical information including your hospital discharge summary, office visit summaries, medications and follow-up visits. You can also request appointments, renew medications, and request access to your medical information using a health care rosalie of your choosing, or just ask a question. You can enroll at [email or web address] or register during your next office visit. [facility], in keeping with [facility] guidance, no longer requires face masks for staff, patientsor visitors in most situations. Similiar to time spent indoors at other locations, there is the chance that you were exposed to repiratory viruses during your time with us (such as flu or COVID-19). If you develop symptoms concerning for a viral respiratory infection, please seek testing (and treatment if indicated) from your medical provider or home test kit. ?? Disclaimer: The information provided is of a general nature and is intended to be used in conjunction with the recommendations and advice of your health care practitioner. Every effort has been made to ensure that the information provided is accurate and complete at the time it is provided to you however, as your needs change, or, as new information becomes available, different or additional instructions may be required. ?? If you have questions, please consult with your primary care provider or pharmacist, as appropriate. This information is not intended to serve as substitution for assessment and evaluation by a qualified health care provider. If you do not have a primary care provider, you may find a [facility] provider by calling [facility] Link at [phone]. Patient Care team information Care Team Personnel Name: Iglesia TRENT, Rachel Position: S Physician - Primary Care Member Role: PCP Address: Address: [address] [place] [address]- Care Team Related Persons Name: CHARLOTTE LEE Address: [address] [address]
--- OUTSIDE RECORDS SUMMARY | 2024-05-20 14:03 | XMS_ITS | Continuity of Care Document ---
Author Organization [facility] Address [address] [place] [address]- Care Team Providers Care Information Assurance Name Role Phone Iglesia TRENT, Asma Primary Care Physician [place] [facility] [place]24 [place] 05/16/24 [facility] [address] [place] [address]- Attending Physician: Jaziel Johnson MD Encounter Type: Office Visit Allergies, Adverse Reactions, Alerts No Known Allergies Medications B-12 0 Refills, Maintenance, 08/04/23 2:42:00 PM EST, Partial fill upon patient request if the prescription is for a schedule II opioid drug. Start Date: 08/04/23 Status: Ordered Repeat number: 1 Fish Oil By Mouth, 0 Refills, Maintenance, 08/04/23 2:42:00 PM EST, Partial fill upon patient request if the prescription is for a schedule II opioid drug. Start Date: 08/04/23 Status: Ordered Repeat number: 1 mercaptopurine 50 mg oral tablet 2 tablet = 100 mg, By Mouth, Daily, 0 Refills, Maintenance, 08/04/23 2:45:00 PM EST, Partial fill upon patient request if the prescription is for a schedule II opioid drug. Start Date: 08/04/23 Status: Ordered Repeat number: 1 metoprolol 50 mg oral tablet 50 mg, 1, tablet, By Mouth, 2 times a day, Refills 0, Maintenance, 08/04/23 2:40:00 PM EST, Partial fill upon patient request if the prescription is for a schedule II opioid drug. Start Date: 08/04/23 Status: Ordered Repeat number: 1 Multi Vitamin+ 0 Refills, Maintenance, 08/04/23 2:41:00 PM EST, Partial fill upon patient request if the prescription is for a schedule II opioid drug. Start Date: 08/04/23 Status: Ordered Repeat number: 1 QUEtiapine 100 mg oral tablet 100 mg, 1, tablet, By Mouth, 2 times a day, Refills 0, Maintenance, 08/04/23 2:41:00 PM EST, Partial fill upon patient request if the prescription is for a schedule II opioid drug. Start Date: 08/04/23 Status: Ordered Repeat number: 1 Xarelto 15 mg oral tablet 1 tablet = 15 mg, By Mouth, Daily before dinner, 0 Refills, Maintenance, 08/04/23 2:41:00 PM EST, Partial fill upon patient request if the prescription is for a schedule II opioid drug. Start Date: 08/04/23 Status: Ordered Repeat number: 1 Problem List Condition Confirmation Course Effective Dates Status Health St atus Informant Crohn's disease Confirmed Active Underweight Confirmed Active Vital Signs Most recent to oldest [Reference Range]: 1 Height 178 cm (05/09/24 3:10 PM) Weight 55.7 kg (05/09/24 3:10 PM) Oxygen Saturation [94-100 %] 98 % (05/09/24 3:10 PM) Pulse Rate [55-90 bpm] 84 bpm (05/09/24 3:10 PM) Body Mass Index [18.5-24.99 kg/m2] 17.58 kg/m2 *L* (05/09/24 3:10 PM) Blood Pressure [90-138/55-84 mm Hg] 98/4 9mm Hg (05/09/24 3:10 PM) Respiratory Rate [16-30 br/min] 16 br/mi n (05/09/24 3:10 PM) Mode of Delivery (Oxygen) Room air (05/09/24 3:10 PM) Blood pressure sites Arm, left (05/09/24 3:10 PM) Weight Obtained Via Bed scale (05/09/24 3:10 PM) Note * Tonny PASTOR, Becky: MODIFY Becky Lancaster RN: MODIFY Event Display: Patient Education/Instruction Authored Date: Ambulatory Adult Visit Summary [facility] [address] [place] [address] Name: CATARINO LEE : 1940?? Visit: 05/09/2024 15:00?? Ambulatory Visit Instructions ?? Your Care Team Primary Care Provider Rachel Parekh MD? This Visit Provider Elizabeth TRENT, Jaziel Bonilla Vitals Signs Pulse Rate: 84 bpm Height: 178 cm Respiratory Rate: 16 br/min Weight: 55.7 kg Systolic Blood Pressure: 98 mm Hg Body Mass Index:??17.58 kg/m2??Low Diastolic Blood Pressure:??49 mm Hg??Low Body surface area: 1.66 Oxygen Saturation: 98 % ?? What to do next Instructions From Your Provider 1. Today we had an opportunity to check in, review your recent studies, find out about your upcoming surgical procedure, talk about relevant issues regarding your brain, cognition, and the surgery, and plan our follow up therapy. ?? 2. 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 However, given your considerable cognitive reserve (as we discussed, from your extensive education and challenging career achievements), this process is likely progressing much slower in you than in someone who doesn???t have your backgroun d. ?? 3. Most concerning for me today is learning that you are scheduled for an upcoming intra-abdominal surgery under general anesthesia. This kind of procedure carries a significant risk for delirium, anacute deterioration of cognitive status that is triggered by sudden physiological stressors (like razo rgery). While delirium usually resolves, it is not unusual for someone after an episode of deliriumto come to a new cognitive baseline that is worse than their pre-delirium baseline. I want to avoidthis outcome for you. To do this, I need you to send us the name of the anesthesiologist who is managing your case once you know it, so we can reach out and talk to them about delirium risks and our r ecommendations. This is particularly challenging since the [facility] and [facility] electronic medical records do not talk to one another in an easy manner. ?? 4. My recommendations to the anesthesiologist will include (1) orienting you to the postoperative surroundings and postoperative team before the procedure, (2) avoiding certain high risk medications (anticholinergic, benzodiazepine, and Demerol), (3) managing your pain thoroughly and where possibleby substituting other agents for opioids, (4) giving you an opportunity to sleep, (5) making sure your glasses are available when you need them, (6) having your family around for support, and (7) potentially using a specific medication (dexmedetomidine) as part of the medications administered during the procedure. ?? 5. We can begin talking about our treatment plan for the Alzheimer???s disease once this surgery has occurred and you have recovered from the procedure. We will tentatively set up a follow up for mid-June, but if this is too early we can move it forward as needed. My installer interior assemblies, Beth Cruz, will help you get this appointment set up. Scheduled Follow-Up Appointments 2024 10:00 AM EST ?? With: Elizabeth TRENT, Jaziel Bonilla Where: [facility] [address] [place] [address]- Status: Pending Future Orders Vitamin B12 Level (B12 Vitamin Level) - [...] a day Unchanged Multivitamin (Multi Vitamin+) Unchanged [place]-3 Polyunsaturated Fatty Acids (Fish Oil) Oral Unchanged [...] are strongly encouraged to quit. Please call [employer] [facility] at [phone] or [phone] ([phone]) or log in to [email or web address] for referrals to smoking cessation programs. ?? The National Suicide Prevention Hotline is available 19/01 if you or someone you know needs to find a reason to keep living. By calling 8-328-378-talk (8255) you'll be connected to a skilled, trained counselor at a crisis center in your area. [facility] [employer] Portal You can view and manage your care through the patient portal or by using a health care rosalie of your choosing. [employer] is a website that allows you to securely view your medical information including your hospital discharge summary, office visit summaries, medications and follow-up visits. You can also request appointments, renew medications, and request access to your medical information using a health care rosalie of your choosing, or just ask a question. You can enroll at [email or web address] or register during your next office visit. [facility], in keeping with [facility] guidance, no longer requires face masks for [...] primary care provider, you may find a [facility] provider by calling [facility] [employer] Link at [phone]. Patient Care team information Care Team Personnel Name: Iglesia TRENT, Rachel Position: [facility] Physician - Primary Care Member Role: PCP Address: [address] [place] [address]- Telecom: Care Team Related Persons Name: CHARLOTTE LEE Insurance Providers Guarantor name: CATARINO JESUS Health Plan Information #: 2 Payer: [employer] Member Number: [id number] Policy Number: NA Group Number: NA Health Plan Information #: 1 Payer: MEDICARE PART B OUTPT Member Number: [id number] Policy Number: NILDA Group Number: [id number]
--- OUTSIDE RECORDS SUMMARY | 2024-05-20 14:03 | XMS_ITS | Continuity of Care Document ---
Author Organization [facility] Address [address] [place] [address]- Care Team Providers Care [place] Former Machine Operator Name Role Phone Iglesia TRENT, Asma Primary Care Physician Encounter 03/17/24 - 03/18/[address] [address] Attending Physician: Not on Staff, Attending MD Referring Physician: Not on Staff, Referring MD Allergies, Adverse Reactions, Alerts No Known [...] Crohn's disease Confirmed Active Underweight Confirmed Active Results Radiology Reports * Exam Date Time Procedure Performing Provider Status 03/17/24 3:[address] PET Neuraceq Brain Imaging Auth (Verified) Notes: (CT PET Neuraceq Brain Imaging) Reason For Exam: ALZHEIMERS;ALZHEIMERS RESULT: CT PET Neuraceq Brain Imaging [facility] PET/CT Imaging VISIT NUMBER :[id number] Patient Name: CATARINO LEE Date of : 1940 Date of Exam: 03-17-2024 Referring Physician: Jaziel Johnson [address] [place] [id number] Exam: PT Neuraceq Brain Imaging CPT 81160 Room Description: [facility] Pt4 Examination: PET Neuraceq Brain Imaging Indication: 83-year-old male with history of slowly progressive cognitive changes most prominent in terms of short-term memory and control of anger/frustration. Comparison: Technique: A PET scan of the brain was performed using 3-D acquisition approximately 30 to 50 minutes following the intravenous administration of 8.1 mCi of Neuraceq. Image reconstruction was performed with 3 oriented tomograms display to the transaxial, coronal, sagittal planes. CT scan of the brain was performed for attenuation correction. The CT scan was performed with low-dose and without intravenous contrast and therefore is not diagnostic quality. Findings: Diffusely increased tracer uptake throughout the cortical cerebral nunes matter. Most intense cortical uptake is seen in the frontal, lateral temporal, precuneus and parietal areas as compared to the adjacent subcortical white matter. Impression: Positive Neuraseq scan, suggestive of significant amyloid neuritic plaques. Electronically Signed By: Autumn Botello MD Dictated By: Not on Staff , RHIANNA TRENT Dictated Date/Time: 03/17/24 5:32 pm Reviewed By: Not on Staff , RHIANNA TRENT Signed By: Not on Staff , RHIANNA TRENT Signed Date/Time: 03/17/24 5:32 pm Transcribed By: TS Transcribed Date/Time: 03/17/24 5:32 pm Patient Care team information Care Team Personnel Name: [facility]lesia TRENT, [facility] Position: S Physician - Primary Care Member Role: PCP Address: Address: [address] [place] [address]- Care Team Related Persons Name: CHARLOTTE LEE Address: home [address] [place] [address]
--- OUTSIDE RECORDS SUMMARY | 2024-05-20 14:03 | XMS_ITS | Continuity of Care Document ---
Author Organization [facility] Address [address] [place] [address]- Care Team Providers Care Ton Container Shipper Name Role Phone Iglesia TRENT, Asma Primary Care Physician En[place] [facility] [place] Date(s): 12/04/23 - 01/03/24 [facility] [address] [place] [id number] Allergies, Adverse Reactions, Alerts No Known Allergies [...] Care Member Role: PCP Address: Address: [address] [place] [address]- Care Team Related Persons Name: LEECHARLOTTE Address: home [address] [place] [address]
--- OUTSIDE RECORDS SUMMARY | 2024-05-20 14:03 | XMS_ITS | Continuity of Care Document ---
Author Organization [facility] Address [address] [place] [address]- Care Team Providers Care Quiller Tender Name Role Phone Iglesia TRENT, Asma Primary Care Physician [place] [facility] [place] 01[place] [facility] [address] [place] [address]- Attending Physician: Jaziel Johnson MD Allergies, Adverse Reactions, Alerts No Known [...] Crohn's disease Confirmed Active Underweight Confirmed Active Note * Venice Cline: PERFORM Event Display: Patient Education/Instruction Authored Date: [id number] Ambulatory Adult Visit Summary [facility] [address] [place] [address] Name: CATARINO LEE : 1940?? Visit: 01/18/2024 16:12?? Ambulatory Visit Instructions ?? Your Care Team Primary Care Provider Iglesia TRENT, Rachel? This Visit Provider Elizabeth TRENT, Jaziel Bonilla What to do next Scheduled Follow-Up Appointments Thursday 1:30 PM EDT ?? Where: Rehab Adult Aud Status: Pending Thursday 1:30 PM EDT ?? Where: [facility] [address] [address]- Status: Pending Future Orders Vitamin B12 Level [...] a day Unchanged Multivitamin (Multi Vitamin+) Unchanged [place]-3 Polyunsaturated Fatty Acids (Fish Oil) Oral Unchanged [...] are strongly encouraged to quit. Please call [facility] [employer] Link at [phone] or [phone]-it ([phone]) or log in to [email or web address] for referrals to smoking cessation programs. ?? The National Suicide Prevention Hotline is available 19/01 if you or someone you know needs to find a reason to keep living. By calling 5-839-294-[employer] (1846) you'll be connected to a skilled, trained counselor at a crisis center in your area. [facility] [employer] Portal You can view and manage your care through the patient portal or by using a health care rosalie of your choosing. [employer] is a website that allows you to securely view your medical information including your hospital discharge summary, office visit summaries, medications and follow-up visits. You can also request appointments, renew medications, and request access to your medical information using a health care rosalie of your choosing, or just ask a question. You can enroll at [email or web address] or register during your next office visit. [facility], in keeping with [facility] guidance, no longer requires face masks for [...] primary care provider, you may find a [facility] provider by calling [facility] at [phone]. Patient Care team information Care Team Personnel Name: Iglesia TRENT, Rachel Position: S Physician - Primary Care Member Role: PCP Address: Address: [address] [place] [address]- Care Team Related Persons Name: CHARLOTTE LEE Address: [address] [address]
[2024-05-20 15:10] VITALS: BP 105/58; PULSE 72; RESP 18; TEMP 36.7; O2SAT 99
[2024-05-20 20:00] VITALS: BP 119/56; PULSE 88; RESP 16; TEMP 37.1; O2SAT 99
[2024-05-20 20:13] LABS: Glucose, Whole Blood 140 mg/dL (60-115)
[2024-05-20] MEDS: QUEtiapine Fumarate 25 MG TABLET PO (21:33)
[2024-05-21 02:27] VITALS: BP 118/58; PULSE 91; RESP 16; TEMP 36.4; O2SAT 97
[2024-05-21 07:49] VITALS: BP 119/56; PULSE 81; RESP 17; TEMP 36.5; O2SAT 98
[2024-05-21 09:42] VITALS: BP 138/71; PULSE 86
[2024-05-21] MEDS: Metoprolol Succinate ER 50 MG TAB.ER.24H PO (09:42)
[2024-05-21] MEDS: Heparin Sodium,Porcine 5,000 UNIT/ML VIAL 5000 UNIT SUBCUT (09:42)
[2024-05-21] MEDS: Cyanocobalamin (Vitamin B-12) 1,000 MCG TABLET 1000 MCG PO (09:42)
[2024-05-21] MEDS: Multivitamin TABLET 1 TAB PO (09:42)
[2024-05-21] MEDS: Lactated Ringers 1,000 ML 80 ML IVCONT (09:43)
--- NOTE | 2024-05-21 10:00 | P.PNGS_ITS ---
Subjective Subjective Date of Service: 05/21/24 Interval history: Patient uneventful night. Tolerating diet. Passing flatus and stool. He states he has been up out of bed ambulating. Patient would like to know if he can go home soon Physical Exam 2 Vital Signs: Vital Signs: Last Vital Signs Temp 97.7 F 05/21/24 07:49 Pulse 86 05/21/24 09:42 Resp 17 05/21/24 07:49 BP 138/71 05/21/24 09:42 Pulse Ox 98 05/21/24 07:49 O2 Del Method Room Air 05/21/24 07:49 O2 Flow Rate 4 05/18/24 15:40 BMI result Body Mass Index 17.6 GI: Other: Abdomen is soft. Wounds clean dry and intact Objective Data Active Medications Cyanocobalamin (Cyanocobalamin (Vitamin B-12) 1,000 Mcg Tablet) 1,000 mcg PO DAILY [facility] Last Admin: 05/21/24 09:42 Dose: 1,000 mcg Documented By: LEOPOLDO Heparin Sodium (Porcine) (Heparin Sodium,Porcine 5,000 Unit/Ml Vial) 5,000 unit SUBCUT Q12H [facility] Last Admin: 05/21/24 09:42 Dose: 5,000 unit Documented By: LEOPOLDO Lactated Ringer's (Lr) 1,000 mls @ 80 mls/hr IVCONT .[id number] [facility] Last Admin: 05/21/24 09:43 Dose: 80 mls/hr Documented By: LEOPOLDO Metoprolol Succinate (Metoprolol Succinate Er 50 Mg Tab.Er.24h) 50 mg PO DAILY [facility]; Protocol Last Admin: 05/21/24 09:42 Dose: 50 mg Documented By: LEOPOLDO Morphine Sulfate (Morphine Sulfate 2 Mg/Ml Cartridge) 2 mg IVPUSH Q3H PRN; Protocol PRN Reason: Pain, Severe (Pain Scale 7-10) Last Admin: 05/18/24 17:01 Dose: 2 mg Documented By: MJ Multivitamins/Vitamin C (Multivitamin Tablet) 1 tab PO DAILY [facility] Last Admin: 05/21/24 09:42 Dose: 1 tab Documented By: LEOPOLDO Ondansetron HCl (Ondansetron Hcl 4 Mg/2 Ml Vial) 4 mg IVPUSH Q8H PRN PRN Reason: Nausea and Vomiting Oxycodone HCl (Oxycodone Hcl Immed Release 5 Mg Tablet) 5 mg PO Q4H PRN PRN Reason: Pain, Moderate(Pain Scale 4-6) Last Admin: 05/20/24 08:30 Dose: 5 mg Documented By: EUFEMIA Quetiapine Fumarate (Quetiapine Fumarate 25 Mg Tablet) 25 mg PO BEDTIME ADELA Last Admin: 05/20/24 21:33 Dose: 25 mg Documented By: LOCO Labs 05/19/24 07:26 05/19/24 07:26 Labs: Laboratory Results - last 24 hr 05/20/24 20:10 POC Glucose 140 H Procedures Date of Service Date of Service: 05/21/24 Progress Note: A&P Assessment and plan (1) Status post small bowel resection: Status: Acute Plan Patient states that he had wishes to go home and not to an ECF. Current plan is to advance diet and DC home later today. All questions answered. Discharge instructions provided. Time Spent With Patient Time: Total time managing care of this patient today ____ minutes. Quality Stroke Does the patient have a stroke diagnosis?: No VTE Prior VTE?: No VTE Risk Level:: Surgical - high VTE Device Contraindication: N/A - Device Ordered VTE Drug Contraindication: N/A - Med Ordered
--- NOTE | 2024-05-21 11:01 | W.MHC.F2F ---
Service Date Service Date: 05/21/24 Encounter Date of encounter: 05/21/24 Encounter: Status post ileo right colon resection for stricture. Reasons for Services Signs and symptoms assessed: Elderly frail male. Incisions clean dry and intact. Homebound: Leaving the home is medically contraindicated at this time without the asist of a device and/or another person due th the listed conditions above and below. Reason homebound: unsteady gait / fall risk and poor balance / fall risk Certification: Based on the above findings, I certify that this patient is confined to the home and needs intermittent intermediate care, physical therapy and/or speech therapy, or continues to need occupational therapy. The patient is under my care, and I have initiated the establishment of the plan of care. The patient will be followed by a physician who will periodically review the plan of care. Time Spent With Patient Time: Total time managing care of this patient today ____ minutes.
--- NOTE | 2024-05-21 12:10 | W.MHC.F2F ---
Service Date Service Date: 05/21/24 Encounter Date of encounter: 05/21/24 Reasons for Services Signs and symptoms assessed: abdominal pain/tenderness, PO intake, bowel habits, incision site Reason for residential: wound care and postoperative assessment and/or care Reason for physical therapy: home safety and mobility, therapeutic exercises and gait/transfer training Homebound: Leaving the home is medically contraindicated at this time without the asist of a device and/or another person due th the listed conditions above and below. Reason homebound: weakness related to hospital stay and unable to drive Homebound supporting statement: Mr. Vargas is s/p laparotomy, revision of his ileocolonic anastomosis for anastomotic stricture. He had an uneventful post operative course. He was discharged to home with services for further convalescence. Certification: Based on the above findings, I certify that this patient is confined to the home and needs intermittent residential care, physical therapy and/or speech therapy, or continues to need occupational therapy. The patient is under my care, and I have initiated the establishment of the plan of care. The patient will be followed by a physician who will periodically review the plan of care. Time Spent With Patient Time: Total time managing care of this patient today ____ minutes.
--- NOTE | 2024-05-21 12:53 | PM.DS ---
DS: Providers Provider Date of Service: 05/21/24 Date of admission: 05/18/24 12:27 Date of discharge: 05/21/24 Primary care physician: Rachel Parekh MD Attending physician on admission: Sadi Saavedra Consults: 05/18/24 15:00 Consult to Hospitalist Routine Comment: Consulting Provider: Hospitalist Reason For Exam: hx of a-fib, early alzheimers Attending physician on discharge: Phoenix Gerber DS: Diagnosis Discharge Diagnosis (1) Status post small bowel resection: Status: Acute DS: Summary Hospital Course Hospital Course: HPI AT ADMISSION: The patient is an 83-year-old male with a long history of Crohn's disease, who had previously undergone right colon resection for this. He developed a stricture in the area and has been admitted multiple times for obstruction. 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 He eventually decided to proceed with excision of this anastomosis and creation of a new anastomosis. He now presents for the planned surgery. HOSPITAL COURSE: On 05/18/24, hand assisted laparoscopic resection of ileocolonic anastomosis, with extensive lysis of adhesions, new [id number] anastomosis from the distal ileum to the transverse colon. The patient tolerated the procedure well. He was admitted post operatively for observation. He had an uneventful recovery course. His zambrano was removed on POD #1. He was ambulated and his activity was increased. He was tolerating clear liquids and his diet was advanced once he began to pass flatus on POD #2. PT was consulted for dispo planning who recommended home with PT services/family support FWW. On the day of discharge, he was tolerating a solid diet, was moving his bowels, had good pain control and was ambulating without difficulty. His abdomen was benign with clean incisions. He felt ready for discharge to home. He was discharged to home on 05/21/24 with PT and VNA services. He is to follow up in the office in 1-2 weeks. Status at Discharge Functional status at discharge: independent ambulation Overall status at discharge: patient is progressing back to baseline Time Attestation Discharge Coordination Time (in mins): 40 Quality: Safe Use of Opioids Does Pt have an Active Cancer Diagnosis on the Problem List?: No Quality: Stroke Does the patient have a stroke diagnosis?: No Physical Exam Vital Signs: Vital Signs: Last Vital Signs Temp 97.7 F 05/21/24 07:49 Pulse 86 05/21/24 09:42 Resp 17 05/21/24 07:49 BP 138/71 05/21/24 09:42 Pulse Ox 98 05/21/24 07:49 O2 Del Method Room Air 05/21/24 07:49 O2 Flow Rate 4 05/18/24 15:40 BMI result Body Mass Index 17.6 Const: General: comfortable, no acute distress and alert Orientation/consciousness: patient oriented x3 Resp: Effort & Inspection: normal respiratory effort GI: Inspection: Yes incision (clean ) Palpation (GI): Soft to palpation, nontender and no guarding Percussion: Yes normal to percussion Skin: General skin exam: no rashes or lesions noted Neuro: General: patient oriented x3 and moves all extremities DS: Data Data Completed and Pending Pending studies at discharge: Pending at discharge 05/18/24 14:54 Surgical [PTH] Routine Labs on day of discharge: Laboratory Results - last 24 hr 05/20/24 20:10 POC Glucose 140 H Discharge Plan Discharge Anticipated Discharge Date/Time: 05/22/24 12:03 Patient Disposition: Home Health Service Discharge Diagnosis: anastomotic stricture Referrals: [facility] URIAS [Outside] Rachel Parekh MD [Primary Care Provider] - 1 Week Sadi Saavedra MD [Physician] - 2 Weeks Discharge Medications: New oxycodone-acetaminophen [Percocet] 5-325 mg tablet 1 tab PO Q4-6H PRN (Reason: pain) Qty: 20 0RF Rx Instructions: Partial Fill upon patient request. Continued metoprolol succinate 50 mg tablet extended release 24 hr 50 mg PO DAILY Qty: 90 3RF Xarelto 15 mg tablet 15 mg PO DAILY@1700 Rx Instructions: must administer with evening meal quetiapine 25 mg tablet 25 mg PO BEDTIME mecobalamin (vitamin B12) 1,000 mcg lozenge 1,000 mcg PO DAILY Rx Instructions: allow to dissolve in mouth OR may chew lightly before swallowing Alive Men's 50 Plus Multivit 120 mcg-150 mcg -50 mg tablet,chewable 1 tab PO DAILY Co V-84-Gshulow E-Fish Oil 25-150-200 mg-mg-unit capsule 1 cap PO DAILY Discharge Orders: Discharge Order (Routine); Ordered 05/21/24 Ordered By: Phoenix Buzz Diet: Advance to usual diet Activity on Discharge: No heavy lifting Stand Alone Forms: Patient Portal Discharge page Print Language: Macedonian Activity Restrictions/Additional Instructions: If the incision area is tender, you may apply an ice pack for short intervals (No more than 20 minutes on, followed by at least 20 minutes off). Do not apply heat. Do not use creams, lotions, or topical antibiotics. These can cause infection or allergic reaction. Ok to shower. You have teddy closing your incision and these will be removed approximately 10-14 days after surgery. NO HEAVY LIFTING (>10lbs) or strenuous activity. Follow up in office. ([phone]) Call Your Doctor If: -Your temperature exceeds 101.5? F -You experience excessive pain or swelling -You have an unexpected reaction to medication -You have excessive bleeding -You experience continued vomiting/nausea -Your incision begins to separate -Your incision shows signs of infection such as increased redness, swelling, excessive pain, drainage (light blood or clear fluid is normal) or heat Care Plan Goals: Return to baseline health and resume normal activities following recovery period. Health Concerns: anastomotic stricture Plan of Treatment: s/p Hand assisted laparoscopic resection of ileocolonic anastomosis, with extensive lysis of adhesions, new [id number]-on-[id number] anastomosis from the distal ileum to the transverse colon Assessment: Doing well post op. Discharge Date/Time: 05/21/24 17:39
--- NOTE | 2024-05-21 15:07 | MHC.CM.PN ---
PT WILL DC HOME TODAY WITH [facility] TO TRANSPORT
[2024-05-21 15:33] VITALS: BP 110/59; PULSE 79; RESP 17; TEMP 36.6; O2SAT 97
== END 2024-05-21 17:39 | disposition home health service (06) | DRG 330 ==
LOC: HO.SSSA 12:29 → HO.S3 15:35
PROVIDERS: Admitting Provider Surgery; PCP Internal Medicine; Visit Provider Surgery
PROC: 0DTE0ZZ Resection of Large Intestine, Open Approach (ICD-10-PCS; principal; 2024-05-18 12:10)
DX: K91.89 Other postprocedural complications and disorders of digestive system (principal); I48.19 Other persistent atrial fibrillation; K56.50 Intestinal adhesions [bands], unspecified as to partial versus complete obstruction; G89.18 Other acute postprocedural pain; Z79.01 Long term (current) use of anticoagulants; Z79.899 Other long term (current) drug therapy
CPT/HCPCS: 36415; 80048; 82947; 85027; 86850; 86900; 86901; 88305; 88309; 88341; 88342; 88360; 97162; 99212; J0131; J0665; J1100; J1171; J1644; J2003; J2270; J2371; J2405; J2704; J2795; J3010; J7120

== ENCOUNTER → 2024-05-18 12:27 | Outpatient (BNV) | payer MEDICARE, SELFPAY | PROVIDERS: Admitting Provider Surgery; PCP Internal Medicine; Visit Provider Student in an Organized Health Care Education/Training Program | DX: I48.19 Other persistent atrial fibrillation (principal); G30.9 Alzheimer's disease, unspecified; F02.80 Dementia in other diseases classified elsewhere, unspecified severity, without behavioral disturbance, psychotic disturbance, mood disturbance, and anxiety; K91.89 Other postprocedural complications and disorders of digestive system; K91.30 Postprocedural intestinal obstruction, unspecified as to partial versus complete | CPT/HCPCS: 99222 ==

== ENCOUNTER → 2024-05-18 12:27 | Outpatient (BNV) | payer MEDICARE, SELFPAY | PROVIDERS: Admitting Provider Surgery; PCP Internal Medicine; Visit Provider Surgery | DX: K91.89 Other postprocedural complications and disorders of digestive system (principal); Z09 Encounter for follow-up examination after completed treatment for conditions other than malignant neoplasm | CPT/HCPCS: 44204; 99024; 99499; G0180 ==

== ENCOUNTER 2024-05-24 11:21 | Outpatient (AMB) | payer MEDICARE, OTHER, SELFPAY ==
--- NOTE | 2024-05-24 11:22 | A.OFFVIS_ITS ---
Vital Signs 05/24/24 11:31 Height 5 ft 10 in Weight 129 lb BMI 18.5 Intake Visit Reasons: S/P ileocolonic resection Intake Note: This patient presents for a post-op assessment status post Hand assisted laparoscopic resection of ileocolonic anastomosis, with extensive lysis of adhesions, new kamg-im-lnam anastomosis from the distal ileum to the transverse colon. pt c/o; reports no complaints. Director Cost Required: No Accompanied by: Daughter Allergies No Known Allergies Allergy (Verified 05/24/24 11:31) HPI HPI S/P ileocolonic resection: Details: He underwent resection of an ileocolonic hemorrhoidectomy stricture with a new anastomosis, hand assisted laparoscopic, last May 18, 2024. He tolerated the procedure well and he was discharged on postop day number 3. His daughter had called last night as she noticed some redness on the incision. The patient otherwise has good oral intake and good GI functions. He has had no fever and feels well overall. 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 Fatigue Cognitive disorder Alzheimer's dementia Anemia Persistent atrial fibrillation B12 deficiency Scoliosis Crohn disease Bipolar 1 disorder Surgical History History of partial colectomy Hx of colonoscopy Family History Father Heart problem Other Alzheimer's dementia Social History Household Members: Family Household Members Other:: long-term housing Housing: Apartment Are you a primary career based intervention coordinator to a significant other at home: No Do you presently have visiting nurse or other home services: No Alcohol intake: current Alcohol intake frequency: does not drink Patient Tobacco Use Status: Never used Tobacco e-Cigarette/Vaping Use: Never Used Advance Directives Date on File: 03/19/24 service: No Current occupational status: retired Cognitive needs: No Hearing needs: No Vision needs: Yes Review of Systems Const Denies chills and Denies fever(s) Card Denies chest pain Resp Denies cough GI Denies abdominal pain and Denies bloating Physical Exam Const Other: Ambulating with a cane, looks well General: comfortable and no acute distress Resp Effort & Inspection: normal respiratory effort Cardio Rate: regular rate GI Other: Midline incision with some erythema of the skin, no discharge, no fluctuance, no induration Palpation (GI): Soft to palpation, not firm, nontender and no guarding Assessment & Plan Assessment & Plan (1) 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 His daughter brought him to the office because of some redness of the incision. I probed the incision with a Q-tip and there was no abscess in the area. The redness is likely secondary to excision from the teddy. He is doing very well overall. He has good GI functions. He feels well and denies any significant pain. His path report is still pending. I will see him in the office next week to remove his skin teddy. 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
[2024-05-24 11:31] VITALS: BMI 18.5
== END 2024-05-24 11:45 | disposition home or self-care (01) ==
LOC: HO.HGS 11:21
PROVIDERS: PCP Internal Medicine; Visit Provider Surgery
DX: K91.89 Other postprocedural complications and disorders of digestive system (principal)
CPT/HCPCS: 99024

== ENCOUNTER → 2024-05-24 11:21 | Outpatient (BNVA) | payer MEDICARE, OTHER, SELFPAY | PROVIDERS: PCP Internal Medicine; Visit Provider Surgery | DX: K91.89 Other postprocedural complications and disorders of digestive system (principal); Z48.815 Encounter for surgical aftercare following surgery on the digestive system; Z98.890 Other specified postprocedural states | CPT/HCPCS: 99212 ==

== ENCOUNTER → 2024-05-30 15:06 | Outpatient (BNVA) | payer MEDICARE, OTHER, SELFPAY | PROVIDERS: PCP Internal Medicine; Visit Provider Internal Medicine Gastroenterology ==

== ENCOUNTER → 2024-05-30 15:06 | Outpatient (AMB) | payer MEDICARE, OTHER, SELFPAY ==
--- NOTE | 2024-05-30 15:12 | MHC.OFFVIS ---
Intake Visit Reasons: Postop COLO Intake Note: Asael presents as a telehealth with daughter andreea to go over results to recent colonoscopy. Allergies No Known Allergies Allergy (Verified 05/30/24 15:12) HPI HPI Postop COLO: Details: 83-year-old gentleman with crohns here for f/u RECAP: He has had Crohsn for maybe 20 yrs, dx after bowel obstruction he has been on 6 MP ever since and he feels doing a good job he feels bowel are normal right now, no bouts of diarrhea for long time with alternating constipation appetite is good Colonoscopy: ileo colonic stricture and inflammation --path: severe inflammation with atypical cells, concern for neoplasia He had admission for 04/21 for SBO and was given IV steroids, and abx He had repeat colo with HGD on WATS He then had ileocolonic resection--Path with moderately differentiated adenoca and G2 Interim: he is recovering from surgery done on 05/18/24 he has issues with constipation and straining he is not on opiates appetite is v good no nausea EXAM: GENERAL: The patient is frail, but good color A/P: 1/ Crohsn with inflammation around anastomosis s/p resection with adenocarcinoma PLAN: 1/ refer oncology for possible adjuvatant chemo 2/ if no chemo then entyvio [facility] Medical History Hx MRSA infection Environmental exposure Arthritis Depression 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 Fatigue Cognitive disorder Alzheimer's dementia Anemia Persistent atrial fibrillation B12 deficiency Scoliosis Crohn disease Bipolar 1 disorder Surgical History History of partial colectomy Hx of colonoscopy Family History Father Heart problem Other Alzheimer's dementia Social History Household Members: Family Household Members Other:: nursing home housing Housing: Apartment Are you a primary career agent to a significant other at home: No Do you presently have visiting nurse or other home services: No Alcohol intake: current Alcohol intake frequency: does not drink Patient Tobacco Use Status: Never used Tobacco e-Cigarette/Vaping Use: Never Used Advance Directives Date on File: 03/19/24 service: No Current occupational status: retired Cognitive needs: No Hearing needs: No Vision needs: Yes Telehealth Telehealth Telehealth Platform: [facility] Location of provider rendering services: practice address Location of patient: address on file Patient Identification confirmed using: Name, : Yes Telehealth method: video Patient verbally consented to treatment: Yes Patient verbally consented to billing insurance company: Yes Minutes spent on Phone/Video with Pt.: 16 Assessment & Plan Assessment & Plan (1) Crohn disease: Code(s): K50.90 - Crohn's disease, unspecified, without complications Category: Medical Qualifiers: Gastrointestinal tract location: large intestine Digestive disease complication type: without complication Qualified Code(s): K50.10 - Crohn's disease of large intestine without complications Plan: see above Orders: Referrals Hematology & Oncology Referral K50.10 - Crohn's disease of large intestine without complications Coding Level of Care Code Tele Est Pt Level 3 (85043) Diagnoses Crohn's disease of large intestine without complication K50.10 Gastrointestinal tract location: large intestine Digestive disease complication type: without complication
== END ==
LOC: HO.HGI 15:06
PROVIDERS: PCP Internal Medicine; Visit Provider Internal Medicine Gastroenterology
DX: K50.10 Crohn's disease of large intestine without complications (principal)
CPT/HCPCS: 99213

== ENCOUNTER 2024-06-01 11:36 | Outpatient (AMB) | payer MEDICARE, OTHER, SELFPAY ==
--- NOTE | 2024-06-01 11:37 | A.OFFVIS_ITS ---
Vital Signs 06/01/24 11:42 Height 5 ft 10 in Weight 137 lb 4 oz BMI 19.7 Intake Visit Reasons: S/P ileocolonic resection, staple removal Intake Note: This patient presents for staple removal status post Hand assisted laparoscopic resection of ileocolonic anastomosis, with extensive lysis of adhesions, new yeyb-ly-etmh anastomosis from the distal ileum to the transverse colon. Pt c/o; reports no complaints. Instructional Facilitator Required: No Accompanied by: Family/Other Allergies No Known Allergies Allergy (Verified 06/01/24 11:43) HPI HPI S/P ileocolonic resection, staple removal: Details: He continues to do well after resection of the ileocolonic anastomosis last May 18, 2024. He has good oral intake. He has good bowel movements. He denies significant pain. 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 Fatigue Cognitive disorder Alzheimer's dementia Anemia Persistent atrial fibrillation B12 deficiency Scoliosis Crohn disease Bipolar 1 disorder Surgical History History of partial colectomy Hx of colonoscopy Family History Father Heart problem Other Alzheimer's dementia Social History Household Members: Family Household Members Other:: [facility] housing Housing: Apartment Are you a primary adult daycare coordinator to a significant other at home: No Do you presently have visiting nurse or other home services: No Alcohol intake: current Alcohol intake frequency: does not drink Patient Tobacco Use Status: Never used Tobacco e-Cigarette/Vaping Use: Never Used Advance Directives Date on File: 03/19/24 service: No Current occupational status: retired Cognitive needs: No Hearing needs: No Vision needs: Yes Review of Systems Const Denies chills and Denies fever(s) Card Denies chest pain Resp Denies cough GI Denies abdominal pain Physical Exam Const Other: Frail looking General: comfortable and no acute distress GI Other: Incisions healing well, scanty discharge on the midline incision, teddy intact Palpation (GI): Soft to palpation and not firm Assessment & Plan Assessment & Plan (1) Colon cancer: Code(s): C18.9 - Malignant neoplasm of colon, unspecified Category: Medical Plan: Status post resection of old ileocolonic anastomosis. He continues to do well. 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 His incisions are healing well. I removed all his skin teddy. He is awaiting a consultation with the oncologist which is for this June 03.. He is doing well overall. He continues to follow with Dr. Guy for his history of Crohn's disease. I will see him again in the office in about 1 month for another postop visit Coding Level of Care Code Global (08096) Diagnoses Colon cancer C18.9
[2024-06-01 11:42] VITALS: BMI 19.7
--- OUTSIDE RECORDS SUMMARY | 2024-06-07 18:14 | XMS_ITS | Continuity of Care Document ---
Author Organization [facility] ion Address [address] [place] [id number]- Care Team Providers Care Track Repairer Name Role Phone Iglesia TRENT, Rachel Primary Care Physician [phone] [id number] Date(s): 03/08/24 - 05/21/[address] [address]- Encounter Diagnosis Pain in left hip(Final) - Discharge Disposition: A-D/C Home Attending Physician: Rachel Parekh MD Admitting Physician: Rachel Parekh MD Referring Physician: Markie Finnegan MD Encounter Type: Disch Recurring OP Allergies, Adverse Reactions, Alerts No Known Allergies [...] - Primary Care Member Role: PCP Address: [address] [place] [address] Telecom: Care Team Related Persons Name: CHARLOTTE LEE Insurance Providers Guarantor name: CATARINO JESUS Health Plan Information #: 2 Payer: PRIME Member Number: [id number] Policy Number: NA Group Number: NA Health Plan Information #: 1 Payer: MEDICARE PART B OUTPT Member Number: [id number] Policy Number: NA Group Number: NA
--- OUTSIDE RECORDS SUMMARY | 2024-06-07 18:15 | XMS_ITS | Continuity of Care Document ---
Author Organization [facility] ion Address [address] [place] [id number]- Care Team Providers Care Electrician Bus Name Role Phone Iglesia TRENT, Asma Primary Care Physician Encounter [facility] Date(s): 04/25/24 - 05/25/[address] [address]- Attending Physician: Desirae Dan Admitting Physician: Desirae Dan Referring Physician: AdmDesirae lea Encounter Type: Triage Allergies, Adverse Reactions, Alerts No Known Allergies [...] - Primary Care Member Role: PCP Address: [facility] [address] Telecom: Care Team Related Persons Name: CHARLOTTE LEE Insurance Providers Guarantor name: CATARINO LEE Health Plan Information #: 1 Payer: MEDICARE PART B OUTPT Member Number: NA Policy Number: NA Group Number: NA Health Plan Information #: 2 Payer: PRIME Member Number: NA Policy Number: NA Group Number: NA
== END 2024-06-01 12:02 | disposition home or self-care (01) ==
PROVIDERS: PCP Internal Medicine; Visit Provider Surgery
DX: C18.9 Malignant neoplasm of colon, unspecified (principal)
CPT/HCPCS: 99024

== ENCOUNTER → 2024-06-01 11:36 | Outpatient (BNVA) | payer MEDICARE, OTHER, SELFPAY | PROVIDERS: PCP Internal Medicine; Visit Provider Surgery | DX: C18.9 Malignant neoplasm of colon, unspecified (principal) | CPT/HCPCS: 99212 ==

== ENCOUNTER 2024-06-01 19:38 | Inpatient (IN) | payer MEDICARE, OTHER, SELFPAY ==
--- NOTE | ~2024-06-01 | XR_ITS ---
EXAMINATION: XR CHEST CLINICAL INFORMATION: dyspnea COMPARISON: October 25, 2023. TECHNIQUE: Frontal view of the chest was obtained. FINDINGS: The cardiomediastinal silhouette is stable. There is no focal lung consolidation or pleural effusions. The bony structures and the soft tissues are unremarkable. XR/XR chest 1V IMPRESSION: No acute cardiopulmonary process. Electronically signed by: Grady Murphy MD 06/02/2024 03:11 AM [facility]
--- NOTE | ~2024-06-01 | US_ITS ---
EXAMINATION: US TRIPLEX LOWER EXTREMITY, BILATERAL CLINICAL INFORMATION: Bilateral lower extremity edema COMPARISON: None available. TECHNIQUE: Color-flow triplex imaging with spectral analysis and compression Doppler were performed on the bilateral lower extremities. FINDINGS: Respiratory variation, normal compression and augmented flow are noted throughout the bilateral lower extremities. The visualized common femoral vein, superficial femoral vein, profunda femoral vein, popliteal vein and midcalf peroneal and posterior tibial venous segments show no evidence of deep venous thrombosis bilaterally. There is no Gutierrez's cyst. US/US venous duplex LE BI IMPRESSION: No evidence of deep venous thrombosis involving the bilateral lower extremities. Electronically signed by: Kera Spence MD 06/01/2024 10:53 PM EST
--- NOTE | 2024-06-01 20:01 | ED_ITS ---
HPI - General Adult General Chief complaint: Extremity Problem Stated complaint: Edema on both leg referred for possible clot Time Seen by Provider: 06/02/24 00:02 Source: patient and family (Daughter, Garima and Brenda) Mode of arrival: ambulatory Limitations: no limitations History of Present Illness ED Provider: Dr. Dion Escalante HPI narrative: 83-year-old male with a PMH significant for persistent AFib on Xarelto, Crohn's disease with colon resection complicated by multiple bowel obstruction, vitamin B12 deficiency, Alzheimer's dementia, and bipolar disorder status post elective resection at ileocecal anastomosis site and lysis of adhesions on 04/17/2024. With pathology report revealing moderate differentiated adenocarcinoma who presents emergency department for evaluation of bilateral lower extremity edema times 3-4 days left greater than right with increased redness and warmth of the left lower extremity x1 day. According to his daughter, the patient was complaining of pain in the left lower extremity and noted that the patient had redness from his foot to just below his knee. The patient denied fever or chills. States that he has been feeling short of breath over the last 3-4 days. He denied nausea, vomiting, diarrhea weakness. He was not had any change in his urinary frequency and he denied dysuria. He states that he has been moving his bowels but he describes the bowel movements as ?small pellets?. The patient's daughter, Garima, can be reached at Related Data Home Medications ?Medication ?Instructions ?Recorded ?Confirmed mecobalamin (vitamin B12) 1,000 1,000 mcg PO DAILY 12/28/23 05/23/24 mcg lozenges [id number]-lje-ulqpm 120 mcg-lutein 1 tab PO DAILY 12/28/23 05/23/24 150 mcg-herb 50 mg chewable tablet (Alive Men's 50 Plus Multivitamin) ubidecarenone-omega 3-vit E 25 1 cap PO DAILY 12/28/23 05/23/24 mg-150 (90-60) mg-200 unit capsule (Co H-63-Gdiqriw E-Fish Oil) quetiapine 25 mg tablet 25 mg PO BEDTIME 03/28/24 05/23/24 rivaroxaban 15 mg tablet (Xarelto) 15 mg PO DAILY@1700 03/28/24 05/23/24 Previous Rx's ?Medication ?Instructions ?Recorded metoprolol succinate 50 mg 50 mg PO DAILY #90 tabs 09/01/23 tablet,extended release 24 hr oxycodone-acetaminophen 5 mg-325 1 tab PO Q4-6H PRN pain #20 tabs 05/20/24 mg tablet (Percocet) Allergies Allergy/AdvReac Type Severity Reaction Status Date / Time No Known Allergies Allergy Verified 06/01/24 20:08 Review of Systems 2 Review of Systems: Yes all other systems are reviewed and are negative [facility] Past Medical History [facility] Narrative: Social history: He lives at home with his family. He was here with his and daughter. 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 Fatigue Cognitive disorder Alzheimer's dementia Anemia Persistent atrial fibrillation B12 deficiency Scoliosis Crohn disease Bipolar 1 disorder Surgical History History of partial colectomy Hx of colonoscopy Family History Family History Father Heart problem Other Alzheimer's dementia Social History Social History Household Members: Family Household Members Other:: detention housing Housing: Apartment Are you a primary point of care specialist to a significant other at home: No Do you presently have visiting nurse or other home services: No Alcohol intake: current Alcohol intake frequency: does not drink Patient Tobacco Use Status: Never used Tobacco e-Cigarette/Vaping Use: Never Used Advance Directives: Yes Advance Directives on File: Yes Advance Directives Date on File: 03/19/24 Do you have a plan to hurt others: No Plan service: No Current occupational status: retired Cognitive needs: No Hearing needs: No Vision needs: Yes Physical Exam ED Vital Signs: Vital Signs - 24 hr 06/01/24 20:08 06/01/24 23:30 Temperature 98.9 F 97.7 F Pulse Rate 90 75 Respiratory Rate 18 16 Blood Pressure 103/45 L 133/66 Pulse Oximetry 100 100 Oxygen Delivery Method Room Air Room Air BMI result Body Mass Index 21.2 Vital signs were normal Exam: General: Awake, alert in no distress Head: Normocephalic, atraumatic EENT: PERRL, Lids normal, sclera normal, conjunctiva normal, nose normal , ears normal, throat without erythema or exudates Neck: Supple, no adenopathy Lung: breath sounds symmetric, no wheezing, rales or rhonchi Chest: symmetric movement, nontender Heart: regular rate and rhythm, normal S1, S2 no murmurs or rubs Abdomen: soft, nondistended, normoactive bowel sounds, no tenderness, no erythema over the surgical sites Back: no vertebral tenderness, no CVAT Extremities: Trace to 1+ pitting edema to both lower extremities left lower extremity is more swollen than the right. Patient has erythema which is warm to the touch of the left lower extremity from the foot extending to just below the knee Neuro: Awake, alert, oriented, normal speech, cranial nerves intact, moves all extremities symmetrically Psych: Pleasant, cooperative Course Course Course Narrative: This is an RME done by YON Garcia: Additional HPI, ROS, PE not included below will be deferred to primary provider. 83-year-old male past medical history significant for arthritis, depression, colon cancer status post ileocolonic resection on 05/20/2024, bipolar, B12 deficiency, atrial fibrillation on anticoagulation, cognitive disorder presenting with bilateral lower extremity swelling, concerned for DVT. he reports that he had to stop his blood thinners for surgery and he is concerned that he may have developed a blood clot. He was advised to come in by Dr. Saavedra Medical Decision Making Medical Decision Making MDM Narrative: 83-year-old male with a PMH significant for persistent AFib on Xarelto, Crohn's disease with colon resection complicated by multiple bowel obstruction, vitamin B12 deficiency, Alzheimer's dementia, and bipolar disorder status post elective resection at ileocecal anastomosis site and lysis of adhesions on 04/17/2024,with pathology report revealing moderate differentiated adenocarcinoma who presents emergency department for evaluation of bilateral lower extremity edema times 3-4 days left greater than right with increased redness and warmth of the left lower extremity x1 day. Patient had no fever, chills or weakness. He was feeling short of breath. Vital signs were normal. Physical examination did reveal trace to 1+ pitting edema to both lower extremities with the left lower extremity being larger than the right. Patient also had erythema which was warm to the touch of the left lower extremity extending from the foot to just below the knee. Differential diagnosis: ?Includes but is not limited to left lower extremity cellulitis, bilateral DVT, MRSA infection, electrolyte abnormalities, anemia Course: 01:39 My interpretation patient's laboratory evaluation is as follows: Normocytic anemia with an H&H of 10 and 30.6 compared to 11.3 and 33 point on 05/19/2024. WBC was normal at 5000 with a normal differential. BUN is elevated at 21 with a normal creatinine of 0.76 with a GFR of 63.9. BNP was elevated 117. LFTs were normal. Duplex ultrasound of lower extremities were negative for DVT Patient has a left lower extremity cellulitis possibly due to his peripheral edema. I did order lactic acid and blood cultures on the patient. Patient does have a history of MRSA therefore he was treated with vancomycin 1500 mg and Zosyn 4.5 g IV. I did discuss the patient's presentation over tiger text with the covering hospitalist, Dr. Patel and the patient will be admitted for further treatment Admission/Observation Consideration of admission/observation: Escalation of care including admission/observation considered (Yes) Consult Healthcare Provider Management of the patient was discussed with: Hospitalist Lab Data [facility] Lab Attestation statement: I reviewed the patient's lab results. 06/01/24 20:19 06/01/24 20:19 Labs: Lab Results 06/01/24 Range/Units 20:19 WBC 5.0 (4.8-10.8) X10*3/uL RBC 3.10 L (4.60-5.80) X10*6/uL Hgb 10.0 L (14.0-18.0) g/dl Hct 30.6 L (42.0-52.0) % MCV 98.7 H (80.0-98.0) fL MCH 32.3 (27.0-33.0) pg MCHC 32.7 (31.0-36.0) g/dl RDW 14.6 (11.0-16.0) % Plt Count 306 D (160-400) X10*3/uL MPV 9.5 (9.4-12.4) fL Immature Gran % (Auto) 1.2 H (0.0-0.4) % Neut % (Auto) 67.6 (45-73) % Lymph % (Auto) 12.0 L (20-40) % [place] % (Auto) 16.8 H (2-11) % Eos % (Auto) 1.8 (0-4) % Baso % (Auto) 0.6 (0-2) % Lymph # (Auto) 0.6 L (1.2-4.9) X10*3/uL [place] # (Auto) 0.8 (0.1-1.2) X10*3/uL Eos # (Auto) 0.1 (0.0-0.4) X10*3/uL Baso # (Auto) 0.0 (0.0-0.2) X10*3/uL Abs Immat Gran (auto) 0.06 H (0.00-0.03) X10*3/uL Absolute Neuts (auto) 3.4 (2.0-8.3) x10*3/uL Absolute Nucleated RBC 0.000 (0.0-0.012) X10*3/uL Nucleated RBC % (auto) 0.0 (0.0-0.2) /100WBC PT 15.6 H (10.9-12.4) SEC INR 1.3 H (0.9-1.1) Sodium 142 (135-145) mmol/L Potassium 4.0 (3.3-5.1) mmol/L Chloride 107 (96-108) mmol/L Carbon Dioxide 26 (22-29) mmol/L Anion Gap 13 (12-20) BUN 21 H (9-16) mg/dL Creatinine 0.76 (0.5-1.4) mg/dL Estim Creat Clear Calc 63.9 Estimated GFR > 60 Random Glucose 107 (60-115) mg/dL Calcium 8.9 (8.4-10.2) mg/dL Magnesium 1.8 (1.6-2.6) mg/dL Total Bilirubin 0.5 (0.0-1.0) mg/dL AST 24 (5-37) U/L ALT 25 (0-40) U/L Alkaline Phosphatase 49 (39-117) U/L B-Natriuretic Peptide 117 H (<100) pg/mL Total Protein 5.8 L (6.5-8.0) g/dL Albumin 3.3 L (3.5-5.0) g/dL Radiology Impression Discussion of test interpretation with radiology: I have reviewed the radiologist's reading. Radiologist Impression: US venous duplex LE BI IMPRESSION: No evidence of deep venous thrombosis involving the bilateral lower extremities. Electronically signed by: Kera Spence MD 06/01/2024 10:53 PM [facility] Dictated By: Giana Spence Independent Historian Clinical information obtained from an independent historian. History obtained from or confirmed by: Spouse and Other (Daughter) External Record Review External record reviewed: Inpatient record and Office record Chronic Conditions Patient?s care impacted by: Other (Dementia, Crohn's disease) Critical Care Time Critical Care Time Critical Care Time: Yes Total Critical Care Time: 35 Attestation: Critical Care: The patient was critically ill with a high probability of imminent or life threatening deterioration. I spent greater than 30 minutes of discontinuous time evaluating the patient,delivering critical care at the bedside, discussing and evaluating pertinent data with consultants. Critical care time does not include time spent performing separately billable procedures or teaching. Total time spent performing critical care was 35 minutes. Discharge Plan Discharge Patient Disposition: Admitted As Inpatient Prescriptions: No Action metoprolol succinate 50 mg tablet extended release 24 hr 50 mg PO DAILY Qty: 90 3RF Xarelto 15 mg tablet 15 mg PO DAILY@1700 Rx Instructions: must administer with evening meal quetiapine 25 mg tablet 25 mg PO BEDTIME oxycodone-acetaminophen [Percocet] 5-325 mg tablet 1 tab PO Q4-6H PRN (Reason: pain) Qty: 20 0RF Rx Instructions: Partial Fill upon patient request. mecobalamin (vitamin B12) 1,000 mcg lozenge 1,000 mcg PO DAILY Rx Instructions: allow to dissolve in mouth OR may chew lightly before swallowing Alive Men's 50 Plus Multivit 120 mcg-150 mcg -50 mg tablet,chewable 1 tab PO DAILY Co K-48-Qxcogyz E-Fish Oil 25-150-200 mg-mg-unit capsule 1 cap PO DAILY Print Language: Citizen Of [place]
[2024-06-01 20:08] VITALS: BP 103/45; PULSE 90; RESP 18; TEMP 37.2; O2SAT 100; BMI 21.2
--- NOTE | 2024-06-01 20:19 | MHC.EDTECH ---
Patient brought into triage area,labs drawn and sent to lab
[2024-06-01 20:25] LABS: MANUAL DIFF FLAG NO
[2024-06-01 20:31] LABS: INTERNATIONAL NORM RATIO 1.3 (0.9-1.1); Prothrombin Time 15.6 SEC (10.9-12.4)
[2024-06-01 20:39] LABS: Basophils Percent Auto 0.6 % (0-2); Eosinophils Absolute Auto 0.1 X10*3/uL (0.0-0.4); Eosinophils Percent Auto 1.8 % (0-4); Hematocrit 30.6 % (42.0-52.0); Imm Gran Abs Auto 0.06 X10*3/uL (0.00-0.03); Imm Gran Pct Auto 1.2 % (0.0-0.4); Lymphocytes Absolute Auto 0.6 X10*3/uL (1.2-4.9); Mean Corpuscular HGB Conc 32.7 g/dl (31.0-36.0); Mean Corpuscular Hemoglobin 32.3 pg (27.0-33.0); Mean Corpuscular Volume 98.7 fL (80.0-98.0); Mean Platelet Volume 9.5 fL (9.4-12.4); Monocytes Absolute Auto 0.8 X10*3/uL (0.1-1.2); Monocytes Percent Auto 16.8 % (2-11); Neutrophils Absolute Auto 3.4 x10*3/uL (2.0-8.3); Neutrophils Percent Auto 67.6 % (45-73); Platelet Count 306 X10*3/uL (160-400); Red Cell Distribution Width 14.6 % (11.0-16.0)
[2024-06-01 20:47] LABS: Alanine Aminotransferase 25 U/L (0-40); Albumin Level 3.3 g/dL (3.5-5.0); Alkaline Phosphatase 49 U/L (39-117); Anion Gap 13 (12-20); Aspartate Amino Transferase 24 U/L (5-37); Bilirubin Total 0.5 mg/dL (0.0-1.0); Blood Urea Nitrogen 21 mg/dL (9-16); Calcium 8.9 mg/dL (8.4-10.2); Carbon Dioxide 26 mmol/L (22-29); Chloride 107 mmol/L (96-108); Creatinine Clr Calc Pharmacy 63.9; Estimated Glomerular Filt Rate > 60; Glucose Random 107 mg/dL (60-115); Magnesium 1.8 mg/dL (1.6-2.6); Sodium 142 mmol/L (135-145); Total Protein 5.8 g/dL (6.5-8.0)
[2024-06-01 21:58] LABS: B Type Natriuretic Peptide 117 pg/mL (<100)
[2024-06-01 23:30] VITALS: BP 133/66; PULSE 75; RESP 16; TEMP 36.5; O2SAT 100
[2024-06-02] VITALS (7 sets, daily range): BP systolic 113–129; BP diastolic 48–58; PULSE 69–87; RESP 15–20; TEMP 36.4–36.9; O2SAT 97–100
--- NOTE | 2024-06-02 01:44 | ECG_ITS ---
Test Reason : CHEST PAIN Blood Pressure : / mmHG Vent. Rate : 063 BPM Atrial Rate : 000 BPM P-R Int : 000 ms QRS Dur : 090 ms QT Int : 444 ms P-R-T Axes : 000 108 070 degrees QTc Int : 454 ms Atrial fibrillation Possible Right ventricular hypertrophy Abnormal ECG When compared with ECG of 25-OCT-2023 03:24, No significant change was found Referred By: Dion Escalante Electronically Signed By:Luciano Gonzalez
[2024-06-02] MEDS: Piperacillin Sodium/Tazobactam 4.5 GM in 0.9 % Sodium Chloride 100 ML IV (02:01)
[2024-06-02 02:05] LABS: Lactic Acid 1.4 mmol/L (0.5-2.0)
[2024-06-02 02:11] LABS: Appearance Urine Clear; Color Urine Yellow; Glucose Urine UA Negative (Negative); Leukocyte Esterase Urine Negative (Negative); Nitrite Urine Negative (Negative); PH 6.5 (5.0-9.0); Urine Blood Negative (Negative); Urine Ketones Negative (Negative); Urine Protein Negative (Neg-Trace)
[2024-06-02] MEDS: vancomycin HCL 1,500 MG in 0.9 % Sodium Chloride 500 ML 333.33 MG IV (02:36)
--- NOTE | 2024-06-02 02:39 | P.HPHOSP_ITS ---
History of Present Illness Date of Service: 06/02/24 Attending physician on admission: Hua Patel Chief Complaint: BLE swelling, LLE redness Patient is an 83-year-old male with a past medical history significant for persistent AFib on Xarelto, Crohn's disease with colon resection complicated by multiple bowel obstruction, vitamin B12 deficiency, Alzheimer's dementia, bipolar disorder, recently s/p elective resection at ileocecal anastomosis site and lysis of adhesions on 04/17/2024 with pathology report revealing moderate differentiated adenocarcinoma who presented emergency department for evaluation of bilateral lower extremity edema times 3-4 days left greater than right with increased redness and warmth of the left lower extremity 10 hours. He denies any hx of CHF or cellulitis. He also reports dyspnea on exertion since his last hospital stay for the above elective surgery, no post-op complications and discharged 05/21/24. He has a chronic productive cough but does not bring up sputum. No fever, chills, nausea, or vomiting. Review of Systems 2 Constitutional: Constitutional: Denies chills, Denies fatigue, Denies fever(s) and Denies headache(s) Eyes: Eyes: Denies change in vision ENT: Denies headache(s), Denies nasal congestion, Denies nasal discharge and Denies sore throat Cardiovascular: Cardiovascular: Denies chest pain, Denies rapid heart rate, Denies lightheadedness and Reports dyspnea on exertion Respiratory: Respiratory: Reports cough (chronic), Reports dyspnea on exertion and Denies wheezing Gastrointestinal: Gastrointestinal: Reports constipation, Denies diarrhea, Denies nausea and Denies vomiting Genitourinary: Genitourinary: Denies dysuria Musculoskeletal: Musculoskeletal: Reports as per HPI and Denies myalgias Integumentary/Breasts: Skin/Breast: Reports rash (LLE) Neurologic: Denies headache(s) and Reports memory loss (pt with Alzheimer's) Psychiatric: Psychiatric: Reports memory loss (pt with Alzheimer's) Endocrine: Endocrine: Denies fatigue Hematologic/Lymphatic: Hematologic/Lymphatic: Denies easy bleeding Allergic/Immunologic: Allergic/Immunologic: Denies wheezing [facility] Medical History Colon cancer Hx MRSA infection Environmental exposure Arthritis Depression 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 Fatigue Cognitive disorder Alzheimer's dementia Anemia Persistent atrial fibrillation B12 deficiency Scoliosis Crohn disease Bipolar 1 disorder Functional capacity: independent ambulation Family History Father Heart problem Other Alzheimer's dementia Surgical History History of partial colectomy Hx of colonoscopy Social History Household Members: Family Household Members Other:: halfway housing Housing: Apartment Are you a primary transitional care manager to a significant other at home: No Do you presently have visiting nurse or other home services: No Alcohol intake: current Alcohol intake frequency: does not drink Patient Tobacco Use Status: Never used Tobacco Smoked in Last 30 Days: No e-Cigarette/Vaping Use: Never Used Use of substances other than those prescribed or required for medical reasons: No Advance Directives: Yes Advance Directives on File: Yes Advance Directives Date on File: 03/19/24 Do you have a plan to hurt others: No Plan service: No Current occupational status: retired Cognitive needs: No Hearing needs: No Vision needs: Yes Narrative: no smoking, etoh or drug use. Meds Allergies Allergy/AdvReac Type Severity Reaction Status Date / Time No Known Allergies Allergy Verified 06/01/24 20:08 Active Medications: Current Medications Vancomycin HCl 1,500 mg/ (Sodium Chloride) 500 mls @ 333.333 mls/hr IV ONCE ONE Stop: 06/02/24 03:11 Last Admin: 06/02/24 02:36 Dose: 333.33 mls/hr Pharmacy Consult (Consult Rx Vancomycin Dosing) 1 each MISCELLANE DAILY PRN PRN Reason: Consult order Home Medications ?Medication ?Instructions ?Recorded ?Confirmed ?Last Taken ?Type mecobalamin (vitamin B12) 1,000 1,000 mcg PO DAILY 12/28/23 05/23/24 03/27/24 07:00 History mcg lozenges fchnaehz-ouf-fobrv 120 mcg-lutein 1 tab PO DAILY 12/28/23 05/23/24 03/27/24 07:00 History 150 mcg-herb 50 mg chewable tablet (Alive Men's 50 Plus Multivitamin) ubidecarenone-omega 3-vit E 25 1 cap PO DAILY 12/28/23 05/23/24 03/27/24 07:00 History mg-150 (90-60) mg-200 unit capsule (Co N-05-Eicwykl E-Fish Oil) quetiapine 25 mg tablet 25 mg PO BEDTIME 03/28/24 05/23/24 03/26/24 History rivaroxaban 15 mg tablet (Xarelto) 15 mg PO DAILY@1700 03/28/24 05/23/24 05/15/24 History Physical Exam 2 Vital Signs and Narrative: Vital Signs: Last Vital Signs Temp 97.7 F 06/01/24 23:30 Pulse 75 06/01/24 23:30 Resp 16 06/01/24 23:30 BP 133/66 06/01/24 23:30 Pulse Ox 100 06/01/24 23:30 O2 Del Method Room Air 06/01/24 23:30 BMI result Body Mass Index 21.2 General: AOx3, no acute distress Resp: crackles bilateral lung bases R more prominent than left. no wheezing CVS: irregularly irregular, normal rate GI: +BS, NT, no distention Skin: Warm, dry. warmth and erythema LLE Neuro: Cranial nerves II-XII grossly intact bilaterally. Motor grossly intact bilaterally Extremities: 2+ pitting edema Psych: Appropriate affect Results Labs 06/01/24 20:19 06/01/24 20:19 Labs: Laboratory Results - last 24 hr 06/01/24 06/02/24 06/02/24 20:19 01:38 02:04 MCV 98.7 H MCH 32.3 MCHC 32.7 RDW 14.6 Plt Count 306 D MPV 9.5 Immature Gran % (Auto) 1.2 H Neut % (Auto) 67.6 Lymph % (Auto) 12.0 L Iron % (Auto) 16.8 H Eos % (Auto) 1.8 Baso % (Auto) 0.6 Lymph # (Auto) 0.6 L Iron # (Auto) 0.8 Eos # (Auto) 0.1 Baso # (Auto) 0.0 Abs Immat Gran (auto) 0.06 H Absolute Neuts (auto) 3.4 Absolute Nucleated RBC 0.000 Nucleated RBC % (auto) 0.0 PT 15.6 H INR 1.3 H Anion Gap 13 Estim Creat Clear Calc 63.9 Estimated GFR > 60 Random Glucose 107 Lactic Acid 1.4 Calcium 8.9 Magnesium 1.8 Total Bilirubin 0.5 AST 24 ALT 25 Alkaline Phosphatase 49 B-Natriuretic Peptide 117 H Total Protein 5.8 L Albumin 3.3 L Urine Color Yellow Urine Appearance Clear Urine pH 6.5 Ur Specific [place] 1.010 Urine Protein Negative Urine Glucose (UA) Negative Urine Ketones Negative Urine Blood Negative Urine Nitrite Negative Ur Leukocyte Esterase Negative Imaging Radiologist's Impressions: Impressions Venous Duplex 06/01/24 20:40 IMPRESSION: No evidence of deep venous thrombosis involving the bilateral lower extremities. Electronically signed by: Kera Spence MD 06/01/2024 10:53 PM [facility] Assessment and Plan (1) Acute congestive heart failure: Status: Acute (2) Cellulitis: Status: Acute (3) Dyspnea on exertion: Status: Acute Plan Patient is an 83-year-old male with a past medical history significant for persistent AFib on Xarelto, Crohn's disease with colon resection complicated by multiple bowel obstruction, vitamin B12 deficiency, Alzheimer's dementia, bipolar disorder, recently s/p elective resection at ileocecal anastomosis site and lysis of adhesions on 04/17/2024 with pathology report revealing moderate differentiated adenocarcinoma who presented emergency department for evaluation of bilateral lower extremity edema times 3-4 days left greater than right with increased redness and warmth of the left lower extremity 10 hours. 2+ pitting edema on exam and crackles in lungs with LYNNE. erythema LLE cellulitis vs venous stasis. acute CHF exacerbation/LYNNE - BNP mildly elevated at 117 and 2+ pitting edema on exam - echo from 06/2023 with EF 50-55%, diastolic function could not be determined, repeat echo - reviewed recent office notes in chart, pt has gained 10 lbs in the past month - CXR negative - mild drop in hemoglobin 10.0 from 11.3 on 05/19 - lasix 20mg IV now - monitor CBC and BMP cellulitis vs venous stasis - no leukocytosis or fever, vitals normal, lactic acid normal, blood cultures x2 pending, no sepsis - US to r/o DVT negative - MRSA nasal swab - started on vanco and zosyn in ED, will switch to cefazolin if MRSA nasal swab negative - monitor CBC and BMP persistent a fib - rate controlled, EKG with a fib - continue xarelto and metoprolol Crohn's disease/B12 deficiency - continue B12 Alzheimer's/bipolar - continue quetiapine full code VTE prophy:xarelto Pt with acute CHF exacerbation with cellulitis vs venous stasis, requiring admission for IV diuresis, monitoring and antibiotics for at least 2 midnights stay. Quality Stroke Does the patient have a stroke diagnosis?: No VTE Prior VTE?: No VTE Risk Level:: Medical - moderate - high VTE Device Contraindication: Treatment Not Tolerated VTE Drug Contraindication: N/A - Med Ordered
[2024-06-02] MEDS: Furosemide 20 MG/2 ML VIAL IVPUSH (04:07)
--- NOTE | 2024-06-02 06:41 | PC.NURSE ---
pt using urinal frequently at bedside however continues to urinate on self, [place] cath placed on pt instead. pt Had BM on bed chi. denies any current complaints or distress. plan of care ongoing
--- NOTE | 2024-06-02 07:00 | CA_ITS ---
Transthoracic Echocardiogram Patient (Last, First, Middle): Asael Vargas F Gender: Male Date of : 1940 Age: 83 Procedure Date: 06/02/2024 Procedure Type: Transthoracic Echocardiogram Location: ER Height: 170.18 cm Weight: 61.24 kg BSA: 1.71 m2 Heart Rate: 75 bpm BP: 105 / 41 mmHg Pmo Analyst: SB Referring MD: Elena Armstrong PA-C Symptoms: pitting edema, evaluate CHF Study Quality: Adequate ECG Rhythm: Atrial Fibrillation Conclusions: - Normal left ventricular cavity size. There is normal left ventricular wall thickness. The left ventricular systolic function is low normal. The visually estimated ejection fraction is between 50-55%. - The inferoseptal wall and apical septum segment are dyskinetic. - Normal right ventricular cavity size and systolic function. Findings Left Ventricle Normal left ventricular cavity size. There is normal left ventricular wall thickness. The left ventricular systolic function is low normal. The visually estimated ejection fraction is between 50-55%. There is evidence of regional wall motion abnormalities. Diastolic function is indeterminate on the basis of available data. Wall Motion Rest Echo Findings The inferoseptal wall and apical septum segment are dyskinetic. Right Ventricle Normal right ventricular cavity size and systolic function. Atria The left atrium is likely dilated. Aortic Valve The aortic valve was not well visualized. There is no aortic valve stenosis. There is no aortic valve regurgitation. Mitral Valve The mitral valve appears normal. There is trace mitral valve regurgitation. There is no mitral valve stenosis. Pulmonic Valve The pulmonic valve is normal. There is no pulmonic valve regurgitation. Tricuspid Valve Normal right atrial pressure. There is no evidence of pulmonary hypertension. Great Vessels All visible segments of the aorta are normal in size. The visualized portions of the pulmonary artery and branches are normal. Venous The inferior vena cava is normal in size and collapses greater than 50% with inspiration. Pericardium/Pleural There is no evidence of pericardial effusion. Prior Study Comparison Changes noted compared to prior study dated: 06/30/2023. Septal dyskinesis etiology unclear. Measurements 2D Linear Measurements IVSd: 0.99 0.6-0.9/0.6-1.0 cm LVIDd: 4.48 3.9-5.3/4.2-5.9 cm LVIDd Index: 2.62 2.4-3.2/2.2-3.1 cm/m2 LVIDs: 3.23 2.0-3.6 cm LVPWd: 0.98 0.7-1.1 cm LA Diam: 3.90 2.7-3.8/3.0-4.0 cm LAIDs Index: 2.28 1.5-2.3 cm/m2 LV Mass: 185.69 67-162/88-224 g LV Mass Index: 108.59 43-95/49-115 g/m2 LVOT Diam: 2.30 3.0+(-)1.3 cm 2D Systolic Function EF 4C: 53.00 >55% Mitral Valve MV Pk E: 0.83 E'Medial: 9.21 E/E' Med: 9.00 Aortic Valve AoV Pk Charan: 0.92 AoV Pk Grad: 3.00 TESSY: 3.06 LVOT LVOT Pk Charan: 0.68 LVOT Mn Charan: 0.52 LVOT VTI: 0.12 LVOT Pk Grad: 2.00 LVOT Mn Grad: 1.00 LVOT Diam: 2.30 LVOT Area: 4.15 Diastolic Function MV Pk E: 0.83 E'Medial: 9.21 E/E' Med: 9.00 Right Ventricle TAPSE (mm): 12.20 TVS' Charan: 6.96 Tricuspid Valve TR Pk Charan: 2.22 TR Pk Grad: 20.00 RA Press: 8.00 RVSP: 28.00 Great Vessels Aorta Sinus of Valsalva: 3.10 2.0-3.5 cm Ao Asc: 2.90 2.1-3.4 cm Pulmonary Valve PV Pk Charan: 0.79 Peak PV Grad: 2.00 Updated in Other Vendor System with Status of Final Luciano Gonzalez MD electronically signed on 06/03/2024 8:14:46 PM with status of Final
--- NOTE | 2024-06-02 07:30 | P.EN_ITS ---
Event Note Date of Service: 06/02/24 Event Note: Admitted this morning. Pt seen and examined, lab meds reviewed. 83-year-old male with persistent AFib (on Xarelto), Crohn's disease (post-colon resection), history of bowel obstructions, B12 deficiency, Alzheimer's dementia, and bipolar disorder, recently s/p elective ileocecal anastomosis resection (04/17/2024, pathology: moderately differentiated adenocarcinoma), presenting with 3?4 days of bilateral lower extremity edema (L > R), redness, and warmth in the LLE for 10 hours. Exam notable for 2+ pitting edema, LLE erythema, and crackles with LYNNE. Acute CHF Exacerbation/LYNNE: * BNP mildly elevated (117); 2+ pitting edema on exam. * 06/2023 echo: EF 50?55%, diastolic function undetermined; repeat echo ordered. * Noted 10 lb weight gain in the past month. * CXR: negative. * Treatment: Lasix 20 mg IV, monitor CBC/BMP. Cellulitis vs. Venous Stasis: * LLE erythema; no leukocytosis, fever, or sepsis (normal vitals, lactate). looks better this morning * Blood cultures x2 pending, MRSA nasal swab negative * DVT r/o: US negative. * ED antibiotics: Vancomycin + Zosyn; Add Doxycyline * * P * Monitoring: CBC/BMP. Persistent Atrial Fibrillation: * Rate controlled; EKG: AFib. * Continue Xarelto, metoprolol. Crohn's Disease/B12 Deficiency: * Continue B12 supplementation. Acute on chronic anemia * Hemoglobin drop (10.0 from 11.3 on 05/19). * monitor Alzheimer's Dementia/Bipolar Disorder: * Continue quetiapine. Additional Notes: * Full code. * VTE prophylaxis: Xarelto. * need for inpatient: IV diuresis, monitoring, and antibiotics Med rec pending Plan discussed with daughter and patient Time Spent With Patient Time: Total time managing care of this patient today ____ minutes.
--- NOTE | 2024-06-02 07:30 | PM.EVENT ---
Event Note Date of Service: 06/02/24 Event Note: Admitted this morning. Pt seen and examined, lab meds reviewed. 83-year-old male with persistent AFib (on Xarelto), Crohn's disease (post-colon resection), history of bowel obstructions, B12 deficiency, Alzheimer's dementia, and bipolar disorder, recently s/p elective ileocecal anastomosis resection (04/17/2024, pathology: moderately differentiated adenocarcinoma), presenting with 3?4 days of bilateral lower extremity edema (L > R), redness, and warmth in the LLE for 10 hours. Exam notable for 2+ pitting edema, LLE erythema, and crackles with LYNNE. Acute CHF Exacerbation/LYNNE: BNP mildly elevated (117); 2+ pitting edema on exam. 06/2023 echo: EF 50?55%, diastolic function undetermined; repeat echo ordered. Noted 10 lb weight gain in the past month. CXR: negative. Treatment: Lasix 20 mg IV, monitor CBC/BMP. Cellulitis vs. Venous Stasis: LLE erythema; no leukocytosis, fever, or sepsis (normal vitals, lactate). looks better this morning Blood cultures x2 pending, MRSA nasal swab negative DVT r/o: US negative. ED antibiotics: Vancomycin + Zosyn; Add Doxycyline P Monitoring: CBC/BMP. Persistent Atrial Fibrillation: Rate controlled; EKG: AFib. Continue Xarelto, metoprolol. Crohn's Disease/B12 Deficiency: Continue B12 supplementation. Acute on chronic anemia Hemoglobin drop (10.0 from 11.3 on 05/19). monitor Alzheimer's Dementia/Bipolar Disorder: Continue quetiapine. Additional Notes: Full code. VTE prophylaxis: Xarelto. need for inpatient: IV diuresis, monitoring, and antibiotics Med rec pending Plan discussed with daughter and patient Time Spent With Patient Time: Total time managing care of this patient today ____ minutes.
--- NOTE | 2024-06-02 09:42 | PHA.MEDREC ---
Pharmacy Consult ? Medication Reconciliation Pharmacy has completed the medication reconciliation. Spoke to daughter Eryn at bedtime to confirm medication list. Patient no longer takes percocet nor prednisone. Last dose of medications was yesterday 06/01/24.
[2024-06-02] MEDS: Cyanocobalamin (Vitamin B-12) 1,000 MCG TABLET 1000 MCG PO (10:45)
[2024-06-02] MEDS: Metoprolol Succinate ER 50 MG TAB.ER.24H PO (10:45)
[2024-06-02] MEDS: Doxycycline Hyclate 100 MG in 0.9 % Sodium Chloride 250 ML 166.67 MG IV ×2 (10:47→20:44)
[2024-06-02 10:48] LABS: MRSA Nasal PCR NEGATIVE (Negative); SA Nasal PCR NEGATIVE (Negative)
--- NOTE | 2024-06-02 14:02 | MHC.CM.PN ---
IMM 06/02/24, Pt lives with his at [facility]. He has current VNA services from [facility]. PCP confirmed: Rachel Parekh, HCP is on file and confirmed, his Brenda and dtr Eryn (Brenda has asked that questions be directed to Eryn). DCP: home with services, CM to follow for DC plan.
[2024-06-02] MEDS: Rivaroxaban 15 MG TABLET PO (17:58)
[2024-06-02] MEDS: Docusate Sodium 100 MG CAPSULE PO (20:42)
[2024-06-02] MEDS: QUEtiapine Fumarate 25 MG TABLET PO (20:42)
[2024-06-03 03:18] VITALS: BP 123/58; PULSE 82; RESP 20; TEMP 36.7; O2SAT 97
[2024-06-03 07:05] LABS: MANUAL DIFF FLAG NO
[2024-06-03 07:17] LABS: Basophils Percent Auto 0.7 % (0-2); Eosinophils Absolute Auto 0.1 X10*3/uL (0.0-0.4); Eosinophils Percent Auto 3.2 % (0-4); Hematocrit 31.5 % (42.0-52.0); Hemoglobin 10.3 g/dl (14.0-18.0); Imm Gran Abs Auto 0.04 X10*3/uL (0.00-0.03); Imm Gran Pct Auto 0.9 % (0.0-0.4); Lymphocytes Absolute Auto 0.7 X10*3/uL (1.2-4.9); Lymphocytes Percent Auto 15.1 % (20-40); Mean Corpuscular HGB Conc 32.7 g/dl (31.0-36.0); Mean Corpuscular Hemoglobin 31.6 pg (27.0-33.0); Mean Corpuscular Volume 96.6 fL (80.0-98.0); Mean Platelet Volume 9.3 fL (9.4-12.4); Monocytes Absolute Auto 0.8 X10*3/uL (0.1-1.2); Monocytes Percent Auto 17.2 % (2-11); Neutrophils Absolute Auto 2.8 x10*3/uL (2.0-8.3); Neutrophils Percent Auto 62.9 % (45-73); Platelet Count 284 X10*3/uL (160-400); Red Blood Count 3.26 X10*6/uL (4.60-5.80); Red Cell Distribution Width 14.5 % (11.0-16.0); White Blood Count 4.4 X10*3/uL (4.8-10.8)
[2024-06-03 07:24] VITALS: BP 134/74; PULSE 77; RESP 20; TEMP 36.8; O2SAT 100
[2024-06-03 07:28] LABS: Anion Gap 10 (12-20); Blood Urea Nitrogen 14 mg/dL (9-16); Carbon Dioxide 26 mmol/L (22-29); Chloride 110 mmol/L (96-108); Creatinine Clr Calc Pharmacy 63.1; Estimated Glomerular Filt Rate > 60; Glucose Random 77 mg/dL (60-115); Potassium 3.9 mmol/L (3.3-5.1); Sodium 142 mmol/L (135-145)
[2024-06-03 07:37] LABS: B Type Natriuretic Peptide 168 pg/mL (<100)
[2024-06-03] MEDS: Cyanocobalamin (Vitamin B-12) 1,000 MCG TABLET 1000 MCG PO (08:50)
[2024-06-03] MEDS: Metoprolol Succinate ER 50 MG TAB.ER.24H PO (08:50)
[2024-06-03] MEDS: Doxycycline Hyclate 100 MG in 0.9 % Sodium Chloride 250 ML 166.67 MG IV (09:34)
[2024-06-03 11:09] VITALS: BP 139/63; PULSE 78; RESP 20; TEMP 36.9; O2SAT 97
--- NOTE | 2024-06-03 13:00 | PM.DS ---
DS: Providers Provider Date of Service: 06/03/24 Date of admission: 06/02/24 03:08 Date of discharge: 06/03/24 Primary care physician: Rachel Parekh MD Consults: 06/03/24 10:12 Consult to Wound Care Routine Reason for consultation: cellulitis to left lower extremity DS: Diagnosis Discharge Diagnosis (1) Acute congestive heart failure: Status: Acute (2) Cellulitis: Status: Acute (3) Dyspnea on exertion: Status: Acute DS: Summary Hospital Course Hospital Course: admission hpi Chief Complaint: BLE swelling, LLE redness Patient is an 83-year-old male with a past medical history significant for persistent AFib on Xarelto, Crohn's disease with colon resection complicated by multiple bowel obstruction, vitamin B12 deficiency, Alzheimer's dementia, bipolar disorder, recently s/p elective resection at ileocecal anastomosis site and lysis of adhesions on 04/17/2024 with pathology report revealing moderate differentiated adenocarcinoma who presented emergency department for evaluation of bilateral lower extremity edema times 3-4 days left greater than right with increased redness and warmth of the left lower extremity 10 hours. He denies any hx of CHF or cellulitis. He also reports dyspnea on exertion since his last hospital stay for the above elective surgery, no post-op complications and discharged 05/21/24. He has a chronic productive cough but does not bring up sputum. No fever, chills, nausea, or vomiting. Hospital course: The patient is an 83-year-old male with persistent atrial fibrillation (on Xarelto), Crohn's disease (s/p colon resection), a history of bowel obstructions, B12 deficiency, Alzheimer's dementia, and bipolar disorder. He is recently post-elective ileocecal anastomosis resection (04/17/2024, pathology: moderately differentiated adenocarcinoma). He presents with 3?4 days of bilateral lower extremity edema (left greater than right) and redness and warmth in the left lower extremity (LLE). Examination reveals 2+ pitting edema, LLE erythema, and crackles on auscultation with dyspnea on exertion (LYNNE). Acute CHF Exacerbation BNP is mildly elevated at 117. Examination shows 2+ pitting edema, weight gain. In June 2023 echocardiogram revealed an EF of 50?55% with undetermined diastolic function; his clinical presentation was consitent with exacerbation of acute heart failure and was given IV Lasix improvment. A repeat ech done. BMP within normal, he will be discharged with Lasix 20 mg daily and to follow up with his diversity manager on outpatient basis. Cellulitis of the left leg LLE erythema is present without leukocytosis, fever, or sepsis. The patient?s vitals and lactate were normal, US negative for DVT, he was given Vanco and Zosyn in the ED and was continue on Doxycclyine. The erythema is nearly all gone. Cultures thus far negative and I will treat for a total of 7 days with Doxycyline Persistent Atrial Fibrillation, controlled Continue Xarelto and metoprolol. Crohn's Disease/B12 Deficiency Continue B12 supplementation. Acute on Chronic Anemia -stab;e Alzheimer's Dementia/Bipolar Disorder Continue quetiapine. The patient has made a lziczhw-qrvr-ayubewmn recovery and is being discharged home. Time Attestation Discharge Coordination Time (in mins): 40 Quality: Safe Use of Opioids Does Pt have an Active Cancer Diagnosis on the Problem List?: Yes Opioid Measure Date for [facility] Report: 05/07/24 Opioid Measure Time for [facility] Report: 07:41 Quality: Stroke Does the patient have a stroke diagnosis?: No Physical Exam Vital Signs: Vital Signs: Last Vital Signs Temp 98.4 F 06/03/24 11:09 Pulse 78 06/03/24 11:09 Resp 20 06/03/24 11:09 BP 139/63 06/03/24 11:09 Pulse Ox 97 06/03/24 11:09 O2 Del Method Room Air 06/03/24 11:09 BMI result Body Mass Index 21.2 DS: Data Data Completed and Pending Completed studies during hospitalization [Text1]: Procedures Excision of Ascending Colon, Percutaneous Endoscopic Approach (05/18/24) Excision of Ileum, Percutaneous Endoscopic Approach (05/18/24) Introduction of Anesthetic Agent into Peripheral Nerves and Plexi, Percutaneous Approach (05/18/24) Release Transverse Colon, Open Approach (05/18/24) Labs on day of discharge: Laboratory Results - last 24 hr 06/03/24 06:47 WBC 4.4 L RBC 3.26 L Hgb 10.3 L Hct 31.5 L MCV 96.6 MCH 31.6 MCHC 32.7 RDW 14.5 Plt Count 284 MPV 9.3 L Immature Gran % (Auto) 0.9 H Neut % (Auto) 62.9 Lymph % (Auto) 15.1 L Bracken % (Auto) 17.2 H Eos % (Auto) 3.2 Baso % (Auto) 0.7 Lymph # (Auto) 0.7 L Bracken # (Auto) 0.8 Eos # (Auto) 0.1 Baso # (Auto) 0.0 Abs Immat Gran (auto) 0.04 H Absolute Neuts (auto) 2.8 Absolute Nucleated RBC 0.000 Nucleated RBC % (auto) 0.0 Sodium 142 Potassium 3.9 Chloride 110 H Carbon Dioxide 26 Anion Gap 10 L BUN 14 Creatinine 0.77 Estim Creat Clear Calc 63.1 Estimated GFR > 60 Random Glucose 77 Calcium 9.0 B-Natriuretic Peptide 168 H Preliminary micro results at discharge 06/02/24 01:56 Blood Culture - Preliminary Blood - Venous No growth after 24 hours. 06/02/24 01:38 Blood Culture - Preliminary Blood - Venous No growth after 24 hours. Discharge Plan Discharge Anticipated Discharge Date/Time: 06/03/24 12:59 Patient Disposition: Home Health Service Discharge Diagnosis: Cellulitis of the leg, heart failure Referrals: [facility] [Outside] - 1 Week Rachel Parekh MD [Primary Care Provider] - 1 Week Discharge Medications: New doxycycline hyclate 100 mg tablet 100 mg PO BID 7 Days Qty: 14 0RF furosemide [Lasix] 20 mg tablet 20 mg PO DAILY Qty: 90 0RF Continued metoprolol succinate 50 mg tablet extended release 24 hr 50 mg PO DAILY Qty: 90 3RF Xarelto 15 mg tablet 15 mg PO DAILY@1700 Rx Instructions: must administer with evening meal quetiapine 25 mg tablet 25 mg PO BEDTIME mecobalamin (vitamin B12) 1,000 mcg lozenge 1,000 mcg PO DAILY Rx Instructions: allow to dissolve in mouth OR may chew lightly before swallowing Alive Men's 50 Plus Multivit 120 mcg-150 mcg -50 mg tablet,chewable 1 tab PO DAILY Co L-51-Fcyedjj E-Fish Oil 25-150-200 mg-mg-unit capsule 1 cap PO DAILY Discharge Orders: Discharge Order (Routine); Ordered 06/03/24 Ordered By: Mehdi beau Diet: Advance to usual diet Activity on Discharge: As tolerated Stand Alone Forms: Patient Portal Discharge page Print Language: Eritrean Care Plan Goals: recovery from heart failure and cellulitis Health Concerns: cellulitis of the leg Heart failure Plan of Treatment: take lasix for heart failure take doxycyline for cellulitis follow up with your Doctor in a week follow up with your heart doctor in 1 to 2 week, call for appointment Assessment: see above Patient Instructions: Furosemide (By mouth), Doxycycline (By mouth) Discharge Date/Time: 06/03/24 15:51
[2024-06-03 13:43] LABS: Magnesium 1.8 mg/dL (1.6-2.6)
[2024-06-03] MEDS: Furosemide 20 MG TABLET PO (13:47)
--- NOTE | 2024-06-03 14:28 | MHC.CM.PN ---
Addendum entered by Manda Zhang 06/03/24 14:31: DC order is in. Original Note: Per ROUNDS discussion, Patient will b medically cleared for dc to home today, with services. Patient is active with [facility] for SN/PT/OT and [facility] has been notified of anticipated dc to home today. CM met with Daughter X2 today and explained that the dc order is not in yet, but it appears that Patient will be dc'd today. CM will follow further PRN. Last IMM addressed yesterday.
--- NOTE | 2024-06-03 14:39 | MHC.CM.PN ---
CM met with Patient, , and Daughter at bedside and addressed all questions r/t dc planning and informed RN that they had specific questions for Nursing.
== END 2024-06-03 15:51 | disposition home health service (06) | DRG 603 ==
LOC: HO.ED 06-02 01:46 → HO.EDOVER 06-02 03:45 → HO.IMC 06-02 13:45
PROVIDERS: Physician Assistant; Admitting Provider Physician Assistant; Emergency Provider Emergency Medicine Emergency Medical Services; PCP Internal Medicine; Visit Provider Internal Medicine
DX: L03.116 Cellulitis of left lower limb (principal); I48.19 Other persistent atrial fibrillation; K50.90 Crohn's disease, unspecified, without complications; C18.9 Malignant neoplasm of colon, unspecified; G30.9 Alzheimer's disease, unspecified; I50.9 Heart failure, unspecified; F02.80 Dementia in other diseases classified elsewhere, unspecified severity, without behavioral disturbance, psychotic disturbance, mood disturbance, and anxiety; D64.9 Anemia, unspecified; I87.8 Other specified disorders of veins; F31.9 Bipolar disorder, unspecified; E53.8 Deficiency of other specified B group vitamins; Z79.01 Long term (current) use of anticoagulants; Z79.899 Other long term (current) drug therapy
CPT/HCPCS: 36415; 71045; 80048; 80053; 81003; 83605; 83735; 83880; 85025; 85610; 87040; 87640; 87641; 93005; 93306; 93970; 99285; J1940; J2543; J3371

== ENCOUNTER → 2024-06-02 01:44 | Outpatient (BNV) | payer MEDICARE, OTHER, SELFPAY | PROVIDERS: Admitting Provider Physician Assistant; Emergency Provider Emergency Medicine Emergency Medical Services; PCP Internal Medicine; Visit Provider Internal Medicine Cardiovascular Disease | DX: I48.91 Unspecified atrial fibrillation (principal) | CPT/HCPCS: 93010 ==

== ENCOUNTER → 2024-06-02 03:08 | Outpatient (BNV) | payer MEDICARE, OTHER, SELFPAY | PROVIDERS: Admitting Provider Physician Assistant; Emergency Provider Emergency Medicine Emergency Medical Services; PCP Internal Medicine; Visit Provider Physician Assistant | DX: I50.9 Heart failure, unspecified (principal); L03.90 Cellulitis, unspecified; R06.09 Other forms of dyspnea | CPT/HCPCS: 99223; 99239; 99499 ==

== ENCOUNTER 2024-06-10 15:56 | Outpatient (REF) | payer MEDICARE, OTHER, SELFPAY ==
[2024-06-10 16:01] LABS: MANUAL DIFF FLAG NO
[2024-06-10 16:09] LABS: Basophils Percent Auto 0.4 % (0-2); Eosinophils Absolute Auto 0.1 X10*3/uL (0.0-0.4); Eosinophils Percent Auto 1.2 % (0-4); Hematocrit 29.7 % (42.0-52.0); Hemoglobin 9.7 g/dl (14.0-18.0); Imm Gran Abs Auto 0.06 X10*3/uL (0.00-0.03); Imm Gran Pct Auto 0.9 % (0.0-0.4); Lymphocytes Absolute Auto 0.7 X10*3/uL (1.2-4.9); Lymphocytes Percent Auto 9.9 % (20-40); Mean Corpuscular HGB Conc 32.7 g/dl (31.0-36.0); Mean Corpuscular Hemoglobin 32.1 pg (27.0-33.0); Mean Corpuscular Volume 98.3 fL (80.0-98.0); Monocytes Absolute Auto 1.1 X10*3/uL (0.1-1.2); Monocytes Percent Auto 16.3 % (2-11); Neutrophils Absolute Auto 4.8 x10*3/uL (2.0-8.3); Neutrophils Percent Auto 71.3 % (45-73); Platelet Count 207 X10*3/uL (160-400); Red Blood Count 3.02 X10*6/uL (4.60-5.80); Red Cell Distribution Width 14.7 % (11.0-16.0); White Blood Count 6.7 X10*3/uL (4.8-10.8)
[2024-06-10 17:01] LABS: Anion Gap 11 (12-20); Blood Urea Nitrogen 38 mg/dL (9-16); Carbon Dioxide 28 mmol/L (22-29); Chloride 106 mmol/L (96-108); Estimated Glomerular Filt Rate > 60; Glucose Random 92 mg/dL (60-115); Sodium 140 mmol/L (135-145)
== END 2024-06-10 15:57 | disposition home or self-care (01) ==
LOC: HO.HVNA 15:56
PROVIDERS: Visit Provider Internal Medicine
DX: I50.9 Heart failure, unspecified (principal)
CPT/HCPCS: 36415; 80048; 85025

== ENCOUNTER 2024-06-15 15:02 | Outpatient (AMB) | payer MEDICARE, OTHER, SELFPAY ==
[2024-06-15 15:19] VITALS: BP 114/70; PULSE 71; BMI 21.8
--- NOTE | 2024-06-15 15:19 | MHC.OFFVIS ---
Vital Signs 06/15/24 15:19 Height 5 ft 7 in Weight 138 lb 14.259 oz BMI 21.8 BP 114/70 Blood Pressure Location Lt brachial Position Sitting Pulse 71 Intake Visit Reasons: [facility] [place] Edema Intake Note: Follow-up ED had some leg edema its better Production Team Advisor Required: No Advertising Manager: Advertising Manager Present Accompanied by: Daughter Allergies No Known Allergies Allergy (Verified 06/01/24 20:08) Medication List - Last Reviewed 06/15/24 by GABBY Bazan furosemide (Lasix) 20 mg PO DAILY mecobalamin (vitamin B12) 1,000 mcg PO DAILY metoprolol succinate ER 50 mg PO DAILY wj-sr-jtiiy-lutein-herbal 293 120 mcg-150 mcg -50 mg (Alive Men's 50 Plus Multivitamin) 1 tab PO DAILY quetiapine 25 mg PO BEDTIME rivaroxaban (Xarelto) 15 mg PO DAILY@1700 ubidecarenone-omega 3-vit E 25-150-200 mg-mg-unit (Co D-06-Jzckptx E-Fish Oil) 1 cap PO DAILY HPI Comments Details: Asael returns for follow-up. He has a long history of atrial fibrillation going back decades. He used to live in [place] but has now moved to the local area. On beta-blockers as well as Xarelto. No clear-cut history of coronary disease or myocardial infarction. Recently, had colon resection surgery. After that, it seems that he was admitted with a diagnosis of CHF exacerbation and had some leg swelling. Subsequently, given diuretics and discharged home. There was also concern for possible lower extremity cellulitis on the left side. It seems he got antibiotics for that. Overall, he states he feels okay. He is not having any cardiac symptoms like angina or shortness of breath. Leg swelling is improved from before but still present. 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 Fatigue Cognitive disorder Alzheimer's dementia Anemia Persistent atrial fibrillation B12 deficiency Scoliosis Crohn disease Bipolar 1 disorder Surgical History History of partial colectomy Hx of colonoscopy Family History Father Heart problem Other Alzheimer's dementia Social History Household Members: Spouse Household Members Other:: [facility] Housing: [facility]isted Living Facility Are you a primary healthcare consulting manager to a significant other at home: No Do you presently have visiting nurse or other home services: Yes (PT) Alcohol intake: current Alcohol intake frequency: does not drink Patient Tobacco Use Status: Never used Tobacco e-Cigarette/Vaping Use: Never Used Advance Directives Date on File: 03/19/24 service: No Current occupational status: retired Cognitive needs: No Hearing needs: No Vision needs: Yes Review of Systems Const Denies chills, Denies fatigue, Denies fever(s), Denies frequent falls, Denies weakness, Denies weight gain and Denies weight loss ENT Denies dizziness Card Denies chest pain, Denies leg edema, Denies lightheadedness, Denies palpitations, Denies dyspnea, Denies dyspnea on exertion, Denies orthopnea and Denies other (loss of consciousness) Resp Denies cough, Denies dyspnea and Denies dyspnea on exertion GI Denies hematochezia and Denies change in stool character Musc Denies abnormal gait, Denies muscle weakness, Denies numbness, Denies radiating pain into limb and Denies tingling Neuro Denies abnormal gait, Denies dizziness, Denies frequent falls, Denies numbness, Denies tingling and Denies weakness Endo Denies fatigue and Denies palpitations Physical Exam Vital Signs: Last Vital Signs Pulse 71 06/15/24 15:19 BP 114/70 06/15/24 15:19 BMI result Body Mass Index 21.8 Const General: comfortable and no acute distress Orientation/consciousness: patient oriented x3 HEENT Other: Unremarkable Head: Yes normal to inspection Neck Neck: Yes normal visual inspection Chest Chest palpation & inspection: normal inspection of the chest Resp Auscultation: clear to auscultation bilaterally Cardio Palpation: normal PMI Heart sounds: S1 normal heart sound present, S2 normal heart sound present, no gallops, no murmurs and no rubs GI Palpation (GI): Soft to palpation Back/Spine/Pelvis Other: unremarkable Skin General skin exam: no rashes or lesions noted Neuro General: patient oriented x3 Extrem Other: 1-2+ edema, B/L. General: Yes normal to inspection Psych Mental Status: mental status grossly normal Assessment & Plan Assessment & Plan (1) Persistent atrial fibrillation: Code(s): I48.19 - Other persistent atrial fibrillation Category: Medical (2) Chronic heart failure with preserved ejection fraction (HFpEF): Code(s): I50.32 - Chronic diastolic (congestive) heart failure Category: Medical Plan In the recent echocardiogram, LVEF described to be 50-55%. There is reported inferoseptal/apical septal dyskinesis but do not clearly appreciated on my review. IVC size seems reasonable with collapsibility. Overall, possible congestive heart failure precipitated by recent surgery. He can continue low-dose Lasix without changes. Duration to be decided. He can check some labs in a few weeks' time to ensure there is no renal issue. Otherwise, continue beta-blockers and anticoagulation. Follow-up in 4 months. Orders: Orders Basic Metabolic Panel 2 Weeks I50.9 - Heart failure, unspecified Coding Level of Care Code Est Pt Level 4 (27958) Diagnoses Persistent atrial fibrillation I48.19 Chronic heart failure with preserved ejection fraction (HFpEF) I50.32
== END 2024-06-15 16:02 | disposition home or self-care (01) ==
PROVIDERS: PCP Internal Medicine; Visit Provider Internal Medicine
DX: I48.19 Other persistent atrial fibrillation (principal); I50.32 Chronic diastolic (congestive) heart failure
CPT/HCPCS: 99214

== ENCOUNTER → 2024-06-15 15:02 | Outpatient (BNVA) | payer MEDICARE, OTHER, SELFPAY | PROVIDERS: PCP Internal Medicine; Visit Provider Internal Medicine | DX: I48.19 Other persistent atrial fibrillation (principal); I50.32 Chronic diastolic (congestive) heart failure | CPT/HCPCS: 99212 ==

== ENCOUNTER 2024-07-06 10:59 | Outpatient (AMB) | payer MEDICARE, OTHER, SELFPAY ==
--- NOTE | 2024-07-06 10:59 | MHC.OFFVIS ---
Vital Signs 07/06/24 11:09 Height 5 ft 7 in Weight 141 lb BMI 22.1 BP 130/57 L Blood Pressure Location Rt brachial Position Sitting Pulse 97 Intake Visit Reasons: 1 month S/P ileocolonic resection, staple removal Intake Note: This patient presents for one month status post Hand assisted laparoscopic resection of ileocolonic anastomosis, with extensive lysis of adhesions, new [id number]-[id number] anastomosis from the distal ileum to the transverse colon. Pt c/o; itchy, red rash all over. Started 1wk ago. Pcp cannot see him for another 2wks. Using otc HC cr without improvement. Denies changes in soap, no new medications. Edema on lower legs spreading to thighs. Food Sampler Required: No Accompanied by: daughter Eryn Allergies No Known Allergies Allergy (Verified 07/06/24 11:09) HPI HPI 1 month S/P ileocolonic resection, staple removal: Details: He is here for follow-up after ileocolonic resection last April, He says he continues to do well he denies any GI complaints He however has had this rash on his thighs and his back for about 2 days now. He denies any fever or chills. He continues to have this small open wound on his incision but this has decreased in size. 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 Fatigue Cognitive disorder Alzheimer's dementia Anemia Persistent atrial fibrillation B12 deficiency Scoliosis Crohn disease Bipolar 1 disorder Surgical History History of partial colectomy Hx of colonoscopy Family History Father Heart problem Other Alzheimer's dementia Social History Household Members: Spouse Household Members Other:: correction housing Housing: Assisted Living Facility Are you a primary customer care assistant to a significant other at home: No Do you presently have visiting nurse or other home services: Yes (PT) Alcohol intake: current Alcohol intake frequency: does not drink Patient Tobacco Use Status: Never used Tobacco e-Cigarette/Vaping Use: Never Used Advance Directives Date on File: 03/19/24 service: No Current occupational status: retired Cognitive needs: No Hearing needs: No Vision needs: Yes Review of Systems Const Denies chills and Denies fever(s) GI Denies abdominal pain and Denies vomiting Physical Exam Vital Signs: Last Vital Signs Pulse 97 07/06/24 11:09 BP 130/57 L 07/06/24 11:09 BMI result Body Mass Index 22.1 Const Other: Frail looking but able to ambulate without assistance General: comfortable and no acute distress Resp Effort & Inspection: normal respiratory effort GI Other: Midline incision generally well healed but with note of an area of hypergranulation, about 1.5 cm Skin Other: Maculopapular rash on his thighs and back Office Procedures Cauterization - Skin lesions Skin Cauter Details: He was in reclining position. The area of the hypergranulation tissue on the midline incision is noted. This about 1.5 cm. I used silver nitrate sticks to cauterize this. I applied dry dressings. He was instructed on daily wound care. Destruction: 34880- Chemical Cautery, Granulation Tissue Assessment & Plan Assessment & Plan (1) Colon cancer: Code(s): C18.9 - Malignant neoplasm of colon, unspecified Category: Medical Plan: Status post ileocolonic resection for colon adenocarcinoma. He is doing very well. There was note of hypergranulation on the incision and I used silver nitrate sticks to cauterize this I will see him again in the office in about another month. Given wound care instructions. I also have recommended for him to be seen at the urgent care clinic because of his maculopapular rash. He is unable to have an appointment with his primary care physician. He is also to see Dr. Estes of Oncology. Coding Level of Care Code Procedure Only Diagnoses Colon cancer C18.9 CPT Codes Skin Cauter - Destruction: 65636- Chemical Cautery, Granulation Tissue ([id number])
[2024-07-06 11:09] VITALS: BP 130/57; PULSE 97; BMI 22.1
== END 2024-07-06 11:27 | disposition home or self-care (01) ==
PROVIDERS: PCP Internal Medicine; Visit Provider Surgery
DX: C18.9 Malignant neoplasm of colon, unspecified (principal)
CPT/HCPCS: 99024

== ENCOUNTER → 2024-07-06 10:59 | Outpatient (BNVA) | payer MEDICARE, OTHER, SELFPAY | PROVIDERS: PCP Internal Medicine; Visit Provider Surgery | DX: C18.9 Malignant neoplasm of colon, unspecified (principal) | CPT/HCPCS: 17250; 99212 ==

== ENCOUNTER 2024-07-07 16:31 | Outpatient (REF) | payer MEDICARE, OTHER, SELFPAY ==
[2024-07-07 17:21] LABS: Anion Gap 10 (12-20); Blood Urea Nitrogen 38 mg/dL (9-16); Calcium 9.1 mg/dL (8.4-10.2); Carbon Dioxide 26 mmol/L (22-29); Chloride 108 mmol/L (96-108); Estimated Glomerular Filt Rate > 60; Glucose Random 87 mg/dL (60-115); Potassium 4.4 mmol/L (3.3-5.1); Sodium 140 mmol/L (135-145)
== END 2024-07-07 16:32 | disposition home or self-care (01) ==
LOC: HO.HVNA 16:31
PROVIDERS: Visit Provider Internal Medicine
DX: I50.9 Heart failure, unspecified (principal)
CPT/HCPCS: 36415; 80048

== ENCOUNTER → 2024-07-08 13:20 | Outpatient (BNV) | payer MEDICARE, OTHER, SELFPAY | PROVIDERS: PCP Internal Medicine; Visit Provider Internal Medicine Medical Oncology | DX: C18.9 Malignant neoplasm of colon, unspecified (principal) | CPT/HCPCS: 99204 ==

== ENCOUNTER 2024-07-19 10:29 | Inpatient (IN) | payer MEDICARE, OTHER, SELFPAY ==
[2024-07-19] VITALS (10 sets, daily range): BP systolic 111–135; BP diastolic 55–73; PULSE 68–86; RESP 12–21; TEMP 36.6–36.8; O2SAT 98–100; BMI 23.7
--- NOTE | ~2024-07-19 | CT_ITS ---
EXAMINATION: CT HEAD WITHOUT CONTRAST (STROKE PROTOCOL) CLINICAL INFORMATION: Stroke protocol. Slurred speech COMPARISON: None available. TECHNIQUE: Contiguous axial imaging was performed from the skull base to vertex without intravenous administration of contrast. This CT examination was performed using dose optimization techniques as appropriate, variously including the following: *Automated exposure control *Adjustment of mA and/or kV according to patient size (this includes techniques or standardized protocols for targeted exams where dose is matched to indication/reason for exam; i.e. extremities or head) *Use of iterative reconstruction technique FINDINGS: There is no acute intra-axial, extra-axial bleed, masses or midline shift. There is no acute infarction evolution. There is no edema. The mendoza to white matter differentiation is maintained normal. The lateral ventricles are symmetrical in size and configuration without enlargement. Bone windows reveal no calvarial abnormality. There is mild mucoperiosteal thickening bilateral frontal, ethmoid sinuses. The mastoid air cells are well-aerated. The maxillary sinuses are not completely visualized. There is no scalp soft tissue abnormality seen. CT/CT head for STROKE IMPRESSION: No acute intracranial process seen This critical result was discussed with Dr. Dowd at 11:02 AM on 07/19/2024. It was ascertained that the content and urgency of the report was understood at the time of direct communication. Electronically signed by: Joseph Ramirez MD 07/19/2024 11:07 AM [facility] [place]
--- NOTE | ~2024-07-19 | CT_ITS ---
EXAMINATION: CT ANGIOGRAM HEAD AND NECK CLINICAL INFORMATION: Slurred speech, concern for CVA. COMPARISON: None. Correlation made with noncontrast head CT slightly earlier same day. TECHNIQUE: CT angiographic examination head and neck following intravenous bolus administration 70 mL of Omnipaque 350 contrast. Helical imaging was performed in the axial plane from the aortic arch to the skull vertex. A [address] head was also obtained. The data was processed at the office technologist's workstation for generation of MIP sequences. Angled MIPs and volume rendered reformatted images were also generated at an offline 3D workstation. Stenoses are assessed in accordance with NASCET criteria unless otherwise indicated. This CT examination was performed using dose optimization techniques as appropriate, variously including the following: *Automated exposure control *Adjustment of mA and/or kV according to patient size (this includes techniques or standardized protocols for targeted exams where dose is matched to indication/reason for exam; i.e. extremities or head) *Use of iterative reconstruction technique FINDINGS: NECK CTA: -AORTIC ARCH: Normal in caliber. -GREAT VESSEL ORIGINS: 2 vessel branching pattern, with the left vertebral artery originating also from the aortic arch. Widely patent origins. -RIGHT COMMON CAROTID ARTERY: Normal in course and caliber. -CERVICAL RIGHT INTERNAL CAROTID ARTERY: Carotid bulb and cervical ICA normal in course and caliber. -LEFT COMMON CAROTID ARTERY: Normal in course and caliber. -CERVICAL LEFT INTERNAL CAROTID ARTERY: The carotid bulb and cervical ICA normal in course and caliber. -CERVICAL RIGHT VERTEBRAL ARTERY: Patent origin. Normal in course and caliber into the skull base. -CERVICAL LEFT VERTEBRAL ARTERY: Originates from the aortic arch. Patent origin. Normal in course and caliber into the skull base. OTHER, SOFT TISSUES: -Mildly atrophic thyroid gland. -No abnormal lymphadenopathy or mass. -Lung apices are clear. CTA OF THE BRAIN: -INTRACRANIAL INTERNAL CAROTID ARTERIES: Mild atheromatous calcification. No focal stenosis, aneurysm, or occlusion. -RIGHT ANTERIOR CEREBRAL ARTERY: Normal A1 segment. Normal arborization of the more distal segments. -LEFT ANTERIOR CEREBRAL ARTERY: Normal A1 segment. Normal arborization of the more distal segments. -ANTERIOR COMMUNICATING ARTERY: Normal. -RIGHT MIDDLE CEREBRAL ARTERY: Normal M1 segment of the MCA without focal stenosis or occlusion. Normal arborization of the distal segments. -LEFT MIDDLE CEREBRAL ARTERY: Normal M1 segment of the MCA without focal stenosis or occlusion. Normal arborization of the distal segments. -RIGHT VERTEBRAL ARTERY V4: Normal in course and caliber. Normal PICA branch. -LEFT VERTEBRAL ARTERY V4: Normal in course and caliber. Normal PICA branch. -BASILAR ARTERY: Normal without focal stenosis or occlusion. Normal appearance of the proximal superior cerebellar arteries. Normal basilar tip. -RIGHT POSTERIOR CEREBRAL ARTERY: Normal P1 segment. Normal opacification of the distal SR. LOGISTICS ANALYST segments. -LEFT POSTERIOR CEREBRAL ARTERY: Normal P1 segment. There is abrupt cut off of the SR. LOGISTICS ANALYST at the P3 segment (series 12, image 93). Approximately 10 mm distal to this, P4 segments do opacify (series 8, image 68; series 12, image 83), likely through collateral flow. -POSTERIOR COMMUNICATING ARTERIES: The right is patent. The left is not well seen. Normal opacification of the superior sagittal, straight, transverse, and sigmoid sinuses. No venous thrombosis. CT/CT angio head neck STROKE IMPRESSION: 1. There is an abrupt cut off of the left SR. LOGISTICS ANALYST, P3 segment, consistent with occlusion. This spans approximately 10 mm, before there is quaker of opacification of the more distal left P4 segments, likely through collateral flow. 2. There is no additional significant stenosis, occlusion, aneurysm, or dissection within the intracranial circulation. 3. There is no significant stenosis, occlusion, or dissection of the major cervical arterial vasculature. These findings were discussed via phone call with Dr. Dowd of the [facility] at 1:20 PM, 07/19/2024. Electronically signed by: Jerome Adams MD 07/19/2024 01:38 PM [facility] [place] [place]
--- NOTE | ~2024-07-19 | XR_ITS ---
EXAMINATION: XR CHEST CLINICAL INFORMATION: Stroke COMPARISON: None available. TECHNIQUE: Frontal view of the chest was obtained. FINDINGS: The lungs are well-expanded and clear acute process. The heart size and pulmonary vascularity is normal. No gross bony abnormality seen. XR/XR chest 1V IMPRESSION: Unremarkable chest exam. Electronically signed by: Joseph Ramirez MD 07/19/2024 12:43 PM [facility]
--- NOTE | ~2024-07-19 | MR_ITS ---
EXAMINATION: MR BRAIN WITHOUT CONTRAST CLINICAL INFORMATION: Slurred speech. Rule out acute stroke. COMPARISON: None available. TECHNIQUE: MRI of the brain was obtained using routine sequences without contrast. FINDINGS: There is restricted diffusion seen in the left cerebellar hemisphere and left mesial occipital lobe suggestive acute ischemic changes. Is no magnetic sestamibi artifact seen to suspect any acute or chronic hemorrhagic products. There is normal flow-void signal seen in major cerebral vasculature. The lateral ventricles are symmetrical in size and configuration with mild enlargement. The paranasal sinuses are well-aerated with mild mucoperiosteal thickening bilateral ethmoid and left frontal sinuses. MR/MR head/brain wo con IMPRESSION: Acute ischemic changes left mesial temporal lobe and left lateral hemisphere likely solid emboli in the posterior circulation. There is no suggestion for acute hemorrhage. Electronically signed by: Joseph Ramirez MD 07/19/2024 03:18 PM EST
--- NOTE | 2024-07-19 10:37 | ECG_ITS ---
Test Reason : TIA/stroke protocol Blood Pressure : */* mmHG Vent. Rate : 72 BPM Atrial Rate : * BPM P-R Int : * ms QRS Dur : 90 ms QT Int : 412 ms P-R-T Axes : * 122 82 degrees QTcB Int : 451 ms Atrial fibrillation with a competing junctional pacemaker Possible Right ventricular hypertrophy Lateral infarct , age undetermined Abnormal ECG When compared with ECG of 02-Jun-2024 02:12, No significant change was found Referred By: Pippa Dowd Electronically Signed By: JUANA HOBBS MD
--- NOTE | 2024-07-19 10:39 | ED_ITS ---
HPI - Neuro Symptoms/Deficit General Chief Complaint: Neuro Symptoms/Deficit Stated Complaint: DIZZY, SLURRED SPEECH, STROKE ALERT Time Seen by Provider: 07/19/24 10:36 Source: patient, family (Spouse), EMS and old records reviewed Mode of arrival: EMS Limitations: no limitations History of Present Illness ED Provider: DR. Dowd HPI Narrative: This is an 84-year-old pleasant male with pertinent history of AFib on Xarelto, Crohn's disease with colon resection with recurrence multiple bowel obstruction, Alzheimer's dementia, bipolar disorder, came in by EMS as a stroke alert. About 30 minutes ago when patient's spouse noticed that patient started to have right facial droop and slurred speech patient at the time was describing double vision, patient overall felt generalized weakness. On arrival to the ED patient's symptoms has resolved. Patient also with known history of congestive heart failure complain of bilateral lower extremity edema, no shortness of breath, no orthopnea, no PND. Related Data Home Medications ?Medication ?Instructions ?Recorded ?Confirmed mecobalamin (vitamin B12) 1,000 1,000 mcg PO DAILY 12/28/23 07/08/24 mcg lozenges kohnxfus-pxx-cgvra 120 mcg-lutein 1 tab PO DAILY 12/28/23 07/08/24 150 mcg-herb 50 mg chewable tablet (Alive Men's 50 Plus Multivitamin) ubidecarenone-omega 3-vit E 25 1 cap PO DAILY 12/28/23 07/08/24 mg-150 (90-60) mg-200 unit capsule (Co H-25-Rffqkvv E-Fish Oil) quetiapine 25 mg tablet 25 mg PO BEDTIME 03/28/24 07/08/24 Previous Rx's ?Medication ?Instructions ?Recorded hydroxyzine HCl 25 mg tablet 25 mg PO TID #50 tabs 07/08/24 methylprednisolone 4 mg tablets in 4 mg PO DAILY #21 ea 07/08/24 a dose pack (Medrol (Jarvis)) metoprolol succinate 50 mg 50 mg PO DAILY #90 tabs 07/14/24 tablet,extended release 24 hr furosemide 20 mg tablet (Lasix) 20 mg PO DAILY #90 tabs 07/18/24 rivaroxaban 15 mg tablet (Xarelto) 15 mg PO QPM #90 tabs 07/18/24 Allergies Allergy/AdvReac Type Severity Reaction Status Date / Time No Known Allergies Allergy Verified 07/19/24 10:57 Review of Systems 2 Review of Systems: All other systems are reviewed and are negative Constitutional: Reports as per HPI and Reports no additional constitutional complaints Eyes: Reports as per HPI and Reports no additional eye complaints Reports system reviewed and no additional complaints, except as documented Cardiovascular: Reports as per HPI and Reports no additional cardiovascular complaints Respiratory: Reports as per HPI and Reports no additional respiratory complaints Gastrointestinal: Reports as per HPI and Reports no additional gastrointestinal complaints Genitourinary: Reports no additional female genitourinary complaints Musculoskeletal: Reports no additional musculoskeletal complaints Skin/Breast: Reports system reviewed and no additional complaints, except as docu Psychiatric: Reports no additional psychiatric complaints Endocrine: Reports no additional endocrine complaints Hematologic/Lymphatic: Reports no additional hematologic/lymphatic complaints Allergic/Immunologic: Reports no additional allergic/immunologic complaints Reports system reviewed and no additional complaints, except as documented and Reports Abnormal speech present PMFSH Past Medical History Medical History Colon cancer Hx MRSA infection Environmental exposure Arthritis Depression 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 Fatigue Cognitive disorder Alzheimer's dementia Anemia Persistent atrial fibrillation B12 deficiency Scoliosis Crohn disease Bipolar 1 disorder Surgical History History of partial colectomy Hx of colonoscopy Family History Family History Father Heart problem Other Alzheimer's dementia Social History Social History Household Members: Spouse Household Members Other:: shelter housing Housing: Assisted Living Facility Are you a primary manager home healthcare to a significant other at home: No Do you presently have visiting nurse or other home services: Yes (PT) Alcohol intake: current Alcohol intake frequency: does not drink Patient Tobacco Use Status: Never used Tobacco Smoked in Last 30 Days: No e-Cigarette/Vaping Use: Never Used Use of substances other than those prescribed or required for medical reasons: No Advance Directives: Yes Advance Directives on File: Yes Advance Directives Date on File: 03/19/24 service: No Current occupational status: retired Cognitive needs: No Hearing needs: No Vision needs: Yes Physical Exam 2 Vital Signs: Vital Signs: Last Vital Signs Temp 98.2 F 07/19/24 10:53 Pulse 77 07/19/24 14:36 Resp 16 07/19/24 14:36 BP 122/66 07/19/24 14:36 Pulse Ox 98 07/19/24 14:36 O2 Del Method Room Air 07/19/24 14:36 BMI result Body Mass Index 23.7 Vital signs have been reviewed and appear to be correct. Blood pressure elevated. Heart rate normal. Respiratory rate normal. Temperature normal. Oxygen saturation normal. Appearance: Alert. Oriented X3. No acute distress. Head: Normal external exam. Normocephalic. Atraumatic. No Palm signs noted. No raccoon eyes noted Eyes: Patient reports no blurry vision or double vision. General: appearance normal, both eyes and all related structures Visual Carreon: normal visual carreon by confrontation. Alignment and Position: alignment normal and position normal Periorbital: periorbital findings normal Eyelids: Yes eyelids normal Conjunctivae: conjunctivae normal Sclerae: sclerae normal Corneas: corneas normal Pupils: Equal, round and reactive pupils present and Pupil accommodation reflex normal EOM: EOM abnormal (Limited abduction of right eye) and No Nystagmus present Direct Ophthalmoscopy: normal light reflex, no photophobia, no papilledema and fundi normal bilaterally ENT: TM's Normal. Pharynx normal. Uvula midline. Moist mucous membranes. No trismus noted. No drooling noted. No muffled voice noted. Neck: Normal inspection. Neck supple. FROM. No adenopathy. Thyroid Normal. No meningeal signs. No neck mass noted. CVS: Normal heart rate and rhythm. Heart sound normal. No murmurs noted. Pulses normal throughout. Respiratory: No respiratory distress. Painless inspiration. Breath sounds normal. No wheezes/rales/rhonchi noted. Chest nontender. No accessory muscle usage noted or decreased air movement noted. Abdomen: Soft and nontender. Bowel sounds normal in all 4 quadrants. No distention noted. No organomegaly noted. No visible injury noted. Back: No CVA tenderness. Full range of motion noted. Skin: Skin warm and dry. Normal skin color. Normal skin turgor. No rashes/lesions/lacerations noted. Extremities: +3lower extremity edema. Extremities exhibit normal range of motion. Extremities nontender. Neuro: Mental status: Normal attention, orientation, memory, and affect. Cranial nerves: Pupils are equal, round and reactive to light, EOMI, visual carreon are fall, face is symmetric, facial sensations are normal. Motor examination normal muscle tone, strength to 4 extremities. DTR are +2, planter's are flexor. Sensory exam; normal coordination, no ataxia, gait stable. Cerebellar exam: Anihtq-tj-vnmb and djki-zr-ctay is normal. Extrapyramidal system: No tremors, no rigidity with normal facial expressions. 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 Patient is not a candidate for IV thrombolysis because patient is on Xarelto and resolution of his symptoms on presentation. Time: 13:33 Medications Administered Discontinued Medications Generic Name Dose Route Start Last Admin Trade Name Freq PRN Reason Stop Dose Admin Furosemide 20 mg 07/19/24 10:53 07/19/24 11:29 Furosemide 20 Mg/2 Ml Vial IVPUSH 07/19/24 10:54 20 mg ONCE ONE Administration Protocol Iohexol 70 ml 07/19/24 12:16 07/19/24 12:16 Iohexol 350 Mg/Ml 100 Ml Infus..Btl IV 07/19/24 12:17 70 ml ONCE ONE Administration Medical Decision Making Differential Diagnosis Differential Diagnoses: The differential diagnosis associated with the presentation includes (Intracranial bleed, ischemic stroke, electrolyte derangement, severe anemia, ACS, dysrhythmia, CHF.) Admission/Observation Consideration of admission/observation: Escalation of care including admission/observation considered Consult Healthcare Provider Management of the patient was discussed with: Hospitalist (Dr. Chauhan) and Linux Developer (Dr. Parekh/ (intervention neurologist) at [facility]) Lab Data MDM Lab Attestation statement: I reviewed the patient's lab results. 07/19/24 11:13 07/19/24 11:13 Labs: Lab Results 07/19/24 07/19/24 Range/Units 11:13 13:38 WBC 6.7 (4.8-10.8) X10*3/uL RBC 3.59 L (4.60-5.80) X10*6/uL Hgb 11.5 L (14.0-18.0) g/dl Hct 35.5 L (42.0-52.0) % MCV 98.9 H (80.0-98.0) fL MCH 32.0 (27.0-33.0) pg MCHC 32.4 (31.0-36.0) g/dl RDW 14.0 (11.0-16.0) % Plt Count 194 (160-400) X10*3/uL MPV 10.8 (9.4-12.4) fL Immature Gran % (Auto) 0.6 H (0.0-0.4) % Neut % (Auto) 60.0 (45-73) % Lymph % (Auto) 11.1 L (20-40) % [place] % (Auto) 17.4 H (2-11) % Eos % (Auto) 10.2 H (0-4) % Baso % (Auto) 0.7 (0-2) % Lymph # (Auto) 0.7 L (1.2-4.9) X10*3/uL [place] # (Auto) 1.2 (0.1-1.2) X10*3/uL Eos # (Auto) 0.7 H (0.0-0.4) X10*3/uL Baso # (Auto) 0.1 (0.0-0.2) X10*3/uL Abs Immat Gran (auto) 0.04 H (0.00-0.03) X10*3/uL Absolute Neuts (auto) 4.0 (2.0-8.3) x10*3/uL Absolute Nucleated RBC 0.000 (0.0-0.012) X10*3/uL Nucleated RBC % (auto) 0.0 (0.0-0.2) /100WBC PT 12.3 D (10.9-12.4) SEC INR 1.1 (0.9-1.1) Sodium 139 (135-145) mmol/L Potassium 4.4 (3.3-5.1) mmol/L Chloride 107 (96-108) mmol/L Carbon Dioxide 26 (22-29) mmol/L Anion Gap 10 L (12-20) BUN 31 H (9-16) mg/dL Creatinine 1.01 (0.5-1.4) mg/dL Estim Creat Clear Calc 56.2 Estimated GFR > 60 Random Glucose 96 (60-115) mg/dL Calcium 8.6 (8.4-10.2) mg/dL Total Bilirubin 1.5 H (0.0-1.0) mg/dL Direct Bilirubin 0.3 (0.0-0.5) mg/dL AST 45 H (5-37) U/L ALT 30 (0-40) U/L Alkaline Phosphatase 63 (39-117) U/L Troponin I High Sens 7.3 D (<3.5-35.0) ng/L B-Natriuretic Peptide 137 H (<100) pg/mL Total Protein 7.3 (6.5-8.0) g/dL Albumin 3.9 (3.5-5.0) g/dL Lipase 11 (8-78) U/L Urine Color Yellow Urine Appearance Clear Urine pH 7.0 (5.0-9.0) Ur Specific [place] 1.010 (1.005-1.025) Urine Protein Negative (Neg-Trace) mg/dL Urine Glucose (UA) Negative (Negative) mg/dL Urine Ketones Negative (Negative) mg/dL Urine Blood Negative (Negative) Urine Nitrite Negative (Negative) Ur Leukocyte Esterase Negative (Negative) Influenza Type A (PCR) NEGATIVE (Negative) Influenza Type B (PCR) NEGATIVE (Negative) RSV RNA Qual (PCR) NEGATIVE (Negative) SARS-CoV-2 RNA (RT-PCR) NEGATIVE (Negative) Independent Interpretation I performed an independent interpretation of an: CT Scan (Head/head/neck CTA: Left CASH PROCESSING SPECIALIST occlusion) Radiology Impression Discussion of test interpretation with radiology: I have reviewed the radiologist's reading. NIH Stroke Scale Internal: Initial- Upon Arrival Time: 10:44 Level of Consciousness: Alert Level of Consciousness Questions: Answers both questions correctly Level of Consciousness Commands: Performs both tasks correctly Best Gaze: Normal Visual: No visual loss Facial Palsy: Normal Motor Arm (Right): No drift Motor Arm (Left): No drift Motor Leg (Right): No drift Motor Leg (Left): No drift Limb Ataxia: Absent Sensory: Normal Best Language: No aphasia Dysarthia: Normal Extinction and Inattention: No abnormality Score: 0 Discharge Plan Discharge Clinical Impression: Stroke, Bilateral edema of lower extremity Patient Disposition: Admitted As Inpatient Print Language: Danish
[2024-07-19 11:18] LABS: MANUAL DIFF FLAG NO
[2024-07-19 11:28] LABS: Basophils Absolute Auto 0.1 X10*3/uL (0.0-0.2); Basophils Percent Auto 0.7 % (0-2); Eosinophils Absolute Auto 0.7 X10*3/uL (0.0-0.4); Eosinophils Percent Auto 10.2 % (0-4); Hematocrit 35.5 % (42.0-52.0); Hemoglobin 11.5 g/dl (14.0-18.0); Imm Gran Abs Auto 0.04 X10*3/uL (0.00-0.03); Imm Gran Pct Auto 0.6 % (0.0-0.4); Lymphocytes Absolute Auto 0.7 X10*3/uL (1.2-4.9); Lymphocytes Percent Auto 11.1 % (20-40); Mean Corpuscular HGB Conc 32.4 g/dl (31.0-36.0); Mean Corpuscular Volume 98.9 fL (80.0-98.0); Mean Platelet Volume 10.8 fL (9.4-12.4); Monocytes Absolute Auto 1.2 X10*3/uL (0.1-1.2); Monocytes Percent Auto 17.4 % (2-11); Platelet Count 194 X10*3/uL (160-400); Red Blood Count 3.59 X10*6/uL (4.60-5.80); White Blood Count 6.7 X10*3/uL (4.8-10.8)
[2024-07-19] MEDS: Furosemide 20 MG/2 ML VIAL IVPUSH (11:29)
[2024-07-19 11:37] LABS: INTERNATIONAL NORM RATIO 1.1 (0.9-1.1); Prothrombin Time 12.3 SEC (10.9-12.4)
[2024-07-19 11:39] LABS: Alanine Aminotransferase 30 U/L (0-40); Albumin Level 3.9 g/dL (3.5-5.0); Alkaline Phosphatase 63 U/L (39-117); Anion Gap 10 (12-20); Aspartate Amino Transferase 45 U/L (5-37); Bilirubin Direct 0.3 mg/dL (0.0-0.5); Bilirubin Total 1.5 mg/dL (0.0-1.0); Blood Urea Nitrogen 31 mg/dL (9-16); Calcium 8.6 mg/dL (8.4-10.2); Carbon Dioxide 26 mmol/L (22-29); Chloride 107 mmol/L (96-108); Creatinine Clr Calc Pharmacy 56.2; Estimated Glomerular Filt Rate > 60; Glucose Random 96 mg/dL (60-115); Lipase 11 U/L (8-78); Potassium 4.4 mmol/L (3.3-5.1); Sodium 139 mmol/L (135-145); Total Protein 7.3 g/dL (6.5-8.0)
[2024-07-19 11:41] LABS: Troponin-I High Sensitivity 7.3 ng/L (<3.5-35.0)
[2024-07-19 11:42] LABS: B Type Natriuretic Peptide 137 pg/mL (<100)
[2024-07-19 11:55] LABS: Influenza A PCR NEGATIVE (Negative); Influenza B PCR NEGATIVE (Negative); Resp Syncy Virus RNA Qual PCR NEGATIVE (Negative); SARS COV2 PCR INHOUSE NEGATIVE (Negative)
[2024-07-19] MEDS: iohexoL 350 MG/ML 100 ML INFUS..BTL 70 ML IV (12:16)
--- NOTE | 2024-07-19 12:31 | PC.NURSE ---
Pt is alert and oriented however incontinent of urine s/p Lasix IVP given, cleaned and off unit to MRI at this time Voided x 2 approx 600ml
--- NOTE | 2024-07-19 13:34 | PC.NURSE ---
Pt returns from MRI, LVO called by radiology. Neuros intact and unchanged from initial assessment. [facility] transfer line called by Dr Dowd
[2024-07-19 13:44] LABS: Appearance Urine Clear; Color Urine Yellow; Glucose Urine UA Negative (Negative); Leukocyte Esterase Urine Negative (Negative); Nitrite Urine Negative (Negative); Urine Blood Negative (Negative); Urine Ketones Negative (Negative); Urine Protein Negative (Neg-Trace)
--- NOTE | 2024-07-19 13:46 | PC.NURSE ---
Pt declined by [facility]. Dr Dowd consulting with neuro
[2024-07-19] MEDS: Aspirin 81 MG TAB.CHEW 324 MG PO (15:12)
--- NOTE | 2024-07-19 15:57 | PM.IMHP ---
History of Present Illness Date of Service: 07/19/24 Chief Complaint: Double vision An 84 years old male with PMH of Afib, Colon CA, dCHF, Afib, Bipolar, Crohns among others who is presenting to the hospital with episode of double vision and abnormal speech this morning. The patient and his were not the best historian but reported that he went to bed feeling well last night. this morning around 10 he felt dizzy and unsteady and when he looked to the TV he saw two separate screens the right was above the left one. No chest pain, palpitations, SOB, nausea, vomiting, diarrhea or urinary symptoms. His symptoms resolved upon getting to the hospital. no recurrence. In ED a CTA was done showing Left SUPERINTENDENT PLANT occlusion. [place] [facility] [place] who recommended no intervention. Discussed with our neurologist who recommended starting aspirin. will be admitted for close monitoring and neurology evaluation. 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 Fatigue Cognitive disorder Alzheimer's dementia Anemia Persistent atrial fibrillation B12 deficiency Scoliosis Crohn disease Bipolar 1 disorder Family History Father Heart problem Other Alzheimer's dementia Surgical History History of partial colectomy Hx of colonoscopy Social History Household Members: Spouse Household Members Other:: custodial housing Housing: Assisted Living Facility Are you a primary family day carer to a significant other at home: No Do you presently have visiting nurse or other home services: Yes (PT) Alcohol intake: current Alcohol intake frequency: does not drink Patient Tobacco Use Status: Never used Tobacco Smoked in Last 30 Days: No e-Cigarette/Vaping Use: Never Used Use of substances other than those prescribed or required for medical reasons: No Advance Directives: Yes Advance Directives on File: Yes Advance Directives Date on File: 03/19/24 service: No Current occupational status: retired Cognitive needs: No Hearing needs: No Vision needs: Yes Meds Allergies Allergy/AdvReac Type Severity Reaction Status Date / Time No Known Allergies Allergy Verified 07/19/24 10:57 Home Medications ?Medication ?Instructions ?Recorded ?Confirmed ?Last Taken ?Type mecobalamin (vitamin B12) 1,000 1,000 mcg PO DAILY 12/28/23 07/08/24 06/01/24 History mcg lozenges gpqwpxtt-trt-arcmo 120 mcg-lutein 1 tab PO DAILY 12/28/23 07/08/24 06/01/24 History 150 mcg-herb 50 mg chewable tablet (Alive Men's 50 Plus Multivitamin) ubidecarenone-omega 3-vit E 25 1 cap PO DAILY 12/28/23 07/08/24 06/01/24 History mg-150 (90-60) mg-200 unit capsule (Co U-57-Giuzvyq E-Fish Oil) quetiapine 25 mg tablet 25 mg PO BEDTIME 03/28/24 07/08/24 06/01/24 History Physical Exam Vital Signs and Narrative: Vital Signs: Last Vital Signs Temp 98.2 F 07/19/24 10:53 Pulse 77 07/19/24 14:36 Resp 16 07/19/24 14:36 BP 122/66 07/19/24 14:36 Pulse Ox 98 07/19/24 14:36 O2 Del Method Room Air 07/19/24 14:36 BMI result Body Mass Index 23.7 Const: Other: Constitutional : Awake, interactive, not in distress Neck : Normal inspection, Supple Cardiovascular : RRR, no JVP, _+1 lower extremity edema Respiratory : good bilateral air entry, no crackles, wheezes or rhonchi Gastrointestinal: soft, lax, Normal bowel sounds, Non tender Skin : Warm, Dry Neurological : Alert & oriented x3, No focal deficit , CN 2-12 within normal Results Labs 07/19/24 11:13 07/19/24 11:13 Labs: Laboratory Results - last 24 hr 07/19/24 07/19/24 11:13 13:38 MCV 98.9 H MCH 32.0 MCHC 32.4 RDW 14.0 Plt Count 194 MPV 10.8 Immature Gran % (Auto) 0.6 H Neut % (Auto) 60.0 Lymph % (Auto) 11.1 L [place] % (Auto) 17.4 H Eos % (Auto) 10.2 H Baso % (Auto) 0.7 Lymph # (Auto) 0.7 L [place] # (Auto) 1.2 Eos # (Auto) 0.7 H Baso # (Auto) 0.1 Abs Immat Gran (auto) 0.04 H Absolute Neuts (auto) 4.0 Absolute Nucleated RBC 0.000 Nucleated RBC % (auto) 0.0 PT 12.3 D INR 1.1 Anion Gap 10 L Estim Creat Clear Calc 56.2 Estimated GFR > 60 Random Glucose 96 Calcium 8.6 Total Bilirubin 1.5 H Direct Bilirubin 0.3 AST 45 H ALT 30 Alkaline Phosphatase 63 Troponin I High Sens 7.3 D B-Natriuretic Peptide 137 H Total Protein 7.3 Albumin 3.9 Lipase 11 Urine Color Yellow Urine Appearance Clear Urine pH 7.0 Ur Specific [place] 1.010 Urine Protein Negative Urine Glucose (UA) Negative Urine Ketones Negative Urine Blood Negative Urine Nitrite Negative Ur Leukocyte Esterase Negative Influenza Type A (PCR) NEGATIVE Influenza Type B (PCR) NEGATIVE RSV RNA Qual (PCR) NEGATIVE SARS-CoV-2 RNA (RT-PCR) NEGATIVE Imaging Radiologist's Impressions: Impressions Head CT 07/19/24 10:41 IMPRESSION: No acute intracranial process seen This critical result was discussed with Dr. Dowd at 11:02 AM on 07/19/2024. It was ascertained that the content and urgency of the report was understood at the time of direct communication. Electronically signed by: Joseph Ramirez MD 07/19/2024 11:07 AM EST RP Chest X-Ray 07/19/24 11:18 IMPRESSION: Unremarkable chest exam. Electronically signed by: Joseph Ramirez MD 07/19/2024 12:43 PM EST RP Head/Neck CTA 07/19/24 12:01 IMPRESSION: 1. There is an abrupt cut off of the left SUPERINTENDENT PLANT, P3 segment, consistent with occlusion. This spans approximately 10 mm, before there is lutheran of opacification of the more distal left P4 segments, likely through collateral flow. 2. There is no additional significant stenosis, occlusion, aneurysm, or dissection within the intracranial circulation. 3. There is no significant stenosis, occlusion, or dissection of the major cervical arterial vasculature. These findings were discussed via phone call with Dr. Dowd of the [facility] at 1:20 PM, 07/19/2024. Electronically signed by: Jerome Adams MD 07/19/2024 01:38 PM EST RP Brain MRI 07/19/24 12:57 IMPRESSION: Acute ischemic changes left mesial temporal lobe and left lateral hemisphere likely solid emboli in the posterior circulation. There is no suggestion for acute hemorrhage. Electronically signed by: Joseph Ramirez MD 07/19/2024 03:18 PM EST RP Assessment and Plan (1) Bilateral edema of lower extremity: Status: Acute (2) Double vision: Status: Acute (3) Stroke: Status: Acute Plan An 84 years old male with PMH of Afib, Colon CA, dCHF, Afib, Bipolar, Crohns among others who is presenting to the hospital with episode of double vision and abnormal speech this morning. Double vision likely 2/2 acute stroke MRI reporting Acute ischemic changes left mesial temporal lobe and left lateral hemisphere likely solid emboli in the posterior circulation. CT, CTA reporting abrupt cut off of the left SUPERINTENDENT PLANT, P3 segment, consistent with occlusion. This spans approximately 10 mm, before there is lutheran of opacification of the more distal left P4 segments, likely through collateral flow. start Aspirin start Atorvastatin Neurology eval PT eval Acute on chronic dCHF increase BNP and lower extremities edema start IV lasix for now Ammonium lactate for dry skin Afib Continue Xarelto and Metoprolol on Telemetry DVT PPx Xarelto The patient will need 2 overnight hospital stay for treatment of acute stroke [facility] [place] neurolog[place] evaluation Quality Stroke Does the patient have a stroke diagnosis?: Yes Reason for No Anti-thrombotic by Day Two: N/A - Med Ordered VTE Prior VTE?: No VTE Risk Level:: Medical - moderate - high VTE Device Contraindication: Treatment Not Indicated VTE Drug Contraindication: N/A - Med Ordered
--- NOTE | 2024-07-19 15:59 | MHC.STROKE ---
Met with patient and family in room [address] Garcia Pt awake, alert and oriented x 4. Answering questions appropriately and engaged in conversation. No deficits noted, pt passed swallow screen. Dr. Garcia at bedside to admit patient. The provider and I discussed the patient's plan of care, diagnosis. We discussed risk factors along with medications, diet, and activity Stroke Education provided. We reviewed the pamphlet along with visuals that were provided to the patient/family All questions were answered. I notified Dr. Rachel Parekh's office that the patient was in the ED and would not be attending their appointment tomorrow. Soledad PASTOR notified. Will continue to assist as needed.
--- NOTE | 2024-07-19 16:04 | MHC.CM.ED ---
Received notification from [facility] that patient is active with their agency. Return referral made in [facility] so agency can follow for d/c needs.
--- NOTE | 2024-07-19 16:22 | PHA.MEDREC ---
Addendum entered by Spencer Han RPh 07/19/24 16:43: Med rec was reviewed by [facility]. Original Note: Pharmacy Consult ? Medication Reconciliation Pharmacy has completed the medication reconciliation. Spoke to patient daughter at bedside to confirm med list. Daughter was able to confirm all of patients medications. Patient last took his medications 07/18/24.
[2024-07-19] MEDS: 0.9 % Sodium Chloride Flush 3 ML SYRINGE IVFLUSH (17:12)
[2024-07-19] MEDS: Rivaroxaban 15 MG TABLET PO (17:12)
--- NOTE | 2024-07-19 18:24 | P.CNNE_ITS ---
History of Present Illness Data of Consult Service Date: 07/19/24 Primary Care Provider: Rachel Parekh MD [facility] Reason for consult: stroke This is an 84 years old male with PMH of Afib, Colon CA, CHF, Bipolar, Crohn's among others who is presenting to the hospital with episode of double vision and abnormal speech this morning. The patient and his were not the best historian but reported that he went to bed feeling well last night. This morning around 10 am, he felt dizzy and unsteady and when he looked to the TV he saw two separate screens the right was above the left one. No chest pain, palpitations, SOB, nausea, vomiting, diarrhea or urinary symptoms. His symptoms resolved upon getting to the hospital. No recurrence of Sx. In ED a CTA was done showing Left PRE BILLING CLINICIAN occlusion. [facility] [place] recommended no intervention. MRI shows multiple acute embolic infarcts involving left superior cerebellum, left medial temporal lobe and right frontal and a minor left frontal cortical infarct. 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 Fatigue Cognitive disorder Alzheimer's dementia Anemia Persistent atrial fibrillation B12 deficiency Scoliosis Crohn disease Bipolar 1 disorder Family History Family History Father Heart problem Other Alzheimer's dementia Surgical History Surgical History History of partial colectomy Hx of colonoscopy Social History Social History Household Members: Spouse Household Members Other:: correction housing Housing: Assisted Living Facility Are you a primary care director rn to a significant other at home: No Do you presently have visiting nurse or other home services: Yes (PT) Alcohol intake: current Alcohol intake frequency: does not drink Patient Tobacco Use Status: Never used Tobacco Smoked in Last 30 Days: No e-Cigarette/Vaping Use: Never Used Use of substances other than those prescribed or required for medical reasons: No Advance Directives: Yes Advance Directives on File: Yes Advance Directives Date on File: 03/19/24 service: No Current occupational status: retired Cognitive needs: No Hearing needs: No Vision needs: Yes Meds Allergies Allergy/AdvReac Type Severity Reaction Status Date / Time No Known Allergies Allergy Verified 07/19/24 10:57 Active Medications: Current Medications Acetaminophen (Acetaminophen 325 Mg Tablet) 650 mg PO Q6H PRN PRN Reason: Pain, Mild 1-3,fever,headache Aspirin (Aspirin Enteric Coated 81 Mg Tablet.Dr) 81 mg PO DAILY [facility] Atorvastatin Calcium (Atorvastatin Calcium 40 Mg Tablet) 40 mg PO BEDTIME [facility] Benzonatate (Benzonatate 100 Mg Capsule) 100 mg PO TID PRN PRN Reason: Cough Calcium Carbonate (Calcium Carbonate 750 Mg Tab.Chew) 750 mg PO Q4H PRN PRN Reason: Heartburn Furosemide (Furosemide 20 Mg/2 Ml Vial) 20 mg IVPUSH DAILY [facility]; Protocol Lactic Acid (Ammonium Lactate 12 % Lotion 226 Gm Bottle) 1 appl TOPICAL BID [facility]; Protocol Magnesium Hydroxide (Milk Of Magnesia 30 Ml Oral.Susp) 30 ml PO DAILY PRN PRN Reason: Constipation Melatonin (Melatonin 3 Mg Tablet) 6 mg PO BEDTIME PRN PRN Reason: Insomnia Metoprolol Succinate (Metoprolol Succinate Er 50 Mg Tab.Er.24h) 50 mg PO DAILY [facility]; Protocol Last Admin: 07/19/24 17:20 Dose: Not Given Ondansetron HCl (Ondansetron Hcl 4 Mg/2 Ml Vial) 4 mg IVPUSH Q8H PRN PRN Reason: Nausea and Vomiting Quetiapine Fumarate (Quetiapine Fumarate 25 Mg Tablet) 25 mg PO BEDTIME [facility] Rivaroxaban (Rivaroxaban 15 Mg Tablet) 15 mg PO DAILY@1700 [facility] Last Admin: 07/19/24 17:12 Dose: 15 mg Sodium Chloride (0.9 % Sodium Chloride Flush 3 Ml Syringe) 3 ml IVFLUSH QSHIFT [facility] Last Admin: 07/19/24 17:12 Dose: 3 ml Home Medications ?Medication ?Instructions ?Recorded ?Confirmed ?Last Taken ?Type mecobalamin (vitamin B12) 1,000 1,000 mcg PO DAILY 12/28/23 07/19/24 07/18/24 History mcg lozenges igfggeta-aim-bohtv 120 mcg-lutein 1 tab PO DAILY 12/28/23 07/19/24 07/18/24 History 150 mcg-herb 50 mg chewable tablet (Alive Men's 50 Plus Multivitamin) ubidecarenone-omega 3-vit E 25 1 cap PO DAILY 12/28/23 07/19/24 07/18/24 History mg-150 (90-60) mg-200 unit capsule (Co D-94-Rcndxni E-Fish Oil) quetiapine 25 mg tablet 25 mg PO BEDTIME 03/28/24 07/19/24 07/18/24 History hydroxyzine HCl 25 mg tablet 25 mg PO TID PRN Itching 07/19/24 07/19/24 Unknown History rivaroxaban 15 mg tablet (Xarelto) 15 mg PO BEDTIME 07/19/24 07/19/24 07/18/24 History Physical Exam 2 Vital Signs: Vital Signs: Last Vital Signs Temp 98.2 F 07/19/24 10:53 Pulse 76 07/19/24 17:20 Resp 16 07/19/24 14:36 BP 111/56 L 07/19/24 17:20 Pulse Ox 98 07/19/24 14:36 O2 Del Method Room Air 07/19/24 14:36 BMI result Body Mass Index 23.7 Neuro: Other: No field cut, Normal cranial nerves. Non focal exam Results Labs 07/19/24 11:13 07/19/24 11:13 Labs: Short CBC 07/19/24 Range/Units 11:13 WBC 6.7 (4.8-10.8) X10*3/uL Hgb 11.5 L (14.0-18.0) g/dl Hct 35.5 L (42.0-52.0) % Plt Count 194 (160-400) X10*3/uL BMP 07/19/24 11:13 Sodium 139 Potassium 4.4 Chloride 107 Carbon Dioxide 26 BUN 31 H Creatinine 1.01 Calcium 8.6 Liver Function 07/19/24 Range/Units 11:13 Total Bilirubin 1.5 H (0.0-1.0) mg/dL Direct Bilirubin 0.3 (0.0-0.5) mg/dL AST 45 H (5-37) U/L ALT 30 (0-40) U/L Alkaline Phosphatase 63 (39-117) U/L Albumin 3.9 (3.5-5.0) g/dL Urine 07/19/24 Range/Units 13:38 Urine Color Yellow Urine Appearance Clear Urine pH 7.0 (5.0-9.0) Ur Specific [place] 1.010 (1.005-1.025) Urine Protein Negative (Neg-Trace) mg/dL Urine Glucose (UA) Negative (Negative) mg/dL Assessment and Plan (1) Stroke: Status: Acute 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 Major arteries in without significant stenosis. Left PRE BILLING CLINICIAN is occluded at P2-3 level with distal reconstitution. All of his imaging studies were personally reviewed. Recom.: He should be anticoagulated with Warfarin or Eliquis (2) Double vision: Status: Acute Procedures Date of Service Date of Service: 07/19/24
[2024-07-19] MEDS: QUEtiapine Fumarate 25 MG TABLET PO (21:50)
[2024-07-19] MEDS: Atorvastatin Calcium 40 MG TABLET PO (21:50)
[2024-07-20] VITALS (10 sets, daily range): BP systolic 103–146; BP diastolic 48–73; PULSE 68–107; RESP 12–20; TEMP 36.4–37.2; O2SAT 97–100
[2024-07-20] MEDS: 0.9 % Sodium Chloride Flush 3 ML SYRINGE IVFLUSH ×4 (00:29→19:52)
[2024-07-20 05:54] LABS: MANUAL DIFF FLAG NO
[2024-07-20 05:59] LABS: Basophils Percent Auto 0.6 % (0-2); Eosinophils Absolute Auto 0.7 X10*3/uL (0.0-0.4); Eosinophils Percent Auto 10.7 % (0-4); Hematocrit 33.8 % (42.0-52.0); Hemoglobin 11.2 g/dl (14.0-18.0); Imm Gran Abs Auto 0.03 X10*3/uL (0.00-0.03); Imm Gran Pct Auto 0.5 % (0.0-0.4); Lymphocytes Absolute Auto 0.7 X10*3/uL (1.2-4.9); Mean Corpuscular HGB Conc 33.1 g/dl (31.0-36.0); Mean Corpuscular Hemoglobin 32.4 pg (27.0-33.0); Mean Corpuscular Volume 97.7 fL (80.0-98.0); Mean Platelet Volume 10.4 fL (9.4-12.4); Monocytes Percent Auto 16.6 % (2-11); Neutrophils Absolute Auto 3.7 x10*3/uL (2.0-8.3); Neutrophils Percent Auto 59.6 % (45-73); Platelet Count 199 X10*3/uL (160-400); Red Blood Count 3.46 X10*6/uL (4.60-5.80); Red Cell Distribution Width 13.8 % (11.0-16.0); White Blood Count 6.2 X10*3/uL (4.8-10.8)
[2024-07-20 06:11] LABS: Alanine Aminotransferase 25 U/L (0-40); Albumin Level 3.6 g/dL (3.5-5.0); Alkaline Phosphatase 62 U/L (39-117); Anion Gap 10 (12-20); Aspartate Amino Transferase 27 U/L (5-37); Bilirubin Total 1.6 mg/dL (0.0-1.0); Blood Urea Nitrogen 29 mg/dL (9-16); Calcium 9.1 mg/dL (8.4-10.2); Carbon Dioxide 24 mmol/L (22-29); Chloride 109 mmol/L (96-108); Cholesterol 93 mg/dL (<200); Creatinine Clr Calc Pharmacy 57.3; Estimated Glomerular Filt Rate > 60; Glucose Random 78 mg/dL (60-115); HDL Cholesterol 47 mg/dL (>40); LDL Cholesterol Calculated 38 mg/dL (<100); Potassium 3.7 mmol/L (3.3-5.1); Sodium 139 mmol/L (135-145); Total Protein 6.5 g/dL (6.5-8.0); Triglycerides 43 mg/dL (<150)
--- NOTE | 2024-07-20 07:00 | CA_ITS ---
Transthoracic Echocardiogram Patient (Last, First, Middle): Asael Vargas F Gender: Male Date of : 1940 Age: 84 Procedure Date: 07/20/2024 Procedure Type: Transthoracic Echocardiogram Location: ER Height: 177.8 cm Weight: 74.84 kg BSA: 1.92 m2 Heart Rate: bpm BP: 138 / 60 mmHg Manager Hvac: GALINA Referring MD: Leslie Garcia MD Client Resource Specialist: Ricardo Romero MD Symptoms: acute embolic stroke Study Quality: Adequate ECG Rhythm: Atrial Fibrillation Conclusions: - 1. This study is limited to evaluate for cardiac source of embolism 2. Mildly reduced LV ejection fraction 45-50% Findings Left Ventricle Normal left ventricular cavity size. There is normal left ventricular wall thickness. The left ventricular systolic function is mildly decreased. The visually estimated ejection fraction is between 45-50%. Diastolic function is indeterminate on the basis of available data. Prior Study Comparison Changes noted compared to prior study dated: 06/02/2024. marginal reduction LV ejection fraction Measurements 2D Linear Measurements IVSd: 0.93 0.6-0.9/0.6-1.0 cm LVIDd: 4.44 3.9-5.3/4.2-5.9 cm LVIDd Index: 2.31 2.4-3.2/2.2-3.1 cm/m2 LVIDs: 3.28 2.0-3.6 cm LVPWd: 0.90 0.7-1.1 cm LA Diam: 3.90 2.7-3.8/3.0-4.0 cm LAIDs Index: 2.03 1.5-2.3 cm/m2 LV Mass: 164.59 67-162/88-224 g LV Mass Index: 85.72 43-95/49-115 g/m2 2D Systolic Function EF 4C: 56.10 >55% EF 2C: 44.60 >55% EF BiP: 48.10 >55% Mitral Valve MV Pk E: 0.95 E'Lateral: 10.20 E'Medial: 8.96 E/E' Med: 10.60 E/E' Lat: 9.30 Diastolic Function MV Pk E: 0.95 E'Medial: 8.96 E/E' Med: 10.60 E' Laterial: 10.20 E/E' Lat: 9.30 Tricuspid Valve RA Press: 3.00 Updated in Other Vendor System with Status of Final Ricardo Romero MD electronically signed on 07/20/2024 10:18:06 AM with status of Final
--- NOTE | 2024-07-20 08:48 | MHC.CM.PN ---
Patient has a diagnosis of Alzheimer's Dementia and Primary HCP//Brenda has requested that all questions be directed to Daughter/Alternate HCP/Eryn @ [phone]. CM spoke with Eryn and will mail the original IMM to her @ [address] [place] [address], in [facility], and a copy will be placed on the chart. Patient lives with his at [facility] and he is active with [facility]. Patient/family's goal is for Patient to return home and resume [facility] services; CM has initiated and will follow for dc planning. PCP is Dr. Rachel Parekh and transportation home is TBD.
--- NOTE | 2024-07-20 09:34 | PC.NURSE ---
Pt rests quietly most of morning. PT and OT at bedside to bedside for eval.
[2024-07-20] MEDS: Metoprolol Succinate ER 50 MG TAB.ER.24H PO (09:37)
[2024-07-20] MEDS: Furosemide 20 MG/2 ML VIAL IVPUSH (09:37)
--- NOTE | 2024-07-20 13:54 | P.PNIM_ITS ---
Subjective Subjective Date of Service: 07/20/24 Interval History: seen and evaluated feels stable, no recurrence of double vision no other events Review of Systems No fever, chills or weakness No chest pain, palpitation No shortness of breath or coughing No abdominal pain, nausea or vomiting No urinary symptoms No any rash or wounds Physical Exam 2 Vital Signs: Vital Signs: Last Vital Signs Temp 98.0 F 07/20/24 13:01 Pulse 68 07/20/24 13:01 Resp 18 07/20/24 13:01 BP 146/70 H 07/20/24 13:01 Pulse Ox 100 07/20/24 13:01 O2 Del Method Room Air 07/20/24 13:01 BMI result Body Mass Index 23.7 Const: Other: Constitutional : Awake, interactive, not in distress Neck : Normal inspection, Supple Cardiovascular : RRR, no JVP, +1 lower extremity edema Respiratory : good bilateral air entry, no crackles, wheezes or rhonchi Gastrointestinal: soft, lax, Normal bowel sounds, Non tender Skin : Warm, Dry with stasis dermatitis Neurological : Alert & oriented x3, No focal deficit , CN 2-12 within normal Objective Data Active Medications Acetaminophen (Acetaminophen 325 Mg Tablet) 650 mg PO Q6H PRN PRN Reason: Pain, Mild 1-3,fever,headache Apixaban (Apixaban 5 Mg Tablet) 5 mg PO BID [facility] Atorvastatin Calcium (Atorvastatin Calcium 40 Mg Tablet) 40 mg PO BEDTIME [facility] Last Admin: 07/19/24 21:50 Dose: 40 mg Documented By: SHAD Benzonatate (Benzonatate 100 Mg Capsule) 100 mg PO TID PRN PRN Reason: Cough Calcium Carbonate (Calcium Carbonate 750 Mg Tab.Chew) 750 mg PO Q4H PRN PRN Reason: Heartburn Furosemide (Furosemide 20 Mg/2 Ml Vial) 20 mg IVPUSH DAILY [facility]; Protocol Last Admin: 07/20/24 09:37 Dose: 20 mg Documented By: RANJANA Hydroxyzine HCl (Hydroxyzine Hcl 25 Mg Tablet) 25 mg PO TID PRN PRN Reason: Itching Lactic Acid (Ammonium Lactate 12 % Lotion 226 Gm Bottle) 1 appl TOPICAL BID [facility]; Protocol Last Admin: 07/20/24 13:47 Dose: Not Given Documented By: PAMELLA Non-Admin Reason: contacted pharmacy Magnesium Hydroxide (Milk Of Magnesia 30 Ml Oral.Susp) 30 ml PO DAILY PRN PRN Reason: Constipation Melatonin (Melatonin 3 Mg Tablet) 6 mg PO BEDTIME PRN PRN Reason: Insomnia Metoprolol Succinate (Metoprolol Succinate Er 50 Mg Tab.Er.24h) 50 mg PO DAILY [facility]; Protocol Last Admin: 07/20/24 09:37 Dose: 50 mg Documented By: RANJANA Ondansetron HCl (Ondansetron Hcl 4 Mg/2 Ml Vial) 4 mg IVPUSH Q8H PRN PRN Reason: Nausea and Vomiting Quetiapine Fumarate (Quetiapine Fumarate 25 Mg Tablet) 25 mg PO BEDTIME [facility] Last Admin: 07/19/24 21:50 Dose: 25 mg Documented By: SHAD Sodium Chloride (0.9 % Sodium Chloride Flush 3 Ml Syringe) 3 ml IVFLUSH QSHIFT [facility] Last Admin: 07/20/24 09:36 Dose: 3 ml Documented By: RANJANA Labs 07/20/24 05:38 07/20/24 05:38 Labs: Laboratory Results - last 24 hr 07/20/24 05:38 MCV 97.7 MCH 32.4 MCHC 33.1 RDW 13.8 Plt Count 199 MPV 10.4 Immature Gran % (Auto) 0.5 H Neut % (Auto) 59.6 Lymph % (Auto) 12.0 L [place] % (Auto) 16.6 H Eos % (Auto) 10.7 H Baso % (Auto) 0.6 Lymph # (Auto) 0.7 L [place] # (Auto) 1.0 Eos # (Auto) 0.7 H Baso # (Auto) 0.0 Abs Immat Gran (auto) 0.03 Absolute Neuts (auto) 3.7 Absolute Nucleated RBC 0.000 Nucleated RBC % (auto) 0.0 Anion Gap 10 L Estim Creat Clear Calc 57.3 Estimated GFR > 60 Random Glucose 78 Calcium 9.1 Total Bilirubin 1.6 H AST 27 ALT 25 Alkaline Phosphatase 62 Total Protein 6.5 Albumin 3.6 Triglycerides 43 Cholesterol 93 LDL Cholesterol, Calc 38 HDL Cholesterol 47 Assessment and Plan (1) Double vision: Status: Acute (2) Bilateral edema of lower extremity: Status: Acute (3) Stroke: Status: Acute Plan An 84 years old male with PMH of Afib, Colon CA, dCHF, Afib, Bipolar, Crohns among others who is presenting to the hospital with episode of double vision and abnormal speech this morning. Double vision likely 2/2 acute stroke MRI reporting Acute ischemic changes from embolic stroke to left mesial temporal lobe and left lateral hemisphere likely solid emboli in the posterior circulation. CT, CTA reporting abrupt cut off of the left MECHANICAL SYSTEMS DESIGN ENGINEER, P3 segment, consistent with occlusion. This spans approximately 10 mm, before there is buddhism of opacification of the more distal left P4 segments, likely through collateral flow. start Atorvastatin Neurology eval. should be anticoagulated with Warfarin or Eliquis Echo with no thrombus in heart DC Xarelto, start Eliquis PT, OT eval Acute on chronic dCHF increase BNP and lower extremities edema start IV lasix for now Ammonium lactate for dry skin stasis dermatitis improving with IV lasix and local lotion Afib Continue Eliquis and Metoprolol on Telemetry DVT PPx Eliquis The patient will need overnight hospital stay for treatment of acute stroke Quality Stroke Does the patient have a stroke diagnosis?: Yes Reason for No Anti-thrombotic by Day Two: N/A - Med Ordered VTE Prior VTE?: No VTE Risk Level:: Medical - moderate - high VTE Device Contraindication: Treatment Not Indicated VTE Drug Contraindication: N/A - Med Ordered
[2024-07-20] MEDS: Atorvastatin Calcium 40 MG TABLET PO (19:52)
[2024-07-20] MEDS: QUEtiapine Fumarate 25 MG TABLET PO (19:52)
[2024-07-20] MEDS: Apixaban 5 MG TABLET PO (19:52)
[2024-07-21 03:39] VITALS: BP 137/67; PULSE 74; RESP 20; TEMP 37.2; O2SAT 100
--- NOTE | 2024-07-21 04:18 | PC.NURSE ---
Pt admitted with CVA. Patient A&O throughout shift. Answers questions appropriately. Clear speech. Strength equal bilaterally. Pupils reactive. Pt denies any double vision.
[2024-07-21 07:54] VITALS: BP 126/71; PULSE 88; RESP 16; TEMP 36.7; O2SAT 96
[2024-07-21 08:36] LABS: MANUAL DIFF FLAG NO
[2024-07-21 08:44] LABS: Basophils Percent Auto 0.5 % (0-2); Eosinophils Absolute Auto 0.4 X10*3/uL (0.0-0.4); Hematocrit 35.7 % (42.0-52.0); Hemoglobin 11.6 g/dl (14.0-18.0); Imm Gran Abs Auto 0.02 X10*3/uL (0.00-0.03); Imm Gran Pct Auto 0.3 % (0.0-0.4); Lymphocytes Absolute Auto 0.6 X10*3/uL (1.2-4.9); Lymphocytes Percent Auto 9.6 % (20-40); Mean Corpuscular HGB Conc 32.5 g/dl (31.0-36.0); Mean Corpuscular Hemoglobin 31.6 pg (27.0-33.0); Mean Corpuscular Volume 97.3 fL (80.0-98.0); Mean Platelet Volume 10.4 fL (9.4-12.4); Neutrophils Absolute Auto 4.5 x10*3/uL (2.0-8.3); Neutrophils Percent Auto 68.6 % (45-73); Platelet Count 201 X10*3/uL (160-400); Red Blood Count 3.67 X10*6/uL (4.60-5.80); Red Cell Distribution Width 13.6 % (11.0-16.0); White Blood Count 6.5 X10*3/uL (4.8-10.8)
[2024-07-21 08:56] LABS: Anion Gap 10 (12-20); Blood Urea Nitrogen 27 mg/dL (9-16); Calcium 9.2 mg/dL (8.4-10.2); Carbon Dioxide 25 mmol/L (22-29); Chloride 109 mmol/L (96-108); Creatinine Clr Calc Pharmacy 58.5; Estimated Glomerular Filt Rate > 60; Glucose Random 118 mg/dL (60-115); Potassium 3.7 mmol/L (3.3-5.1); Sodium 140 mmol/L (135-145)
[2024-07-21] MEDS: Apixaban 5 MG TABLET PO (08:57)
[2024-07-21] MEDS: Furosemide 20 MG/2 ML VIAL IVPUSH (08:57)
[2024-07-21] MEDS: 0.9 % Sodium Chloride Flush 3 ML SYRINGE IVFLUSH (08:57)
[2024-07-21 08:59] VITALS: BP 134/94; PULSE 94
[2024-07-21] MEDS: Metoprolol Succinate ER 50 MG TAB.ER.24H PO (08:59)
--- NOTE | 2024-07-21 10:25 | PM.DS ---
DS: Providers Provider Date of Service: 07/21/24 Date of admission: 07/19/24 15:54 Date of discharge: 07/21/24 Primary care physician: Rachel Parekh MD Consults: 07/19/24 15:54 Consult to Neurology Routine Consulting Provider: [facility] Reason for consultation: Double vision, Left STONECUTTER ASSISTANT occlusion DS: Diagnosis Discharge Diagnosis (1) Double vision: Status: Acute (2) Bilateral edema of lower extremity: Status: Acute (3) Stroke: Status: Acute (4) Chronic heart failure with preserved ejection fraction (HFpEF): Status: Acute DS: Summary Hospital Course Hospital Course: Admission note HPI An 84 years old male with PMH of Afib, Colon CA, dCHF, Afib, Bipolar, Crohns among others who is presenting to the hospital with episode of double vision and abnormal speech this morning. The patient and his were not the best historian but reported that he went to bed feeling well last night. this morning around 10 he felt dizzy and unsteady and when he looked to the TV he saw two separate screens the right was above the left one. No chest pain, palpitations, SOB, nausea, vomiting, diarrhea or urinary symptoms. His symptoms resolved upon getting to the hospital. no recurrence. In ED a CTA was done showing Left STONECUTTER ASSISTANT occlusion. contacted [facility] neurosurgery who recommended no intervention. Discussed with our neurologist who recommended starting aspirin. will be admitted for close monitoring and neurology evaluation. Hospital course The patient was admitted for evaluation of Double vision and found to have acute stroke as MRI reporting Acute ischemic changes from embolic stroke to left mesial temporal lobe and left lateral hemisphere likely solid emboli in the posterior circulation. while CT, CTA reporting abrupt cut off of the left STONECUTTER ASSISTANT, P3 segment, consistent with occlusion. This spans approximately 10 mm, before there is adventism of opacification of the more distal left P4 segments, likely through collateral flow. started Atorvastatin and switched from Xarelto to Eliquis 5 mg bid per Neurology recommendations. Echo with no thrombus in heart Evaluated by PT\OT who recommended home therapy. He was also treated for Acute on chronic dCHF with increase BNP and lower extremities edema. received IV lasix with good response. Ammonium lactate for dry skin. To continue Lasix at home and low sodium diet. He is in persistent atrial fibrillation. rate controlled with Metoprolol. Discharge plan Stop Xarelto Start Eliquis 5 mg two times a day Start Atorvastatin 40 mg bedtime Physical therapy at home Time Attestation Discharge Coordination Time (in mins): 43 Quality: Safe Use of Opioids Does Pt have an Active Cancer Diagnosis on the Problem List?: No Quality: Stroke Does the patient have a stroke diagnosis?: Yes Reason for No Anti-thrombotic at DC: Not indicated Reason for No Anticoagulant at DC: N/A - Med Ordered Reason Not Initiating IV-Tpa: Not indicated Reason for No Anti-thrombotic by Day Two: Not indicated Reason for No Statin at DC: N/A - Med Ordered Physical Exam Vital Signs: Vital Signs: Last Vital Signs Temp 98.1 F 07/21/24 07:54 Pulse 94 07/21/24 08:59 Resp 16 07/21/24 07:54 BP 134/94 H 07/21/24 08:59 Pulse Ox 96 07/21/24 07:54 O2 Del Method Room Air 07/21/24 07:54 BMI result Body Mass Index 23.7 Const: Other: Constitutional : Awake, interactive, not in distress Neck : Normal inspection, Supple Cardiovascular : irregular irregular, no JVP, trace lower extremity edema Respiratory : good bilateral air entry, no crackles, wheezes or rhonchi Gastrointestinal: soft, lax, Normal bowel sounds, Non tender Skin : Warm, resolving stasis dermatitis Neurological : Alert & oriented x3, No focal deficit , CN 2-12 within normal DS: Data Data Completed and Pending Completed studies during hospitalization [Text1]: Procedures Excision of Ascending Colon, Percutaneous Endoscopic Approach (05/18/24) Excision of Ileum, Percutaneous Endoscopic Approach (05/18/24) Introduction of Anesthetic Agent into Peripheral Nerves and Plexi, Percutaneous Approach (05/18/24) Release Transverse Colon, Open Approach (05/18/24) Labs on day of discharge: Laboratory Results - last 24 hr 07/21/24 08:26 WBC 6.5 RBC 3.67 L Hgb 11.6 L Hct 35.7 L MCV 97.3 MCH 31.6 MCHC 32.5 RDW 13.6 Plt Count 201 MPV 10.4 Immature Gran % (Auto) 0.3 Neut % (Auto) 68.6 Lymph % (Auto) 9.6 L [place] % (Auto) 15.0 H Eos % (Auto) 6.0 H Baso % (Auto) 0.5 Lymph # (Auto) 0.6 L [place] # (Auto) 1.0 Eos # (Auto) 0.4 Baso # (Auto) 0.0 Abs Immat Gran (auto) 0.02 Absolute Neuts (auto) 4.5 Absolute Nucleated RBC 0.000 Nucleated RBC % (auto) 0.0 Sodium 140 Potassium 3.7 Chloride 109 H Carbon Dioxide 25 Anion Gap 10 L BUN 27 H Creatinine 0.97 Estim Creat Clear Calc 58.5 Estimated GFR > 60 Random Glucose 118 H Calcium 9.2 Imaging MRI - head: Radiologist's impression: ITS Impressions Head CT 07/19/24 10:41 IMPRESSION: No acute intracranial process seen This critical result was discussed with Dr. Dowd at 11:02 AM on 07/19/2024. It was ascertained that the content and urgency of the report was understood at the time of direct communication. Electronically signed by: Joseph Ramirez MD 07/19/2024 11:07 AM EST RP Chest X-Ray 07/19/24 11:18 IMPRESSION: Unremarkable chest exam. Electronically signed by: Joseph Ramirez MD 07/19/2024 12:43 PM EST RP Head/Neck CTA 07/19/24 12:01 IMPRESSION: 1. There is an abrupt cut off of the left STONECUTTER ASSISTANT, P3 segment, consistent with occlusion. This spans approximately 10 mm, before there is adventism of opacification of the more distal left P4 segments, likely through collateral flow. 2. There is no additional significant stenosis, occlusion, aneurysm, or dissection within the intracranial circulation. 3. There is no significant stenosis, occlusion, or dissection of the major cervical arterial vasculature. These findings were discussed via phone call with Dr. Dowd of the [facility] at 1:20 PM, 07/19/2024. Electronically signed by: Jerome Adams MD 07/19/2024 01:38 PM EST RP Brain MRI 07/19/24 12:57 IMPRESSION: Acute ischemic changes left mesial temporal lobe and left lateral hemisphere likely solid emboli in the posterior circulation. There is no suggestion for acute hemorrhage. Electronically signed by: Joseph Ramirez MD 07/19/2024 03:18 PM EST RP Discharge Plan Discharge Anticipated Discharge Date/Time: 07/21/24 10:22 Patient Disposition: Home Health Service Discharge Diagnosis: Acute stroke Referrals: [facility]AS [Outside] - 1 Day (RESUMPTION OF CARE) Rachel Parekh MD [Primary Care Provider] - 1 Week Discharge Medications: New Eliquis 5 mg Tablet 5 mg PO BID Qty: 180 0RF atorvastatin 40 mg Tablet 40 mg PO BEDTIME Qty: 90 0RF Continued metoprolol succinate 50 mg tablet extended release 24 hr 50 mg PO DAILY Qty: 90 0RF furosemide [Lasix] 20 mg tablet 20 mg PO DAILY Qty: 90 0RF Rx Instructions: take additional 1 tablet in the afternoon for increased swelling quetiapine 25 mg tablet 25 mg PO BEDTIME hydroxyzine HCl 25 mg tablet 25 mg PO TID PRN (Reason: Itching) mecobalamin (vitamin B12) 1,000 mcg lozenge 1,000 mcg PO DAILY Rx Instructions: allow to dissolve in mouth OR may chew lightly before swallowing Alive Men's 50 Plus Multivit 120 mcg-150 mcg -50 mg tablet,chewable 1 tab PO DAILY Co [id number] E-Fish Oil 25-150-200 mg-mg-unit capsule 1 cap PO DAILY Discontinued Xarelto 15 mg tablet 15 mg PO BEDTIME Rx Instructions: must administer with evening meal Discharge Orders: Discharge Order (Routine); Ordered 07/21/24 Ordered By: Leslie Garcia Diet: Advance to usual diet Activity on Discharge: As tolerated Stand Alone Forms: Patient Portal Discharge page Print Language: Polish Care Plan Goals: Stop Xarelto Start Eliquis 5 mg two times a day Start Atorvastatin 40 mg bedtime Physical therapy at home Health Concerns: acute stroke Plan of Treatment: Eliquis Statin Assessment: as above
[2024-07-21 11:57] VITALS: BP 119/65; PULSE 81; RESP 14; TEMP 36.8; O2SAT 97
--- NOTE | 2024-07-21 13:55 | MHC.STROKE ---
1300 Met with patient and daughter Eryn on afternoon of discharge. Patient and family had some questions regarding stroke diagnosis and care at home. We spent time at length discussing his diagnosis, follow up appointments, medication changes, along with current lifestyle. All questions were answered and contact information provided to patient/family. Pt engaged in conversation and grateful for the time we spent discussing all of his concerns. Pt looking forward to being discharged home. Denies pain. Neuros intact. This RN assisted patient into his clothing to go home. Tele mar and IV removed.
--- NOTE | 2024-07-22 11:31 | W.MHC.F2F ---
Service Date Service Date: 07/22/24 Encounter Date of encounter: 07/22/24 Reasons for Services Signs and symptoms assessed: physical deconditioning acute stroke Reason for senior living: neurological assessment and teach disease management Reason for physical therapy: home safety and mobility and therapeutic exercises Reason for occupational therapy: home safety and mobility and therapeutic exercises Homebound: Leaving the home is medically contraindicated at this time without the asist of a device and/or another person due th the listed conditions above and below. Reason homebound: unsteady gait / fall risk and unable to drive Certification: Based on the above findings, I certify that this patient is confined to the home and needs intermittent senior living care, physical therapy and/or speech therapy, or continues to need occupational therapy. The patient is under my care, and I have initiated the establishment of the plan of care. The patient will be followed by a physician who will periodically review the plan of care. Time Spent With Patient Time: Total time managing care of this patient today ____ minutes.
== END 2024-07-21 13:48 | disposition home health service (06) | DRG 64 ==
LOC: HO.ED 15:02 → HO.EDOVER 16:31 → HO.IMC 07-20 08:51
PROVIDERS: Admitting Provider Student in an Organized Health Care Education/Training Program; Emergency Provider Emergency Medicine; PCP Internal Medicine; Visit Provider Student in an Organized Health Care Education/Training Program
DX: I63.432 Cerebral infarction due to embolism of left posterior cerebral artery (principal); I50.33 Acute on chronic diastolic (congestive) heart failure; I48.19 Other persistent atrial fibrillation; K50.90 Crohn's disease, unspecified, without complications; I87.2 Venous insufficiency (chronic) (peripheral); R29.810 Facial weakness; G30.9 Alzheimer's disease, unspecified; F02.80 Dementia in other diseases classified elsewhere, unspecified severity, without behavioral disturbance, psychotic disturbance, mood disturbance, and anxiety; R29.700 NIHSS score 0; H53.2 Diplopia; Z20.822 Contact with and (suspected) exposure to COVID-19; Z79.899 Other long term (current) drug therapy
CPT/HCPCS: 0241U; 36415; 70450; 70496; 70498; 70551; 71045; 80048; 80053; 80061; 80076; 81003; 83690; 83880; 84484; 85025; 85610; 93005; 93308; 97162; 97166; 99285; J1940; Q9967

== ENCOUNTER → 2024-07-19 10:37 | Outpatient (BNV) | payer MEDICARE, OTHER, SELFPAY | PROVIDERS: Emergency Provider Emergency Medicine; PCP Internal Medicine; Visit Provider Radiology Diagnostic Radiology | DX: R47.81 Slurred speech (principal); I63.532 Cerebral infarction due to unspecified occlusion or stenosis of left posterior cerebral artery; I63.9 Cerebral infarction, unspecified | CPT/HCPCS: 70450; 70496; 70498; 70551; 71045 ==

== ENCOUNTER → 2024-07-19 10:37 | Outpatient (BNV) | payer MEDICARE, OTHER, SELFPAY | PROVIDERS: Admitting Provider Student in an Organized Health Care Education/Training Program; Emergency Provider Emergency Medicine; PCP Internal Medicine; Visit Provider Internal Medicine Cardiovascular Disease | DX: I48.91 Unspecified atrial fibrillation (principal) | CPT/HCPCS: 93010 ==

== ENCOUNTER 2024-07-19 15:54 | Outpatient (BNV) | payer MEDICARE, OTHER, SELFPAY | END 2024-07-20 07:00 | PROVIDERS: Admitting Provider Student in an Organized Health Care Education/Training Program; Emergency Provider Emergency Medicine; PCP Internal Medicine; Visit Provider Internal Medicine Cardiovascular Disease | DX: I63.9 Cerebral infarction, unspecified (principal); I51.89 Other ill-defined heart diseases | CPT/HCPCS: 93308 ==

== ENCOUNTER → 2024-07-19 15:54 | Outpatient (BNV) | payer MEDICARE, OTHER, SELFPAY | PROVIDERS: Admitting Provider Student in an Organized Health Care Education/Training Program; Emergency Provider Emergency Medicine; PCP Internal Medicine; Visit Provider Psychiatry & Neurology Neurology | DX: I63.9 Cerebral infarction, unspecified (principal); H53.2 Diplopia | CPT/HCPCS: 99223 ==

== ENCOUNTER → 2024-07-19 15:54 | Outpatient (BNV) | payer MEDICARE, OTHER, SELFPAY | PROVIDERS: Admitting Provider Student in an Organized Health Care Education/Training Program; Emergency Provider Emergency Medicine; PCP Internal Medicine; Visit Provider Student in an Organized Health Care Education/Training Program | DX: H53.2 Diplopia (principal); R60.0 Localized edema; I63.9 Cerebral infarction, unspecified | CPT/HCPCS: 99233; 99239 ==

== ENCOUNTER 2024-07-27 12:04 | Outpatient (AMB) | payer MEDICARE, OTHER, SELFPAY ==
[2024-07-27 12:12] VITALS: BP 108/68; PULSE 95; TEMP 36.6; O2SAT 97; BMI 21.5
--- NOTE | 2024-07-27 12:12 | A.OFFPC_ITS ---
Vital Signs 07/27/24 12:12 Height 5 ft 7 in Weight 137 lb 4 oz BMI 21.5 BP 108/68 Blood Pressure Location Lt brachial Position Sitting Pulse 95 Pulse Source Pulse Oximeter Temp 98 F Temp Source Oral Pulse Oximetry (%) 97 Oxygen Delivery Method Room Air Intake Visit Reasons: tcm Allergies No Known Allergies Allergy (Verified 07/19/24 10:57) Medication List - Last Reconciled 07/27/24 by Rachel Parekh MD apixaban (Eliquis) 5 mg PO BID atorvastatin 40 mg PO BEDTIME furosemide (Lasix) 20 mg PO DAILY hydroxyzine HCl 25 mg PO TID PRN mecobalamin (vitamin B12) 1,000 mcg PO DAILY metoprolol succinate ER 50 mg PO DAILY bs-op-oigog-lutein-herbal 293 120 mcg-150 mcg -50 mg (Alive Men's 50 Plus Multivitamin) 1 tab PO DAILY quetiapine 25 mg PO BEDTIME ubidecarenone-omega 3-vit E 25-150-200 mg-mg-unit (Co L-97-Jcdoezx E-Fish Oil) 1 cap PO DAILY Tobacco use date assessed: 07/27/24 Fall risk assessment: No Falls in past year Last assessed Fall Risk: 07/27/24 Dental Screening Dental Screen Date: 07/27/24 Did you have a dental visit in the last 12 months?: Yes Did you have a dental problem in the last 6 months where you did not have access to dental care?: No Was dental information given to patient?: Patient has dentist HPI tcm HPI Details Patient is 84-year-old gentleman with a history of atrial fibrillation on Xarelto, Crohn's disease with colon resection with recurrent multiple bowel obstructions, Alzheimer's dementia, bipolar disorder, brought in to emergency room [facility] on of this month through EMS as stroke alert on 19 of July, and patient stayed in the hospital until 21 of July At home spouse noticed that patient was having right facial droop and slurred speech along with double vision and he complained of feeling generalized weakness His blood pressure was 122/66 pulse were 77 and pulse ox was 98 on room air patient was afebrile In emergency room patient was alert awake oriented and in no distress His neuro exam was nonfocal He had a CT angio of head and neck which was reported to have occlusion of left HEEL NAIL RASPER The case was discussed with neuro intervention at [facility] Dr. Ludwig Patient was observed in the [facility] at night and was transferred to [facility] for mechanical thrombectomy, since he was not a candidate for IV thrombolysis secondary to Xarelto His hemoglobin was 11.5 In the hospital patient had MRI which showed acute stroke left temporal lobe and left lateral hemisphere likely solid emboli in the posterior circulation Atorvastatin was started and Xarelto was switched to Eliquis 5 mg b.i.d. as per Neurology recommendation Echocardiogram showed no thrombus in the heart PT OT was recommended at home Patient was treated for acute on chronic Congestive heart failure with increased BNP and lower extremity edema with IV Lasix and he responded well He was sent home, Lasix to be continued and low-sodium diet Patient continued to stay in atrial fibrillation but rate was controlled with metoprolol He came in today for follow-up appointment - Reports a significant right eye scotom a following the stroke, ongoing. - In recent hospitalization due to strok e, thrombectomy was contemplated but avoided due to risk factors. . - Manages hypertension and heart disease with prescribed Eliquids and Mantua. Patient is established with Cardiology - Crohn's disease is currently non-activ e; bowel cancer is treated via consultations with an oncologist. Dr. Thacker and has appointment coming up next month - Swelling in legs addressed with Lasix, reducing fluid retention. - A history of mood disturbance post-str rika leads to consideration of psychiatric evaluation support. Patient already have a psychiatrist Dr. Mirza for bipolar disorder they will contact him Medications - Eliquis (Indication: Anticoagulation f or stroke and heart disease) - Mantua (Indication: Hypertension a nd heart rate control) - High-dose Statin (Indication: Stroke p rophylaxis and cholesterol management) - Lasix (Indication: Edema management) Problem List - Cerebrovascular Accident (Stroke) - Scotoma in the Right Eye - Hypertension - Cancer of the Bowel - Crohn's Disease - Heart Disease - Swelling in Lower Extremities - Rash (Resolved) - Mood Distrubance Stebbins of Care - Dr. Douglass (Neurologist) - Dr. Estes (Oncologist for cancer christiano jen) - Dr. Saavedra (Surgeon consulted for vidhya wel cancer) - Dr. Guy (Mixed C[employer] Livestock Farmer managin g Crohn?s and bowel cancer issues) - Dr. Campos (Psychiatrist managing mood disturbance) Patient Instructions - Resume physical therapy to improve str ength and stability. - Attend scheduled appointments with the neurologist and oncologist as discussed. - Maintain prescribed medication regimen without missing doses for hypertension, heart condition, and stroke prevention. - Monitor any visual changes and inform neurology if issues persist. - Manage fluid intake and elevation of l egs to reduce swelling. - Discuss any ongoing mood disturbances with the psychiatrist. - A follow-up appointment is scheduled w ith a neurologist to address further concerns about stroke recovery. Review of Systems - Neurological: Reports scotoma in the r ight eye, weakness in lower extremities. Denies any new significant neurological deficit. - Psychological: Reports emotional vulne rability, occasional overwhelming feelings. - Dermatological: Resolved rash with tra nsient itchiness General: No fever no chills ear nose throat: No sore throat no hearing difficulty no ear pain cardiovascular: No syncope, no chest pain, no palpitations gastrointestinal: No nausea vomiting or diarrhea endocrine: No polyuria polydipsia no heat intolerance genitourinary: No dysuria Physical Exam general: Feeling of vulnerability, no acute distress HEENT: Scotoma in the right eye, no acute findings neck: Supple respiratory system: Able to talk in full sentences, no audible wheeze, no str idor cardiovascular: S1-S2 irregularly irregular gastrointestinal: No pain extremities: No new findings, swelling in legs improved 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: Alert, awake, oriented x3, motor sensory intact, slight delay in processing skin: Normal turgor, rash improved, still slightly itchy sometimes TCM TCM Information Date of Discharge 07/21/24 Discharged From [facility] Interactive Contact Date (Reference documentation from this date) 07/22/24 HPI Comments History of Present Illness Details Date of admission/discharge: 07/19/24 till 07/21/24 Facility: [facility] Discharge 2/current location: Home Diagnosis/procedure: Acute stroke, occlusion of HEEL NAIL RASPER on CTA New/DC medications: Xarelto changed to Eliquis 5 mg b.i.d. and atorvastatin 40 mg Changed medication/dozing: As above Pending labs/tests: None Call to patient: Date/time 07/22/24 Outcome spoke to family and patient How are you feeling? at times feel stressed but then able to relax, feeling depressed at times as well Any pain or discomfort? NO Do you have any questions about your condition or discharge instructions? Were you able to get her medications filled? no problems Do you have any questions about your medications? no questions Were you able to schedule your follow-up appointments? yes If home health was ordered, have they contacted you? yes Any outpatient services, if so, are you scheduled? at home PT/OT Are there any additional resources like transportation you might need during your recovery? no Educational needs/resources: provided What support system do you have? 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 Fatigue Cognitive disorder Alzheimer's dementia Anemia Persistent atrial fibrillation B12 deficiency Scoliosis Crohn disease Bipolar 1 disorder Surgical History History of partial colectomy Hx of colonoscopy Family History Father Heart problem Other Alzheimer's dementia Social History Household Members: Spouse Household Members Other:: nursing home housing Housing: Apartment Are you a primary medication care manager to a significant other at home: No Do you presently have visiting nurse or other home services: No Alcohol intake: current Alcohol intake frequency: does not drink Patient Tobacco Use Status: Never used Tobacco e-Cigarette/Vaping Use: Never Used Advance Directives Date on File: 03/19/24 service: No Current occupational status: retired Cognitive needs: No Hearing needs: No Vision needs: Yes Questionnaire PHQ-9 Over the last 2 weeks, how often have you been bothered by any of the following problems? 1. Little interest or pleasure in doing things: not at all 2. Feeling down, depressed, or hopeless: not at all 3. Trouble falling or staying asleep, or sleeping too much: several days 4. Feeling tired or having little energy: several days 5. Poor appetite or overeating: not at all 6. Feeling bad about yourself - or that you are a failure or have let yourself or your family down: not at all 7. Trouble concentrating on things, such as reading the newspaper or watching television: not at all 8. Moving or speaking so slowly that other people could have noticed. Or the opposite - being so fidgety or restless that you have been moving around a lot more than usual: not at all 9. Thoughts that you would be better off or of hurting yourself in some way: not at all Total score: 2 Depression Screening Interpretation: Negative Depression Screening Done: Yes 58476 - PHQ-9 Billing: Yes Source: Developed by Drs. Franklin Funez, Sally Pappas, Geoff Spears and colleagues, with an educational rhonda from [employer]. Thrive Questionnaire Date Thrive assessed: 07/27/24 I am a: Parent/Caregiver What is your living situation today?: I have a steady place to live Within the past 12 months, did the food you bought not last and you didn't have the money to get more?: Never true Within the past 12 months, did you worry whether your food would run out before you got money to buy more?: Never true Do you have trouble paying for medicines?: No Do you have trouble getting transportation to medical appointments?: No Do you have trouble paying your heating and electricity bill?: No Do you have trouble taking care of your child, family member or friend?: No Do you have trouble with day-to-day activities such as bathing, preparing meals, shopping, managing finances, etc.?: No Are you currently unemployed and looking for a job?: No Are you interested in more education?: No Please select the resources that you would like help with: None Currently or been in a relationship where the following occur: No concerns reported THRIVE Score: 0 AUDIT C Alcohol Use Questionnaire (AUDIT-C) 1. How often do you have a drink containing alcohol?: Never 3. How often do you have six or more drinks on one occasion?: Never Total Score: 0 Score Reviewed/Action Taken: Yes SIDRA-7 AMB Questionnaire SIDRA-7 Date SIDRA - 7 assessed: 07/27/24 Feeling nervous, anxious, or on edge: 1 = Several days Not being able to stop or control worryin = Not at all Worrying too much about different things: 0 = Not at all Trouble relaxin = Not at all Being so restless that it is hard to sit still: 0 = Not at all Becoming easily annoyed or irritable: 1 = Several days Feeling afraid as if something awful might happen: 0 = Not at all Total SIDRA-7 score (0-4 normal; 5-9 mild; 10-14 moderate; 15-21 severe): 2 Source: Developed by Drs. Franklin Funez, Sally Pappas, Geoff Spears and colleagues, with an educational rhonda from [employer]. SIDRA-7 Assessment Billing SIDRA-7 Assessment Tool: SIDRA-7 Assessment 88180 Physical exam (Primary Care) Vital Signs: Last Vital Signs Temp 98 F 07/27/24 12:12 Pulse 95 07/27/24 12:12 BP 108/68 07/27/24 12:12 Pulse Ox 97 07/27/24 12:12 Oxygen Delivery Method Room Air 07/27/24 12:12 BMI result Body Mass Index 21.5 Tobacco/Smoking Status: Tobacco use Status Tobacco use date assessed 07/27/24 07/27/24 12:16 Patient Tobacco Use Status Never used Tobacco 07/27/24 12:13 e-Cigarette/Vaping Use Never Used 07/27/24 12:13 PHQ-9: PHQ-9 Score PHQ-9: Total score 2 07/27/24 12:17 Depression Screening Interpretation: Negative Thrive Assessment: Date of Thrive Assessment Date Thrive assessed 07/27/24 07/27/24 12:16 Currently or been in a relationship where the following occur: No concerns reported Coding Level of Care Code TCM High MDM <= 7 Days Diagnoses Acute left HEEL NAIL RASPER stroke I63.532 Hospital discharge follow-up Z09 Double vision H53.2 Bilateral edema of lower extremity R60.0 Malignant neoplasm of colon, unspecified part of colon C18.9 Colon location: unspecified part of colon Status post small bowel resection Z90.49 Persistent atrial fibrillation I48.19 Atrial fibrillation type: persistent (not longstanding) Mild late onset Alzheimer's dementia without behavioral disturbance, psychotic disturbance, mood disturbance, or anxiety G30.1; F02.A0 Alzheimer's disease onset: late onset Dementia severity: mild Dementia behavioral or psychological symptom: without behavioral, psychotic, or mood disturbance or anxiety Bipolar 1 disorder F31.9 Crohn's disease of large intestine without complication K50.10 Gastrointestinal tract location: large intestine Digestive disease complication type: without complication 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 Z92.29 Additional Codes SIDRA-7 Assessment Billing - SIDRA-7 Assessment Tool: SIDRA-7 Assessment 79722 ([id number]) PHQ-9 - 53146 - PHQ-9 Billing: Yes ([id number]) Assessment & Plan Assessment & Plan (1) Acute left HEEL NAIL RASPER stroke: Code(s): I63.532 - Cerebral infarction due to unspecified occlusion or stenosis of left posterior cerebral artery Category: Medical (2) Hospital discharge follow-up: Code(s): Z09 - Encounter for follow-up examination after completed treatment for conditions other than malignant neoplasm Category: Medical (3) Double vision: Code(s): H53.2 - Diplopia Category: Medical (4) Bilateral edema of lower extremity: Code(s): R60.0 - Localized edema Category: Medical (5) Colon cancer: Code(s): C18.9 - Malignant neoplasm of colon, unspecified Category: Medical Qualifiers: Colon location: unspecified part of colon Qualified Code(s): C18.9 - Malignant neoplasm of colon, unspecified (6) Status post small bowel resection: Code(s): Z90.49 - Acquired absence of other specified parts of digestive tract Category: Surgical (7) A-fib: Code(s): I48.91 - Unspecified atrial fibrillation Category: Medical Qualifiers: Atrial fibrillation type: persistent (not longstanding) Qualified Code(s): I48.19 - Other persistent atrial fibrillation (8) Alzheimer's dementia: Comment: [place] nini/ [place] [facility] [place](s): G30.9 - Alzheimer's disease, unspecified; F02.80 - Dementia in other diseases classified elsewhere, unspecified severity, without behavioral disturbance, psychotic disturbance, mood disturbance, and anxiety Category: Medical Qualifiers: Alzheimer's disease onset: late onset Dementia severity: mild Dementia behavioral or psychological symptom: without behavioral, psychotic, or mood disturbance or anxiety Qualified Code(s): G30.1 - Alzheimer's disease with late onset; F02.A0 - Dementia in other diseases classified elsewhere, mild, without behavioral disturbance, psychotic disturbance, mood disturbance, and anxiety (9) Bipolar 1 disorder: Code(s): F31.9 - Bipolar disorder, unspecified Category: Medical (10) Crohn disease: Code(s): K50.90 - Crohn's disease, unspecified, without complications Category: Medical Qualifiers: Gastrointestinal tract location: large intestine Digestive disease complication type: without complication Qualified Code(s): K50.10 - Crohn's disease of large intestine without complications (11) Hx of intermediate use of blood thinners: Code(s): Z92.29 - Personal history of other drug therapy Category: Medical Plan Patient is 84-year-old gentleman with a history of atrial fibrillation on Xarelto, Crohn's disease with colon resection with recurrent multiple bowel obstructions, Alzheimer's dementia, bipolar disorder, brought in to emergency room [facility] on of this month through EMS as stroke alert on 19 of July, and patient stayed in the hospital until 21 of July At home spouse noticed that patient was having right facial droop and slurred speech along with double vision and he complained of feeling generalized weakness His blood pressure was 122/66 pulse were 77 and pulse ox was 98 on room air patient was afebrile In emergency room patient was alert awake oriented and in no distress His neuro exam was nonfocal He had a CT angio of head and neck which was reported to have occlusion of left HEEL NAIL RASPER The case was discussed with neuro intervention at [facility] Dr. Ludwig Patient was observed in the [facility] at night and was transferred to [facility] for mechanical thrombectomy, since he was not a candidate for IV thrombolysis secondary to Xarelto His hemoglobin was 11.5 In the hospital patient had MRI which showed acute stroke left temporal lobe and left lateral hemisphere likely solid emboli in the posterior circulation Atorvastatin was started and Xarelto was switched to Eliquis 5 mg b.i.d. as per Neurology recommendation Echocardiogram showed no thrombus in the heart PT OT was recommended at home Patient was treated for acute on chronic Congestive heart failure with increased BNP and lower extremity edema with IV Lasix and he responded well He was sent home, Lasix to be continued and low-sodium diet Patient continued to stay in atrial fibrillation but rate was controlled with metoprolol He came in today for follow-up appointment - Reports a significant right eye scotoma following the stroke, ongoing. - In recent hospitalization due to stroke, thrombectomy was contemplated but avoided due to risk factors. . - Manages hypertension and heart disease with prescribed Eliquids and Mantua. Patient is established with Cardiology - Crohn's disease is currently non-active; bowel cancer is treated via consultations with an oncologist. Dr. Thacker and has appointment coming up next month - Swelling in legs addressed with Lasix, reducing fluid retention. - A history of mood disturbance post-stroke leads to consideration of psychiatric evaluation support. Patient already have a psychiatrist Dr. Mirza for bipolar disorder they will contact him Medications - Eliquis (Indication: Anticoagulation for stroke and heart disease) - Mantua (Indication: Hypertension and heart rate control) - High-dose Statin (Indication: Stroke prophylaxis and cholesterol management) - Lasix (Indication: Edema management) Problem List - Cerebrovascular Accident (Stroke) - Scotoma in the Right Eye - Hypertension - Cancer of the Bowel - Crohn's Disease - Heart Disease - Swelling in Lower Extremities - Rash (Resolved) - Mood Distrubance Stebbins of Care - Dr. Douglass (Neurologist) - Dr. Estes (Oncologist for cancer management) - Dr. Saavedra (Surgeon consulted for bowel cancer) - Dr. Guy ([employer] Liv[employer] Farmer managing Crohn?s and bowel cancer issues) - Dr. Campos (Psychiatrist managing mood disturbance) Patient Instructions - Resume physical therapy to improve strength and stability. - Attend scheduled appointments with the neurologist and oncologist as discussed. - Maintain prescribed medication regimen without missing doses for hypertension, heart condition, and stroke prevention. - Monitor any visual changes and inform neurology if issues persist. - Manage fluid intake and elevation of legs to reduce swelling. - Discuss any ongoing mood disturbances with the psychiatrist. - A follow-up appointment is scheduled with a neurologist to address further concerns about stroke recovery. Orders: Referrals Neurology Referral I63.532 - Cerebral infarction due to unspecified occlusion or stenosis of left posterior cerebral artery
== END 2024-07-27 13:33 | disposition home or self-care (01) ==
PROVIDERS: PCP Internal Medicine; Visit Provider Internal Medicine
DX: I63.532 Cerebral infarction due to unspecified occlusion or stenosis of left posterior cerebral artery (principal); C18.9 Malignant neoplasm of colon, unspecified; I48.19 Other persistent atrial fibrillation; G30.1 Alzheimer's disease with late onset; F02.A0 Dementia in other diseases classified elsewhere, mild, without behavioral disturbance, psychotic disturbance, mood disturbance, and anxiety; F31.9 Bipolar disorder, unspecified; K50.10 Crohn's disease of large intestine without complications; Z09 Encounter for follow-up examination after completed treatment for conditions other than malignant neoplasm; H53.2 Diplopia; R60.0 Localized edema; Z90.49 Acquired absence of other specified parts of digestive tract; Z92.29 Personal history of other drug therapy

== ENCOUNTER → 2024-07-27 12:04 | Outpatient (BNVA) | payer MEDICARE, OTHER, SELFPAY | PROVIDERS: PCP Internal Medicine; Visit Provider Internal Medicine | DX: I48.91 Unspecified atrial fibrillation (principal); G30.9 Alzheimer's disease, unspecified; F02.80 Dementia in other diseases classified elsewhere, unspecified severity, without behavioral disturbance, psychotic disturbance, mood disturbance, and anxiety; H53.2 Diplopia; R60.0 Localized edema; C18.9 Malignant neoplasm of colon, unspecified; I48.19 Other persistent atrial fibrillation; G30.1 Alzheimer's disease with late onset; F02.A0 Dementia in other diseases classified elsewhere, mild, without behavioral disturbance, psychotic disturbance, mood disturbance, and anxiety; F31.9 Bipolar disorder, unspecified; K50.10 Crohn's disease of large intestine without complications; Z09 Encounter for follow-up examination after completed treatment for conditions other than malignant neoplasm; Z92.29 Personal history of other drug therapy; Z90.49 Acquired absence of other specified parts of digestive tract; Z79.01 Long term (current) use of anticoagulants; Z86.73 Personal history of transient ischemic attack (TIA), and cerebral infarction without residual deficits | CPT/HCPCS: 96127; 99496 ==

== ENCOUNTER 2024-08-01 14:06 | Outpatient (AMB) | payer MEDICARE, OTHER, SELFPAY ==
--- NOTE | 2024-08-01 14:07 | A.OFFVIS_ITS ---
Vital Signs 08/01/24 14:08 Height 5 ft 7 in Weight 138 lb BMI 21.6 BP 104/66 Blood Pressure Location Rt brachial Position Sitting Intake Visit Reasons: TIA Follow up Intake Note: Patient presents for TIA follow up Allergies No Known Allergies Allergy (Verified 08/01/24 14:13) HPI Comments Details: 84y/o male comes for follow up.On Jul 19 he was taken to [facility] for an epsiode of right facial droop, generalized weakness and slurred speech, double vision . His symptoms resolved except for right eye vision blurring . His investigations showed a left FIELD INSTALLATION TECHNICIAN stenosis - but he was not a candidate for thrombectomy due to being on Eliquis and his symptoms resolved.He was in Atrial fibrillation. CTA was done showing Left FIELD INSTALLATION TECHNICIAN occlusion. [facility] [place] who recommended no intervention. MRI shows multiple acute embolic infarcts involving left superior cerebellum, left medial temporal lobe and right frontal and a minor left frontal cortical infarct. He was started on atorvastatin 40mg qd.since the stroke he reports more fatigue, worsening of his cognition and emotional instability. Last month he was admitted History from last visit- I reviewed his notes form [facility] program - PET Amyloid was ordered . 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 He is accompanied by his daughter who helps with history. He moved from [place] to [place] last year. He started noticing some memory issues about 2 years ago and was evaluated in [place] but does not know the diagnosis. He has short term recall issues, he has trouble remembering to take medications,trouble remembering appointments, misplaces things in the house,mild difficulty with remembering conversations etc. He denies any executive issues.He stopped driving 3-4 years ago - was told he had a slow response time. He has depression, bipolar 2 disorder and is followed up by . 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 No head injury . Family h/o- mother, Brother and maternal grand mother had dementia. 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 Fatigue Cognitive disorder Alzheimer's dementia Anemia Persistent atrial fibrillation B12 deficiency Scoliosis Crohn disease Bipolar 1 disorder Surgical History History of partial colectomy Hx of colonoscopy Family History Father Heart problem Other Alzheimer's dementia Social History Household Members: Spouse Household Members Other:: penitentiary housing Housing: Apartment Are you a primary social worker palliative care to a significant other at home: No Do you presently have visiting nurse or other home services: No Alcohol intake: current Alcohol intake frequency: does not drink Patient Tobacco Use Status: Never used Tobacco e-Cigarette/Vaping Use: Never Used Advance Directives Date on File: 03/19/24 service: No Current occupational status: retired Cognitive needs: No Hearing needs: No Vision needs: Yes Physical Exam Vital Signs: Last Vital Signs BP 104/66 08/01/24 14:08 BMI result Body Mass Index 21.6 Const General: cooperative, healthy appearing, comfortable and no acute distress Nutritional Appearance: average body habitus Orientation/consciousness: oriented to person and oriented to place Neuro Other: Neck- antecollis Mild slowness decreased range of motion in the neck mild facial asymmetry - right facial weakness and mild left ptosis General: oriented to person, oriented to place, tone normal and moves all extremities Gait exam (Neuro): Antalgic gait present Motor exam (neuro): 5/5 motor strength present throughout and Normal motor muscle tone present throughout Coordination: [id number] test normal Assessment & Plan Assessment & Plan (1) Acute left FIELD INSTALLATION TECHNICIAN stroke: Code(s): I63.532 - Cerebral infarction due to unspecified occlusion or stenosis of left posterior cerebral artery Category: Medical (2) Cognitive disorder: Comment: Alzheimer's dementia - 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 Coding Level of Care Code Est Pt Level 4 (51047) Complex EM visit Add On G2211 Diagnoses Acute left FIELD INSTALLATION TECHNICIAN stroke I63.532 Cognitive disorder F09
[2024-08-01 14:08] VITALS: BP 104/66; BMI 21.6
== END 2024-08-01 15:03 | disposition home or self-care (01) ==
PROVIDERS: PCP Internal Medicine; Visit Provider Psychiatry & Neurology Neurology
DX: I63.532 Cerebral infarction due to unspecified occlusion or stenosis of left posterior cerebral artery (principal); I69.318 Other symptoms and signs involving cognitive functions following cerebral infarction
CPT/HCPCS: 99214; G2211

== ENCOUNTER → 2024-08-01 14:06 | Outpatient (BNVA) | payer MEDICARE, OTHER, SELFPAY | PROVIDERS: PCP Internal Medicine; Visit Provider Psychiatry & Neurology Neurology | DX: I63.532 Cerebral infarction due to unspecified occlusion or stenosis of left posterior cerebral artery (principal); F09 Unspecified mental disorder due to known physiological condition | CPT/HCPCS: 99212 ==

== ENCOUNTER 2024-08-11 11:32 | Outpatient (AMB) | payer MEDICARE, OTHER, SELFPAY ==
[2024-08-11 11:33] VITALS: BMI 22.5
--- NOTE | 2024-08-11 11:33 | MHC.OFFVIS ---
Vital Signs 08/11/24 11:33 Height 5 ft 7 in Weight 143 lb 8 oz BMI 22.5 Intake Visit Reasons: 1 month S/P ileocolonic resection Intake Note: This patient presents for one month follow-up. Pt c/o; no concerns. 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 Fatigue Cognitive disorder Alzheimer's dementia Anemia Persistent atrial fibrillation B12 deficiency Scoliosis Crohn disease Bipolar 1 disorder Surgical History History of partial colectomy Hx of colonoscopy Family History Father Heart problem Other Alzheimer's dementia Social History Household Members: Spouse Household Members Other:: [facility] housing Housing: Apartment Are you a primary resident care supervisor to a significant other at home: No Do you presently have visiting nurse or other home services: No Alcohol intake: current Alcohol intake frequency: does not drink Patient Tobacco Use Status: Never used Tobacco e-Cigarette/Vaping Use: Never Used Advance Directives Date on File: 03/19/24 service: No Current occupational status: retired Cognitive needs: No Hearing needs: No Vision needs: Yes Review of Systems Const Denies chills and Denies fever(s) Resp Denies cough GI Denies abdominal pain and Denies hematochezia Physical Exam Vital Signs: BMI result Body Mass Index 22.5 Const Other: Ambulating, looks well although frail General: comfortable and no acute distress Resp Effort & Inspection: normal respiratory effort Cardio Other: Irregular, with atrial fibrillation GI Other: Midline incisions completely healed Palpation (GI): Soft to palpation, not firm, nontender and no guarding Assessment & Plan Assessment & Plan (1) Colon cancer: Code(s): C18.9 - Malignant neoplasm of colon, unspecified Category: Medical Qualifiers: Colon location: unspecified part of colon Qualified Code(s): C18.9 - Malignant neoplasm of colon, unspecified Plan: Status post resection. He continues to do very well. His incision is now completely healed He is to continue to follow up with Dr. Estes. He is seeing a pulmonary physical therapist because of this stroke. He can follow up with me on a p.r.n. basis. He will not be started on adjuvant chemotherapy. Coding Level of Care Code Global (54176) Diagnoses Malignant neoplasm of colon, unspecified part of colon C18.9 Colon location: unspecified part of colon
== END 2024-08-11 11:47 | disposition home or self-care (01) ==
PROVIDERS: PCP Internal Medicine; Visit Provider Surgery
DX: C18.9 Malignant neoplasm of colon, unspecified (principal)
CPT/HCPCS: 99024

== ENCOUNTER 2024-08-11 11:32 | Outpatient (AMB) | payer MEDICARE, OTHER, SELFPAY ==
--- NOTE | 2024-08-11 12:27 | A.OFFVIS_ITS ---
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: No Accompanied by: Daughter Allergies No Known Allergies Allergy (Verified 08/11/24 11:40) Medication List - Last Reconciled 08/11/24 by Travis Argueta MD apixaban (Eliquis) 5 mg PO BID atorvastatin 40 mg PO BEDTIME furosemide (Lasix) 20 mg PO DAILY hydroxyzine HCl 25 mg PO TID PRN mecobalamin (vitamin B12) 1,000 mcg PO DAILY metoprolol succinate ER 50 mg PO DAILY ea-mk-lckjn-lutein-herbal 293 120 mcg-150 mcg -50 mg (Alive Men's 50 Plus Multivitamin) 1 tab PO DAILY quetiapine 25 mg PO BEDTIME ubidecarenone-omega 3-vit E 25-150-200 mg-mg-unit (Co R-[id number] E-Fish Oil) 1 cap PO DAILY HPI Comments Details: Asael returns for follow-up. He has a long history of atrial fibrillation going back decades. He used to live in [place] but has now moved to the local area. He was taking beta-blockers and Xarelto. Recently, he has had several hospitalizations. It seems that he underwent colonic resection. After that, there was a hospitalization for question of congestive heart failure. Then given diuretics. There was also possible cellulitis. Then it seems he had a hospitalization for a stroke. According daughter, he might have missed doses of Xarelto but not very clear. Any case, it seems Xarelto was switched to Eliquis. Otherwise, leg swelling itself is somewhat better than before. No other complaints like angina. Frail from age and all the medical issues but otherwise doing okay. 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 Fatigue Cognitive disorder Alzheimer's dementia Anemia Persistent atrial fibrillation B12 deficiency Scoliosis Crohn disease Bipolar 1 disorder Surgical History History of partial colectomy Hx of colonoscopy Family History Father Heart problem Other Alzheimer's dementia Social History Household Members: Spouse Household Members Other:: [facility] housing Housing: Apartment Are you a primary career services assistant to a significant other at home: No Do you presently have visiting nurse or other home services: No Alcohol intake: current Alcohol intake frequency: does not drink Patient Tobacco Use Status: Never used Tobacco e-Cigarette/Vaping Use: Never Used Advance Directives Date on File: 03/19/24 service: No Current occupational status: retired Cognitive needs: No Hearing needs: No Vision needs: Yes Review of Systems Const Denies chills, Denies fatigue, Denies fever(s), Denies weight gain and Denies weight loss ENT Denies dizziness Card Denies chest pain, Denies leg edema, Denies lightheadedness, Denies palpitations, Denies dyspnea on exertion, Denies orthopnea and Denies other Resp Denies cough and Denies dyspnea on exertion GI Denies hematochezia and Denies change in stool character Musc Denies abnormal gait, Denies muscle weakness, Denies numbness, Denies radiating pain into limb and Denies tingling Neuro Denies abnormal gait, Denies dizziness, Denies numbness and Denies tingling Endo Denies fatigue and Denies palpitations Physical Exam Vital Signs: Last Vital Signs Pulse 92 08/11/24 12:28 BP 104/52 L 08/11/24 12:28 BMI result Body Mass Index 22.4 Const General: comfortable and no acute distress Orientation/consciousness: patient oriented x3 HEENT Other: Unremarkable Head: Yes normal to inspection Neck Neck: Yes normal visual inspection Chest Chest palpation & inspection: normal inspection of the chest Resp Auscultation: clear to auscultation bilaterally Cardio Palpation: normal PMI Heart sounds: S1 normal heart sound present, S2 normal heart sound present, no gallops, no murmurs and no rubs GI Palpation (GI): Soft to palpation Back/Spine/Pelvis Other: unremarkable Skin General skin exam: no rashes or lesions noted Neuro General: patient oriented x3 Extrem Other: 1-2+ edema, B/L. General: Yes normal to inspection Psych Mental Status: mental status grossly normal Assessment & Plan Assessment & Plan (1) Persistent atrial fibrillation: Code(s): I48.19 - Other persistent atrial fibrillation Category: Medical Plan: Continue beta-blockers. After the stroke hospitalization, Xarelto has been switched to Eliquis but daughter states he might have been just missing the doses of Xarelto. Hence not clear if it is medication failure or lack of taking it. Either way, he can continue Eliquis without changes. Compliance encouraged. (2) Chronic heart failure with preserved ejection fraction (HFpEF): Code(s): I50.32 - Chronic diastolic (congestive) heart failure Category: Medical Plan: In the recent echocardiogram, LVEF 45-50%. Some leg swelling, but otherwise mostly controlled. Remains on low-dose Lasix. Plan Discussed with daughter who came for appointment. Coding Level of Care Code Est Pt Level 4 (92293) Complex EM visit Add On G2211 Diagnoses Persistent atrial fibrillation I48.19 Chronic heart failure with preserved ejection fraction (HFpEF) I50.32
[2024-08-11 12:28] VITALS: BP 104/52; PULSE 92; BMI 22.4
== END 2024-08-11 12:59 | disposition home or self-care (01) ==
PROVIDERS: PCP Internal Medicine; Visit Provider Internal Medicine
DX: I48.19 Other persistent atrial fibrillation (principal); I50.32 Chronic diastolic (congestive) heart failure
CPT/HCPCS: 99214; G2211

== ENCOUNTER → 2024-08-11 11:32 | Outpatient (BNVA) | payer MEDICARE, OTHER, SELFPAY | PROVIDERS: PCP Internal Medicine; Visit Provider Surgery | DX: I48.19 Other persistent atrial fibrillation (principal); I50.32 Chronic diastolic (congestive) heart failure | CPT/HCPCS: 99212 ==

== ENCOUNTER 2024-08-23 14:33 | Outpatient (AMB) | payer MEDICARE, OTHER, SELFPAY ==
--- NOTE | 2024-08-23 14:37 | A.OFFVIS_ITS ---
Intake Vital Signs 08/23/24 14:38 Height 5 ft 7 in Weight 141 lb BMI 22.1 BP 118/70 Blood Pressure Location Rt brachial Position Sitting Respiration 18 Pulse 76 Pulse Source Pulse Oximeter Temp 98.2 F Temp Source Oral Pulse Oximetry (%) 97 Oxygen Delivery Method Room Air Intake Visit Reasons: SWV Allergies No Known Allergies Allergy (Verified 08/23/24 14:38) Medication List - Last Reconciled 08/23/24 by Rachel Parekh MD apixaban (Eliquis) 5 mg PO BID atorvastatin 40 mg PO BEDTIME furosemide (Lasix) 20 mg PO DAILY mecobalamin (vitamin B12) 1,000 mcg PO DAILY metoprolol succinate ER 50 mg PO DAILY nq-sp-qfsac-lutein-herbal 293 120 mcg-150 mcg -50 mg (Alive Men's 50 Plus Multivitamin) 1 tab PO DAILY quetiapine 25 mg PO BEDTIME ubidecarenone-omega 3-vit E 25-150-200 mg-mg-unit (Co N-59-Sivcact E-Fish Oil) 1 cap PO DAILY HPI SWV HPI Details Health Maintenance - Initiation of multivitamin with iron s upplementation due to low iron levels. - Discussion regarding the avoidance of excessive iron supplementation to prevent constipation. - Monitoring of vitamin B12 and vitamin D levels due to previously recorded high B12 levels. - Hemoglobin, iron, vitamin B12, and vit nieto D levels to be checked - Continuation of cardiovascular health management for atrial fibrillation. - Observation of balance to assess fall risk and ensure patient safety. - Encouragement of continued engagement in cognitive activities, such as reading and writing, to support cognitive function. Assessment and Plan 1. Low Iron Levels: The patient will beg in a therapy of multivitamins with iron, carefully monitoring to prevent constipation. Iron levels will be retested in one month, and adjustments to therapy will be based on those results. 2. Memory Impairment: I recommend a deta iled follow-up at the memory clinic to evaluate memory concerns further. The patient should continue exercises that ch allenge cognitive function, like reading and writing. 3. Atrial Fibrillation: The management f or atrial fibrillation should continue according to the geriatrician's guidance. The patient reports decreased swelling and rash, signifying positive response to treatment adjustments. 4. Balance Concerns: The patient occasio alvin experiences balance issues and is advised to exercise caution to prevent falls. Further assessment of balance will continue. 5. Vitamin B12 and D Level Monitoring: R egular monitoring of vitamin B12 levels will continue due to previously elevated levels. Vitamin D levels will be assessed concurrently during follow-up labs to ensure deficiencies or excess are adequately addressed. [facility] Care The patient's daughter is actively involved in the patient's care, coordinating medical appointments and ensuring compliance with prescribed therapies and follow-ups. The patient is under the care of specialists including a geriatrician, neurologist, and visiting nurse services for comprehensive management of his conditions. HPI Comments History of Present Illness Details AWV Medical/social history reviewed Past medical history reviewed [facility] [place] of care / care team list updated Surgical/ hospitalization history reviewed Current medications including OTC and supplements reviewed Family history reviewed Tobacco controlled form updated Alcohol use form updated Illicit drug use in social history reviewed Current diagnosis of depression ?screening updated Appropriate PHQ 2/PHQ-9 completed . Vital signs reviewed Alcohol tobacco drug use reviewed and discussed . MMSE completed . ? Fall risk: ?Assessed Fall history: ?None Have you had any falls with injury in the past year?? No Have you had 2 or more falls in the past year?? No Fall risk assessment completed Home safety discussed with the patient Functional ability assessed and discussed and documented Activities of daily living reviewed and appropriate actions taken . HRA filled out by the patient and reviewed by provider and scanned . Appropriate written screening schedule established . Any health advise needed provided . Advance care planning discussed with the patient , necessary paperwork filled Examination IPPE/AWE: Balance failed Romberg failed Tandem walk failed walk-in turn failed rise from sit to stand failed . ?Hearing ?whisper test pass right ear and failed in left . Medication list reviewed, patient is stable on medications All other providers patient is seeing discussed and noted . 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 Fatigue Cognitive disorder Alzheimer's dementia Anemia Persistent atrial fibrillation B12 deficiency Scoliosis Crohn disease Bipolar 1 disorder Surgical History History of partial colectomy Hx of colonoscopy Family History Father Heart problem Other Alzheimer's dementia Social History Household Members: Spouse Household Members Other:: long term housing Housing: Apartment Are you a primary certified social workers in health care to a significant other at home: No Do you presently have visiting nurse or other home services: No Alcohol intake: current Alcohol intake frequency: does not drink Patient Tobacco Use Status: Never used Tobacco e-Cigarette/Vaping Use: Never Used Advance Directives Date on File: 03/19/24 service: No Current occupational status: retired Cognitive needs: No Hearing needs: No Vision needs: Yes Questionnaire Medicare Wellness Checkup What is your age?: 80 or older What gender do you identify with?: male During the past 4 weeks, how much have you been bothered by emotional problems such as feeling anxious, depressed, irritable, sad or downhearted, and blue?: slightly During the past 4 weeks, has your physical & emotional health limited your social activities with family, friends, neighbors, or groups?: quite a bit During the past 4 weeks, how much bodily pain have you generally had?: no pain During the past 4 weeks, was someone available to help you if you needed & wanted help?: yes, as much as I wanted During the past 4 weeks, what was the hardest physical activity you could do for at least 2 minutes?: light Can you get to places out of walking distance without help? (For eg., can you travel alone on buses, taxis or drive your car?): No Can you go shopping for groceries or clothes without someone's help?: No Can you prepare your own meals?: Yes Can you do your housework without help?: Yes Because of any health problems, do you need the help of another person with your personal care needs such as eating, bathing, dressing or getting around the house?: No Can you handle your own money without help?: No During the past 4 weeks, how would you rate your health in general?: good During the past 4 weeks how have things been going for you?: good & bad parts about equal Are you having difficulties driving your car?: not applicable, I don't use a car Do you always fasten your seat belt when you are in a car?: yes, usually During past 4 weeks, have you been bothered by the following: never: Falling or dizzy when standing up, Sexual problems? and Problems using the telephone?, seldom: Trouble eating well?, sometimes: Teeth or denture problems? and often: Tiredness or fatigue? Have you fallen 2 or more times in the past year?: No Are you afraid of falling?: No Are you a smoker?: no During the past 4 weeks, how many drinks of wine, beer, or other alcoholic beverages did you have?: no alcohol at all Do you exercise for about 20 minutes 3 or more times a week?: no, I usually do not exercise this much Have you been given information to help with the following?: yes: Hazards in your house that might hurt you? and yes: Keeping track of your medications? How often do you have trouble taking medicines the way you have been told to take them?: I always take medicine as prescribed How confident are you that you can control & manage most of your health problems?: somewhat confident What is your race?: White Mini Mental State Exam (MMSE) Orientation What is the (year) (season) (date) (day) (month)?: year, season, date, day and month Where are we (state) (county) (town or city) (hospital) (floor)?: state, county, town or city, hospital/clinic and floor Score Score: 10 Activity of Daily Living Bathing - sponge bath, tub bath or shower: receives help in bathing only one body part (such as back or leg) Dressing - getting clothes from closets & drawers, including inner/outer garments & fasteners.: gets clothes & gets dressed without help, except for help tying shoes Toileting - going to the 'toilet room' for urine/bowel elimination & cleaning self/arranging clothes: receives help going to toilet room, cleaning self or arranging clothes Transfer: moves in & out of bed or chair with help Continence: has occasional 'accidents' Feeding: feeds self without help Total Score: 0 Information obtained from: patient Using telephone: independent Traveling: dependent Shopping: dependent Preparing meals: dependent Housework: dependent Managing money: needs assistance PHQ-9 Over the last 2 weeks, how often have you been bothered by any of the following problems? 1. Little interest or pleasure in doing things: not at all 2. Feeling down, depressed, or hopeless: not at all 3. Trouble falling or staying asleep, or sleeping too much: several days 4. Feeling tired or having little energy: several days 5. Poor appetite or overeating: not at all 6. Feeling bad about yourself - or that you are a failure or have let yourself or your family down: not at all 7. Trouble concentrating on things, such as reading the newspaper or watching television: not at all 8. Moving or speaking so slowly that other people could have noticed. Or the opposite - being so fidgety or restless that you have been moving around a lot more than usual: not at all 9. Thoughts that you would be better off or of hurting yourself in some way: not at all Total score: 2 Depression Screening Interpretation: Negative Depression Screening Done: Yes 81503 - PHQ-9 Billing: Yes Source: Developed by Drs. Franklin Funez, Sally Pappas, Geoff Spears and colleagues, with an educational rhonda from [employer]. Review of Systems Const Denies chills and Denies fever(s) ENT Denies epistaxis and Denies nasal discharge Card Denies chest pain Resp Denies chest congestion, Denies cough and Denies hemoptysis GI Denies diarrhea and Denies nausea Skin/Breast Denies rash Neuro Reports no additional complaints Psych Reports no additional complaints Endo Reports no additional complaints Physical Exam Vital Signs: Last Vital Signs Temp 98.2 F 08/23/24 14:38 Pulse 76 08/23/24 14:38 Resp 18 08/23/24 14:38 BP 118/70 08/23/24 14:38 Pulse Ox 97 08/23/24 14:38 Oxygen Delivery Method Room Air 08/23/24 14:38 BMI result Body Mass Index 22.1 Const General: cooperative, comfortable and no acute distress Orientation/consciousness: patient oriented x3 HEENT Head: Yes normocephalic Eyes General: appearance normal, both eyes and all related structures Neck Other: Supple Neck: Yes supple Resp Effort & Inspection: normal respiratory effort, no cough and no stridor Cardio Heart sounds: S1 normal heart sound present and S2 normal heart sound present Skin General skin exam: turgor normal Neuro Other: Motor sensory intact General: patient oriented x3, tone normal and moves all extremities Extrem Other: No lower extremity swelling. Right lower extremity: no edema Left lower extremity: no edema Psych Other: Normal effect, speech clear Assessment & Plan Assessment & Plan (1) Medicare annual wellness visit, subsequent: Code(s): Z00.00 - Encounter for general adult medical examination without abnormal findings (2) Tired: Code(s): R53.83 - Other fatigue (3) B12 deficiency: Code(s): E53.8 - Deficiency of other specified B group vitamins (4) Anemia: Code(s): D64.9 - Anemia, unspecified Qualifiers: Anemia type: other cause Other causes of anemia: chronic disease, other Qualified Code(s): D63.8 - Anemia in other chronic diseases classified elsewhere (5) Persistent atrial fibrillation: Code(s): I48.19 - Other persistent atrial fibrillation (6) Chronic heart failure with preserved ejection fraction (HFpEF): Code(s): I50.32 - Chronic diastolic (congestive) heart failure (7) A-fib: Code(s): I48.91 - Unspecified atrial fibrillation Qualifiers: Atrial fibrillation type: persistent (not longstanding) Qualified Code(s): I48.19 - Other persistent atrial fibrillation (8) Cognitive disorder: Comment: Alzheimer's dementia - 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 - Discussion regarding the avoidance of excessive iron supplementation to prevent constipation. - Monitoring of vitamin B12 and vitamin D levels due to previously recorded high B12 levels. - Hemoglobin, iron, vitamin B12, and vitamin D levels to be checked - Continuation of cardiovascular health management for atrial fibrillation. - Observation of balance to assess fall risk and ensure patient safety. - Encouragement of continued engagement in cognitive activities, such as reading and writing, to support cognitive function. Assessment and Plan 1. Low Iron Levels: The patient will begin a therapy of multivitamins with iron, carefully monitoring to prevent constipation. Iron levels will be retested in one month, and adjustments to therapy will be based on those results. 2. Memory Impairment: I recommend a detailed follow-up at the memory clinic to evaluate memory concerns further. The patient should continue exercises that challenge cognitive function, like reading and writing. 3. Atrial Fibrillation: The management for atrial fibrillation should continue according to the geriatrician's guidance. The patient reports decreased swelling and rash, signifying positive response to treatment adjustments. 4. Balance Concerns: The patient occasionally experiences balance issues and is advised to exercise caution to prevent falls. Further assessment of balance will continue. 5. Vitamin B12 and D Level Monitoring: Regular monitoring of vitamin B12 levels will continue due to previously elevated levels. Vitamin D levels will be assessed concurrently during follow-up labs to ensure deficiencies or excess are adequately addressed. [facility] of Care The patient's daughter is actively involved in the patient's care, coordinating medical appointments and ensuring compliance with prescribed therapies and follow-ups. The patient is under the care of specialists including a geriatrician, neurologist, and visiting nurse services for comprehensive management of his conditions. Orders: Orders Complete Blood Count Auto Diff Today D63.8 - Anemia in other chronic diseases classified elsewhere, E53.8 - Deficiency of other specified B group vitamins, I48.19 - Other persistent atrial fibrillation, R53.83 - Other fatigue Ferritin Today D63.8 - Anemia in other chronic diseases classified elsewhere, E53.8 - Deficiency of other specified B group vitamins, I48.19 - Other persistent atrial fibrillation, R53.83 - Other fatigue Vitamin D 25-OH (D2 and D3) Today D63.8 - Anemia in other chronic diseases classified elsewhere, E53.8 - Deficiency of other specified B group vitamins, I48.19 - Other persistent atrial fibrillation, R53.83 - Other fatigue Vitamin B12 Today D63.8 - Anemia in other chronic diseases classified elsewhere, E53.8 - Deficiency of other specified B group vitamins, I48.19 - Other persistent atrial fibrillation, R53.83 - Other fatigue Quality Reporting (2019) Depression/Bipolar (159/160/161/177) PHQ-9: Total score: 2 Coding Level of Care Code Medicare Subsequent (G0439) Est Pt Level 4 (98812) Diagnoses Medicare annual wellness visit, subsequent Z00.00 Tired R53.83 B12 deficiency E53.8 Anemia in other chronic diseases classified elsewhere D63.8 Anemia type: other cause Other causes of anemia: chronic disease, other Persistent atrial fibrillation I48.19 Chronic heart failure with preserved ejection fraction (HFpEF) I50.32 Persistent atrial fibrillation I48.19 Atrial fibrillation type: persistent (not longstanding) Cognitive disorder F09 Bipolar 1 disorder F31.9 Crohn's disease of large intestine without complication K50.10 Gastrointestinal tract location: large intestine Digestive disease complication type: without complication CPT Codes Advance Care Planning - Advance Care Planning discussion: On file, no changes ([id number]) Additional Codes PHQ-9 - 32513 - PHQ-9 Billing: Yes ([id number]) Advance Care Planning Advance Care Planning discussion: On file, no changes Forms completed: Health Care Proxy
[2024-08-23 14:38] VITALS: BP 118/70; PULSE 76; RESP 18; TEMP 36.8; O2SAT 97; BMI 22.1
--- OUTSIDE RECORDS SUMMARY | 2024-08-23 18:16 | XMS_ITS | Continuity of Care Document ---
Author Organization [facility] Address [address] [place] [address]- Care Team Providers Care Rn Icu Name Role Phone Iglesia TRENT, Rachel Primary Care Physician [phone] Encounter [facility] Date(s): 05/09/24 - 08/20/24 [facility] [address] [place] [address]- Attending Physician: Jaziel Johnson MD Referring Physician: Rachel Parekh MD Encounter Type: Pre Office Visit Allergies, Adverse Reactions, Alerts No [...] Team Personnel Name: Iglesia TRENT, Asma Position: Reference Physician Member Role: PCP Address: [address] [place] [address] Telecom: Care Team Related Persons Name: CHARLOTTE LEE Insurance Providers Guarantor name: CATARINO LEE Health Plan Information #: 2 Payer: [employer] Member Number: [id number] Policy Number: NA Group Number: NA Health Plan Information #: 1 Payer: MEDICARE PART B OUTPT Member Number: [id number] Policy Number: NA Group Number: NA
== END 2024-08-23 16:00 | disposition home or self-care (01) ==
PROVIDERS: PCP Internal Medicine; Visit Provider Internal Medicine
DX: Z00.00 Encounter for general adult medical examination without abnormal findings (principal); I48.19 Other persistent atrial fibrillation; I50.32 Chronic diastolic (congestive) heart failure; F31.9 Bipolar disorder, unspecified; K50.10 Crohn's disease of large intestine without complications; R53.83 Other fatigue; E53.8 Deficiency of other specified B group vitamins; D63.8 Anemia in other chronic diseases classified elsewhere; F09 Unspecified mental disorder due to known physiological condition

== ENCOUNTER → 2024-08-23 14:33 | Outpatient (BNVA) | payer MEDICARE, OTHER, SELFPAY | PROVIDERS: PCP Internal Medicine; Visit Provider Internal Medicine | DX: Z00.00 Encounter for general adult medical examination without abnormal findings (principal); R53.83 Other fatigue; E53.8 Deficiency of other specified B group vitamins; D63.8 Anemia in other chronic diseases classified elsewhere; I48.19 Other persistent atrial fibrillation; I50.32 Chronic diastolic (congestive) heart failure; F09 Unspecified mental disorder due to known physiological condition; F31.9 Bipolar disorder, unspecified; K50.10 Crohn's disease of large intestine without complications | CPT/HCPCS: 96127; 99212 ==

== ENCOUNTER 2024-09-06 09:23 | Outpatient (REF) | payer MEDICARE, SELFPAY ==
[2024-09-06 09:47] LABS: MANUAL DIFF FLAG NO
[2024-09-06 10:50] LABS: Basophils Percent Auto 0.3 % (0-2); Eosinophils Absolute Auto 0.1 X10*3/uL (0.0-0.4); Eosinophils Percent Auto 2.1 % (0-4); Hematocrit 33.6 % (42.0-52.0); Imm Gran Abs Auto 0.03 X10*3/uL (0.00-0.03); Imm Gran Pct Auto 0.5 % (0.0-0.4); Lymphocytes Absolute Auto 0.7 X10*3/uL (1.2-4.9); Lymphocytes Percent Auto 11.3 % (20-40); Mean Corpuscular HGB Conc 32.7 g/dl (31.0-36.0); Mean Corpuscular Hemoglobin 31.3 pg (27.0-33.0); Mean Corpuscular Volume 95.7 fL (80.0-98.0); Mean Platelet Volume 11.5 fL (9.4-12.4); Monocytes Absolute Auto 0.8 X10*3/uL (0.1-1.2); Monocytes Percent Auto 12.5 % (2-11); Neutrophils Absolute Auto 4.6 x10*3/uL (2.0-8.3); Neutrophils Percent Auto 73.3 % (45-73); Platelet Count 179 X10*3/uL (160-400); Red Blood Count 3.51 X10*6/uL (4.60-5.80); Red Cell Distribution Width 13.7 % (11.0-16.0); White Blood Count 6.3 X10*3/uL (4.8-10.8)
[2024-09-06 12:10] LABS: Ferritin 71 ng/mL (20-250)
[2024-09-06 12:24] LABS: Vitamin B12 621 pg/mL (200-900)
[2024-09-10 13:43] LABS: Vitamin D 25-OH, D2 <4 ng/mL; Vitamin D 25-OH, D3 25 ng/mL; Vitamin D 25-OH, Total 25 ng/mL (30-100)
== END 2024-09-06 09:24 | disposition home or self-care (01) ==
LOC: HO.LAB 09:23
PROVIDERS: PCP Internal Medicine; Visit Provider Internal Medicine
DX: R53.83 Other fatigue (principal); E53.8 Deficiency of other specified B group vitamins; D63.8 Anemia in other chronic diseases classified elsewhere; I48.19 Other persistent atrial fibrillation
CPT/HCPCS: 36415; 82306; 82607; 82728; 85025

== ENCOUNTER 2024-09-22 13:03 | Outpatient (REF) | payer MEDICARE, SELFPAY ==
[2024-09-22 18:02] LABS: MANUAL DIFF FLAG NO
[2024-09-22 18:13] LABS: Basophils Percent Auto 0.2 % (0-2); Eosinophils Absolute Auto 0.1 X10*3/uL (0.0-0.4); Eosinophils Percent Auto 1.5 % (0-4); Hematocrit 34.8 % (42.0-52.0); Hemoglobin 11.5 g/dl (14.0-18.0); Imm Gran Abs Auto 0.01 X10*3/uL (0.00-0.03); Imm Gran Pct Auto 0.2 % (0.0-0.4); Lymphocytes Absolute Auto 0.6 X10*3/uL (1.2-4.9); Lymphocytes Percent Auto 11.9 % (20-40); Mean Corpuscular Hemoglobin 31.9 pg (27.0-33.0); Mean Corpuscular Volume 96.4 fL (80.0-98.0); Mean Platelet Volume 12.4 fL (9.4-12.4); Monocytes Absolute Auto 0.8 X10*3/uL (0.1-1.2); Monocytes Percent Auto 15.9 % (2-11); Neutrophils Absolute Auto 3.3 x10*3/uL (2.0-8.3); Neutrophils Percent Auto 70.3 % (45-73); Platelet Count 147 X10*3/uL (160-400); Red Blood Count 3.61 X10*6/uL (4.60-5.80); Red Cell Distribution Width 14.6 % (11.0-16.0); White Blood Count 4.7 X10*3/uL (4.8-10.8)
[2024-09-22 18:25] LABS: Alanine Aminotransferase 54 U/L (0-40); Alkaline Phosphatase 61 U/L (39-117); Anion Gap 8 (12-20); Aspartate Amino Transferase 43 U/L (5-37); Bilirubin Total 1.9 mg/dL (0.0-1.0); Blood Urea Nitrogen 32 mg/dL (9-16); Calcium 9.2 mg/dL (8.4-10.2); Carbon Dioxide 26 mmol/L (22-29); Chloride 111 mmol/L (96-108); Estimated Glomerular Filt Rate > 60; Glucose Random 102 mg/dL (60-115); Potassium 4.2 mmol/L (3.3-5.1); Sodium 141 mmol/L (135-145); Total Protein 6.8 g/dL (6.5-8.0)
== END 2024-09-22 13:04 | disposition home or self-care (01) ==
LOC: HO.HKASLDS 13:03
PROVIDERS: Visit Provider Internal Medicine Medical Oncology
DX: C18.9 Malignant neoplasm of colon, unspecified (principal); D64.9 Anemia, unspecified
CPT/HCPCS: 36415; 80053; 82378; 85025

== ENCOUNTER 2024-09-29 11:32 | Outpatient (REF) | payer MEDICARE, SELFPAY ==
--- NOTE | ~2024-09-29 | CT_ITS ---
EXAMINATION: CT ABDOMEN PELVIS WITH IV CONTRAST HISTORY: follow up colon cancer COMPARISON: Comparison is made with the prior examination dated 03/27/2024. TECHNIQUE: CT scan of the abdomen and pelvis was performed following administration of 85 mL Omnipaque 350 using standard departmental protocol. Coronal and sagittal reformatted images were generated and reviewed. The patient received oral contrast material. This CT exam was performed with one or more of the following dose reduction techniques: automated exposure control, adjustment of the mA and/or kV according to patient size, use of iterative reconstruction technique. DLP: 241 mGy-cm FINDINGS: LOWER CHEST: The visualized lung bases are clear. There is no pleural effusion. 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 CARDIOVASCULATURE: The heart is normal in size. There is no pericardial effusion. LIVER: The liver is normal in size and contour. No liver mass is identified. The hepatic and portal veins are patent. GALLBLADDER / BILE DUCTS: The gallbladder is unremarkable. There is no intra or extrahepatic biliary ductal dilatation. SPLEEN: The spleen is normal in size. No focal splenic lesion is identified. PANCREAS: The pancreas is unremarkable in appearance. ADRENAL GLANDS: Within normal limits. KIDNEYS/RETROPERITONEUM: No renal calculi are identified. There is no hydronephrosis. Again seen is a 1.2 cm cyst at the lower pole of the right kidney. There are 2 adjacent cysts at the upper pole of the left kidney measuring 4.5 cm and 4.8 cm. Additional smaller cysts are noted bilaterally. LYMPH NODES: No abdominal or pelvic lymphadenopathy. VASCULATURE: The abdominal aorta is normal in caliber. MESENTERY/PERITONEUM: No free fluid is seen. Again seen is dystrophic calcification at the root of the mesentery. There is no free intraperitoneal gas. STOMACH: The stomach is collapsed, limiting evaluation. SMALL BOWEL: The small bowel is normal in caliber. COLON: Again seen are findings of prior ascending colectomy. There is a large amount of stool throughout the colon. There is diverticulosis of the sigmoid colon, without evidence of diverticulitis. APPENDIX: The appendix is surgically absent. URINARY BLADDER/PELVIC ORGANS: The urinary bladder demonstrates mucosal hyperenhancement and irregularity. The prostate is markedly enlarged. BONES / SOFT TISSUES: There is levoscoliosis and degenerative disc disease of the spine. CT/CT abdomen pelvis w IV con IMPRESSION: 1. Status post ascending colectomy. No evidence of recurrent or metastatic disease. 2. Marked enlargement of the prostate. Mucosal hyperenhancement and irregularity of the urinary bladder which may indicate cystitis. Clinical correlation is recommended. Electronically signed by: Franklin Knowles MD 09/29/2024 02:19 PM EDT
[2024-09-29] MEDS: iohexoL 350 MG/ML 75 ML INFUS..BTL 85 ML IV (14:00)
[2024-09-29] MEDS: Barium Sulfate Oral (Berry) 450 ML ORAL.SUSP 900 ML PO (14:01)
== END 2024-09-29 11:33 | disposition home or self-care (01) ==
LOC: HO.CT 11:32
PROVIDERS: PCP Internal Medicine; Visit Provider Internal Medicine Medical Oncology
DX: C18.9 Malignant neoplasm of colon, unspecified (principal)
CPT/HCPCS: 74177; Q9967

== ENCOUNTER → 2024-09-29 11:34 | Outpatient (BNV) | payer MEDICARE, SELFPAY | PROVIDERS: PCP Internal Medicine; Visit Provider Radiology Diagnostic Radiology | DX: N40.0 Benign prostatic hyperplasia without lower urinary tract symptoms (principal); R93.41 Abnormal radiologic findings on diagnostic imaging of renal pelvis, ureter, or bladder | CPT/HCPCS: 74177 ==

== ENCOUNTER 2024-10-03 10:43 | Outpatient (AMB) | payer MEDICARE, OTHER, SELFPAY ==
--- NOTE | 2024-10-03 10:45 | A.OFFVIS_ITS ---
Vital Signs 10/03/24 11:05 Height 5 ft 7 in Weight 142 lb 1.533 oz BMI 22.3 BP 116/58 L Blood Pressure Location Lt brachial Position Sitting Pulse 92 Intake Visit Reasons: Patient requested per Dr. Estes Intake Note: Asael presents in the office as a follow up that was requested per Dr. Estes. CC: Wants to discuss being on d3 - states that he is feeling good! Had a CT scan a week ago! 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 Estes: Details: 84-year-old gentleman with crohns here for f/u RECAP: He has had Crohsn for maybe 20 yrs, dx after bowel obstruction he has been on 6 MP ever since and he feels doing a good job he feels bowel are normal right now, no bouts of diarrhea for long time with alternating constipation appetite is good Colonoscopy: ileo colonic stricture and inflammation --path: severe inflammation with atypical cells, concern for neoplasia He had admission for 04/21 for SBO and was given IV steroids, and abx He had repeat colo with HGD on WATS He then had ileocolonic resection--Path with moderately differentiated adenoca and G2 Saw Dr Estes, due to recent CVA and frailty holding on chemotherapy CT 10/21: prostate enlarged, ?cystitis bowel was ok, constipation INTERIM: he feels well no abdominal pain appetite is good no n/v EXAM: GENERAL: The patient is well developed and nontoxic. VITAL SIGNS:see workflow HEENT: Nonicteric sclerae, PERRLA, EOMI. Oropharynx clear. Moist mucous membranes. Conjunctivae appear well perfused. No thyroid mass. CHEST: Chest wall is nontender. HEART: Regular rate and rhythm without murmurs. LUNGS: Clear to auscultation bilaterally. ABDOMEN: Soft, positive bowel sounds, nontender, no organomegaly.no flank tenderness SKIN: No rash, no excessive bruising, petechiae, or purpura. NEUROLOGIC: Cranial nerves II-XII intact without motor/sensory deficit. 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 Fatigue Cognitive disorder Alzheimer's dementia Anemia Persistent atrial fibrillation B12 deficiency Scoliosis Crohn disease Bipolar 1 disorder Surgical History History of partial colectomy Hx of colonoscopy Family History Father Heart problem Other Alzheimer's dementia Social History Household Members: Spouse Household Members Other:: [facility] housing Housing: Apartment Are you a primary caregiver assisted living to a significant other at home: No Do you presently have visiting nurse or other home services: No Alcohol intake: current Alcohol intake frequency: does not drink Patient Tobacco Use Status: Never used Tobacco e-Cigarette/Vaping Use: Never Used Advance Directives Date on File: 03/19/24 service: No Current occupational status: retired Cognitive needs: No Hearing needs: No Vision needs: Yes Physical Exam Vital Signs: Last Vital Signs Pulse 92 10/03/24 11:05 BP 116/58 L 10/03/24 11:05 BMI result Body Mass Index 22.3 Assessment & Plan Assessment & Plan (1) Crohn disease: Code(s): K50.90 - Crohn's disease, unspecified, without complications Category: Medical Qualifiers: Digestive disease complication type: without complication Gastrointestinal tract location: large intestine Qualified Code(s): K50.10 - Crohn's disease of large intestine without complications Plan: as above Medications: New sodium,potassium,mag sulfates 17.5-3.13-1.6 gram (Suprep Bowel Prep Kit) DILUTE; drink 1/2 at 6-8 pm and half at 11 PM- 1AM 354 mL 0RF Coding Level of Care Code Est Pt Level 3 (71070) Diagnoses Crohn's disease of large intestine without complication K50.10 Digestive disease complication type: without complication Gastrointestinal tract location: large intestine
[2024-10-03 11:05] VITALS: BP 116/58; PULSE 92; BMI 22.3
== END 2024-10-03 11:22 | disposition home or self-care (01) ==
LOC: HO.HGI 10:44
PROVIDERS: PCP Internal Medicine; Visit Provider Internal Medicine Gastroenterology
DX: K50.10 Crohn's disease of large intestine without complications (principal)
CPT/HCPCS: 99213

== ENCOUNTER → 2024-10-03 10:43 | Outpatient (BNVA) | payer MEDICARE, OTHER, SELFPAY | PROVIDERS: PCP Internal Medicine; Visit Provider Internal Medicine Gastroenterology | DX: K50.10 Crohn's disease of large intestine without complications (principal) | CPT/HCPCS: 99212 ==

== ENCOUNTER 2025-03-06 12:37 | Outpatient (AMB) | payer MEDICARE, OTHER, SELFPAY ==
--- NOTE | 2025-03-06 12:51 | A.OFFVIS_ITS ---
Vital Signs 03/06/25 12:52 Height 5 ft 7 in Weight 138 lb 14.259 oz BMI 21.8 BP 120/62 Blood Pressure Location Lt brachial Position Sitting Pulse 90 Pulse Source Pulse Oximeter Intake Visit Reasons: 6m follow up Allergies No Known Allergies Allergy (Verified 11/15/24 15:01) Medication List - Last Reconciled 03/06/25 by Travis Argueta MD apixaban (Eliquis) 5 mg PO BID atorvastatin 40 mg PO BEDTIME cholecalciferol (vitamin D3) (Optimal D3) 1,250 mcg PO QWEEK furosemide (Lasix) 20 mg PO DAILY lamotrigine 50 mg PO BID metoprolol succinate ER 50 mg PO DAILY multivitamin with iron (Daily Vitamin with Iron tablet) 1 tab PO DAILY quetiapine 25 mg PO BEDTIME triamcinolone acetonide 0.1% appl topical HPI Comments Details: Asael returns for follow-up. He has a long history of atrial fibrillation going back decades. He used to live in [place] but has now moved to the local area. Overall, he is doing good. No clear-cut symptoms like angina or shortness of breath or in fact anything else. He has had previous hospitalizations for congestive heart failure/leg swelling but mostly improved from then. There was also a hospitalization for stroke but it seems it might have been from missing Xarelto. Now he is taking Eliquis. No new concerns otherwise. 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 Fatigue Cognitive disorder Alzheimer's dementia Anemia Persistent atrial fibrillation B12 deficiency Scoliosis Crohn disease Bipolar 1 disorder Surgical History History of partial colectomy Hx of colonoscopy Family History Father Heart problem Other Alzheimer's dementia Social History Household Members: Spouse Household Members Other:: [facility] housing Housing: Apartment Are you a primary student career development specialist to a significant other at home: No Do you presently have visiting nurse or other home services: No Alcohol intake: current Alcohol intake frequency: does not drink Patient Tobacco Use Status: Never used Tobacco e-Cigarette/Vaping Use: Never Used Advance Directives Date on File: 03/19/24 service: No Current occupational status: retired Cognitive needs: No Hearing needs: No Vision needs: Yes Review of Systems Const Denies weakness ENT Denies dizziness Card Denies chest pain, Denies chest pain with activity, Denies syncope, Denies rapid heart rate, Denies pedal edema, Denies edema, Denies leg edema, Denies ligh theadedness, Denies palpitations, Denies dyspnea, Denies dyspnea on exertion and Denies orthopnea Resp Denies cough, Denies dyspnea and Denies dyspnea on exertion GI Denies hematochezia and Denies change in stool character Musc Denies abnormal gait, Denies muscle cramps, Denies muscle weakness, Denies numbness, Denies radiating pain into limb and Denies tingling Neuro Denies abnormal gait, Denies dizziness, Denies syncope, Denies numbness, Denies tingling and Denies weakness Endo Denies palpitations Physical Exam Vital Signs: Last Vital Signs Pulse 90 03/06/25 12:52 BP 120/62 03/06/25 12:52 BMI result Body Mass Index 21.8 Const General: comfortable and no acute distress Orientation/consciousness: patient oriented x3 HEENT Other: Unremarkable Head: Yes normal to inspection Neck Neck: Yes normal visual inspection Chest Chest palpation & inspection: normal inspection of the chest Resp Auscultation: clear to auscultation bilaterally Cardio Palpation: normal PMI Heart sounds: S1 normal heart sound present, S2 normal heart sound present, no gallops, no murmurs and no rubs GI Palpation (GI): Soft to palpation Back/Spine/Pelvis Other: unremarkable Skin General skin exam: no rashes or lesions noted Neuro General: patient oriented x3 Extrem Other: 1+ edema, B/L. General: Yes normal to inspection Psych Mental Status: mental status grossly normal Assessment & Plan Assessment & Plan (1) Persistent atrial fibrillation: Code(s): I48.19 - Other persistent atrial fibrillation Category: Medical Plan: Stable on metoprolol/Eliquis. (2) Chronic heart failure with preserved ejection fraction (HFpEF): Code(s): I50.32 - Chronic diastolic (congestive) heart failure Category: Medical Plan: In the echocardiogram, LVEF 45-50%. Some leg swelling, but otherwise mostly controlled. Remains on low-dose Lasix. Plan Discussion Notes I discussed with the patient the importance of continuing his current medications, including Eliquis, Lasix, and Metoprolol, to manage his congestive heart failure and prevent further strokes. We talked about the use of compression socks to help with leg swelling and the need for regular blood work to monitor kidney function and electrolytes. Patient was informed and verbally consented to the use of an ambient scribe for clinic note documentation during this visit. Patient Instructions: - Continue taking Eliquis, Lasix, and Metoprolol as prescribed. - Use compression socks to manage leg swelling. - Schedule regular blood work to monitor kidney function and electrolytes. Coding Level of Care Code Est Pt Level 4 (92818) Complex EM visit Add On G2211 Diagnoses Persistent atrial fibrillation I48.19 Chronic heart failure with preserved ejection fraction (HFpEF) I50.32
[2025-03-06 12:52] VITALS: BP 120/62; PULSE 90; BMI 21.8
== END 2025-03-06 13:16 | disposition home or self-care (01) ==
LOC: HO.HCS 12:38
PROVIDERS: PCP Internal Medicine; Visit Provider Internal Medicine
DX: I48.19 Other persistent atrial fibrillation (principal); I50.32 Chronic diastolic (congestive) heart failure
CPT/HCPCS: 99214; G2211

== ENCOUNTER 2025-03-06 12:37 | Outpatient (REF) | payer MEDICARE, OTHER, SELFPAY ==
[2025-03-06 14:18] LABS: Hematocrit 37.0 % (42.0-52.0); Hemoglobin 11.9 g/dl (14.0-18.0); Imm Gran Abs Auto 0.02 X10*3/uL (0.00-0.03); Imm Gran Pct Auto 0.4 % (0.0-0.4); Lymphocytes Absolute Auto 0.5 X10*3/uL (1.2-4.9); MANUAL DIFF FLAG SCAN; Mean Corpuscular HGB Conc 32.2 g/dl (31.0-36.0); Mean Corpuscular Hemoglobin 30.6 pg (27.0-33.0); Mean Corpuscular Volume 95.1 fL (80.0-98.0); NRBC Abs Auto 0.000 X10*3/uL (0.0-0.012); NRBC Pct Auto 0.0 /100WBC (0.0-0.2); Platelet Count 175 X10*3/uL (160-400); Red Blood Count 3.89 X10*6/uL (4.60-5.80); SCAN SMEAR FLAG 1; White Blood Count 5.3 X10*3/uL (4.8-10.8)
[2025-03-06 15:20] LABS: Alanine Aminotransferase 132 U/L (0-40); Albumin Level 4.2 g/dL (3.5-5.0); Alkaline Phosphatase 733 U/L (39-117); Anion Gap 12 (12-20); Aspartate Amino Transferase 176 U/L (5-37); Blood Urea Nitrogen 17 mg/dL (9-16); Calcium 9.3 mg/dL (8.4-10.2); Carbon Dioxide 28 mmol/L (22-29); Carcinoembryonic Antigen 4.90 ng/mL; Chloride 105 mmol/L (96-108); Estimated Glomerular Filt Rate > 60; Potassium 4.1 mmol/L (3.3-5.1); Sodium 141 mmol/L (135-145); Total Protein 7.5 g/dL (6.5-8.0)
== END 2025-03-06 12:38 | disposition home or self-care (01) ==
LOC: HO.LAB 12:37
PROVIDERS: Absent Provider Internal Medicine Medical Oncology; PCP Internal Medicine; Visit Provider Internal Medicine
DX: I48.19 Other persistent atrial fibrillation (principal); I50.32 Chronic diastolic (congestive) heart failure; C18.9 Malignant neoplasm of colon, unspecified; Z79.899 Other long term (current) drug therapy; Z79.01 Long term (current) use of anticoagulants
CPT/HCPCS: 36415; 80053; 82378; 85025; 99212

== ENCOUNTER 2025-04-07 14:19 | Outpatient (AMB) | payer MEDICARE, OTHER, SELFPAY ==
[2025-04-07 14:25] VITALS: BP 118/62; PULSE 89; O2SAT 97; BMI 22.4
--- NOTE | 2025-04-07 14:25 | MHC.PC.OV ---
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 Allergies No Known Allergies Allergy (Verified 04/07/25 14:26) Medication List - Last Reconciled 04/07/25 by Rachel Parekh MD apixaban (Eliquis) 5 mg PO BID cholecalciferol (vitamin D3) (Optimal D3) 1,250 mcg PO QWEEK furosemide (Lasix) 20 mg PO DAILY ketoconazole 2% 1 appl topical lamotrigine 50 mg PO BID metoprolol succinate ER 50 mg PO DAILY multivitamin with iron (Daily Vitamin with Iron tablet) 1 tab PO DAILY quetiapine 25 mg PO BEDTIME Tobacco use date assessed: 07/27/24 Dental Screening Dental Screen Date: 07/27/24 HPI 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 Athlete's foot: - The condition was observed by a ironing pleater during a routine full-body skin check approximately one week prior to this visit. - The ironing pleater noted the presence of athlete's foot affecting both feet, particularly between the toes. - Derm provided with prescription of Ketoconazole cream 2% for topical application. Toenail management: - Toenails also effected by Tinea pedis need Podiatry apt for clipping Problem List - Athlete's foot (Tinea pedis) - Long toenails Plan - Initiate application of Ketoconazole cream 2% twice daily to manage athlete's foot, ensuring thorough application between toes. - Educate patient on the importance of keeping feet dry and maintaining hygiene to prevent worsening of athlete's foot. 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 Fatigue Cognitive disorder Alzheimer's dementia Anemia Persistent atrial fibrillation B12 deficiency Scoliosis Crohn disease Bipolar 1 disorder Surgical History History of partial colectomy Hx of colonoscopy Family History Father Heart problem Other Alzheimer's dementia Social History Household Members: Spouse Household Members Other:: alf housing Housing: Apartment Are you a primary laboratory animal care veterinarian to a significant other at home: No Do you presently have visiting nurse or other home services: No Alcohol intake: current Alcohol intake frequency: does not drink Patient Tobacco Use Status: Never used Tobacco e-Cigarette/Vaping Use: Never Used Advance Directives Date on File: 03/19/24 service: No Current occupational status: retired Cognitive needs: No Hearing needs: No Vision needs: Yes Questionnaire Thrive Questionnaire Date Thrive assessed: 07/27/24 I am a: Parent/Caregiver What is your living situation today?: I have a steady place to live Within the past 12 months, did the food you bought not last and you didn't have the money to get more?: Never true Within the past 12 months, did you worry whether your food would run out before you got money to buy more?: Never true Do you have trouble paying for medicines?: No Do you have trouble getting transportation to medical appointments?: No Do you have trouble paying your heating and electricity bill?: No Do you have trouble taking care of your child, family member or friend?: No Do you have trouble with day-to-day activities such as bathing, preparing meals, shopping, managing finances, etc.?: No Are you currently unemployed and looking for a job?: No Are you interested in more education?: No Please select the resources that you would like help with: None Currently or been in a relationship where the following occur: No concerns reported THRIVE Score: 0 SIDRA-7 AMB Questionnaire SIDRA-7 Date SIDRA - 7 assessed: 07/27/24 Source: Developed by Drs. Franklin L. Sally Funez Kurt Kroenke and colleagues, with an educational rhonda from [employer]. Physical exam (Primary Care) Vital Signs: Last Vital Signs Pulse 89 04/07/25 14:25 BP 118/62 04/07/25 14:25 Pulse Ox 97 04/07/25 14:25 BMI result Body Mass Index 22.4 Tobacco/Smoking Status: Tobacco use Status Tobacco use date assessed 07/27/24 04/07/25 14:28 Patient Tobacco Use Status Never used Tobacco 04/07/25 14:28 e-Cigarette/Vaping Use Never Used 04/07/25 14:28 Thrive Assessment: Date of Thrive Assessment Date Thrive assessed 07/27/24 04/07/25 14:28 Currently or been in a relationship where the following occur: No concerns reported Coding Level of Care Code Est Pt Level 3 (84641) Diagnoses Tinea pedis of both feet B35.3 Laterality: bilateral Assessment & Plan Assessment & Plan (1) Tinea pedis: Code(s): B35.3 - Tinea pedis Category: Medical Qualifiers: Laterality: bilateral Qualified Code(s): B35.3 - Tinea pedis Plan History of Present Illness The patient is an 84-year-old male presenting with athlete's foot and toenail management. Athlete's foot: - The condition was observed by a ironing pleater during a routine full-body skin check approximately one week prior to this visit. - The ironing pleater noted the presence of athlete's foot affecting both feet, particularly between the toes. - Derm provided with prescription of Ketoconazole cream 2% for topical application. Toenail management: - Toenails also effected by Tinea pedis need Podiatry apt for clipping Problem List - Athlete's foot (Tinea pedis) - Long toenails Plan - Initiate application of Ketoconazole cream 2% twice daily to manage athlete's foot, ensuring thorough application between toes. - Educate patient on the importance of keeping feet dry and maintaining hygiene to prevent worsening of athlete's foot. ref to Podaitry placed Orders: Referrals Podiatry Referral B35.3 - Tinea pedis
== END 2025-04-07 14:55 | disposition home or self-care (01) ==
LOC: HO.HMCC 14:20
PROVIDERS: PCP Internal Medicine; Visit Provider Internal Medicine
DX: B35.3 Tinea pedis (principal)

== ENCOUNTER → 2025-04-07 14:19 | Outpatient (BNVA) | payer MEDICARE, OTHER, SELFPAY | PROVIDERS: PCP Internal Medicine; Visit Provider Internal Medicine | DX: B35.3 Tinea pedis (principal) | CPT/HCPCS: 99212 ==

== ENCOUNTER 2025-05-24 08:04 | Day surgery (SDC) | payer MEDICARE, OTHER, SELFPAY ==
[2025-05-22 14:39] VITALS: BMI 22.4
--- NOTE | 2025-05-23 09:17 | HO.ANESPROP2 ---
Documented by User: Josselyn Santos NP 05/23/25 09:23 HPI - Anesthesia Eval Consult details Narrative: 84 yr old male for colonoscopy Chronic heart failure with preserved ejection fraction (HFpEF): 02/2025 cardiology visit states pt has mild LE edema without any symptoms; echo updated 06/2024, see below. 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 (Acute) Colon carcinoma (Acute) Chronic heart failure with preserved ejection fraction (HFpEF) (Acute) Cellulitis (Acute) Cellulitis and abscess of left leg (Acute) Status post small bowel resection (Acute) Disorder of small intestine (Acute) Hospital discharge follow-up (Acute) Acute bronchitis (Acute) COVID (Acute) Memory change (Acute) Skin cancer screening (Acute) A-fib (Acute) Establishing care with new doctor, encounter for (Acute) Colon cancer (Acute) Fatigue (Acute) Cognitive disorder (Acute) Alzheimer's dementia (Acute) Bipolar 1 disorder (Acute) Scoliosis (Acute) B12 deficiency (Acute) Anemia (Acute) Crohn disease (Acute) Persistent atrial fibrillation (Acute) Past Medical History Medical History Colon cancer Hx MRSA infection Environmental exposure Arthritis Depression 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 Fatigue Cognitive disorder Alzheimer's dementia Anemia Persistent atrial fibrillation B12 deficiency Scoliosis Crohn disease Bipolar 1 disorder Family History Family History Father Heart problem Other Alzheimer's dementia Family history of problems with anesthesia: No Surgical History Surgical History History of colon resection (04/2024) History of partial colectomy Hx of colonoscopy (03/2024) History of Problems with Anesthesia: No Social History Social History Household Members: Spouse Household Members Other:: [facility] housing Housing: Apartment Are you a primary care partner to a significant other at home: No Do you presently have visiting nurse or other home services: No Alcohol intake: current Alcohol intake frequency: does not drink Patient Tobacco Use Status: Never used Tobacco e-Cigarette/Vaping Use: Never Used Are you DNR?: No Advance Directives: No Advance Directives Information Provided: Yes Advance Directives Date on File: 03/19/24 service: No Current occupational status: retired Cognitive needs: No Hearing needs: No Vision needs: Yes Meds Allergies Allergy/AdvReac Type Severity Reaction Status Date / Time No Known Allergies Allergy Verified 05/24/25 08:26 Home Medications ?Medication ?Instructions ?Recorded ?Confirmed ?Last Taken ?Type quetiapine 25 mg tablet 25 mg PO BEDTIME 03/28/24 05/22/25 07/18/24 History lamotrigine 25 mg tablet 50 mg PO BID 03/06/25 05/22/25 Unknown History ketoconazole 2 % topical cream 1 appl topical 04/07/25 04/07/25 Unknown History Exam Height,Weight and Vital Signs: Height 5 ft 7 in Weight 64.864 kg Pertinent Lab Results Pertinent Lab Results: Laboratory Tests 03/20/25 13:17 WBC 6.4 RBC 3.86 L Hgb 12.2 L Hct 36.3 L Plt Count 211 Sodium 140 Potassium 4.2 BUN 23 H Creatinine 1.08 Narrative Narrative: ECHO 06/2024 Procedure Type: Transthoracic Echocardiogram Conclusions: - 1. This study is limited to evaluate for cardiac source of embolism 2. Mildly reduced LV ejection fraction 45-50% Findings Left Ventricle Normal left ventricular cavity size. There is normal left ventricular wall thickness. The left ventricular systolic function is mildly decreased. The visually estimated ejection fraction is between 45-50%. Diastolic function is indeterminate on the basis of available data. Prior Study Comparison Changes noted compared to prior study dated: 06/02/2024. 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 Fatigue Cognitive disorder Alzheimer's dementia Anemia Persistent atrial fibrillation B12 deficiency Scoliosis Crohn disease Bipolar 1 disorder Family History Family History Father Heart problem Other Alzheimer's dementia Surgical History Surgical History History of colon resection (04/2024) History of partial colectomy Hx of colonoscopy (03/2024) Social History Social History Household Members: Spouse Household Members Other:: [facility] housing Housing: Apartment Are you a primary care partner to a significant other at home: No Do you presently have visiting nurse or other home services: No Alcohol intake: current Alcohol intake frequency: does not drink Patient Tobacco Use Status: Never used Tobacco e-Cigarette/Vaping Use: Never Used Are you DNR?: No Advance Directives: No Advance Directives Information Provided: Yes Advance Directives Date on File: 03/19/24 service: No Current occupational status: retired Cognitive needs: No Hearing needs: No Vision needs: Yes Meds Allergies Allergy/AdvReac Type Severity Reaction Status Date / Time No Known Allergies Allergy Verified 05/24/25 08:26 Home Medications ?Medication ?Instructions ?Recorded ?Confirmed ?Last Taken ?Type quetiapine 25 mg tablet 25 mg PO BEDTIME 03/28/24 05/22/25 07/18/24 History lamotrigine 25 mg tablet 50 mg PO BID 03/06/25 05/22/25 Unknown History ketoconazole 2 % topical cream 1 appl topical 04/07/25 04/07/25 Unknown History Exam Airway Mallampati Class: III TM Dist: >3cm Neck ROM: Limited Loose/Missing/Broken Teeth: No Heart: RRR Lungs: CTA Assessment and Plan Assessment Anesthesia Assessment: Anesthesia Plan Discussed and Chart Reviewed Final Anesthetic Review NPO: Yes ASA Class: III Final Preanesthetic Review: Meds/Allgs Chart Reviewed, Consent Obtained/Reviewed and Anes Risks/Benef Reviewed Patient Risk: Intermediate Procedure Risk: Low Anesthetic Plan Anesthetic Plan: MAC: Disposition: Standard PACU
[2025-05-24 08:22] VITALS: BMI 23.2
[2025-05-24 08:57] VITALS: BP 129/67; PULSE 79; RESP 16; TEMP 36.9; O2SAT 97
[2025-05-24] MEDS: Lactated Ringers 1,000 ML 50 ML IVCONT (08:59)
--- NOTE | 2025-05-24 09:06 | P.HPSUR_ITS ---
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 Fatigue Cognitive disorder Alzheimer's dementia Anemia Persistent atrial fibrillation B12 deficiency Scoliosis Crohn disease Bipolar 1 disorder) History of Previous Operations: Relevant previous surgery/procedure and date(s) (History of colon resection (04/2024) History of partial colectomy Hx of c olonoscopy (03/2024)) Allergies: Allergies Allergy/AdvReac Type Severity Reaction Status Date / Time No Known Allergies Allergy Verified 05/24/25 08:26 Review of Systems Sugical H&P ROS: Negative: Constitution, Cardiovascular, Respiratory, Neurological, Psychiatric, Hem-Onc, Allergic/Immunologic, Gastrointestinal, Genitourinary, Musculoskeletal, Integumentary, Endocrine and Eyes/Ears/Nose/Throat Exam Surgical H&P Exam: Normal: HEENT, Normal: Heart, Normal: Lungs, Normal: Extremities, Normal: Abdomen, Normal: Skin and Normal: Neurological Plan Diagnosis/Plan: Unchanged I have reviewed the history and physical and performed a pertinent physical examination on my patient. No changes have occurred unless specified. Time Spent With Patient Time: Total time managing care of this patient today ____ minutes.
--- NOTE | 2025-05-24 10:25 | HO.OPN-COLON ---
Colonoscopy Operative Note Operative Note Date of Service: 05/24/25 Narrative: Operative Information Procedure Description: Colonoscopy Indication: hx of crohns and small bowel ca Anesthesia: MAC COLONOSCOPY Instrument: Olympus variable stiffness pediatric scope 190L Colonoscopy Monitoring: Vital signs and clinical assessment, continuous EKG monitoring, Pulse oximetry, Carbon Dioxide monitoring and blood pressure monitoring were done throughout the procedure. Colon withdrawal time was 12 minutes. Procedure: The patient was placed in the left lateral decubitis position and pre-procedure medications were administered. After a digital rectal examination of the ano-rectum, the video colonoscope was inserted into the rectum and advanced through the colon to the cecum/TI. The colonoscope was slowly withdrawn in a retrograde panoramic fashion and the colon mucosa was carefully examined including a retroflexed view of the rectum. Findings and interventions are described below. Procedure Difficulty: moderate Findings: celestine - terminal ileum- bx taken ileo- colonic anastomosis noted, with swelling and edema, erythema around it, bx taken Ascending Colon: normal Transverse Colon -normal Descending Colon:normal Sigmoid Colon: moderate diverticulosis Rectum: Retroflexion with small internal hemorrhoids seen, grade I Anorectum - normal Intervention: cold forceps bx Colon preparation: [place] Bowel Preparation Scale Right colon; 1-2 Transverse colon: 1 Left colon; 1-2 (0 = Unprepared colon segment with mucosa not seen due to solid stool that cannot be cleared. 1 = Portion of mucosa of the colon segment seen, but other areas of the colon segment not well seen due to staining, residual stool and/or opaque liquid. 2 = Minor amount of residual staining, small fragments of stool and/or opaque liquid, but mucosa of colon segment seen well. 3 = Entire mucosa of colon segment seen well with no residual staining, small fragments of stool or opaque liquid) Impression and Post Procedure Diagnosis: diverticulosis colitis internal hemorrhoids Plan: High fiber diet leaflet Avoid straining at stool, epsom salts and sitz bath, anusol supps or cream Repeat Colonoscopy in 6-12 months with 2 d clears next time or earlier if clinically indicated may need to consider entyvio again Above findings were reviewed with the patient and relevant handouts were provided if indicated.
[2025-05-24 10:30] VITALS: BP 91/47; PULSE 63; RESP 18; TEMP 36.4; O2SAT 100
[2025-05-24 10:35] VITALS: BP 97/49; PULSE 61; RESP 11; O2SAT 100
[2025-05-24 10:45] VITALS: BP 103/51; PULSE 69; RESP 14; TEMP 36.6; O2SAT 100
[2025-05-24 10:50] VITALS: BP 120/65; PULSE 60; RESP 12; O2SAT 100
[2025-05-31 13:33] LABS: Lactoferrin, Fecal, Quant. <6.25 mcg/mL (<7.25)
== END 2025-05-24 11:17 | disposition home or self-care (01) ==
PROVIDERS: PCP Internal Medicine; Visit Provider Internal Medicine Gastroenterology
PROC: 0DJD8ZZ Inspection of Lower Intestinal Tract, Via Natural or Artificial Opening Endoscopic (ICD-10-PCS; CPT 45378; principal; 2025-05-24 09:20)
DX: K50.10 Crohn's disease of large intestine without complications (principal); Z85.038 Personal history of other malignant neoplasm of large intestine; K64.0 First degree hemorrhoids; K52.9 Noninfective gastroenteritis and colitis, unspecified
CPT/HCPCS: 45380; 83631; 88305; J2003; J2704

== ENCOUNTER → 2025-05-24 08:04 | Outpatient (BNV) | payer MEDICARE, OTHER, SELFPAY | PROVIDERS: PCP Internal Medicine; Visit Provider Internal Medicine Gastroenterology | DX: K50.00 Crohn's disease of small intestine without complications (principal); K57.30 Diverticulosis of large intestine without perforation or abscess without bleeding; K64.0 First degree hemorrhoids | CPT/HCPCS: 45380 ==